=== PATIENT | male | born 1940 | race Caucasian/White ===

== ENCOUNTER 2016-05-11 05:34 | Inpatient (IN) | payer MEDICARE, OTHER ==
[~2016-05-11] VITALS: Ht 170.2 cm; Wt 113.1 kg
[~2016-05-11 05:34] MED LIST: /LINE60TA OR; /METO25TAB PO; /WARF25TA; /WARF3TA PO; /WARF5TA; /WARF5TA PO; ALLO15TA PO; ALLO300T; ALLO300T OR; AMBI5TAB PO; AMIO20TA PO; AMIT25TA10 PO; AMLO5TAB; AMLO5TAB OR; AMLO5TAB2 PO; ASPI81TA13 PO; ASPI81TA85 PO; ATOR1TAB18 PO; ATOR40TA PO; AUGM875T27 PO; BACL10TA2 PO; CAPT31TA PO; CARD240C5 PO; CARV12.5 PO; CHOLPOW39; CHOLPOW39 OR; CILO50TA PO; CORE25TA PO; COUM1TAB17 PO; COUM2.5T11 PO; COUM7.5T PO; CRES20TA; CYCL10TA PO; D 101TAB PO; DIGO0.126 PO; DIGO0.257; DIGO0.257 OR; DOXY150C PO; FISH100049 PO; FLEXERIL PO; FURO40TA2 PO; GABA300C3 PO; GABA600T3 OR; GLUC4CHW PO; GLUC4GMTAB PO; HYDR12.56 PO; INSUH10VL SC; INSULANT SC; INSULIN NPH; INSULIN REG SC; INSULIN REGULAR; INSUR SC; JANT7.5T; LASI40TA PO; LIDO1CRE2 EXT; LISI40TA; LISI40TAB PO; LISI5TAB PO; METO50TA2 PO; MULTLIQ7 PO; NICO21DI5 TD; NORC10TA2 PO; NORCOTAB PO; OMEP20CA3 PO; OXYC-517 PO; PANT40TA2 PO; POTA20TA PO; PRED10TA PO; PRED10TA2; PROV90AE INH; SENN8.6T7 PO; SOTA80TA2 PO; SPIR1CAP INH; SPIR25TA2 PO; TOPI25TA5 PO; TRAZ50TA OR; TRIC145T19; TRIC145T19 OR; VICO5TAB; VICO5TAB OR; VICODIN; VICODIN OR; VITATAB11 PO; WARF-23 PO; WARF2.5T38 PO; WARF5VL PO; ZITH500T PO; ZOLP-187 PO; ZOLP-189 PO; ZOLP5TAB PO; albuterol inhl INH
[2016-05-11 06:53] LABS: BASO % 0.3 % (0.0-1.0); EOS # 0.1 K/mm3 (0.0-0.50); EOS % 0.8 % (0.0-3.0); LARGE UNSTAINED CELL # 0.2 K/mm3 (0.0-0.4); LYMPH # 1.3 K/mm3 (1.5-4.5); LYMPH % 8.7 % (24.0-44.0); MEAN CORPUSCULAR HEMOGLOBIN 29.9 pg (27.0-33.0); MEAN CORPUSCULAR HGB CONC 32.7 g/dl (32.0-36.5); MEAN CORPUSCULAR VOLUME 91.6 fl (80.0-96.0); MONO # 0.6 K/mm3 (0.0-0.8); MONO % 3.9 % (0.0-5.0); NEUTROPHILS # 12.8 K/mm3 (1.8-7.7); NEUTROPHILS % 85.4 % (36.0-66.0); PLATELET COUNT, AUTOMATED 174 k/mm3 (150-450); RED CELL DISTRIBUTION WIDTH 13.1 % (11.5-14.5)
--- NOTE | 2016-05-11 07:00 | REPUSA ---
CLINICAL HISTORY: Unable to walk. TECHNIQUE: Multiple axial CT images were obtained through the brain without IV contrast material. COMMENTS: Left occipital chronic encephalomalacia. There is normal configuration of sella turcica. There are no intra or extra-axial collections. There is no mass effect or midline shift. There is no evidence of hematoma formation. No hydrocephalus is p resent. The ventricles are symmetrical. No abnormal calcifications are present. There is diffuse age-appropriate cerebellar and cerebral atrophy with proportionally dilated ventricl es and cortical sulci. There are bilateral periventricular and subcortical white matter hypolucencies compatible with mild c hronic microvascular disease. Otherwise, no significant focal abnormalities are seen either in the posterior fossa or supratentoria l compartment. IMPRESSION: 1. Age-appropriate cerebellar and cerebral atrophy. 2. Mild chronic microvascular disease. 3. No evidence of acute intracranial pathology. Thank you for your kind referral of this patient.
[2016-05-11 07:03] LABS: INR 1.55
[2016-05-11] MEDS ORDERED: NALOXONE INJ 0.4 MG/1 ML VIAL (J2310) IV STA ×2 (07:17→08:21)
[2016-05-11 07:18] LABS: ALBUMIN 3.6 GM/DL (3.2-5.2); ALBUMIN/GLOBULIN RATIO 1.03 (1.00-1.93); ALKALINE PHOSPHATASE 90 U/L (45-117); ALT/SGPT 32 U/L (12-78); ANION GAP 8 MEQ/L (8-16); AST/SGOT 47 U/L (15-37); BILIRUBIN,DIRECT < 0.1 MG/DL (0.0-0.2); BILIRUBIN,TOTAL 0.5 MG/DL (0.2-1.0); BLOOD UREA NITROGEN 43 MG/DL (7-18); CALCIUM LEVEL 8.6 MG/DL (8.8-10.2); CARBON DIOXIDE LEVEL 30 MEQ/L (21-32); CHLORIDE LEVEL 103 MEQ/L (98-107); CREATININE FOR GFR 1.56 MG/DL (0.70-1.30); GLOMERULAR FILTRATION RATE 46.4 (>42); GLUCOSE, FASTING 116 MG/DL (83-110); SODIUM LEVEL 141 MEQ/L (136-145); TOTAL PROTEIN 7.1 GM/DL (6.4-8.2)
[2016-05-11] MEDS ORDERED: NALOXONE INJ 2 MG/2 ML SYRINGE (J2310) As Ordered ONE ×2 (07:22→07:24)
[2016-05-11] MEDS ORDERED: NS 1,000 ML IV ONE (08:00)
--- NOTE | 2016-05-11 08:41 | REP ---
PORTABLE CHEST X-RAY: Single view. HISTORY: Altered mental status. Comparison study January 25, 2016. FINDINGS: EKG monitoring electrodes overlie the chest. A unipolar pacemaker is seen in the right heart via the left side. There is some motion artifact on the current exposure. No infiltrate is seen. Moderate to marked cardiomegaly is again noted. No evidence of pleural effusion or pulmonary edema is seen. IMPRESSION: CHF pattern with pacemaker. No pleural effusion or pulmonary edema is seen. No focal infiltrate. Signed by Olivier Franklin MD 05/11/2016 01:07 P
[2016-05-11 08:42] VITALS: BP 144/83
[2016-05-11] MEDS ORDERED: NORC10TA2 PO (08:44)
[2016-05-11] MEDS ORDERED: BACL10TA2 PO (08:44)
[2016-05-11] MEDS ORDERED: SANT250O8 TOP (08:44)
[2016-05-11] MEDS: METOPROLOL TART 50 MG TAB PO SCH ×2 (09:00→21:54)
[2016-05-11] MEDS: SOTALOL HCL 80 MG TAB PO SCH ×2 (09:00→21:55)
[2016-05-11] MEDS ORDERED: FUROSEMIDE 40 MG TAB PO SCH (09:00)
[2016-05-11 09:03] LABS: ABG HCO3 26.1 MEQ/L (22.0-26.0); ABG PARTIAL PRESSURE O2 69.5 mmHg (75.0-100.0); ABG STANDARD HCO3 25.3 MEQ/L (22.0-26.0); ABG TOTAL CO2 27.4 MEQ/L (23.0-31.0); ABG pH (ARTERIAL) 7.401 UNITS (7.350-7.450)
[2016-05-11] MEDS ORDERED: FUROSEMIDE 40 MG/4 ML VIAL (J1940) IV ONE (09:15)
[2016-05-11] MEDS ORDERED: ACETAMINOPHEN TAB 650MG DOSE (2X325MG) PO PRN (10:15)
[2016-05-11] MEDS ORDERED: ONDANSETRON 4MG/2ML VIAL (J2405) IV PRN (10:15)
[2016-05-11] MEDS ORDERED: DEXTROSE 50% 50 ML SYRINGE IV PRN (10:30)
[2016-05-11] MEDS ORDERED: GLUCOSE 4 GM CHEW TABLET PO PRN (10:30)
[2016-05-11] MEDS ORDERED: BACLOFEN 10 MG TAB PO PRN (10:30)
[2016-05-11] MEDS ORDERED: GLUCAGON FOR INJ 1 MG VIAL (J1610) SC PRN (10:30)
--- NOTE | 2016-05-11 10:53 | REP ---
Urinary tract sonogram: History: Acute kidney insufficiency. Comparison: July 04, 2015. Findings: Scanning at the level of the urinary bladder shows no abnormality. Renal cortical echogenicity pattern is normal bilaterally and contours are smooth. There is no evidence of hydronephrosis, cyst, mass, or calculus in either kidney. There is mild cortical thinning bilaterally. The right kidney measures 12.0 x 4.9 x 5.3 cm. Left renal dimensions are 11.8 x 5.7 x 5.0 cm. Impression: Mild cortical thinning bilaterally, otherwise normal urinary tract sonography. Signed by Olivier Franklin MD 05/11/2016 10:45 A
[2016-05-11 11:57] LABS: THYROXINE (T4) 4.3 UG/DL (4.5-12.0)
[2016-05-11] MEDS: HumaLOG INSULIN (NovoLOG) PER UNIT SC SCH ×3 (12:00→21:00)
[2016-05-11] MEDS: ASPIRIN 81 MG ENTERIC TAB PO SCH (13:25)
[2016-05-11] MEDS: AZITHROMYCIN INJ 500 MG, VIAL MATE ADAPTER 1 EACH in D5W 250 ML IV SCH (13:25)
[2016-05-11] MEDS: VITAMIN B COMPLEX/VIT C CAP PO SCH (13:27)
[2016-05-11] MEDS: PANTOPRAZOLE 40MG TAB (PROTONIX) PO SCH (13:27)
[2016-05-11] MEDS: VITAMIN D 1,000 INTERNATIONAL UNITS TABLET PO SCH (13:28)
[2016-05-11] MEDS: TIOTROPIUM INHALER/CAPSULE (SPIRIVA) INH SCH (13:29)
--- NOTE | 2016-05-11 13:47 | HPE ---
DATE OF ADMISSION: 05/11/2016 PRIMARY CARE PROVIDER: [facility]. CHIEF COMPLAINT: Generalized weakness, altered mental status and fall. HISTORY OF PRESENT ILLNESS: This is a 76-year-old male patient with underlying medical history of systolic congestive heart failure (CHF), ejection fraction 20-25% with automatic implantable cardioverter-defibrillator (AICD), atrial fibrillation on Coumadin for anticoagulation, insulin dependent diabetes, hypertension, chronic obstructive pulmonary disease (COPD), obstructive sleep apnea (BALJINDER), chronic lower back pain, bilateral lower extremity weakness, baseline ambulating sometimes with a walker, and obstructive sleep apnea (BALJINDER) on CPAP. The patient was brought to [facility] after found on the floor, patient pressing his Life Alert button. 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 Yesterday, the patient was on the porch and unable to get up, was on the floor. It took some time before he could get up and earlier last night the patient was found on the floor in the bedroom going towards the bathroom, when he pressed the Life Alert button, and subsequently EMS arrived. The patient was found to be lethargic in the emergency room. As per the patient he has been taking more and more pain medication recently due to lower back pain. In the emergency room, the patient was found to have acute worsening kidney function, to be lethargic with pinpoint pupils, given two doses of Narcan with improvement of mental status. ABG was done at the bedside. Further history not possible given the patient is a very poor historian and mildly lethargic. The patient denies any chest pain or shortness of breath. Denies any abdominal pain. Was found to be febrile in the ED with a T-max of 100.7. Healthcare proxy is the patient's daughter. ALLERGIES: No known drug allergies. PAST MEDICAL HISTORY: Atrial fibrillation. Insulin dependent type 2 diabetes. Hypertension. COPD. Obstructive sleep apnea (BALJINDER) on CPAP. Systolic congestive heart failure (CHF) with AICD, ejection fraction 20-25%. Skin cancer nasal labial fold. Diabetic foot. Gout. Diabetic neuropathy. PAST SURGICAL HISTORY: AICD placement September 2013. Appendectomy. Laminectomy and also other back surgery. Tonsillectomy. SOCIAL HISTORY: Lives at home with his ex- living next door. History of smoking three packs daily for 50 years. Denies any alcohol use. Denies any recreational drug use. He quit smoking a couple of years ago. REVIEW OF SYSTEMS: Was febrile in the ED. Reported generalized weakness, difficulty ambulating, frequent falls. Denies any vision change, hearing change. Denies any shortness of breath or coughing. Denies any chest pain, has atrial fibrillation. Denies any abdominal pain. Denies any diarrhea or constipation. Denies any urinary complaints. Reported poor oral intake. Has chronic back pain. Reported lower extremity weakness that his chronic. Diabetic neuropathy. Denies suicidality. Denies any abnormal bleeding or bruising, but is taking Coumadin. HOME MEDICATIONS: - [place] 10/325 by mouth as needed five times a day - allopurinol 150 mg by mouth daily - aspirin 81 mg by mouth daily - Lipitor 40 mg by mouth at bedtime - vitamin B complex one tablet by mouth daily - baclofen 10 mg by mouth three times a day as needed - vitamin D 4000 units by mouth daily - collagenase topical daily as needed - senna S two tablets by mouth twice a day - fish oil one capsule by mouth twice a day - Lasix 40 mg by mouth daily - gabapentin 300 mg by mouth three times a day and 600 mg by mouth at bedtime - insulin NovoLog AC - Lantus 87 units subcu at bedtime - lisinopril 40 mg by mouth daily - metoprolol 75 mg by mouth twice a day - sotalol 80 mg by mouth twice a day - Spiriva inhalation daily - topiramate 12.5 mg by mouth at bedtime - Coumadin 5 mg by mouth at bedtime PHYSICAL EXAMINATION: Patient mildly lethargic, arousable. Alert and oriented times three. VITAL SIGNS: Temperature 100.7, pulse 112, respirations 20, blood pressure 144/83, pulse oximetry 97% on 2 liters nasal cannula. GENERAL: Patient lethargic, alert and oriented times three. HEENT: Normocephalic. Pupils constricted bilaterally, but bilaterally reactive to light. Normocephalic, atraumatic. PULMONARY: Bilaterally clear to auscultation. CARDIAC: Irregular, tachycardia. ABDOMEN: Obese, soft, nontender. EXTREMITIES: No edema bilaterally lower extremities. NEUROLOGIC: Cranial nerves II through XII grossly intact. Able to move bilateral upper and lower extremities, with bilateral lower extremities only slightly weaker. Follows commands. EKG atrial fibrillation with ventricular rate of 116. Nonspecific ST segment changes. LABORATORIES: WBC 15, hemoglobin and hematocrit 15.4/47.5, platelets 174. Chemistries: Sodium 141, potassium 5, chloride 103, bicarb 30, BUN 43, creatinine 1.56. Cardiac enzymes Troponin negative times two. C-reactive protein 5.64. X-ray of the chest shows a CHF patter with AICD. No pleural effusions or pulmonary edema. No focal infiltrates. ASSESSMENT/PLAN: This is a 76-year-old male patient with a past medical history of systolic congestive heart failure, ejection fraction 20-25%, atrial fibrillation on anticoagulation, insulin dependent type 2 diabetes, hypertension, chronic obstructive pulmonary disease (COPD), obstructive sleep apnea (BALJINDER), on home CPAP, and gout, admitted for acute kidney injury, gout, sepsis and encephalopathy. PROBLEMS: 1. Metabolic encephalopathy, possibly secondary to opioid intoxication versus underlying infection. Patient given Narcan in the emergency room with improvement. ABG is appreciated. Avoid opiates for now. Medications have been adjusted. Gabapentin has been decreased. Monitor the patient's mental status. Treated underlying infection. CT scan of the head appreciated. 2. Sepsis. Patient with leukocytosis and fever. Possible etiology includes pneumonia versus UTI. Will followup urine studies. X-rays appreciated. C-reactive protein elevated. Will continue to follow. 3. Acute kidney injury. Baseline creatinine of 1.1, currently with elevated creatinine. Given fluids and Lasix in the emergency room, holding REGAN inhibitor. Lasix has been given in the ED. Will assess kidney function tomorrow and put the patient on baseline diuretics, Lasix, tomorrow based on the patient's kidney function. Ultra renal appreciated. Followup UA. Holding REGAN. Avoid nephrotoxic agents. Will consider nephrology consultation if the patient's condition does not improve. 4. Sepsis. Likely secondary to community acquired bacterial pneumonia. Rocephin and azithromycin. Followup blood cultures and sputum cultures, respiratory panel. UA and urine cultures. Will continue to follow. 5. Atrial fibrillation rapid ventricular response (RVR). EKG is appreciated. Telemetry monitoring. Followup cardiac enzymes. Continue Coumadin. Followup INR. Continue sotalol and metoprolol. Address as needed. Will not to tightly control the patient's heart rate, given the patient likely has an active infection. 6. History of ventricular tachycardic. Continue sotalol. The patient has seen Dr. Carrera before and will consider cardiology consultation if the patient's condition worsens. In the meantime, continue to follow. 7. Systolic congestive heart failure (CHF). Patient currently compensated. X-rays appreciated. Will continue to follow, oxygen saturation. Followup echo. Cardiac enzymes. Continue aspirin, statin and beta-ángel, sotalol, continue Lasix, holding REGAN inhibitor given worsening kidney function. 8. Hypertension. Monitor blood pressure holding REGAN inhibitor. Continue beta-blockers. Will continue to monitor and continue Lasix. 9. Gout. Holding allopurinol given worsening kidney function. Will restart as needed. 10. Dyslipidemia. Continue statin. 11. Insulin dependent diabetes. Basal bolus insulin. Followup fingerstick and adjust as needed. 12. Diabetic neuropathy. Continue gabapentin. Dosage has been adjusted given the patient is mildly lethargic. Holding opiates. 13. Obstructive sleep apnea (BALJINDER). Home CPAP. 14. Bilateral lower extremity weakness that is chronic. Physical therapy. I will continue to follow. Avoid pain medication for now. 15. Deep vein thrombosis (DVT) prophylaxis. Heparin subcu until INR is therapeutic. Continue Coumadin. DISPOSITION: Pending speech and swallowing, physical therapy, clinical improvement.
[2016-05-11 14:30] VITALS: BP 104/52; O2SAT 97
[2016-05-11] MEDS: HEPARIN SOD (PORCINE) 5000 UNITS/ML VIAL SC SCH ×2 (14:57→21:55)
[2016-05-11] MEDS: cefTRIAXone SOD 1 GM in D5W MINI-BAG PLUS 50 ML IV SCH (14:57)
[2016-05-11] MEDS: GABAPENTIN 300 MG CAP PO SCH ×2 (15:22→21:55)
[2016-05-11 17:13] VITALS: BP 107/60
[2016-05-11] MEDS: WARFARIN SOD 5 MG TAB PO SCH (17:43)
[2016-05-11] MEDS: SANTYL OINT 30GM TOP SCH (18:28)
[2016-05-11 20:00] VITALS: O2SAT 94
[2016-05-11 20:03] VITALS: BP 132/64
[2016-05-11] MEDS ORDERED: LEVEMIR (INSULIN DETEMIR) 1 UNITS/0.01ML SC SCH (21:00)
[2016-05-11] MEDS: TOPIRAMATE (TopAMAX) 25 MG TAB PO SCH (21:53)
[2016-05-11] MEDS: SENOKOT S TAB PO SCH (21:55)
[2016-05-11] MEDS: ATORVASTATIN 20 MG TAB PO SCH (21:55)
[2016-05-11] MEDS ORDERED: SLF 3 ML SYR IV PRN (23:15)
[2016-05-11 23:55] VITALS: BP 133/60
[2016-05-12] VITALS (8 sets, daily range): BP systolic 109–150; BP diastolic 54–78; O2SAT 96
[2016-05-12] MEDS: SLF 3 ML SYR IV SCH ×3 (05:03→22:03)
[2016-05-12] MEDS: HEPARIN SOD (PORCINE) 5000 UNITS/ML VIAL SC SCH ×3 (05:03→22:03)
[2016-05-12 07:06] LABS: ANION GAP 6 MEQ/L (8-16); BLOOD UREA NITROGEN 32 MG/DL (7-18); CALCIUM LEVEL 8.8 MG/DL (8.8-10.2); CARBON DIOXIDE LEVEL 32 MEQ/L (21-32); CHLORIDE LEVEL 106 MEQ/L (98-107); CREATININE FOR GFR 1.15 MG/DL (0.70-1.30); GLOMERULAR FILTRATION RATE > 60.0 (>42); GLUCOSE, FASTING 52 MG/DL (83-110); MAGNESIUM LEVEL 2.3 MG/DL (1.8-2.4); MEAN CORPUSCULAR HEMOGLOBIN 29.4 pg (27.0-33.0); MEAN CORPUSCULAR VOLUME 91.9 fl (80.0-96.0); POTASSIUM SERUM 4.4 MEQ/L (3.5-5.1); RED CELL DISTRIBUTION WIDTH 13.2 % (11.5-14.5); SODIUM LEVEL 144 MEQ/L (136-145); WHITE BLOOD COUNT 11.5 K/mm3 (4.0-10.0)
[2016-05-12 07:08] LABS: INR 1.42
[2016-05-12] MEDS: TIOTROPIUM INHALER/CAPSULE (SPIRIVA) INH SCH (07:28)
[2016-05-12] MEDS: HumaLOG INSULIN (NovoLOG) PER UNIT SC SCH ×4 (07:30→20:41)
--- NOTE | 2016-05-12 08:12 | ECGEPIP ---
Stationary ECG Study [facility] - ED Test Date: 2016-05-11 Pat Name: ZACH HARRISON Department: Room: - Gender: M Manager User Interface: [place]: [id number] Requested By: MAC Jean Order Number: [id number] Reading MD: Adama Johns Measurements Intervals [place] Rate: 116 P: VT: 0 QRS: 26 QRSD: 92 T: 6 QT: 334 QTc: 465 Interpretive Statements ATRIAL FIBRILLATION WITH RAPID VENTRICULAR RESPONSE LOW QRS VOLTAGE IN EXTREMITY LEADS POSSIBLE LATERAL MYOCARDIAL INFARCTION, PROBABLY OLD ABNORMAL RHYTHM ECG Electronically Signed On 05-12-2016 8:12:00 EDT by Adama Johns
[2016-05-12] MEDS: GABAPENTIN 300 MG CAP PO SCH ×3 (08:20→22:02)
[2016-05-12] MEDS: METOPROLOL TART 50 MG TAB PO SCH ×2 (08:20→22:02)
[2016-05-12] MEDS: PANTOPRAZOLE 40MG TAB (PROTONIX) PO SCH (08:20)
[2016-05-12] MEDS: VITAMIN B COMPLEX/VIT C CAP PO SCH (08:20)
[2016-05-12] MEDS: SENOKOT S TAB PO SCH ×2 (08:20→22:02)
[2016-05-12] MEDS: ASPIRIN 81 MG ENTERIC TAB PO SCH (08:20)
[2016-05-12] MEDS: VITAMIN D 1,000 INTERNATIONAL UNITS TABLET PO SCH (08:20)
[2016-05-12] MEDS: SOTALOL HCL 80 MG TAB PO SCH ×2 (08:21→22:01)
[2016-05-12] MEDS: SANTYL OINT 30GM TOP SCH (08:21)
[2016-05-12] MEDS: LISINOPRIL 10 MG TAB PO SCH (09:46)
[2016-05-12] MEDS: AZITHROMYCIN INJ 500 MG, VIAL MATE ADAPTER 1 EACH in D5W 250 ML IV SCH (11:13)
[2016-05-12] MEDS: cefTRIAXone SOD 1 GM in D5W MINI-BAG PLUS 50 ML IV SCH (12:59)
[2016-05-12] MEDS ORDERED: NORCO, ANEXSIA 5/325MG TABLET (HYDROcodone/ACETAMINOPHEN) PO PRN (13:30)
--- NOTE | 2016-05-12 14:55 | REP ---
CT CHEST WITHOUT CONTRAST: 05/12/2016 COMPARISON: 10/17/2013, portable chest 05/11/2016. CLINICAL HISTORY: Dyspnea, possible pneumonia. TECHNIQUE: Noncontrast chest CT with coronal and sagittal reformats reviewed. FINDINGS: There is some basilar fibrotic or atelectatic change right lower lobe with the right middle lobe reinflated compared to the previous study. A few scattered tiny nodular densities in the parenchyma and some curvilinear fibrotic changes. There are a few scattered bullae. Some mild cylindrical bronchiectatic changes are noted. No pleural effusion, pleural-based mass, or calcified pleural plaque. No nodules, parenchymal mass, or definite acute infiltrate. No pneumothorax. Heart size not grossly enlarged. There is no pericardial thickening or effusion, but the left atrium is mildly enlarged. The aorta has calcifications throughout, but without gross aneurysm. There is a single-lead pacemaker with lead tip into the right ventricle. The bone windows show visualized ribs intact. The spine shows degenerative disc changes throughout with marginal osteophytes, greatest in the mid thoracic region. There is minor wedging at the T11 and T12 vertebral bodies, stable. No paraspinal hematoma. In the upper abdomen, that visualized portion of the liver and spleen are grossly intact. The portion of gallbladder and pancreas included are unremarkable. There is aneurysmal dilatation of the abdominal aorta infrarenal up to 4.1 cm on the last image seen incompletely. No hiatal hernia. No adrenal lesion. Visualized portions of colon and small bowel are unremarkable. IMPRESSION: 1. Infrarenal abdominal aortic aneurysm beginning just above the lower most image on this study and up to 4.1 cm, seen incompletely. 2. Liver, spleen, and gallbladder without acute finding. 3. No hiatal hernia. The adrenal glands are intact. 4. Some cylindrical bronchiectatic changes and some patchy atelectatic changes deep sulcus and right lower lobe without effusion, infiltrate with air bronchograms, parenchymal mass, or other acute finding. Signed by Edgardo Gentile MD 05/12/2016 06:42 P
[2016-05-12] MEDS: WARFARIN SOD 5 MG TAB PO SCH (16:58)
--- NOTE | 2016-05-12 17:42 | ECHO ---
DATE OF PROCEDURE: 05/11/2016 AGE: 76 GENDER: Male HEIGHT: 67 inches WEIGHT: 200 pounds BODY SURFACE AREA: 2.03 m2 PATIENT LOCATION: Inpatient, PCU, room 2237 REFERRING PHYSICIAN: Tabby Marie MD INDICATION: Dyspnea. 2-D MEASUREMENTS: RV: 4.2 cm LV: 6.0 cm Septum: 1.4 cm Posterior wall: 1.2 cm Aortic root: 3.6 cm LA: 4.5 cm LVEF: 45% DOPPLER MEASUREMENTS: AV: 1.1 m/s LVOT: 0.9 m/s LVOT diameter: 2.4 cm MV-E: 81 Early mitral deceleration time: 197 ms E prime 6.8, E/E prime ratio: 11.9 PV: 0.7 m/s Pulmonary artery acceleration time: 106 ms RVSP: 45 mmHg. IVC: 2.6 cm COMMENTS: Underlying atrial fibrillation with controlled ventricular response. Narrow QRS complexes alternating with ventricular paced complexes having of left bundle branch block QRS configuration. Moderately dilated left atrium and at least mildly dilated left ventricle. Mildly dilated right ventricle and mild to moderately dilated right atrium. Moderate left ventricular hypertrophy with some thinning of the inferoseptal wall associated with a localized wall motion abnormality in keeping with prior injury/infarction. On real-time imaging from the parasternal and apical projections, other wall motion appeared to be fairly normal. Mild mitral annular thickening, but normal leaflet thickness and excursion with no posterior systolic buckling. Three equal size aortic cusps with mildly thickened cusp edges, but adequate cusp separation. Normal aortic root size. Pacing lead to be visualized traversing right heart structures. No pericardial effusion. Color flow Doppler study taken from the parasternal and apical projection showed trace aortic, moderate mitral and at least mild tricuspid insufficiency. Guided continuous wave Doppler of his aortic valve showed a normal peak systolic velocity against LV outflow tract obstruction. Pulsed and continuous wave Doppler of his LV inflow tract taken from the apical four-chamber projection showed normal diastolic filling velocities against mitral stenosis. There was only early diastolic / passive filling as we would expect with atrial fibrillation. There may have been a degree of impaired LV diastolic relaxation in light of a prolonged early early mitral deacceleration time. Using pulsed and tissue Doppler of his mitral annulus his current estimated mean left atrial pressure was upper limits of slightly elevated at approximately 12-14 mmHg. Pulsed and continuous wave Doppler of his pulmonary trunk showed a normal peak systolic velocity against RV outflow tract obstruction. His pulmonary artery acceleration time was abbreviated suggestive of at least a mildly elevated pulmonary vascular resistance. Guided continuous wave Doppler of his tricuspid valve allowed our estimation of his right ventricular systolic pressure (at least moderately increased). His inferior vena cava was mild to moderately dilated with markedly reduced respiratory collapse in keeping with an elevated central venous pressure. CONCLUSIONS: Mildly dilated and moderately hypertrophied left ventricle with inferoseptal/inferior hypo to akinesis in keeping with prior infarction. At least mild impairment of global resting systolic function. Mild - moderately dilated left atrium with Doppler sign to suggest an impairment of LV diastolic function and current estimated mean left atrial pressure only slightly increased. Mildly dilated right ventricle with Doppler evidence of at least moderate pulmonary hypertension. Mildly dilated right atrium and mild to moderately dilated inferior vena cava with reduced respiratory collapse suggestive of an elevated central venous pressure / right heart failure. Mild aortic valvular sclerosis without stenosis and only trace insufficiency. Mild mitral annular calcification with moderate mitral insufficiency. MTDD
--- NOTE | 2016-05-12 19:34 | IPN ---
DATE: 05/12/2016 SUBJECTIVE: Patient seen and examined. No acute events overnight. Patient was more awake this morning and subsequently a better history was able to be taken. Patient reported some wheeze and coughing over the past 2-3 days, otherwise no significant complaints. No fevers or chills. Denies any chest pain, pressure or discomfort. VITAL SIGNS: Temperature 98.2, pulse 76, respirations 18, blood pressure 110/68, pulse oximetry 97% on 2 liters. LABORATORY: WBC 11.5, hemoglobin and hematocrit 14.1/44, platelets 147. Chemistry: Sodium 144, potassium 4.4, chloride 106, bicarbonate 32, BUN 32, creatinine 1.15, C-reactive protein 13.1, lactic acid negative. PHYSICAL EXAMINATION: GENERAL: The patient alert and oriented times three in no acute distress, comfortable. HEENT: Normocephalic, atraumatic. Pupils are equal, round and reactive. PULMONARY: Diminished breath sound bilateral. CARDIAC: Irregular, non-tachycardia, S1, S2. ABDOMEN: Obese, soft, nontender. EXTREMITIES: No edema bilateral lower extremities. NEUROLOGICAL: Cranial nerves II-XII are grossly intact. No focal deficits. ASSESSMENT AND PLAN: This is a 76-year-old male patient with underlying medical history of systolic congestive heart failure, ejection fraction initially previously was 20-25, currently is 45, atrial fibrillation on anticoagulation, insulin dependent type 2 diabetes, hypertension, chronic obstructive pulmonary disease (COPD), obstructive sleep apnea on continuous positive airway pressure (C-PAP) at home, gout admitted for acute kidney injury (TRENT), sepsis of unknown etiology, encephalopathy. PROBLEMS: 1. Metabolic encephalopathy presently likely secondary to opioid intoxication in the setting of worsening kidney function versus underlying infection. Patient currently returned to baseline. Was given Narcan in the emergency room. ABGs appreciated. Gabapentin has been decreased. CT scan of the head appreciated. Can not perform MRI given patient has an AICD. 2. Sepsis of unknown etiology. Patient with leukocytosis and fevers. CT scan and chest x-ray shows no significant pulmonary disease even though the patient does report shortness of breath and cough. Urinalysis (UA) has been negative. Will followup C-reactive proteins. Patient currently on Rocephin and Zithromax for treatment of possible infection and patient's leukocytosis seems to be improving. Will continue to follow given patient's mental status improved. Will continue to follow and will consider Infectious Disease consultation if patient does not improve. 3. Acute kidney injury. Patient's baseline creatinine 1.1, currently elevated. Was given fluid and Lasix in the emergency room. Currently BUN and creatinine improved. REGAN inhibitor has been restarted. Initially lisinopril has been on hold. Monitor BUN and creatinine. Monitor urine output. 4. Atrial fibrillation with rapid ventricular response. Telemetry, cardiac enzyme appreciated. Continue Coumadin. Continue sotalol metoprolol. 5. History of ventricular tachycardia. Continue sotalol. Patient has an AICD. Telemetry monitoring. 6. Systolic and diastolic congestive heart failure. Echo is appreciated. Current ejection fraction of 45%. Continue aspirin and beta blockers, sotalol, REGAN inhibitors and Lasix. 7. Hypertension. Continue REGAN inhibitors, Lasix, and beta blockers. Continue to monitor blood pressure. 8. Gout. Was holding allopurinol in the setting of TRENT. Will consider restarting as needed. 9. Dyslipidemia. Continue statin. 10. Insulin dependent diabetes. Basal bolus insulin. Followup fingersticks. 11. Diabetic neuropathy. Continue gabapentin with restarting opioids at a reduced dose. Mental status at baseline. 12. Obstructive sleep apnea. Continue C-PAP. 13. Bilateral lower extremity weakness that is chronic and chronic back pain. Physical therapy and pain medication was ordered. 14. Deep venous thrombosis (DVT) prophylaxis. Heparin subcu. Continue Coumadin until INR is therapeutic. DISPOSITION: Pending physical therapy clinical improvement. Further workup of underlying infection.
[2016-05-12] MEDS ORDERED: LEVEMIR (INSULIN DETEMIR) 1 UNITS/0.01ML SC SCH (21:00)
[2016-05-12] MEDS: TOPIRAMATE (TopAMAX) 25 MG TAB PO SCH (22:01)
[2016-05-12] MEDS: ATORVASTATIN 20 MG TAB PO SCH (22:02)
[2016-05-13 04:00] VITALS: BP 138/67
[2016-05-13] MEDS: HEPARIN SOD (PORCINE) 5000 UNITS/ML VIAL SC SCH ×3 (05:22→20:38)
[2016-05-13] MEDS: SLF 3 ML SYR IV SCH ×3 (05:22→20:38)
[2016-05-13 06:16] LABS: MEAN CORPUSCULAR HGB CONC 32.3 g/dl (32.0-36.5); MEAN CORPUSCULAR VOLUME 89.8 fl (80.0-96.0); RED CELL DISTRIBUTION WIDTH 13.2 % (11.5-14.5); WHITE BLOOD COUNT 8.3 K/mm3 (4.0-10.0)
[2016-05-13 06:20] LABS: INR 1.32
[2016-05-13 06:28] LABS: ANION GAP 7 MEQ/L (8-16); BLOOD UREA NITROGEN 26 MG/DL (7-18); CALCIUM LEVEL 8.8 MG/DL (8.8-10.2); CARBON DIOXIDE LEVEL 28 MEQ/L (21-32); CHLORIDE LEVEL 107 MEQ/L (98-107); CREATININE FOR GFR 1.06 MG/DL (0.70-1.30); GLOMERULAR FILTRATION RATE > 60.0 (>42); GLUCOSE, FASTING 152 MG/DL (83-110); MAGNESIUM LEVEL 2.3 MG/DL (1.8-2.4); POTASSIUM SERUM 4.4 MEQ/L (3.5-5.1); SODIUM LEVEL 142 MEQ/L (136-145)
[2016-05-13] MEDS: TIOTROPIUM INHALER/CAPSULE (SPIRIVA) INH SCH (07:22)
[2016-05-13 08:00] VITALS: BP 157/90
[2016-05-13] MEDS: HumaLOG INSULIN (NovoLOG) PER UNIT SC SCH ×4 (08:08→20:26)
[2016-05-13] MEDS ORDERED: ALLOPURINOL 300 MG TAB PO SCH (09:00)
[2016-05-13] MEDS ORDERED: TEMAZEPAM 15 MG CAP PO PRN (09:00)
--- NOTE | 2016-05-13 11:09 | IPN ---
DATE: OF VISIT: 05/13/2016 The patient is seen and examined. Reported back to baseline and having poor night of sleep. Slept about four hours. Denies any fevers, chills, chest pain, pressure or discomfort. Reported coughing has improved. Has been working with physical therapy. VITAL SIGNS: Temperature 97.5, pulse 86, respirations 18, blood pressure 157/90, pulse oximetry 95% on room air. LABORATORY DATA: WBC 8.3, hemoglobin 14.2, hematocrit 45.1, platelets 157. Chemistries: Sodium 142, potassium 4.2, chloride 107, bicarbonate 28, BUN 26, creatinine 1.06. PHYSICAL EXAMINATION: GENERAL: Patient is awake, alert and oriented times three in no acute distress. Comfortable. HEENT: Normocephalic atraumatic. Pupils equal, round, reactive to light and accommodation. PULMONARY: Diminished breath sounds bilateral base. CARDIAC: Irregular, non-tachycardia, S1, S2. ABDOMEN: Obese, soft, nontender, positive bowel sounds. EXTREMITIES: No edema bilateral lower extremities. NEUROLOGICAL: No focal deficits. ASSESSMENT AND PLAN: 1. On repeat echocardiograms, atrial fibrillation on anticoagulation. 2. Insulin dependent type 2 diabetes. 3. Hypertension. 4. Chronic pulmonary obstructive disease (COPD). 5. Obstructive sleep apnea on CPAP at home. 6. Gout, admitted for acute kidney injury (TRENT). 7. Sepsis of unknown origin. 8. Encephalopathy. PROBLEMS: 1. Metabolic encephalopathy likely secondary to opioid intoxication in the setting of worsening kidney function versus underlying infection. Patient currently returned to baseline. Was given Narcan in the emergency department with good response. ABGs appreciated. Gabapentin has been decreased. CT scan of the head appreciated. Can not perform MRI due to automatic implantable cardio converter-defibrillator (AICD). 2. Sepsis of unknown etiology. Patient initially with leukocytosis and fevers. CT scan and chest x-ray shows no significant pulmonary disease. Urinalysis (UA) has been negative. The patient did report a cough and no shortness of breath which has resolved. Will followup C-reactive proteins. Patient empirically on Rocephin and Azithromycin with improvement of symptoms. Mental status returned to baseline. 3. Acute kidney injury. Patient's baseline creatinine 1.1 currently returned to baseline. REGAN inhibitor has been restarted. Follow BUN and creatinine. 4. Atrial fibrillation with rapid ventricular response. Subtherapeutic INR. Telemetry monitoring, cardiac enzyme appreciated. Continue Coumadin, sotalol metformin, Coumadin adjusted based on INR. 5. History of ventricular tachycardia. Continue sotalol. The patient has an AICD, telemetry monitoring. 6. Systolic and diastolic congestive heart failure, compensated. Echocardiogram appreciated. Currently ejection fraction 45%. Aspirin, beta ángel, REGAN inhibitors, sotalol and Lasix. 7. Hypertension. Continue with REGAN inhibitors, Lasix and beta blockers. Monitor blood pressure. 8. Gout. Allopurinol has been restarted. Will continue to monitor. 9. Dyslipidemia. Continue statin. 10. Insulin-dependent type 2 diabetes. Basal bolus insulin has been adjusted due to borderline blood glucose. Followup fingersticks. 11. Diabetic neuropathy. Gabapentin dose has been reduced. Mental status at baseline. 12. Chronic pain. The patient has been on [place], reduced dose. Will monitor closely. 13. Obstructive sleep apnea. Continue C-PAP. 14. Bilateral lower extremity weakness that is chronic and chronic back pain. Frequent falls. Physical therapy appreciated. The patient has physical therapy. Pain medication was ordered. 15. Deep venous thrombosis (DVT) prophylaxis. Heparin subcutaneous. Continue Coumadin until INR is therapeutic. DISPOSITION: The patient has physical therapy. Pending clinical improvement likely discharged in 24 hours.
[2016-05-13 12:00] VITALS: BP 161/94
[2016-05-13] MEDS: VITAMIN D 1,000 INTERNATIONAL UNITS TABLET PO SCH (12:14)
[2016-05-13] MEDS: METOPROLOL TART 50 MG TAB PO SCH ×2 (12:18→20:37)
[2016-05-13] MEDS: GABAPENTIN 300 MG CAP PO SCH ×3 (12:19→20:37)
[2016-05-13] MEDS: SENOKOT S TAB PO SCH ×2 (12:19→20:36)
[2016-05-13] MEDS: ASPIRIN 81 MG ENTERIC TAB PO SCH (12:19)
[2016-05-13] MEDS: LISINOPRIL 10 MG TAB PO SCH (12:19)
[2016-05-13] MEDS: SANTYL OINT 30GM TOP SCH (12:20)
[2016-05-13] MEDS: PANTOPRAZOLE 40MG TAB (PROTONIX) PO SCH (12:20)
[2016-05-13] MEDS: VITAMIN B COMPLEX/VIT C CAP PO SCH (12:28)
[2016-05-13] MEDS: SOTALOL HCL 80 MG TAB PO SCH ×2 (12:28→20:35)
[2016-05-13] MEDS: AZITHROMYCIN INJ 500 MG, VIAL MATE ADAPTER 1 EACH in D5W 250 ML IV SCH (12:29)
[2016-05-13] MEDS: cefTRIAXone SOD 1 GM in D5W MINI-BAG PLUS 50 ML IV SCH (15:10)
[2016-05-13] MEDS ORDERED: WARFARIN SOD 3 MG TAB PO SCH (17:00)
[2016-05-13 17:30] VITALS: BP 148/52
[2016-05-13 20:00] VITALS: BP 130/60
[2016-05-13] MEDS: ATORVASTATIN 20 MG TAB PO SCH (20:36)
[2016-05-13] MEDS: TOPIRAMATE (TopAMAX) 25 MG TAB PO SCH (20:36)
[2016-05-13] MEDS ORDERED: LEVEMIR (INSULIN DETEMIR) 1 UNITS/0.01ML SC SCH (21:00)
[2016-05-13 23:53] VITALS: BP 153/80
[2016-05-14 04:00] VITALS: BP 122/79
[2016-05-14] MEDS: SLF 3 ML SYR IV SCH (05:13)
[2016-05-14] MEDS: HEPARIN SOD (PORCINE) 5000 UNITS/ML VIAL SC SCH (05:13)
[2016-05-14 05:18] LABS: MEAN CORPUSCULAR HGB CONC 32.8 g/dl (32.0-36.5); MEAN CORPUSCULAR VOLUME 91.4 fl (80.0-96.0); RED CELL DISTRIBUTION WIDTH 13.2 % (11.5-14.5); WHITE BLOOD COUNT 7.4 K/mm3 (4.0-10.0)
[2016-05-14 05:26] LABS: INR 1.24
[2016-05-14 05:39] LABS: ANION GAP 8 MEQ/L (8-16); BLOOD UREA NITROGEN 23 MG/DL (7-18); CALCIUM LEVEL 9.2 MG/DL (8.8-10.2); CARBON DIOXIDE LEVEL 28 MEQ/L (21-32); CHLORIDE LEVEL 110 MEQ/L (98-107); CREATININE FOR GFR 1.13 MG/DL (0.70-1.30); GLOMERULAR FILTRATION RATE > 60.0 (>42); GLUCOSE, FASTING 156 MG/DL (83-110); MAGNESIUM LEVEL 2.2 MG/DL (1.8-2.4); SODIUM LEVEL 146 MEQ/L (136-145)
[2016-05-14 05:42] LABS: POTASSIUM SERUM 5.2 MEQ/L (3.5-5.1)
[2016-05-14 07:00] VITALS: O2SAT 96
[2016-05-14] MEDS: TIOTROPIUM INHALER/CAPSULE (SPIRIVA) INH SCH (07:23)
[2016-05-14 08:00] VITALS: BP 159/89
[2016-05-14] MEDS: HumaLOG INSULIN (NovoLOG) PER UNIT SC SCH (08:00)
[2016-05-14] MEDS: VITAMIN D 1,000 INTERNATIONAL UNITS TABLET PO SCH (08:00)
[2016-05-14] MEDS: GABAPENTIN 300 MG CAP PO SCH (08:01)
[2016-05-14] MEDS: SANTYL OINT 30GM TOP SCH (08:01)
[2016-05-14] MEDS: VITAMIN B COMPLEX/VIT C CAP PO SCH (08:01)
[2016-05-14] MEDS: SENOKOT S TAB PO SCH (08:01)
[2016-05-14] MEDS: ASPIRIN 81 MG ENTERIC TAB PO SCH (08:01)
[2016-05-14] MEDS: PANTOPRAZOLE 40MG TAB (PROTONIX) PO SCH (08:01)
[2016-05-14 08:03] VITALS: BP 159/59
[2016-05-14] MEDS: METOPROLOL TART 50 MG TAB PO SCH (08:03)
[2016-05-14] MEDS: SOTALOL HCL 80 MG TAB PO SCH (08:03)
[2016-05-14] MEDS ORDERED: AZITHROMYCIN 250 MG TAB PO SCH (09:00)
[2016-05-14] MEDS ORDERED: LISINOPRIL 5 MG TAB PO SCH (09:00)
[2016-05-14] MEDS ORDERED: WARF-23 PO (09:15)
[2016-05-14] MEDS ORDERED: NORCOTAB PO (09:15)
[2016-05-14] MEDS ORDERED: INSULANT SC (09:15)
[2016-05-14] MEDS ORDERED: LISI-542 PO (09:15)
[2016-05-14] MEDS ORDERED: CEFD1CAP8 PO (09:15)
[2016-05-14] MEDS ORDERED: LASI20TA PO (09:16)
[2016-05-14] MEDS ORDERED: WARFARIN SOD 5 MG TAB PO SCH (17:00)
[2016-05-14] MEDS ORDERED: WARFARIN SOD 3 MG TAB PO SCH (17:00)
[2016-05-14] MEDS ORDERED: WARFARIN SOD 2 MG TAB PO SCH (17:00)
--- NOTE | 2016-05-15 21:25 | DSES ---
DATE OF ADMISSION: 05/11/2016 DATE OF DISCHARGE: 05/14/2016 PRIMARY CARE PROVIDER: [facility] ([place]. FINAL DIAGNOSES: 1. Metabolic encephalopathy. 2. Sepsis of unknown etiology. 3. Acute kidney injury (TRENT). 4. Atrial fibrillation with rapid ventricular response. Subtherapeutic international normalized ratio (INR). 5. History of ventricular tachycardia. 6. Systolic and diastolic congestive heart failure history. 7. Hypertension. 8. Gout. 9. Dyslipidemia. 10. Insulin-dependent type 2 diabetes. 11. Diabetic neuropathy. 12. Chronic pain. 13. Obstructive sleep apnea. 14. Bilateral lower extremity weakness. HISTORY OF PRESENT ILLNESS: This is a 76-year-old male patient with underlying medical history of congestive heart failure with ejection fraction 20-25%, with automatic implantable cardioverter defibrillator (AICD), atrial fibrillation on Coumadin for anticoagulation, insulin dependent diabetes, hypertension, chronic obstructive pulmonary disease (COPD), obstructive sleep apnea on continuous positive airway pressure (CPAP) at home, chronic low back pain, bilateral lower extremity weakness, baseline ambulating sometime with walker, brought to [facility], found to be on the floor, pressed the Life Alert button. As per patient's ex and django developer, the patient was getting progressively weaker, was difficult to ambulate at home. Likely has been taking more pain medication. Yesterday patient was found unfortunately unable to get up, was on the floor and it took some time before the patient was able to get up. The night before admission, the patient was found on the floor between the bedroom and the bathroom and pressed the Life Alert button. Emergency medical services (EMS) arrived. The patient was found to be lethargic in the emergency room with pinpoint pupils. Given Narcan with improvement. The patient also was found to have acutely worsening kidney function, increased lethargy, pinpoint pupils. Arterial blood gas (ABG) was done at the bedside. Further history is limited given patient's lethargy. The patient was also found to be febrile. HOSPITAL COURSE: The patient was admitted to the hospitalist service. Narcan was given in the emergency department (ED). Monitored. Intravenous (IV) fluid initially had been given but later has been stopped. Started on antibiotics. Cultures were sent. CT scan of the chest, renal ultrasound were done. Kidney function was monitored. Head CT was done. Chest x-ray was done. No source of infection was found. Culture has been negative. C-reactive protein shows improvement. Physical therapy has been done. Patient's mental status progressively improved, returned to baseline. Pain medication has been cut, as well as gabapentin. The patient's diuretic was initially held, later started. Echocardiogram (echo) shows improvement of ejection fraction up to 45%. Insulin has been adjusted for hypoglycemia. The patient currently tolerating oral. Back to baseline. Able to ambulate with no acute distress. Ready for discharge for further care as outpatient. VITAL SIGNS: Temperature 98, pulse 79, respirations 18, blood pressure 159/89, pulse 96% on room air. LABORATORY DATA: WBC 7.4, hemoglobin and hematocrit 14 over 42.6, platelets 150. Chemistry: Sodium 146, potassium 5.2, chloride 110, bicarbonate 28, BUN 23, creatinine 1.13. C-reactive protein 1.58. DISCHARGE MEDICATIONS: - [place] dose has been reduced to 5/325 mg one tablet by mouth every six hours as needed - cefdinir 300 mg by mouth twice a day for five more days - Lasix reduced to 20 mg by mouth daily - lisinopril reduced to 5 mg by mouth daily; dosage has been held today for hyperkalemia and worsening kidney function - aspirin 81 mg by mouth daily - Lipitor 40 mg by mouth daily - vitamin B complex one tablet by mouth daily - Baclofen 10 mg by mouth three times a day as needed - vitamin D 4000 units by mouth daily - collagenase as needed daily topical - Senna-S two tablets by mouth twice a day - fish oil one capsule by mouth twice a day - gabapentin reduced to 300 mg by mouth three times a day - insulin pre-meal - metoprolol 75 mg by mouth twice a day - sotalol 80 mg by mouth twice a day - Spiriva one inhalation daily - topiramate 12.5 mg by mouth at bedtime - Coumadin dosage was instructed to the patient to take 7.5 mg by mouth daily for two days, then back to 5 mg by mouth daily - Lantus reduced to 60 units subcutaneous at bedtime DISCHARGE INSTRUCTIONS: The patient is instructed to followup with primary care provider to check basic metabolic panel for assessment of electrolytes and kidney function in 3-5 days. Followup with primary care provider in 3-5 days. Return to the hospital if symptoms worsen.
== END 2016-05-14 12:05 | disposition home or self-care (01) | DRG 871 ==
LOC: EDBD 05:34 → M ED 06:39 → M ED INP 10:10 → M PCU 14:32
PROVIDERS: ADMIT Hospitalist; ATTEND Hospitalist
DX: A41.9 Sepsis, unspecified organism (principal); G93.41 Metabolic encephalopathy; I50.42 Chronic combined systolic (congestive) and diastolic (congestive) heart failure; N17.9 Acute kidney failure, unspecified; I47.2 Ventricular tachycardia; I48.91 Unspecified atrial fibrillation; I11.0 Hypertensive heart disease with heart failure; M10.9 Gout, unspecified; E78.5 Hyperlipidemia, unspecified; E11.40 Type 2 diabetes mellitus with diabetic neuropathy, unspecified; M54.5 Low back pain; J44.9 Chronic obstructive pulmonary disease, unspecified; T40.2X5A Adverse effect of other opioids, initial encounter; R53.1 Weakness; G47.33 Obstructive sleep apnea (adult) (pediatric); Z99.89 Dependence on other enabling machines and devices; Z79.4 Long term (current) use of insulin; Z79.01 Long term (current) use of anticoagulants; Z79.899 Other long term (current) drug therapy; Z85.828 Personal history of other malignant neoplasm of skin; Z95.810 Presence of automatic (implantable) cardiac defibrillator; Z87.891 Personal history of nicotine dependence; Z79.891 Long term (current) use of opiate analgesic

== ENCOUNTER 2017-05-12 06:05 | Emergency (ER) | payer MEDICARE, OTHER ==
[2017-05-12 07:17] LABS: KETONE, URINE AUTO RFX NEGATIVE (NEGATIVE); NITRITE, URINE AUTO RFX NEGATIVE (NEGATIVE); RBC, URINE AUTO RFX 102 /HPF (0-3); SPECIFIC GRAVITY UR AUTO RFX 1.016 (1.002-1.035); SQUAM EPITHELIAL CELL UR AURFX 2 /HPF (0-6)
[2017-05-12 07:21] LABS: LEUKOCYTE ESTERASE UR AUTO RFX 3+ (NEGATIVE); WBC, URINE AUTO RFX TNTC /HPF (0-3)
[2017-05-12] MEDS: NS 1,000 ML IV (07:31)
[2017-05-12 07:39] LABS: BASO # 0.1 10^3/uL (0.0-0.2); BASO % 0.3 % (0.0-1.0); EOS # 0.3 10^3/uL (0.0-0.50); EOS % 2.3 % (0.0-3.0); HEMATOCRIT 44.3 % (42.0-52.0); HEMOGLOBIN 14.5 g/dl (14.0-18.0); IMMATURE GRANULOCYTE % 0.8 % (0-3.0); LYMPH # 1.5 10^3/uL (1.5-4.5); LYMPH % 10.4 % (24.0-44.0); MEAN CORPUSCULAR HEMOGLOBIN 29.5 pg (27.0-33.0); MEAN CORPUSCULAR HGB CONC 32.7 g/dl (32.0-36.5); MEAN CORPUSCULAR VOLUME 90.2 fl (80.0-96.0); MONO # 1.3 10^3/uL (0.0-0.8); MONO % 8.7 % (0.0-5.0); NEUTROPHILS # 11.3 10^3/uL (1.8-7.7); NEUTROPHILS % 77.5 % (36.0-66.0); PLATELET COUNT, AUTOMATED 167 10^3/uL (150-450); RED BLOOD COUNT 4.91 10^6/uL (4.30-6.10); RED CELL DISTRIBUTION WIDTH 12.9 % (11.5-14.5); WHITE BLOOD COUNT 14.6 10^3/uL (4.0-10.0)
[2017-05-12] MEDS: CEFTRIAXONE SOD 1 GM in APPROPRIATE DILUENT 1 EA IV (07:45)
[2017-05-12 07:50] LABS: INR 2.06
[2017-05-12 08:05] LABS: LACTIC ACID SEPSIS PROTOCOL 1.1 MMOL/L (0.4-2.0)
[2017-05-12 08:07] LABS: ALBUMIN 3.3 GM/DL (3.2-5.2); ALKALINE PHOSPHATASE 104 U/L (45-117); ALT/SGPT 32 U/L (12-78); ANION GAP 6 MEQ/L (8-16); AST/SGOT 25 U/L (7-37); BILIRUBIN,DIRECT 0.2 MG/DL (0.0-0.2); BILIRUBIN,TOTAL 0.6 MG/DL (0.2-1.0); BLOOD UREA NITROGEN 21 MG/DL (7-18); CARBON DIOXIDE LEVEL 29 MEQ/L (21-32); CHLORIDE LEVEL 106 MEQ/L (98-107); GLOMERULAR FILTRATION RATE 57.1 (>42); GLUCOSE, FASTING 105 MG/DL (70-100); POTASSIUM SERUM 3.5 MEQ/L (3.5-5.1); SODIUM LEVEL 141 MEQ/L (136-145); TOTAL PROTEIN 7.4 GM/DL (6.4-8.2)
== END 2017-05-12 10:00 | disposition home or self-care (01) ==
LOC: M ED 06:05
DX: N39.0 Urinary tract infection, site not specified (principal); I11.0 Hypertensive heart disease with heart failure; I50.9 Heart failure, unspecified; E11.9 Type 2 diabetes mellitus without complications; J44.9 Chronic obstructive pulmonary disease, unspecified; E78.00 Pure hypercholesterolemia, unspecified; G62.9 Polyneuropathy, unspecified; G47.30 Sleep apnea, unspecified; E55.9 Vitamin D deficiency, unspecified; F43.10 Post-traumatic stress disorder, unspecified
CPT/HCPCS: 76775

== ENCOUNTER → 2017-05-27 | Outpatient (REF) | payer MEDICARE, OTHER ==
[2017-05-27 13:43] LABS: APPEARANCE, URINE CLEAR (CLEAR); BACTERIA, URINE AUTO NEGATIVE (NEGATIVE); BILIRUBIN, URINE AUTO NEGATIVE (NEGATIVE); BLOOD, URINE BLOOD NEGATIVE (NEGATIVE); COLOR, URINE YELLOW (YELLOW); GLUCOSE, URINE (UA) AUTO NEGATIVE (NEGATIVE); KETONE, URINE AUTO NEGATIVE (NEGATIVE); LEUKOCYTE ESTERASE, URINE AUTO TRACE (NEGATIVE); NITRITE, URINE AUTO NEGATIVE (NEGATIVE); PROTEIN, URINE AUTO NEGATIVE (NEGATIVE); RBC, URINE AUTO 2 /HPF (0-3); SPECIFIC GRAVITY URINE AUTO 1.012 (1.002-1.035); SQUAMOUS EPITHELIAL CELL UR AU 0 /HPF (0-6); UROBILINOGEN, URINE AUTO 0.2 mg/dL (0.0-2.0); WBC, URINE AUTO 2 /HPF (0-3)
== END ==
LOC: M SMT 13:08
DX: N39.0 Urinary tract infection, site not specified (principal)
CPT/HCPCS: 81001

== ENCOUNTER → 2018-10-20 | Outpatient (CLI) | payer MEDICARE, OTHER ==
[~2018-10-20] MED LIST changes: -/LINE60TA OR; -/METO25TAB PO; -/WARF25TA; -/WARF3TA PO; -/WARF5TA; -/WARF5TA PO; -ALLO15TA PO; +ALLO300T2 PO; +AMIO200T10 PO; -AMIO20TA PO; -ASPI81TA13 PO; +ASPI81TA24 PO; -ATOR1TAB18 PO; +ATOR40TA75 PO; +ATOR80TA59 PO; +AUGM875T28 PO; +BACT800T5 PO; +CAPT1TAB19 PO; -CAPT31TA PO; +CEFD1CAP8 PO; +COUM1TAB17; +COUM1TAB18; +COUM1TAB19 PO; -COUM2.5T11 PO; +COUM2.5T17 PO; -D 101TAB PO; +DULO1CAP4 PO; +GABA-843 PO; -GABA300C3 PO; -GLUC4CHW PO; +GLUC4CHW19 PO; -GLUC4GMTAB PO; +HYDR-3715 PO; +HYDR-4517 PO; +LASI20TA3 PO; +LEAD1CHW PO; +LISI-542 PO; +LISI10TA4 PO; +LISI40TA PO; +LISI40TA52 PO; -LISI40TAB PO; +METO1TAB87 PO; -METO50TA2 PO; +METO50TA7 PO; -NICO21DI5 TD; +NICO21DI6 TD; -NORC10TA2 PO; +NORC1TAB5 PO; -NORCOTAB PO; -PANT40TA2 PO; +PANT40TA3 PO; +PRED-351 PO; -PRED10TA PO; +SANT250O8 TOP; +SENN1TAB41 PO; -SENN8.6T7 PO; +TOPI25TA10 PO; -TOPI25TA5 PO; +VITA-144 PO; +XALA0.007 OU; +ZYVO100T OR
--- NOTE | 2018-10-20 09:30 | REP ---
Abdominal aorta ultrasound for aortic aneurysm: Abdominal aorta ultrasound: Abdominal Aortic Measurements are as follows: Proximal 4.4 cm AP 3.5 cm TRV Renal Artery Level 3.9 cm AP 4.5 cm TRV Mid Aorta 4.8 cm AP 5.2 cm TRV Distal Aorta 2.8 cm AP 3.8 cm TRV R Iliac Artery 1.4 cm AP 1.1 cm TRV L Iliac Artery 1.5 cm AP 1.4 cm TRV Impression: There is aneurysmal dilatation of the the entire abdominal aorta from the diaphragm to the bifurcation, most significant at the mid aorta. Calcific atheromatous plaque is identified in the mid/distal aorta. There is no periaortic fluid collection. Electronically Signed by Edison Castillo MD 10/20/2018 09:23 A
== END ==
LOC: M RAD 07:57
PROVIDERS: ATTEND Family Medicine
DX: I71.4 Abdominal aortic aneurysm, without rupture (principal)

== ENCOUNTER 2019-03-23 12:25 | Observation (INO) | payer MEDICARE, OTHER ==
[~2019-03-23] VITALS: Ht 170.2 cm; Wt 113.6 kg
[2019-03-23] MEDS ORDERED: NS 1,000 ML IV SCH ×2 (12:43→17:15)
[2019-03-23] MEDS ORDERED: MORPHINE 2 MG/ML 1ML VIAL (J2270) IV PRN ×2 (12:45→17:15)
[2019-03-23] MEDS ORDERED: ONDANSETRON 4MG/2ML VIAL (J2405) IV ONE (13:00)
[2019-03-23 13:34] LABS: BASO # 0.1 10^3/uL (0.0-0.2); BASO % 0.3 % (0.0-1.0); EOS # 0.1 10^3/uL (0.0-0.5); EOS % 0.5 % (0.0-3.0); HEMATOCRIT 46.4 % (42.0-52.0); HEMOGLOBIN 15.3 g/dl (13.5-17.5); LYMPH # 2.1 10^3/uL (1.5-5.0); LYMPH % 11.5 % (24.0-44.0); MEAN CORPUSCULAR HEMOGLOBIN 30.4 pg (27.0-33.0); MEAN CORPUSCULAR VOLUME 92.1 fl (80.0-96.0); MONO # 1.4 10^3/uL (0.0-0.8); MONO % 7.5 % (0.0-5.0); NEUTROPHILS # 14.8 10^3/uL (1.5-8.5); NEUTROPHILS % 79.6 % (36.0-66.0); PLATELET COUNT, AUTOMATED 212 10^3/uL (150-450); RED BLOOD COUNT 5.04 10^6/uL (4.30-6.10); WHITE BLOOD COUNT 18.5 10^3/uL (4.0-10.0)
[2019-03-23 13:50] LABS: INR 1.19; PROTHROMBIN TIME 14.8 SECONDS (11.8-14.0)
[2019-03-23 14:07] LABS: ALBUMIN 3.8 GM/DL (3.2-5.2); ALT/SGPT 25 U/L (12-78); BILIRUBIN,DIRECT 0.2 MG/DL (0.0-0.2); BILIRUBIN,TOTAL 0.6 MG/DL (0.2-1.0); CK-MB VALUE MASS 1.5 NG/ML (<3.6); CPK CREATINE PHOSPHOKINASE 66 U/L (39-308); LIPASE 27 U/L (73-393); MB/CK RELATIVE INDEX 2.27 (< OR =4); TOTAL PROTEIN 7.2 GM/DL (6.4-8.2); TROPONIN I < 0.02 NG/ML (< 0.10)
--- NOTE | 2019-03-23 14:14 | REP ---
CT of the abdomen pelvis without IV and oral contrast for abdominal pain: Comparison is 11/26/2015. The visualized lung velazquez are unremarkable. The unenhanced hepatic parenchyma, gallbladder, pancreas and spleen are normal size and unremarkable. The adrenals are unremarkable. The right kidney is unremarkable. The left kidney is atrophic. This is an interval change. There is an abdominal aortic endovascular stent as an interval change. There is no periaortic hematoma or mass or adenopathy. There is no bowel distension or obstruction. The mesentery is unremarkable. Pelvis: The the patient has an appendectomy. There are surgical clips adjacent to the cecum. The bladder is unremarkable. There is no ascites or adenopathy. The pelvic bowel loops are unremarkable except for sigmoid diverticulosis without diverticulitis. Impression: Sigmoid diverticulosis without diverticulitis. Abdominal aortic endovascular stent. Appendectomy. Atrophic left kidney as an interval change. No bowel obstruction or distension. No ascites, adenopathy or mass. Electronically Signed by Edison Castillo MD 03/23/2019 02:06 P
[2019-03-23] MEDS ORDERED: PACE200T PO (16:15)
[2019-03-23] MEDS ORDERED: MELA3TAB24 PO (16:15)
--- NOTE | 2019-03-23 16:18 | REP ---
Abdominal right upper quadrant ultrasound for epigastric/right upper quadrant pain: There is no cholelithiasis, gallbladder wall thickening or pericholecystic fluid. The gallbladder is distended measuring up to four point 5 cm in diameter. This could represent gallbladder hydrops in the appropriate clinical setting. The There is no intrahepatic biliary duct dilatation. However, the common biliary duct is dilated measuring up to 10 mm in diameter. The hepatic parenchyma is homogeneous and otherwise unremarkable. The visualized portions of the pancreas are unremarkable. Portions of the pancreas are obscured by bowel gas. The right kidney is normal size measuring benign by 5.6 x 5.8 cm. There is questionably a 2.6 cm right renal cortical mass. Follow-up CT without with IV contrast is recommended for further evaluation. There is no right renal hydronephrosis or calculus. There is no right upper quadrant ascites. Impression: Distended gallbladder. This could represent hydrops in the appropriate clinical setting. The common biliary duct is dilated. There is no intrahepatic biliary duct dilatation. Suspect right renal mass. Follow-up CT without and with IV contrast is recommended. Electronically Signed by Edison Castillo MD 03/23/2019 04:09 P
[2019-03-23] MEDS ORDERED: EQL50TAB2 PO (17:07)
[2019-03-23] MEDS ORDERED: ATOR80TA59 PO (17:07)
[2019-03-23] MEDS ORDERED: LANTINJ4 SC (17:07)
[2019-03-23] MEDS ORDERED: FURO20TA2 PO (17:07)
[2019-03-23] MEDS ORDERED: VITA100054 PO (17:07)
[2019-03-23] MEDS ORDERED: WARF-23 PO ×2 (17:07)
[2019-03-23] MEDS ORDERED: MELA3TAB41 PO (17:07)
[2019-03-23] MEDS ORDERED: LISI-538 PO (17:07)
[2019-03-23] MEDS ORDERED: HYDR-4517 PO (17:07)
[2019-03-23] MEDS ORDERED: FISH1000 PO (17:07)
[2019-03-23] MEDS ORDERED: METO100T5 PO (17:07)
[2019-03-23] MEDS ORDERED: MOM 30ML SUSPENSION UDC PO PRN (17:15)
[2019-03-23] MEDS ORDERED: MAALOX 30 ML SUSP *UDC PO PRN (17:15)
[2019-03-23] MEDS ORDERED: GLUCOSE 4 GM CHEW TABLET PO PRN (17:15)
[2019-03-23] MEDS ORDERED: GLUCAGON FOR INJ 1 MG VIAL (J1610) SC PRN (17:15)
[2019-03-23] MEDS ORDERED: ACETAMINOPHEN TAB 650MG DOSE (2X325MG) PO PRN (17:15)
[2019-03-23] MEDS ORDERED: DEXTROSE 50% 50 ML SYRINGE IV PRN (17:15)
--- NOTE | 2019-03-23 17:28 | HPEPDOC ---
General Date of Admission 03/23/19 Date of Service: Mar 23, 2019 Chief Complaint The patient is a 78-year-old male admitted with a reason for visit of Abd Pain. Source: Patient Exam Limitations: No limitations Timing/Duration: Day(s) Severity: Moderate Associated Symptoms: Nausea, Vomiting, Other (abdominal pain) History of Present Illness This is a 78 years old white male with past medical history of atrial fibrillation, type 2 diabetes mellitus, hypertension, COPD, obstructive sleep apnea on CPAP, chronic congestive heart failure with AICD, ejection fraction only 20-25%. His skin cancer at nasolabial fold, diabetic foot, gout, diabetic neuropathy, was recently admitted to the [facility] for cardiac catheterization. He was kept many days there, but then the procedure was canceled for unknown reasons. Patient was discharged from the hospital recently. Now patient came in with chief complaints of nausea, vomiting, diarrhea and abdominal pain. Also complaining of low blood sugar abdominal pain is probably in the right upper quadrant, nonradiating, associated with nausea, vomiting, not relieved with any medication, not exacerbated by any food intake, not relieved with pain medication needs. Patient has been admitted for observation for possible acute cholecystitis Home Medications Scheduled Amiodarone Hcl (Pacerone) 200 Mg Tablet, 400 MG PO BID, (Reported) FOR 8 DAYS, THEN DECREASE TO 400MG DAILY THEREAFTER. STARTED 03/22/19 Aspirin (Aspirin EC) 81 Mg Tab, 81 MG PO QAM, (Reported) Atorvastatin Calcium (Atorvastatin Calcium) 80 Mg Tablet, 40 MG PO QHS, (Reported) Cholecalciferol (Vitamin D3) (Vitamin D3) 1,000 Unit Capsule, 1,000 UNIT PO QID, (Reported) Collagenase Clostridium Hist. (Santyl) 250 Unit/Gm Oin, 1 APLCT TOP DAILY, (Reported) APPLY TO WOUND ON RIGHT FOOT Duloxetine Hcl (Duloxetine HCl) 20 Mg Capsule.dr, 20 MG PO DAILY, (Reported) TAKES AT NOON Furosemide (Furosemide) 20 Mg Tablet, 20 MG PO DAILY, (Reported) Gabapentin (Gabapentin) 300 Mg Cap, 300 MG PO QID, (Reported) Insulin Glargine,Hum.rec.anlog (Lantus Solostar) 100 Unit/1 Ml Insuln.pen, 60 UNITS SC QHS, (Reported) Insulin Human Lispro (Novolog) 100 U/Ml Inj, 1 DOSE SC AC, (Reported) PER SLIDING SCALE Latanoprost (Xalatan) 0.005% 2.5ML Drops, 1 DROP OU QHS, (Reported) Lisinopril (Lisinopril) 20 Mg Tablet, 10 MG PO DAILY, (Reported) Metoprolol Tartrate (Metoprolol Tartrate) 100 Mg Tablet, 100 MG PO BID, (Reported) [place]-3 Fatty Acids/Fish Oil (Fish Oil 1,000 mg Capsule) 1 Each Capsule, 2,000 MG PO BID, (Reported) Sennosides/Docusate Sodium (Senna-S Tablet) 1 Tab Tab, 2 TABS PO BID, (Reported) Tiotropium [place] (Spiriva) 18 Mcg Cap, 18 MCG INH DAILY, (Reported) Topiramate (Topiramate) 25 Mg Tab, 12.5 MG PO QHS, (Reported) Vitamin B Complex (Vitamin B Complex) 1 Each Tablet, 1 TAB PO QHS, (Reported) Warfarin Sodium (Warfarin Sodium) 5 Mg Tablet, 5 MG PO 5XW, (Reported) SUN/TUES/TUE/URS/SAT AT BEDTIME Warfarin Sodium (Warfarin Sodium) 5 Mg Tablet, 7.5 MG PO 2XW, (Reported) MON/FRI AT BEDTIME Scheduled PRN Dextrose (Glucose) 4 Gm Chw, 16 GM PO for LOW BLOOD SUGAR, (Reported) Hydrocodone/Acetaminophen (Hydrocodone-Acetamin 10-325 mg) 1 Each Tablet, 1 TAB PO Q6H PRN for PAIN, (Reported) Melatonin (Melatonin) 3 Mg Tablet, 3 MG PO QHS PRN for SLEEP, (Reported) Allergies Coded Allergies: No Known Allergies (Verified , 10/16/02) Past Medical History Medical History Atrial fibrillation, type 2 diabetes mellitus, hypertension, COPD, obstructive sleep apnea, systolic congestive heart failure with AICD, EF of 20-25%. Skin cancer by history, diabetic foot, gout, diabetic neuropathy Surgical History AICD, appendectomy, laminectomy of the back surgery, tonsillectomy Family History Significant Family History: No pertinent family hx Social History * Smoker: former Smoker, quit greater than 1 year Alcohol: Denies Drugs: denies A-FIB/CHADSVASC A-FIB History Current/History of A-Fib/PAF?: Yes Current PO Anticoag Therapy: Yes Review of Systems Constitutional: Denies: Chills, Fever, Malaise, Night Sweats, Weakness, Fatigue, Weight Loss, Lethargy, Other Eyes: Denies: Pain, Vision change, Conjunctivae inflammation, Eyelid inflammation, Redness, Other ENT: Denies: Head Aches, Ear Pain, Dysphagia, Sinus Congestion, Post Nasal Drip, Sore Throat, Epistaxis, Other Symptoms Skin: Denies: Rash, Lesions, Jaundice, Bruising, Itching, Dry, Breakdown, Nail Changes, Other Pulmonary: Denies: Dyspnea, Cough, Pleuritic Chest Pain, Other Symptoms Cardiovascular: Denies: Chest Pain, Palpitations, Orthopnea, Paroxysmal Noc. Dyspnea, Edema, Lt Headedness, Other Symptoms Gastrointestinal: Reports: Nausea, Vomiting, Abdominal Pain Genitourinary: Denies: Dysuria, Frequency, Incontinence, Hematuria, Retention, Other Symptoms Hematologic: Denies: Bruising, Bleeding Excessively, Petecchia, Purpura, Enlarged Lymph Nodes, Other Hematologic Endocrine: Denies: Polydipsia, Polyphagia, Polyuria, Heat Intolerance, Cold Intolerance, Other Endocrine Sx Musculoskeletal: Denies: Neck Pain, Back Pain, Shoulder Pain, Arm Pain, Hand Pain, Leg Pain, Foot Pain, Joint Pain, Muscle Pain, Spasms, Other Symptoms Neurological: Denies: Weakness, Numbness, Incoordination, Change in speech, Confusion, Seizures, Other Symptoms Psych: Denies: Mood Normal, Anxiety, Depression, Memory Issues, Thoughts of Self Harm, Anger, Thoughts of Harming Other, Other Psych Physical Examination General Exam: Positive: Alert, Cooperative Eye Exam: Positive: PERRLA, Conjunctiva & lids normal ENT Exam: Positive: Atraumatic, Mucous membr. moist/pink Neck Exam: Positive: Supple Chest Exam: Positive: Clear to auscultation, Normal air movement Heart Exam: Positive: Rate Normal, Normal S1, Normal S2 Abdomen Exam: Positive: Soft, Other (. Mild tenderness in right upper quadrant and epigastric area on deep palpation) Extremity Exam: Positive: Normal pulses Skin Exam: Positive: Nl turgor and temperature Vital Signs Vital Signs Date Time Temp Pulse Resp B/P (MAP) Pulse Ox O2 Delivery O2 Flow Rate FiO2 03/23/19 17:01 69 18 97 Room Air 03/23/19 17:00 164/87 (112) 03/23/19 12:25 97.0 Laboratory Data Labs 24H Laboratory Tests 2 03/23/19 12:43: Immature Granulocyte % (Auto) 0.6, Neutrophils (%) (Auto) 79.6H, Lymphocytes (%) (Auto) 11.5L, Monocytes (%) (Auto) 7.5H, Eosinophils (%) (Auto) 0.5, Basophils (%) (Auto) 0.3, Neutrophils # (Auto) 14.8H, Lymphocytes # (Auto) 2.1, Monocytes # (Auto) 1.4H, Eosinophils # (Auto) 0.1, Basophils # (Auto) 0.1, Nucleated Red Blood Cells % (auto) 0.0, Prothrombin Time 14.8H, Prothromb Time International Ratio 1.19, Lactic Acid Level 1.7, Total Bilirubin 0.6, Direct Bilirubin 0.2, Aspartate Amino Transf (AST/SGOT) 14, Alanine Aminotransferase (ALT/SGPT) 25, Alkaline Phosphatase 96, Total Creatine Kinase 66, Creatine Kinase MB 1.5, Creatine Kinase MB Relative Index 2.27, Troponin I < 0.02, Total Protein 7.2, Albumin 3.8, Albumin/Globulin Ratio 1.12, Lipase 27L 03/23/19 12:56: Bedside Glucose (Misc Panel) 159H 03/23/19 13:26: POC Glucose (Misc Panel) 168H, POC Sodium (Misc Panel) 139, POC Potassium (Misc Panel) 4.1, POC Chloride (Misc Panel) 101, POC Total CO2 (Misc Panel) 27.0, POC Blood Urea Nitrogen (Misc Panel 29H, POC Ionized Calcium (Misc Panel) 4.8, POC Creatinine (Misc Panel) 1.9H, POC Hematocrit (Misc Panel) 47.0 CBC/BMP Laboratory Tests 03/23/19 12:43 Microbiology Microbiology 03/23/19 Blood Culture, Received Pending 03/23/19 Blood Culture, Received Pending Problems (1) Abdominal pain Status: Acute Problem Text: 78 years old white male recently admitted to [facility] in [place], presented with nausea, vomiting, abdominal pain and diarrhea. Pain, etiology is unknown as CT of the abdomen is essentially negative but gallbladder sonogram shows distended gallbladder, probably hydrops and possible dilated CBD and possible renal mass. Patient does have a high white count of 18.5, hemoglobin is within normal range and electro lites are within normal range. Patient INR 1.19. Lactic acid is 1.7 ED physician and spoke with Dr. Harrison. He does not think patient has acute cholecystitis but advised to admit patient for observation. Will admit patient to med service with telemetry Avoid IV fluids secondary to his very low EF and history of CHF Clear liquid diet PPIs Cipro and Flagyl IV HIDA scan Repeat CBC in a.m. Surgical consultation Continue all his home meds Activity as tolerated (2) Afib Status: Chronic Problem Text: Continue amiodarone and anticoagulation with Coumadin Telemetry monitoring (3) HTN (hypertension) Status: Chronic Problem Text: Continue home meds (4) CHF (congestive heart failure) Status: Chronic Problem Text: History of chronic systolic congestive heart failure with EF of 20%. Continue patient's Lasix Avoid IV fluids Continue all home meds (5) COPD (chronic obstructive pulmonary disease) Status: Acute Problem Text: Continue home meds (6) Dyslipidemia Status: Chronic Problem Text: Continue home meds (7) Diabetes mellitus Status: Chronic Problem Text: Fingerstick blood sugar before meals and at bedtime with f ingerstick coverage Hold routine basal insulin till patient is eating regular food (8) BALJINDER on CPAP Status: Chronic Problem Text: Patient is on CPAP at home and will order CPAP at bedside as well Plan / VTE VTE Prophylaxis Ordered?: Yes MARTELL MUNOZ MD Mar 23, 2019 17:28
[2019-03-23] MEDS: HumaLOG INSULIN (NovoLOG) PER UNIT SC SCH ×2 (17:30→21:00)
[2019-03-23] MEDS ORDERED: PILL CUTTER 1 EACH XX PRN (17:30)
[2019-03-23] MEDS: CIPROFLOXACIN 400 MG in IV 1 EA IV SCH (19:49)
--- NOTE | 2019-03-23 20:32 | ECGEPIP ---
[facility] - ED Test Date: 2019-03-23 Pat Name: ZACH HARRISON Department: Room: - Gender: Male Customer Experience Strategist: taylor : 1940 Requested By: Drea Ruiz Order Number: [id number] Reading MD: Drea Ruiz Measurements Intervals Ruby Rate: 69 P: [place]: 0 QRS: -69 QRSD: 189 T: 83 QT: 498 QTc: 536 Interpretive Statements ELECTRONIC VENTRICULAR PACEMAKER ABNORMAL RHYTHM ECG PRIOR 03/14/19 NOT PACED Electronically Signed on 03-23-2019 20:32:06 EST by Drea Ruiz
[2019-03-23 20:34] VITALS: BP 176/89
[2019-03-23] MEDS: GABAPENTIN 300 MG CAP PO SCH (20:46)
[2019-03-23] MEDS: ATORVASTATIN 20 MG TAB PO SCH (20:46)
[2019-03-23] MEDS: AMIODARONE 200 MG TAB (PACERONE) PO SCH (20:46)
[2019-03-23] MEDS: DOCUSATE SODIUM 100 MG CAP PO SCH (20:47)
[2019-03-23] MEDS: TOPIRAMATE (TopAMAX) 25 MG TAB PO SCH (20:47)
[2019-03-23] MEDS: METOPROLOL TARTRATE 100 MG TAB PO SCH (20:47)
[2019-03-23] MEDS: SENOKOT S TAB PO SCH (20:47)
[2019-03-23] MEDS ORDERED: WARFARIN SOD 7.5 MG TAB PO SCH (21:00)
[2019-03-23] MEDS ORDERED: LEVEMIR (INSULIN DETEMIR) 1 UNITS/0.01ML SC SCH (21:00)
[2019-03-23] MEDS: metroNIDAZOLE 500 MG in IV 1 EA IV SCH (21:34)
[2019-03-23] MEDS: LATANOPROST 0.005% OPHTH SOLN 2.5 ML OU SCH (23:15)
[2019-03-23] MEDS: ONDANSETRON 4MG/2ML VIAL (J2405) IV PRN (23:54)
[2019-03-24] MEDS: metroNIDAZOLE 500 MG in IV 1 EA IV SCH ×3 (03:43→20:07)
[2019-03-24] MEDS: CIPROFLOXACIN 400 MG in IV 1 EA IV SCH ×2 (05:10→17:27)
[2019-03-24 05:56] LABS: HEMATOCRIT 45.3 % (42.0-52.0); HEMOGLOBIN 14.3 g/dl (13.5-17.5); MEAN CORPUSCULAR HEMOGLOBIN 29.8 pg (27.0-33.0); MEAN CORPUSCULAR HGB CONC 31.6 g/dl (32.0-36.5); MEAN CORPUSCULAR VOLUME 94.4 fl (80.0-96.0); PLATELET COUNT, AUTOMATED 183 10^3/uL (150-450)
[2019-03-24 06:00] VITALS: BP 133/64
[2019-03-24 06:17] LABS: INR 1.37; PROTHROMBIN TIME 16.6 SECONDS (11.8-14.0)
[2019-03-24 06:22] LABS: ALBUMIN 3.3 GM/DL (3.2-5.2); CALCIUM LEVEL 8.5 MG/DL (8.8-10.2); CREATININE FOR GFR 1.54 MG/DL (0.70-1.30); GLOMERULAR FILTRATION RATE 46.9 (>42); MAGNESIUM LEVEL 1.8 MG/DL (1.8-2.4); POTASSIUM SERUM 4.2 MEQ/L (3.5-5.1); TOTAL PROTEIN 7.2 GM/DL (6.4-8.2)
[2019-03-24] MEDS: ONDANSETRON 4MG/2ML VIAL (J2405) IV PRN (07:06)
[2019-03-24] MEDS: TIOTROPIUM INHALER/CAPSULE (SPIRIVA) INH SCH (07:10)
[2019-03-24] MEDS: DOCUSATE SODIUM 100 MG CAP PO SCH ×2 (09:01→20:08)
[2019-03-24] MEDS: GABAPENTIN 300 MG CAP PO SCH ×4 (09:01→20:08)
[2019-03-24] MEDS: AMIODARONE 200 MG TAB (PACERONE) PO SCH ×2 (09:01→20:07)
[2019-03-24] MEDS: ASPIRIN 81 MG ENTERIC TAB PO SCH (09:01)
[2019-03-24] MEDS: SENOKOT S TAB PO SCH ×2 (09:01→20:08)
[2019-03-24] MEDS: FUROSEMIDE 20 MG TAB PO SCH (09:02)
[2019-03-24] MEDS: HumaLOG INSULIN (NovoLOG) PER UNIT SC SCH ×4 (09:02→21:00)
[2019-03-24] MEDS: METOPROLOL TARTRATE 100 MG TAB PO SCH ×2 (09:04→20:07)
[2019-03-24] MEDS: lisinopriL 10 MG TAB PO SCH (09:04)
--- NOTE | 2019-03-24 10:14 | CR ---
DATE OF CONSULTATION: 03/24/2019 REASON FOR CONSULTATION: Question cholecystitis. BRIEF HISTORY OF PRESENT ILLNESS: The patient is a 78-year-old male who had a recent heart attack, was seen and admitted to the [facility] and had been in the hospital for 8 days. He was discharged from the hospital. Still not back to his normal self. Only had minimal oral intake during that time, but developed some nausea and vomiting and diarrhea that has been ongoing for several days, almost a week now. He was complaining of pain all across his lower abdomen when I asked him, although it appears that he suggested right upper quadrant pain to the admitting physician. He states the pain is really crampy, associated with diarrhea. It seems to be worse when he lays down, better when he sits up. He does not specifically state that he has any specific food intolerances at this time, although over the last several months, he has noticed some problems with his gastrointestinal (GI) tract with occasional diarrhea with abdominal cramps, pains. He does not currently see a nail making machine tender, and was admitted with a white count of 18,000 and abdominal pain. His CAT scan on admission showed a distended gallbladder without any pericholecystic fluid. No edema in this area. No inflammation in this area. I do not see any inflammatory changes around the small bowel. Past medical history is significant for history of atrial fibrillation, history of diabetes mellitus, history of hypertension, history of chronic obstructive pulmonary disease (COPD), sleep apnea, systolic congestive heart failure, skin cancer, diabetic foot ulcers, history of gout, history of diabetic neuropathy, automatic implantable cardioverter defibrillator (AICD) placement, appendectomy, laminectomy, and tonsillectomy. Medications include: - amiodarone - aspirin - atorvastatin - vitamin D - Santyl ointment to a right foot ulcer - duloxetine - furosemide - gabapentin - insulin - Xalatan drops - lisinopril - metoprolol - fish oil - Senna - Spiriva - topiramate - vitamin D - Coumadin - Some as-needed medications hydrocodone, melatonin, and dextrose. Physical exam reveals a 78-year-old who looks older than stated age. HEENT is unremarkable. Neck supple without adenopathy. Lungs are diminished at the bases bilaterally with a few crackles at bases. Heart is regular with multiple irregular beats. Abdomen is mildly distended, mildly tympanitic, without guarding, without rebound, without peritoneal signs. Mostly complains of discomfort to deep palpation throughout his lower abdomen, some in the right upper quadrant, some in the epigastric area, and thus it seems much more of a diffuse abdominal discomfort/tenderness present. IMPRESSION/PLAN: The patient has issues of abdominal pain, diarrhea, nausea, vomiting. All sound as though this is most likely gastroenteritis. It could be bacterial or infectious. Currently is being been treated with antibiotics for a possible cholecystitis. Feel that, that is reasonable given that his white count did drop down overnight and overall he feels better this morning and is not having as much diarrhea. His second issue is the distended gallbladder. He was recently admitted to an outside hospital with poor oral intake and that would contribute to a distended gallbladder. Also, acalculous cholecystitis could be a possibility given his improvement and his other medical issues and GI complaints it seems this is more of a CT finding than a true etiology of his current problem. I do not feel that it is unreasonable to continue him on some antibiotics and treat him with clear liquids today. I would recommend that you can keep on a clear liquid diet today and possibly progress him to a low-fat diet/diabetic diet tomorrow if he is doing well and has continued improvement of his overall symptoms.
--- NOTE | 2019-03-24 11:04 | IPNPDOC ---
Subjective Date Seen The patient was seen on 03/24/19. Subjective Chief Complaint/HPI Patient feels better. Abdominal pain is slightly decreased started. He also has decreased General: Denies: ROS Unobtainable, Chills, Night Sweats, Fatigue, Malaise, Normal Appetite, Other Symptoms Constitutional: Denies: Chills, Fever, Malaise, Night Sweats, Weakness, Fatigue, Weight Loss, Lethargy, Other Pulmonary: Denies: Dyspnea, Cough, Pleuritic Chest Pain, Other Symptoms Cardiovascular: Denies: Chest Pain, Palpitations, Orthopnea, Paroxysmal Noc. D yspnea, Edema, Lt Headedness, Other Symptoms Gastrointestinal: Reports: Nausea, Abdominal Pain, Diarrhea Hematologic: Denies: Bruising, Bleeding Excessively, Petecchia, Purpura, Enlarged Lymph Nodes, Other Hematologic Endocrine: Denies: Polydipsia, Polyphagia, Polyuria, Heat Intolerance, Cold Intolerance, Other Endocrine Sx Musculoskeletal: Denies: Neck Pain, Back Pain, Shoulder Pain, Arm Pain, Hand Pain, Leg Pain, Foot Pain, Joint Pain, Muscle Pain, Spasms, Other Symptoms Neurological: Denies: Weakness, Numbness, Incoordination, Change in speech, Confusion, Seizures, Other Symptoms Objective Physical Examination Neck Exam: Positive: Supple Chest Exam: Positive: Clear to auscultation, Normal air movement Heart Exam: Positive: Rate Normal, Normal S1, Normal S2 Abdomen Exam: Positive: Soft, Tenderness (. No tenderness palpable at this present time) Extremity Exam: Positive: Normal pulses Skin Exam: Positive: Nl turgor and temperature Assessment /Plan Problems (1) Acute gastroenteritis Status: Acute Problem Text: Most likely acute gastroenteritis Patient seems to be responding to IV antibiotics. He was started on Flagyl and Cipro yesterday His WBC count has decreased to 15,000 today with normal electrolytes Surgical consult appreciated Will cancel HIDA scan as patient has no evidence of right upper quadrant tenderness on palpation today Continue clear liquid diet as per surgical recommendations If continues to improved possible discharge tomorrow Stool C. difficile pending (2) IDDM (insulin dependent diabetes mellitus) Status: Chronic Problem Text: Fingerstick blood sugar every before meals and at bedtime Continue all present meds (3) HTN (hypertension) Status: Chronic Problem Text: Continue all home meds (4) BALJINDER on CPAP Status: Chronic Problem Text: CPAP at night (5) Dyslipidemia Status: Chronic Problem Text: Continue home meds Plan/VTE VTE Prophylaxis Ordered?: Yes VS, I&O, 24H, Fishbone Vital Signs/I&O Vital Signs Date Time Temp Pulse Resp B/P (MAP) Pulse Ox O2 Delivery O2 Flow Rate FiO2 03/24/19 09:04 79 124/56 03/24/19 06:00 98.6 19 94 Room Air I&O- Last 24 Hours up to 6 AM 03/24/19 06:00 Intake Total 1100 ml Output Total 225 ml Balance 875 ml Laboratory Data 24H LABS Laboratory Tests 2 03/23/19 12:43: Immature Granulocyte % (Auto) 0.6, Neutrophils (%) (Auto) 79.6H, Lymphocytes (%) (Auto) 11.5L, Monocytes (%) (Auto) 7.5H, Eosinophils (%) (Auto) 0.5, Basophils (%) (Auto) 0.3, Neutrophils # (Auto) 14.8H, Lymphocytes # (Auto) 2.1, Monocytes # (Auto) 1.4H, Eosinophils # (Auto) 0.1, Basophils # (Auto) 0.1, Nucleated Red Blood Cells % (auto) 0.0, Prothrombin Time 14.8H, Prothromb Time International Ratio 1.19, Lactic Acid Level 1.7, Total Bilirubin 0.6, Direct Bilirubin 0.2, Aspartate Amino Transf (AST/SGOT) 14, Alanine Aminotransferase (ALT/SGPT) 25, Alkaline Phosphatase 96, Total Creatine Kinase 66, Creatine Kinase MB 1.5, Creatine Kinase MB Relative Index 2.27, Troponin I < 0.02, Total Protein 7.2, Albumin 3.8, Albumin/Globulin Ratio 1.12, Lipase 27L 03/23/19 12:56: Bedside Glucose (Misc Panel) 159H 03/23/19 13:26: POC Glucose (Misc Panel) 168H, POC Sodium (Misc Panel) 139, POC Potassium (Misc Panel) 4.1, POC Chloride (Misc Panel) 101, POC Total CO2 (Misc Panel) 27.0, POC Blood Urea Nitrogen (Misc Panel 29H, POC Ionized Calcium (Misc Panel) 4.8, POC Creatinine (Misc Panel) 1.9H, POC Hematocrit (Misc Panel) 47.0 03/23/19 20:23: Bedside Glucose (Misc Panel) 150H 03/23/19 21:23: Bedside Glucose (Misc Panel) 190H 03/24/19 05:15: Nucleated Red Blood Cells % (auto) 0.0, Prothrombin Time 16.6H, Prothromb Time International Ratio 1.37, Anion Gap 6L, Glomerular Filtration Rate 46.9, Calcium Level 8.5L, Magnesium Level 1.8, Total Bilirubin 1.0#, Aspartate Amino Transf (AST/SGOT) 13, Alanine Aminotransferase (ALT/SGPT) 18, Alkaline Phosphatase 85, Total Protein 7.2, Albumin 3.3, Albumin/Globulin Ratio 0.85L, Lipase 30L CBC/BMP Laboratory Tests 03/23/19 12:43 03/24/19 05:15 Microbiology Microbiology 03/23/19 Blood Culture, Received Pending 03/23/19 Blood Culture, Received Pending MARTELL MUNOZ MD Mar 24, 2019 11:04
[2019-03-24] MEDS ORDERED: DULoxetine 20 MG CAP (CYMBALTA) PO SCH (12:00)
[2019-03-24 14:00] VITALS: BP 121/56
[2019-03-24] MEDS: ATORVASTATIN 20 MG TAB PO SCH (20:07)
[2019-03-24] MEDS: TOPIRAMATE (TopAMAX) 25 MG TAB PO SCH (20:08)
[2019-03-24] MEDS: LATANOPROST 0.005% OPHTH SOLN 2.5 ML OU SCH (20:12)
[2019-03-24] MEDS ORDERED: WARFARIN SOD 5 MG TAB PO SCH (21:00)
[2019-03-24 22:00] VITALS: BP 134/64
[2019-03-25] MEDS: metroNIDAZOLE 500 MG in IV 1 EA IV SCH (03:13)
[2019-03-25] MEDS: CIPROFLOXACIN 400 MG in IV 1 EA IV SCH (05:06)
[2019-03-25 05:56] LABS: BASO # 0.1 10^3/uL (0.0-0.2); BASO % 0.6 % (0.0-1.0); EOS # 0.4 10^3/uL (0.0-0.5); HEMATOCRIT 42.2 % (42.0-52.0); HEMOGLOBIN 13.8 g/dl (13.5-17.5); LYMPH # 2.6 10^3/uL (1.5-5.0); LYMPH % 20.4 % (24.0-44.0); MEAN CORPUSCULAR HEMOGLOBIN 30.2 pg (27.0-33.0); MEAN CORPUSCULAR HGB CONC 32.7 g/dl (32.0-36.5); MEAN CORPUSCULAR VOLUME 92.3 fl (80.0-96.0); MONO # 1.1 10^3/uL (0.0-0.8); MONO % 8.8 % (0.0-5.0); NEUTROPHILS # 8.5 10^3/uL (1.5-8.5); NEUTROPHILS % 66.7 % (36.0-66.0); PLATELET COUNT, AUTOMATED 185 10^3/uL (150-450); RED BLOOD COUNT 4.57 10^6/uL (4.30-6.10); WHITE BLOOD COUNT 12.8 10^3/uL (4.0-10.0)
[2019-03-25 06:00] VITALS: BP 134/65
[2019-03-25 06:17] LABS: ALBUMIN 3.2 GM/DL (3.2-5.2); BILIRUBIN,TOTAL 0.5 MG/DL (0.2-1.0); CALCIUM LEVEL 8.8 MG/DL (8.8-10.2); CREATININE FOR GFR 1.4 MG/DL (0.70-1.30); GLOMERULAR FILTRATION RATE 52.3 (>42); MAGNESIUM LEVEL 1.8 MG/DL (1.8-2.4); POTASSIUM SERUM 3.6 MEQ/L (3.5-5.1); TOTAL PROTEIN 6.9 GM/DL (6.4-8.2)
[2019-03-25] MEDS: HumaLOG INSULIN (NovoLOG) PER UNIT SC SCH (07:31)
[2019-03-25] MEDS: TIOTROPIUM INHALER/CAPSULE (SPIRIVA) INH SCH (07:36)
[2019-03-25] MEDS ORDERED: FLAG500T PO (09:45)
[2019-03-25] MEDS ORDERED: CIPR-249 PO (09:45)
[2019-03-25] MEDS: SENOKOT S TAB PO SCH (09:48)
[2019-03-25] MEDS: GABAPENTIN 300 MG CAP PO SCH (09:48)
[2019-03-25] MEDS: DOCUSATE SODIUM 100 MG CAP PO SCH (09:48)
[2019-03-25] MEDS: AMIODARONE 200 MG TAB (PACERONE) PO SCH (09:48)
[2019-03-25 09:49] VITALS: BP 173/92
[2019-03-25] MEDS: lisinopriL 10 MG TAB PO SCH (09:49)
[2019-03-25] MEDS: ASPIRIN 81 MG ENTERIC TAB PO SCH (09:49)
[2019-03-25] MEDS: METOPROLOL TARTRATE 100 MG TAB PO SCH (09:49)
[2019-03-25] MEDS: FUROSEMIDE 20 MG TAB PO SCH (09:49)
--- NOTE | 2019-03-25 11:36 | DS.PDOC ---
Discharge Summary General Date of Admission Mar 23, 2019 at 12:26 Date of Discharge 03/25/19 Discharge Summary PROCEDURES PERFORMED DURING STAY: None. ADMITTING DIAGNOSES: 1. Abdominal pain. DISCHARGE DIAGNOSES: 1. Acute gastroenteritis, diabetes mellitus, atrial fibrillation, hypertension, COPD, obstructive sleep apnea, chronic congestive heart failure with AICD. COMPLICATIONS/CHIEF COMPLAINT: Abdominal Pain. HISTORY OF PRESENT ILLNESS: This is a 78 years old white male with past medical history of atrial fibrillation, type 2 diabetes mellitus, hypertension, COPD, obstructive sleep apnea on CPAP, chronic congestive heart failure with AICD, ejection fraction only 20-25%. His skin cancer at nasolabial fold, diabetic foot, gout, diabetic neuropathy, was recently admitted to the [facility] for cardiac catheterization. He was kept many days there, but then the procedure was canceled for unknown reasons. Patient was discharged from the hospital recently. Now patient came in with chief complaints of nausea, vomiting, diarrhea and abdominal pain. Also complaining of low blood sugar abdominal pain is probably in the right upper quadrant, nonradiating, associated with nausea, vomiting, not relieved with any medication, not exacerbated by any food intake, not relieved with pain medication needs. Patient has been admitted for observation for possible acute cholecystitis. HOSPITAL COURSE: Patient was admitted to medical floor with telemetry. He was started on IV Flagyl and Cipro. Patient responded very well to IV antibiotics. His WBC is significantly decreased to 12.8, and is afebrile, asymptomatic, was seen by surgery and no further surgical recommendations were provided. Patient is a kidney function is normal. Now 20. His BUN of 22, creatinine 1.4, normal range within normal range. We'll be discharged home by mouth antibiotics to finish up the course and he will follow with [facility] his PCP in one week. DISCHARGE MEDICATIONS: Please see below. ALLERGIES: Please see below. PHYSICAL EXAMINATION ON DISCHARGE: VITAL SIGNS: Please see below. GENERAL: Within normal limits HEENT: Sarai extraocular muscle intact NECK: Supple CARDIOVASCULAR EXAMINATION: S1, S2, regular RESPIRATORY EXAMINATION: Clear to A&P ABDOMINAL EXAMINATION: , Soft and the bowel sounds present EXTREMITIES: No clubbing, cyanosis, edema SKIN: Normal NEUROLOGICAL EXAMINATION: . No focal motor sensory deficits PSYCHIATRIC EXAMINATION: Normal LABORATORY DATA: Please see below. IMAGING: CT abdomen and pelvis: Sigmoid diverticulosis without diverticulitis. Abdominal aortic endovascular stent. Appendectomy. Atrophic left kidney as an interval change. No bowel obstruction or distension. No ascites, adenopathy or mass. PROGNOSIS: Good ACTIVITY: As tolerated. DIET: As tolerated DISCHARGE PLAN: Home DISPOSITION: 01 Home, Self-Care. DISCHARGE INSTRUCTIONS: 1. As per discharge instructions. ITEMS TO FOLLOWUP ON ON OUTPATIENT: 1. Follow-up with PCP in [facility] in one week. DISCHARGE CONDITION: Stable. TIME SPENT ON DISCHARGE: 35 minutes. Vital Signs/I&Os Vital Signs Date Time Temp Pulse Resp B/P (MAP) Pulse Ox O2 Delivery O2 Flow Rate FiO2 03/25/19 09:49 76 03/25/19 09:49 173/92 03/25/19 06:00 98.6 18 94 Room Air I&O- Last 24 Hours up to 6 AM 03/25/19 06:00 Intake Total 2160 ml Output Total 1650 ml Balance 510 ml Laboratory Data Labs 24H Laboratory Tests 2 03/24/19 16:28: Bedside Glucose (Misc Panel) 132H 03/24/19 21:23: Bedside Glucose (Misc Panel) 220H 03/25/19 05:14: Immature Granulocyte % (Auto) 0.5, Neutrophils (%) (Auto) 66.7H, Lymphocytes (%) (Auto) 20.4L, Monocytes (%) (Auto) 8.8H, Eosinophils (%) (Auto) 3.0, Basophils (%) (Auto) 0.6, Neutrophils # (Auto) 8.5, Lymphocytes # (Auto) 2.6, Monocytes # (Auto) 1.1H, Eosinophils # (Auto) 0.4, Basophils # (Auto) 0.1, Nucleated Red Blood Cells % (auto) 0.0, Anion Gap 5L, Glomerular Filtration Rate 52.3, Calcium Level 8.8, Magnesium Level 1.8, Total Bilirubin 0.5, Aspartate Amino Transf (AST/SGOT) 13, Alanine Aminotransferase (ALT/SGPT) 19, Alkaline Phosphatase 82, Total Protein 6.9, Albumin 3.2, Albumin/Globulin Ratio 0.86L CBC/BMP Laboratory Tests 03/25/19 05:14 FSBS Laboratory Tests Test 03/24/19 16:28 03/24/19 21:23 Range/Units Bedside Glucose (Misc Panel) 132 220 83-110 MG/DL Microbiology Microbiology 03/23/19 Blood Culture - Preliminary, Resulted No growth after 24 hours . All specim... 03/23/19 Blood Culture - Preliminary, Resulted No growth after 24 hours . All specim... Discharge Medications Scheduled Amiodarone Hcl (Pacerone) 200 Mg Tablet, 400 MG PO BID, (Reported) FOR 8 DAYS, THEN DECREASE TO 400MG DAILY THEREAFTER. STARTED 03/22/19 Aspirin (Aspirin EC) 81 Mg Tab, 81 MG PO QAM, (Reported) Atorvastatin Calcium (Atorvastatin Calcium) 80 Mg Tablet, 40 MG PO QHS, (Reported) Cholecalciferol (Vitamin D3) (Vitamin D3) 1,000 Unit Capsule, 1,000 UNIT PO QID, (Reported) Ciprofloxacin HCl (Cipro) 500 Mg Tablet, 1 TAB PO BID Collagenase Clostridium Hist. (Santyl) 250 Unit/Gm Oin, 1 APLCT TOP DAILY, (Reported) APPLY TO WOUND ON RIGHT FOOT Duloxetine Hcl (Duloxetine HCl) 20 Mg Capsule.dr, 20 MG PO DAILY, (Reported) TAKES AT NOON Furosemide (Furosemide) 20 Mg Tablet, 20 MG PO DAILY, (Reported) Gabapentin (Gabapentin) 300 Mg Cap, 300 MG PO QID, (Reported) Insulin Glargine,Hum.rec.anlog (Lantus Solostar) 100 Unit/1 Ml Insuln.pen, 60 UNITS SC QHS, (Reported) Insulin Human Lispro (Novolog) 100 U/Ml Inj, 1 DOSE SC AC, (Reported) PER SLIDING SCALE Latanoprost (Xalatan) 0.005% 2.5ML Drops, 1 DROP OU QHS, (Reported) Lisinopril (Lisinopril) 20 Mg Tablet, 10 MG PO DAILY, (Reported) Metoprolol Tartrate (Metoprolol Tartrate) 100 Mg Tablet, 100 MG PO BID, (Reported) Metronidazole (Flagyl) 500 Mg Tablet, 1 TAB PO BID [place]-3 Fatty Acids/Fish Oil (Fish Oil 1,000 mg Capsule) 1 Each Capsule, 2,000 MG PO BID, (Reported) Sennosides/Docusate Sodium (Senna-S Tablet) 1 Tab Tab, 2 TABS PO BID, (Reported) Tiotropium [place] (Spiriva) 18 Mcg Cap, 18 MCG INH DAILY, (Reported) Topiramate (Topiramate) 25 Mg Tab, 12.5 MG PO QHS, (Reported) Vitamin B Complex (Vitamin B Complex) 1 Each Tablet, 1 TAB PO QHS, (Reported) Warfarin Sodium (Warfarin Sodium) 5 Mg Tablet, 5 MG PO 5XW, (Reported) SUN/TUES/WED/THURS/SAT AT BEDTIME Warfarin Sodium (Warfarin Sodium) 5 Mg Tablet, 7.5 MG PO 2XW, (Reported) MON/FRI AT BEDTIME Scheduled PRN Dextrose (Glucose) 4 Gm Chw, 16 GM PO for LOW BLOOD SUGAR, (Reported) Hydrocodone/Acetaminophen (Hydrocodone-Acetamin 10-325 mg) 1 Each Tablet, 1 TAB PO Q6H PRN for PAIN, (Reported) Melatonin (Melatonin) 3 Mg Tablet, 3 MG PO QHS PRN for SLEEP, (Reported) Allergies Coded Allergies: No Known Allergies (Verified , 10/16/02) MARTELL MUNOZ MD Mar 25, 2019 11:36
[2019-03-31] MEDS ORDERED: AMIODARONE 200 MG TAB (PACERONE) PO SCH (09:00)
== END 2019-03-25 10:28 | disposition home or self-care (01) ==
LOC: M ED 12:25 → M ED INP 12:26 → UNDOADMOB 17:03 → ENRESERV 19:10 → M MSPAV 20:34
PROVIDERS: ADMIT Internal Medicine; ATTEND Internal Medicine
DX: K52.9 Noninfective gastroenteritis and colitis, unspecified (principal); E11.40 Type 2 diabetes mellitus with diabetic neuropathy, unspecified; I48.91 Unspecified atrial fibrillation; I11.0 Hypertensive heart disease with heart failure; J44.9 Chronic obstructive pulmonary disease, unspecified; G47.33 Obstructive sleep apnea (adult) (pediatric); I50.22 Chronic systolic (congestive) heart failure; Z95.810 Presence of automatic (implantable) cardiac defibrillator; E78.5 Hyperlipidemia, unspecified; D72.829 Elevated white blood cell count, unspecified; K82.8 Other specified diseases of gallbladder; M10.9 Gout, unspecified; E11.621 Type 2 diabetes mellitus with foot ulcer; I21.9 Acute myocardial infarction, unspecified; Z85.828 Personal history of other malignant neoplasm of skin; Z79.899 Other long term (current) drug therapy; Z79.82 Long term (current) use of aspirin; Z79.4 Long term (current) use of insulin; Z79.01 Long term (current) use of anticoagulants
CPT/HCPCS: 36415; 74176; 76705; 80047; 80053; 80076; 82550; 82553; 83605; 83690; 83735; 84484; 85025; 85027; 85610; 86850; 86900; 86901; 87040; 93005; 93041; 94640; 96365; 96366; 96368; 96375; 96376; 99285; G0378; J0744; J2270; J2405

== ENCOUNTER 2019-04-19 17:59 | Emergency (ER) | payer MEDICARE, OTHER ==
[~2019-04-19] VITALS: Ht 170.2 cm; Wt 106.8 kg
[~2019-04-19 17:59] MED LIST changes: +CIPR-249 PO; +EQL50TAB2 PO; +FISH1000 PO; +FLAG500T PO; +FURO20TA2 PO; +LANTINJ4 SC; +LISI-538 PO; +MELA3TAB24 PO; +MELA3TAB41 PO; +METO100T5 PO; +PACE200T PO; +VITA100054 PO
[2019-04-19 18:00] VITALS: BP 170/76
== END 2019-04-19 19:30 | disposition home or self-care (01) ==
LOC: M ED 17:59
DX: S01.512A Laceration without foreign body of oral cavity, initial encounter (principal); X58.XXXA Exposure to other specified factors, initial encounter; Y92.89 Other specified places as the place of occurrence of the external cause; E11.9 Type 2 diabetes mellitus without complications; J44.9 Chronic obstructive pulmonary disease, unspecified; I10 Essential (primary) hypertension; I50.9 Heart failure, unspecified; G62.9 Polyneuropathy, unspecified; Z79.899 Other long term (current) drug therapy; Z79.82 Long term (current) use of aspirin; Z79.01 Long term (current) use of anticoagulants; F17.210 Nicotine dependence, cigarettes, uncomplicated

== ENCOUNTER 2019-04-22 07:45 | Inpatient (IN) | payer MEDICARE, OTHER ==
[~2019-04-22] VITALS: Ht 170.2 cm; Wt 101.4 kg
[2019-04-22 08:29] LABS: BASO # 0.1 10^3/uL (0.0-0.2); BASO % 0.5 % (0.0-1.0); EOS # 0.3 10^3/uL (0.0-0.5); EOS % 1.9 % (0.0-3.0); HEMATOCRIT 39.5 % (42.0-52.0); HEMOGLOBIN 12.6 g/dl (13.5-17.5); LYMPH # 2.2 10^3/uL (1.5-5.0); LYMPH % 12.4 % (24.0-44.0); MEAN CORPUSCULAR HEMOGLOBIN 29.1 pg (27.0-33.0); MEAN CORPUSCULAR HGB CONC 31.9 g/dl (32.0-36.5); MEAN CORPUSCULAR VOLUME 91.2 fl (80.0-96.0); MONO # 1.5 10^3/uL (0.0-0.8); MONO % 8.8 % (0.0-5.0); NEUTROPHILS # 13.3 10^3/uL (1.5-8.5); NEUTROPHILS % 75.8 % (36.0-66.0); PLATELET COUNT, AUTOMATED 223 10^3/uL (150-450); RED BLOOD COUNT 4.33 10^6/uL (4.30-6.10); WHITE BLOOD COUNT 17.5 10^3/uL (4.0-10.0)
[2019-04-22 08:56] LABS: BILIRUBIN,DIRECT 0.2 MG/DL (0.0-0.2); BILIRUBIN,TOTAL 0.7 MG/DL (0.2-1.0)
[2019-04-22] MEDS ORDERED: NS 500 ML IV ONE ×2 (09:15→14:00)
[2019-04-22] MEDS ORDERED: VITAD1000T PO (09:51)
[2019-04-22 10:16] LABS: PROTHROMBIN TIME 110.4 SECONDS (11.8-14.0)
--- NOTE | 2019-04-22 10:16 | REP ---
CT of the abdomen pelvis without IV or bowel contrast for right flank pain: Comparison is 03/23/2019. The visualized lung velazquez are unremarkable. The unenhanced hepatic parenchyma, gallbladder, pancreas and spleen are normal size and unremarkable. The adrenals are unremarkable. The right kidney is abnormal. There is significant perinephric stranding resulting in the Gerota's fascia thickening into the pelvis as a distinct interval change. There is mild right hydronephrosis and proximal hydroureter. There is no ureteral calculus. There is a nonobstructive renal calculus at the mid pole, unchanged, likely vascular calcified atheroma. The findings may indicate diffuse acute pyelonephritis. Obstructive uropathy is considered less likely although not entirely discounted. Left kidney is atrophic as previously and otherwise unremarkable. There is an abdominal aortic aneurysm with an endovascular stent as previously. There is no periaortic hematoma or mass. There is no bowel distension or obstruction. The mesentery is unremarkable. There is no mesenteric inflammation or abscess. No adenopathy. Pelvis: The the patient has an appendectomy. There are surgical clips adjacent to the cecal tip. This is unchanged. The terminal ileum is unremarkable. The pelvic bowel loops are unremarkable. There is no diverticulosis or diverticulitis. There is no pelvic adenopathy or ascites. The bladder is unremarkable. Impression: There is interval significant perinephric stranding, possibly an inflammatory extending to Gerota's fascia resulting in joules fashion thickening into the pelvis. There are no focal fluid collections to suggest abscess. There is mild right hydronephrosis as an interval change but no hydroureter. No ureteral calculus is identified. There is a nonobstructive renal calculus, unchanged from prior study, likely vascular atheroma. These findings are nonspecific but may represent diffuse acute right renal pyelonephritis or obstructive uropathy is a considered less likely. There is no ascites. There is no mesenteric or retroperitoneal adenopathy. No diverticulosis or diverticulitis. No bowel distension or obstruction. Abdominal aortic aneurysm with an endovascular stent. There is no periaortic hematoma or mass. There is left renal atrophy, unchanged. Electronically Signed by Edison Castillo MD 04/22/2019 10:09 A
--- NOTE | 2019-04-22 10:22 | REPVR ---
PROCEDURE INFORMATION: Exam: CT Thoracic Spine Without Contrast Exam date and time: 04/22/2019 9:58 AM Age: 79 years old Clinical indication: Weakness; Additional info: Bilat leg weakness TECHNIQUE: Imaging protocol: Computed tomography images of the thoracic spine without contrast. Radiation optimization: All CT scans at this facility use at least one of these dose optimization techniques: automated exposure control; mA and/or kV adjustment per patient size (includes targeted exams where dose is matched to clinical indication); or iterative reconstruction. COMPARISON: No relevant prior studies available. FINDINGS: Vertebrae: No acute thoracic spine fracture or traumatic malalignment. Discs/Spinal canal/Neural foramina: No severe osseous spinal canal stenosis. Multilevel overall mild degenerative findings. Soft tissues: Unremarkable. Vasculature: Moderate aortic and branch vessel atherosclerosis. Partially imaged infrarenal aortic aneurysm with endograft material in place. Lungs: Bilateral apical pulmonary scarring. Mild centrilobular emphysema. Heart: Aortic annular and coronary artery calcifications are present. Multi chamber cardiac enlargement, partially imaged. Kidneys and ureters: Non-specific bilateral perinephric edema. IMPRESSION: No acute thoracic spine fracture or traumatic malalignment. Electronically signed by: Matthew Maddox On 04/22/2019 10:22:15 AM
--- NOTE | 2019-04-22 10:25 | REPVR ---
PROCEDURE INFORMATION: Exam: CT Lumbar Spine Without Contrast Exam date and time: 04/22/2019 9:58 AM Age: 79 years old Clinical indication: Weakness; Additional info: Bilat leg weakness TECHNIQUE: Imaging protocol: Computed tomography images of the lumbar spine without contrast. Radiation optimization: All CT scans at this facility use at least one of these dose optimization techniques: automated exposure control; mA and/or kV adjustment per patient size (includes targeted exams where dose is matched to clinical indication); or iterative reconstruction. COMPARISON: CT Spine, lumbar w/o contrast 10/30/2013 11:[address] abdomen 03/23/2019 FINDINGS: Vertebrae: Old right L4 and L5 janell laminectomy surgical changes. No acute lumbar spine fracture or traumatic malalignment. Discs/Spinal canal/Neural foramina: No severe osseous spinal canal stenosis. Multilevel overall moderate degenerative findings. Kidneys and ureters: Extensive right perinephric and periureteral inflammation. No radiopaque calculi. Mild right hydronephrosis. Vasculature: Since the recent comparison abdomen CT, there has been placement of an aortic endo graft traversing the infrarenal aortic aneurysm. Severe aortic and branch vessel atherosclerosis. Soft tissues: Unremarkable. IMPRESSION: 1. Severe inflammation surrounding the right kidney and ureter, suspicious for ascending urinary tract infection and/or obstructive inflammation, with no calculi in the partially imaged urinary tract. 2. No acute lumbar spine fracture or traumatic malalignment. 3. Infrarenal aortic aneurysm with endograft material in place, partially imaged. Attention on upcoming CT abdomen. Electronically signed by: Matthew Maddox On 04/22/2019 10:25:21 AM
[2019-04-22 10:28] LABS: INR 14.63; PARTIAL THROMBOPLASTIN TIME 135.5 SECONDS (25.0-38.4)
[2019-04-22 10:53] LABS: PROTHROMBIN TIME 112.2 SECONDS (11.8-14.0)
[2019-04-22 10:54] LABS: INR 14.94; PARTIAL THROMBOPLASTIN TIME 123.7 SECONDS (25.0-38.4)
[2019-04-22] MEDS ORDERED: cefTRIAXone SOD 1 GM in D5W MINI-BAG PLUS 50 ML IV ONE (11:00)
[2019-04-22] MEDS ORDERED: PHYTONADIONE 5 MG TAB PO ONE ×2 (12:00→21:45)
[2019-04-22] MEDS ORDERED: ACETAMINOPHEN TAB 650MG DOSE (2X325MG) PO PRN (12:15)
[2019-04-22] MEDS ORDERED: HYDROcodone/APAP LIQUID 7.5-325MG 15ML UDC (LORTAB ELIXIR) PO PRN (12:15)
--- NOTE | 2019-04-22 12:20 | HPEPDOC ---
General Date of Admission 04/22/19 Date of Service: Apr 22, 2019 Chief Complaint The patient is a 79-year-old male admitted with a reason for visit of Urinary Problem. Source: Patient, Family Exam Limitations: No limitations Timing/Duration: 4-6 hours Severity: Moderate Associated Symptoms: Nausea History of Present Illness Patient is 79 years old male with past history of type 2 diabetes, PR in the past, hyperlipidemia, ischemic stroke, atrial fibrillation on Coumadin presented to the hospital with hematuria. Patient stated that today in the morning he developed hematuria, he had never had his symptoms before. In emergency room patient was found to have elevated INR 14.9. Also patient was found to have elevated white blood count was 17. Also patient complains of low back pain with radiation to the right distal leg. Patient is afebrile, does not have tachycardia, hemoglobin 12.6. Of note patient has been recently treated with antibiotics for acalculous cholecystitis. CT abdomen and pelvis showed there is interval significant perinephric stranding, there are no focal fluid collections to suggest abscess. There is mild right hydronephrosis as an interval change but no hydroureter. No acute lumbar spine fracture or traumatic malalignment. Home Medications Scheduled Amiodarone Hcl (Pacerone) 200 Mg Tablet, 400 MG PO DAILY, (Reported) Aspirin (Aspirin EC) 81 Mg Tab, 81 MG PO QAM, (Reported) Atorvastatin Calcium (Atorvastatin Calcium) 80 Mg Tablet, 40 MG PO QHS, (Reported) Cholecalciferol (Vitamin D3) (Vitamin D3) 1,000 Unit Tablet, 1,000 UNITS PO QID, (Reported) Collagenase Clostridium Hist. (Santyl) 250 Unit/Gm Oin, 1 APLCT TOP DAILY, (Reported) APPLY TO WOUND ON RIGHT FOOT Duloxetine Hcl (Duloxetine HCl) 20 Mg Capsule.dr, 20 MG PO DAILY, (Reported) TAKES AT NOON Furosemide (Furosemide) 20 Mg Tablet, 20 MG PO DAILY, (Reported) Gabapentin (Gabapentin) 300 Mg Cap, 300 MG PO QID, (Reported) Insulin Glargine,Hum.rec.anlog (Lantus Solostar) 100 Unit/1 Ml Insuln.pen, 60 UNITS SC QHS, (Reported) Insulin Human Lispro (Novolog) 100 U/Ml Inj, 1 DOSE SC AC, (Reported) PER SLIDING SCALE Latanoprost (Xalatan) 0.005% 2.5ML Drops, 1 DROP OU QHS, (Reported) Lisinopril (Lisinopril) 20 Mg Tablet, 10 MG PO DAILY, (Reported) Metoprolol Tartrate (Metoprolol Tartrate) 100 Mg Tablet, 100 MG PO BID, (Reported) [place]-3 Fatty Acids/Fish Oil (Fish Oil 1,000 mg Capsule) 1 Each Capsule, 2,000 MG PO BID, (Reported) Sennosides/Docusate Sodium (Senna-S Tablet) 1 Tab Tab, 2 TABS PO BID, (Reported) Tiotropium [place] (Spiriva) 18 Mcg Cap, 1 PUFF INH DAILY, (Reported) Vitamin B Complex (Vitamin B Complex) 1 Each Tablet, 1 TAB PO QHS, (Reported) Warfarin Sodium (Warfarin Sodium) 5 Mg Tablet, 5 MG PO 5XW, (Reported) SUN//TUE//SAT AT BEDTIME Warfarin Sodium (Warfarin Sodium) 5 Mg Tablet, 7.5 MG PO 2XW, (Reported) MON/FRI AT BEDTIME Scheduled PRN Dextrose (Glucose) 4 Gm Chw, 16 GM PO for LOW BLOOD SUGAR, (Reported) Hydrocodone/Acetaminophen (Hydrocodone-Acetamin 10-325 mg) 1 Each Tablet, 1 TAB PO Q6H PRN for PAIN, (Reported) Melatonin (Melatonin) 3 Mg Tablet, 3 MG PO QHS PRN for SLEEP, (Reported) Allergies Coded Allergies: No Known Allergies (Verified , 10/16/02) Past Medical History Medical History Atrial fibrillation. Insulin dependent type 2 diabetes. Hypertension. COPD. Obstructive sleep apnea (BALJINDER) on CPAP. Systolic congestive heart failure (CHF) with AICD, ejection fraction 20-25%. Skin cancer nasal labial fold. Diabetic foot. Gout. Diabetic neuropathy PR Aortic aneurysm repair Ischemic stroke Surgical History Aortic aneurysm repair, AICD, appendectomy, laminectomy of the back surgery, tonsillectomy Family History I personally reviewed family history and found not pertinent Social History * Smoker: current smoker Alcohol: Denies Drugs: denies A-FIB/CHADSVASC A-FIB History Current/History of A-Fib/PAF?: Yes Current PO Anticoag Therapy: Yes Treatment Treatment ordered: NONE, Holding Other (due to high INR) Reason Anticoagulant not given: Current bleeding Review of Systems Constitutional: Denies: Chills, Fever Eyes: Denies: Pain, Vision change ENT: Reports: Other Symptoms (purple tongue from previous hematoma); Denies: Head Aches Skin: Denies: Rash Pulmonary: Denies: Dyspnea, Cough Cardiovascular: Denies: Chest Pain, Palpitations Gastrointestinal: Denies: Nausea, Vomiting Genitourinary: Reports: Hematuria Hematologic: Reports: Bruising Endocrine: Denies: Polydipsia, Polyphagia Musculoskeletal: Reports: Back Pain, Leg Pain; Denies: Neck Pain Neurological: Denies: Weakness Psych: Reports: Mood Normal Physical Examination General Exam: Positive: Alert, Cooperative Eye Exam: Positive: PERRLA ENT Exam: Positive: Atraumatic, Tongue Midline (purple tongue due to previous h ematoma) Neck Exam: Positive: Supple; Negative: JVD Chest Exam: Positive: Clear to auscultation Heart Exam: Positive: Irregular Rhythm; Negative: Rate Normal Telemetry: Positive: Atrial fibrillation Abdomen Exam: Positive: Normal bowel sounds, Other (right CVA tenderness) Extremity Exam: Positive: Clubbing; Negative: Cyanosis Skin Exam: Positive: Nl turgor and temperature Neuro Exam: Positive: Strength at 5/5 X4 ext, Cranial Nerves 3-12 NL Psych Exam: Positive: Mental status NL Vital Signs Vital Signs Date Time Temp Pulse Resp B/P (MAP) Pulse Ox O2 Delivery O2 Flow Rate FiO2 04/22/19 08:26 04/22/19 07:46 97.5 98 20 94 Room Air Laboratory Data Labs 24H Laboratory Tests 2 04/22/19 08:01: Immature Granulocyte % (Auto) 0.6, Neutrophils (%) (Auto) 75.8H, Lymphocytes (%) (Auto) 12.4L, Monocytes (%) (Auto) 8.8H, Eosinophils (%) (Auto) 1.9, Basophils (%) (Auto) 0.5, Neutrophils # (Auto) 13.3H, Lymphocytes # (Auto) 2.2, Monocytes # (Auto) 1.5H, Eosinophils # (Auto) 0.3, Basophils # (Auto) 0.1, Nucleated Red Blood Cells % (auto) 0.0, Total Bilirubin 0.7, Direct Bilirubin 0.2, Aspartate Amino Transf (AST/SGOT) 12, Alanine Aminotransferase (ALT/SGPT) 17, Alkaline Phosphatase 81, PO-Aac-U-Type Natriuretic Peptide 965H, Total Protein 7.0, Albumin 3.0L, Albumin/Globulin Ratio 0.75L, Lipase 28L 04/22/19 08:18: Prothrombin Time 110.4H, Prothromb Time International Ratio 14.63*H, Activated Partial Thromboplast Time 135.5*H 04/22/19 08:19: POC Glucose (Misc Panel) 112H, POC Sodium (Misc Panel) 136, POC Potassium (Misc Panel) 4.2, POC Chloride (Misc Panel) 99, POC Total CO2 (Misc Panel) 28.0H, POC Blood Urea Nitrogen (Misc Panel 22, POC Ionized Calcium (Misc Panel) 4.7, POC Creatinine (Misc Panel) 1.5H, POC Hematocrit (Misc Panel) 38.0 04/22/19 10:24: Prothrombin Time 112.2H, Prothromb Time International Ratio 14.94*H, Activated Partial Thromboplast Time 123.7*H 04/22/19 11:48: POC Lactate (Misc Panel) 0.86 CBC/BMP Laboratory Tests 04/22/19 08:01 Assessment/Plan Patient is 79 years old male with past history of type 2 diabetes, PR in the past, hyperlipidemia, ischemic stroke, atrial fibrillation on Coumadin presented to the hospital with hematuria. Patient stated that today in the morning he developed hematuria, he had never had his symptoms before. In emergency room patient was found to have elevated INR 14.9. Also patient was found to have elevated white blood count was 17. Also patient complains of low back pain with radiation to the right distal leg. Patient is afebrile, does not have tachycardia, hemoglobin 12.6. Of note patient has been recently treated with antibiotics for acalculous cholecystitis. CT abdomen and pelvis showed there is interval significant perinephric stranding, there are no focal fluid collections to suggest abscess. Treatment with vitamin K and ceftriaxone started Problems (1) Sepsis Status: Acute Problem Text: Most likely secondary to acute pyelonephritis Patient has leukocytosis and hypotension Blood culture Ceftriaxone IV Gentle IV fluid given history of systolic CHF (2) Hematuria Status: Acute Problem Text: Most likely secondary to elevated INR and acute pyelonephritis Patient received 5 mg of vitamin K in ER Will monitor INR every 6 hours (3) Elevated INR Status: Acute Problem Text: We'll continue to monitor INR, vitamin K given (4) Acute pyelonephritis Status: Acute Problem Text: CT abdomen and pelvis did not show any retroperitoneal bleed, it showed some inflammatory changes around the right kidney with perinephric strain. Patient have some right flank tenderness and leukocytosis We will continue ceftriaxone IV Await urine analysis (5) Diabetes mellitus Status: Chronic Problem Text: Diabetes diet, insulin sliding scale, Detemir twice a day (6) Afib Status: Chronic Problem Text: Heart rate is under control Coumadin on hold due to supratherapeutic INR (7) CHF (congestive heart failure) Status: Chronic Problem Text: History of systolic CHF with ejection fraction 25% Not in acute exacerbation Continue home cardioprotective medications (8) BALJINDER on CPAP Status: Chronic Problem Text: CPAP daily at bedtime Plan / VTE VTE Prophylaxis Ordered?: No VTE Exclusion Pharmacological: Hemorrhage YESSENIA TILLEY DO Apr 22, 2019 12:20
[2019-04-22] MEDS ORDERED: GLUCOSE 4 GM CHEW TABLET PO PRN (13:00)
[2019-04-22] MEDS ORDERED: GLUCAGON FOR INJ 1 MG VIAL (J1610) SC PRN (13:00)
[2019-04-22] MEDS ORDERED: DEXTROSE 50% 50 ML SYRINGE IV PRN (13:00)
[2019-04-22 13:19] LABS: GLUCOSE, URINE (UA) MANUAL NEGATIVE (NEGATIVE)
[2019-04-22 13:24] LABS: BILIRUBIN, URINE MANUAL OBSCURED (NEGATIVE); KETONE, URINE MANUAL OBSCURED mg/dL (NEGATIVE); UROBILINOGEN, URINE MANUAL OBSCURED mg/dl (NORMAL)
[2019-04-22] MEDS: GABAPENTIN 300 MG CAP PO SCH ×3 (13:26→20:36)
[2019-04-22] MEDS: DULoxetine 20 MG CAP (CYMBALTA) PO SCH (13:26)
[2019-04-22] MEDS: VITAMIN D 1,000 INTERNATIONAL UNITS TABLET PO SCH ×3 (13:26→20:33)
[2019-04-22 13:28] LABS: RBC, URINE TNTC /hpf (0-3)
[2019-04-22 13:29] LABS: BACTERIA, URINE MOD AMOUNT; HYALINE CAST, URINE NONE SEEN /lpf (0-1); SQUAMOUS EPITHELIAL CELL URINE SMALL AMOUNT /hpf (SMALL AMT)
[2019-04-22 16:00] VITALS: BP 150/89
[2019-04-22] MEDS: ANEXSIA, NORCO 7.5MG/325MG TABLET(HYDROCODONE/APAP) PO PRN ×2 (16:39→23:11)
[2019-04-22] MEDS: HumaLOG INSULIN (NovoLOG) PER UNIT SC SCH ×2 (16:43→20:36)
[2019-04-22] MEDS: ONDANSETRON 4MG/2ML VIAL (J2405) IV PRN ×2 (17:42→23:06)
[2019-04-22 18:48] LABS: PROTHROMBIN TIME 117.2 SECONDS (11.8-14.0)
[2019-04-22 19:51] LABS: INR 15.78
[2019-04-22 20:00] VITALS: BP 142/68
[2019-04-22] MEDS: ATORVASTATIN 20 MG TAB PO SCH (20:33)
[2019-04-22] MEDS: SENOKOT S TAB PO SCH (20:33)
[2019-04-22] MEDS: cefTRIAXone SOD 1 GM in D5W MINI-BAG PLUS 50 ML IV SCH (20:33)
[2019-04-22] MEDS: LEVEMIR (INSULIN DETEMIR) 1 UNITS/0.01ML SC SCH (20:33)
[2019-04-22] MEDS: METOPROLOL TARTRATE 100 MG TAB PO SCH (20:34)
[2019-04-23] VITALS (28 sets, daily range): BP systolic 127–170; BP diastolic 56–93
[2019-04-23 00:20] LABS: INR 16.42
--- NOTE | 2019-04-23 02:51 | IPNPDOC ---
Date Seen The patient was seen on 04/23/19. Progress Note 4 BEATS NSVT AT 0250AM -Asymptomatic with stable vitals. plan: check k, mg, card key keep k>4, mg>2 supplement k and mg as needed. VS, I&O, 24H, Fishbone Vital Signs/I&O Vital Signs Date Time Temp Pulse Resp B/P (MAP) Pulse Ox O2 Delivery O2 Flow Rate FiO2 04/23/19 00:15 96.2 82 16 160/74 (102) 93 Room Air I&O- Last 24 Hours up to 6 AM 04/23/19 06:00 Intake Total 720 ml Output Total 800 ml Balance -80 ml Laboratory Data 24H LABS Laboratory Tests 2 04/22/19 08:01: Immature Granulocyte % (Auto) 0.6, Neutrophils (%) (Auto) 75.8H, Lymphocytes (%) (Auto) 12.4L, Monocytes (%) (Auto) 8.8H, Eosinophils (%) (Auto) 1.9, Basophils (%) (Auto) 0.5, Neutrophils # (Auto) 13.3H, Lymphocytes # (Auto) 2.2, Monocytes # (Auto) 1.5H, Eosinophils # (Auto) 0.3, Basophils # (Auto) 0.1, Nucleated Red Blood Cells % (auto) 0.0, Total Bilirubin 0.7, Direct Bilirubin 0.2, Aspartate Amino Transf (AST/SGOT) 12, Alanine Aminotransferase (ALT/SGPT) 17, Alkaline Phosphatase 81, KP-Svc-Y-Type Natriuretic Peptide 965H, Total Protein 7.0, Albumin 3.0L, Albumin/Globulin Ratio 0.75L, Lipase 28L 04/22/19 08:18: Prothrombin Time 110.4H, Prothromb Time International Ratio 14.63*H, Activated Partial Thromboplast Time 135.5*H 04/22/19 08:19: POC Glucose (Misc Panel) 112H, POC Sodium (Misc Panel) 136, POC Potassium (Misc Panel) 4.2, POC Chloride (Misc Panel) 99, POC Total CO2 (Misc Panel) 28.0H, POC Blood Urea Nitrogen (Misc Panel 22, POC Ionized Calcium (Misc Panel) 4.7, POC Creatinine (Misc Panel) 1.5H, POC Hematocrit (Misc Panel) 38.0 04/22/19 10:24: Prothrombin Time 112.2H, Prothromb Time International Ratio 14.94*H, Activated Partial Thromboplast Time 123.7*H 04/22/19 11:48: POC Lactate (Misc Panel) 0.86 04/22/19 13:02: Bedside Glucose (Misc Panel) 53L 04/22/19 13:06: Urine Color (SANDRA) REDH, Urine Appearance (SANDRA) CLOUDYH, Urine pH (SANDRA) 5.0, Urine Specific [place] (SANDRA) 1.015, Urine Protein 3+H, Bedside Urine Glucose (UA) NEGATIVE, Bedside Urine Ketones (LAB) OBSCUREDH, Bedside Urine Blood POSITIVEH, Bedside Urine Nitrite (LAB) OBSCUREDH, Bedside Urine Bilirubin (LAB) OBSCUREDH, Bedside Urine Urobilinogen (LAB) OBSCUREDH, Bedside Urine Leukocyte Esterase (L POSITIVEH, Urine Sediment Examination PERFORMED, Urine RBC TNTCH, Urine WBC 10-15H, Urine Squamous Epithelial Cells SMALL AMOUNT, Urine Bacteria MOD AMOUNTH, Urine Hyaline Casts NONE SEEN 04/22/19 13:51: Bedside Glucose (Misc Panel) 79L 04/22/19 14:52: Bedside Glucose (Misc Panel) 102 04/22/19 16:32: Bedside Glucose (Misc Panel) 139H 04/22/19 18:11: Prothrombin Time 117.2H, Prothromb Time International Ratio 15.78*H 04/22/19 20:30: Bedside Glucose (Misc Panel) 112H 04/22/19 23:48: Prothrombin Time 121.0H, Prothromb Time International Ratio 16.42*H CBC/BMP Laboratory Tests 04/22/19 08:01 Microbiology Microbiology 04/22/19 Blood Culture, Received Pending 04/22/19 Urine Culture, Received Pending DANIEL SAVAGE MD Apr 23, 2019 02:51
[2019-04-23] MEDS ORDERED: POTASSIUM CHLORIDE 10 MEQ SR TABLET PO ONE (03:00)
[2019-04-23] MEDS ORDERED: MAG SULF 1GM/100ML (MAG RUN) 1 GM in IV 1 EA IV ONE (03:00)
[2019-04-23 03:12] LABS: HEMATOCRIT 36.6 % (42.0-52.0); HEMOGLOBIN 11.6 g/dl (13.5-17.5); MEAN CORPUSCULAR HEMOGLOBIN 29.6 pg (27.0-33.0); MEAN CORPUSCULAR HGB CONC 31.7 g/dl (32.0-36.5); MEAN CORPUSCULAR VOLUME 93.4 fl (80.0-96.0); PLATELET COUNT, AUTOMATED 199 10^3/uL (150-450); RED BLOOD COUNT 3.92 10^6/uL (4.30-6.10); WHITE BLOOD COUNT 22.8 10^3/uL (4.0-10.0)
[2019-04-23 03:35] LABS: BLOOD UREA NITROGEN 32 MG/DL (7-18); CALCIUM LEVEL 8.6 MG/DL (8.8-10.2); CARBON DIOXIDE LEVEL 24 MEQ/L (21-32); CHLORIDE LEVEL 104 MEQ/L (98-107); CK-MB VALUE MASS < 1.0 NG/ML (<3.6); CPK CREATINE PHOSPHOKINASE 93 U/L (39-308); CREATININE FOR GFR 2.69 MG/DL (0.70-1.30); GLOMERULAR FILTRATION RATE 24.6 (>42); GLUCOSE, FASTING 148 MG/DL (70-100); MAGNESIUM LEVEL 1.8 MG/DL (1.8-2.4); MB/CK RELATIVE INDEX 1.08 (< OR =4); POTASSIUM SERUM 4.6 MEQ/L (3.5-5.1); SODIUM LEVEL 136 MEQ/L (136-145); TROPONIN I 0.02 NG/ML (< 0.10)
[2019-04-23] MEDS: ONDANSETRON 4MG/2ML VIAL (J2405) IV PRN ×2 (04:03→12:29)
[2019-04-23] MEDS ORDERED: METOPROLOL TARTRATE 100 MG TAB PO ONE (04:30)
[2019-04-23] MEDS ORDERED: PHYTONADIONE 5 MG TAB PO ONE (04:30)
[2019-04-23 06:00] LABS: PROTHROMBIN TIME 130.4 SECONDS (11.8-14.0)
[2019-04-23 06:02] LABS: INR 18.03
--- NOTE | 2019-04-23 06:52 | REPVR ---
PROCEDURE INFORMATION: Exam: CT Head Without Contrast Exam date and time: 04/23/2019 6:29 AM Age: 79 years old Clinical indication: Pain; Headache; Additional info: Inr 18 headache R/O ich TECHNIQUE: Imaging protocol: Computed tomography of the head without contrast. Radiation optimization: All CT scans at this facility use at least one of these dose optimization techniques: automated exposure control; mA and/or kV adjustment per patient size (includes targeted exams where dose is matched to clinical indication); or iterative reconstruction. COMPARISON: CT Head without contrast 04/22/2019 9:39 AM FINDINGS: Brain: There is an old left occipital lobe infarct. Ventricles: Normal. No ventriculomegaly. Bones/joints: Unremarkable. No acute fracture. Sinuses: Visualized sinuses are unremarkable. No fluid levels. Mastoid air cells: Visualized mastoid air cells are well aerated. Soft tissues: Unremarkable. Vasculature: There is moderate intracranial vascular calcification. IMPRESSION: 1. No acute intracranial findings identified. Please refer to incidental findings in body of report. 2. There is an old left occipital lobe infarct. Electronically signed by: Jose Ya On 04/23/2019 06:52:06 AM
[2019-04-23] MEDS: HumaLOG INSULIN (NovoLOG) PER UNIT SC SCH ×4 (07:30→21:00)
[2019-04-23] MEDS: ANEXSIA, NORCO 7.5MG/325MG TABLET(HYDROCODONE/APAP) PO PRN ×2 (07:53→13:53)
[2019-04-23] MEDS: TIOTROPIUM INHALER/CAPSULE (SPIRIVA) INH SCH (08:31)
[2019-04-23] MEDS ORDERED: lisinopriL 10 MG TAB PO SCH (09:00)
[2019-04-23] MEDS ORDERED: FUROSEMIDE 20 MG TAB PO SCH (09:00)
[2019-04-23] MEDS: cefTRIAXone SOD 1 GM in D5W MINI-BAG PLUS 50 ML IV SCH (09:00)
[2019-04-23] MEDS: VITAMIN D 1,000 INTERNATIONAL UNITS TABLET PO SCH ×4 (09:28→21:12)
[2019-04-23] MEDS: SENOKOT S TAB PO SCH ×2 (09:28→21:13)
[2019-04-23] MEDS: GABAPENTIN 300 MG CAP PO SCH ×4 (09:28→21:13)
[2019-04-23] MEDS: METOPROLOL TARTRATE 100 MG TAB PO SCH ×2 (09:29→21:15)
[2019-04-23] MEDS: AMIODARONE 200 MG TAB (PACERONE) PO SCH (09:29)
[2019-04-23] MEDS: LEVEMIR (INSULIN DETEMIR) 1 UNITS/0.01ML SC SCH ×2 (09:30→21:17)
[2019-04-23] MEDS ORDERED: LEVALBUTEROL 1.25 MG/0.5 ML CONCENTRATE NEB INH PRN (11:45)
--- NOTE | 2019-04-23 11:47 | IPNPDOC ---
Text Note Date of Service The patient was seen on 04/23/19. NOTE Subjective: Patient complains of increased swelling of the tongue difficulty in speaking and difficulty in swallowing. He continues to have hematuria and oozing from IV sites. Denies any SOb at this point. Physical Exam: Vitals As below General Exam: Positive: Alert, Cooperative Eye Exam: Positive: PERRLA ENT Exam: Positive: Atraumatic, Tongue Midline (purple tongue due to previous hematoma)Swollen and large. Neck Exam: Positive: Supple; bruising just below the chin. Negative: JVD Chest Exam: Positive: Clear to auscultation Heart Exam: Positive: Irregular Rhythm; No rub, murmur or gallop Negative: Rate Normal Telemetry: Positive: Atrial fibrillation Abdomen Exam: Positive: Normal bowel sounds, soft, nontender. Bruises in different parts. Extremity Exam: Positive: Clubbing; Negative: Cyanosis, No edema Skin Exam: Positive: Nl turgor and temperature Neuro Exam: Positive: Strength at 5/5 X4 ext, Cranial Nerves 3-12 NL Psych Exam: Positive: Mental status NL Labs and Radiology : reviewed Assessment and plan: Patient is 79 years old male with past history of type 2 diabetes, [place] in the past, hyperlipidemia, ischemic stroke, atrial fibrillation on Coumadin presented to the hospital with hematuria. Patient stated that today in the morning he developed hematuria, he had never had his symptoms before. In emergency room patient was found to have elevated INR 14.9. Also patient was found to have elevated white blood count was 17. Also patient complains of low back pain with radiation to the right distal leg. Patient is afebrile, does not have tachycardia, hemoglobin 12.6. Of note patient has been recently treated with antibiotics for acalculous cholecystitis. CT abdomen and pelvis showed there is interval significant perinephric stranding, there are no focal fluid collections to suggest abscess. Admitted for coumadin toxicity, pyelonephritis. Treatment with vitamin K and ceftriaxone started Coumadin toxicity INR at 18 with bleeding. possibly due to recent antibiotic use will give FFP 4 units, received 2 doses of vit K Hematuria secondary to elevated INR with acute pyelonephritis will reverse INR. Tongue bite several days ago during sleep with bruised and swollen tongue will try with cold compresses to bring it down. discussed with ENT Dr Lacy. will get CT neck to look into the airway, start on decadron. Sepsis Most likely secondary to acute pyelonephritis Patient has leukocytosis and hypotension Blood culture Ceftriaxone IV Acute pyelonephritis CT abdomen and pelvis did not show any retroperitoneal bleed, it showed some inflammatory changes around the right kidney with perinephric strain. Patient have some right flank tenderness and leukocytosis We will continue ceftriaxone IV Urine culture negative but was sent after he got a dose of antibiotics so may not be accurate. TRENT Has left renal atrophic kidney with right mild hydro stop lisinopril and lasix. monitor I/Os Diabetes mellitus with diabetic neuropathy and diabetic foot. Diabetes diet, insulin sliding scale, Detemir twice a day Afib Heart rate is under control Continue amiodarone and metoprolol Coumadin on hold due to supratherapeutic INR Systolic CHF (congestive heart failure) with ejection fraction 20- 25%, Has AICD in place Not in acute exacerbation Hypertension continue metroprolol will hold lisinopril and lasix, will give amlodipine if needed. BALJINDER on CPAP Has per daughter does not use it. has not used it this week. BALJINDER protocol. COPD. Continue spiriva, nebs Gout. no issues Aortic aneurysm repair with endovascular stent. no bleeding H/o Ischemic stroke Chronic Back Pain h/o laminectomy continue gabapentin and cymbalta. VS,Fishbone, I+O VS, Fishbone, I+O Laboratory Tests 04/23/19 03:01 Vital Signs Date Time Temp Pulse Resp B/P (MAP) Pulse Ox O2 Delivery O2 Flow Rate FiO2 04/23/19 10:51 96.7 72 20 147/68 92 Room Air 04/23/19 10:04 92.0 I&O- Last 24 Hours up to 6 AM 04/23/19 06:00 Intake Total 720 ml Output Total 800 ml Balance -80 ml JOSE RAUL CUBA MD Apr 23, 2019 11:47
[2019-04-23] MEDS: DULoxetine 20 MG CAP (CYMBALTA) PO SCH (13:54)
[2019-04-23] MEDS: dexameTHASONE 4 MG/ML 1ML VIAL (J1100) IV SCH ×2 (13:55→21:16)
--- NOTE | 2019-04-23 18:34 | REPVR ---
PROCEDURE INFORMATION: Exam: CT Neck Without Contrast Exam date and time: 04/23/2019 11:32 AM Age: 79 years old Clinical indication: Dysphagia / difficulty swallowing; Additional info: Tongue swelling difficulty in swallowing, difficulty in patrick TECHNIQUE: Imaging protocol: Computed tomography images of the neck without contrast. Radiation optimization: All CT scans at this facility use at least one of these dose optimization techniques: automated exposure control; mA and/or kV adjustment per patient size (includes targeted exams where dose is matched to clinical indication); or iterative reconstruction. COMPARISON: No relevant prior studies. FINDINGS: Brain: There is an old left occipital infarct. Nasopharynx: Unremarkable. Oropharynx: Unremarkable. No significant tonsillar enlargement. Hypopharynx: Unremarkable. Larynx: The epiglottis appears thickened, presumably reflecting submucosal edema in keeping with epiglottitis. Retropharyngeal space: There may be a component of mild retropharyngeal edema. No evidence of a large discrete effusion or abscess. Submandibular/Parotid glands: See Soft Tissues Finding. Thyroid: Normal. No enlarged or calcified nodules. Lymph nodes: No pathologically enlarged lymph nodes identified. Trachea: Visualized trachea is unremarkable. Lungs: The lung apices appear mildly emphysematous. There is a left chest cardiac pacer. Vasculature: Calcified atherosclerotic plaque at the carotid bifurcations. There is a medialized course of the ICAs. Bones/joints: The cervical spine demonstrates moderate disc height loss and spondylosis at C5-C6 and C6-C7. Prominent cervical facet arthropathy with grade 1 degenerative anterolisthesis of C4 on C5. Moderate degenerative changes at C1-C2. There is an old T1 spinous process fracture. Soft tissues: There is submental and anterior neck subcutaneous edema. Edema in the bilateral submandibular spaces. IMPRESSION: 1. Thickened epiglottis consistent with epiglottitis. 2. The airway remains patent. Electronically signed by: Nicole Harrell On 04/23/2019 18:33:53 PM
[2019-04-23 18:56] LABS: INR 2.68; PROTHROMBIN TIME 28.4 SECONDS (11.8-14.0)
[2019-04-23] MEDS: cefTRIAXone SOD 2 GM in D5W MINI-BAG PLUS 50 ML IV SCH (21:11)
[2019-04-23] MEDS: ATORVASTATIN 20 MG TAB PO SCH (21:13)
[2019-04-23] MEDS: LATANOPROST 0.005% OPHTH SOLN 2.5 ML OU SCH (21:15)
[2019-04-24] VITALS: BP 132/73
[2019-04-24 00:58] LABS: INR 3.1; PROTHROMBIN TIME 31.9 SECONDS (11.8-14.0)
[2019-04-24 04:00] VITALS: BP 135/67
[2019-04-24] MEDS: dexameTHASONE 4 MG/ML 1ML VIAL (J1100) IV SCH ×2 (04:01→14:32)
[2019-04-24 04:08] LABS: BASO % 0.1 % (0.0-1.0); HEMATOCRIT 24.7 % (42.0-52.0); LYMPH # 1.2 10^3/uL (1.5-5.0); MEAN CORPUSCULAR HEMOGLOBIN 29.7 pg (27.0-33.0); MEAN CORPUSCULAR HGB CONC 32.8 g/dl (32.0-36.5); MEAN CORPUSCULAR VOLUME 90.5 fl (80.0-96.0); MONO # 0.3 10^3/uL (0.0-0.8); MONO % 1.5 % (0.0-5.0); NEUTROPHILS # 18.1 10^3/uL (1.5-8.5); NEUTROPHILS % 91.6 % (36.0-66.0); PLATELET COUNT, AUTOMATED 212 10^3/uL (150-450); RED BLOOD COUNT 2.73 10^6/uL (4.30-6.10); WHITE BLOOD COUNT 19.8 10^3/uL (4.0-10.0)
[2019-04-24 04:20] LABS: HEMOGLOBIN 8.1 g/dl (13.5-17.5)
[2019-04-24 04:24] LABS: INR 3.04; PROTHROMBIN TIME 31.4 SECONDS (11.8-14.0)
[2019-04-24 04:32] LABS: CALCIUM LEVEL 8.9 MG/DL (8.8-10.2); CREATININE FOR GFR 4.07 MG/DL (0.70-1.30); GLOMERULAR FILTRATION RATE 15.2 (>42); POTASSIUM SERUM 4.4 MEQ/L (3.5-5.1)
--- NOTE | 2019-04-24 06:52 | REPVR ---
PROCEDURE INFORMATION: Exam: US Retroperitoneal Limited, Kidneys Exam date and time: 04/24/19 (6:03am) Age: 79 years old Clinical indication: TRENT TECHNIQUE: Imaging protocol: Real-time ultrasound of the retroperitoneum with image documentation. Examination was focused on the kidneys. COMPARISON: US RENAL of 05/12/17 FINDINGS: RIGHT KIDNEY --- The right kidney measures 13.0 cm in length. No hydronephrosis nor mass is noted. No upper tract stones are identified. LEFT KIDNEY --- The left kidney measures 8.7 cm in length (moderate atrophy). No hydronephrosis nor mass is noted. No upper tract stones are identified. IMPRESSION: No acute pathology. No hydronephrosis. Moderate atrophy of the left kidney. The kidneys were each normal in size on sonogram of 05/12/17. Electronically signed by: Rhonda Montague On 04/24/2019 06:52:38 AM
[2019-04-24] MEDS: TIOTROPIUM INHALER/CAPSULE (SPIRIVA) INH SCH (07:23)
[2019-04-24 08:00] VITALS: BP 147/68
[2019-04-24] MEDS: AMIODARONE 200 MG TAB (PACERONE) PO SCH (08:28)
[2019-04-24] MEDS: GABAPENTIN 300 MG CAP PO SCH ×2 (08:28→14:33)
[2019-04-24] MEDS: SENOKOT S TAB PO SCH ×2 (08:28→20:23)
[2019-04-24] MEDS: VITAMIN D 1,000 INTERNATIONAL UNITS TABLET PO SCH ×4 (08:28→20:20)
[2019-04-24] MEDS: METOPROLOL TARTRATE 100 MG TAB PO SCH ×2 (08:28→20:25)
[2019-04-24] MEDS: HumaLOG INSULIN (NovoLOG) PER UNIT SC SCH ×4 (08:29→20:24)
[2019-04-24] MEDS: LEVEMIR (INSULIN DETEMIR) 1 UNITS/0.01ML SC SCH ×2 (08:29→20:24)
--- NOTE | 2019-04-24 10:34 | IPNPDOC ---
Text Note Date of Service The patient was seen on 04/24/19. NOTE Subjective: Swelling of tongue has improved and denies any difficulty in swal lowing or breathing or talking. His INR has been corrected and hematuria stopped and no oozing from the sites. Poor urine output in the past 24 hours. Worked with PT. Feeling well. Physical Exam: Vitals As below General Exam: Positive: Alert, Cooperative Eye Exam: Positive: PERRLA ENT Exam: Positive: Atraumatic, Tongue Midline (purple tongue due to previous hematoma)Swollen and large. Neck Exam: Positive: Supple; bruising just below the chin. Negative: JVD Chest Exam: Positive: Clear to auscultation Heart Exam: Positive: Irregular Rhythm; No rub, murmur or gallop Negative: Rate Normal Telemetry: Positive: Atrial fibrillation Abdomen Exam: Positive: Normal bowel sounds, soft, nontender. Bruises in different parts. Extremity Exam: Positive: Clubbing; Negative: Cyanosis, No edema Skin Exam: Positive: Nl turgor and temperature Neuro Exam: Positive: Strength at 5/5 X4 ext, Cranial Nerves 3-12 NL Psych Exam: Positive: Mental status NL Labs and Radiology : reviewed Assessment and plan: Patient is 79 years old male with past history of type 2 diabetes, [place] in the past, hyperlipidemia, ischemic stroke, atrial fibrillation on Coumadin presented to the hospital with hematuria. Patient stated that today in the morning he developed hematuria, he had never had his symptoms before. In emergency room patient was found to have elevated INR 14.9. Also patient was found to have elevated white blood count was 17. Also patient complains of low back pain with radiation to the right distal leg. Patient is afebrile, does not have tachycardia, hemoglobin 12.6. Of note patient has been recently treated with antibiotics for acalculous cholecystitis. CT abdomen and pelvis showed there is interval significant perinephric stranding, there are no focal fluid collections to suggest abscess. Admitted for coumadin toxicity, pyelonephritis. Treatment with vitamin K and ceftriaxone started TRENT worsening Has left renal atrophic kidney with right mild hydro stop lisinopril and lasix. monitor I/Os. In large amount of positive balance. May need diuretics today. nephrology consult Coumadin toxicity INR at 18 with bleeding. possibly due to recent antibiotic use INR corrected after FFP and Vit K. Hematuria resolved. secondary to elevated INR with acute pyelonephritis Tongue bite several days ago during sleep with bruised and swollen tongue improving cold compresses to bring it down. discussed with ENT Dr Lacy. CT neck shows epiglottis edema, submandibular edema bilaterally suggested epiglottits, patent airways. started on decadron. Sepsis Most likely secondary to acute pyelonephritis Patient has leukocytosis and hypotension Blood culture and urine culture negative till date Ceftriaxone IV Acute pyelonephritis CT abdomen and pelvis did not show any retroperitoneal bleed, it showed some inflammatory changes around the right kidney with perinephric strain. Patient have some right flank tenderness and leukocytosis We will continue ceftriaxone IV Urine culture negative but was sent after he got a dose of antibiotics so may not be accurate. Diabetes mellitus with diabetic neuropathy and diabetic foot. Diabetes diet, insulin sliding scale, Detemir twice a day Afib Heart rate is under control Continue amiodarone and metoprolol Coumadin on hold due to supratherapeutic INR Systolic CHF (congestive heart failure) with ejection fraction 20- 25%, Has AICD in place Not in acute exacerbation Hypertension continue metoprolol will hold lisinopril and lasix, will give amlodipine if needed. BALJINDER on CPAP As per daughter does not use it. has not used it this week. However pateint said he did use it. Says uses it about 3 to 4 times a week. BALJINDER protocol. COPD. Continue spiriva, nebs Gout. no issues Aortic aneurysm repair with endovascular stent. no bleeding H/o Ischemic stroke in the occipital area. Chronic Back Pain h/o laminectomy continue gabapentin and cymbalta. VS,Fishbone, I+O VS, Fishbone, I+O Laboratory Tests 04/24/19 03:58 Vital Signs Date Time Temp Pulse Resp B/P (MAP) Pulse Ox O2 Delivery O2 Flow Rate FiO2 04/24/19 04:00 97.4 79 18 135/67 (89) 92 Room Air 04/23/19 11:11 95.0 I&O- Last 24 Hours up to 6 AM 04/24/19 06:00 Intake Total 3036 ml Output Total 450 ml Balance 2586 ml JOSE RAUL CUBA MD Apr 24, 2019 05:21
[2019-04-24 12:00] VITALS: BP 161/70
[2019-04-24] MEDS: DULoxetine 20 MG CAP (CYMBALTA) PO SCH (12:00)
[2019-04-24] MEDS: ONDANSETRON 4MG/2ML VIAL (J2405) IV PRN (14:32)
[2019-04-24 14:45] LABS: HEMATOCRIT 26.4 % (42.0-52.0); HEMOGLOBIN 8.6 g/dl (13.5-17.5); MEAN CORPUSCULAR HEMOGLOBIN 29.8 pg (27.0-33.0); MEAN CORPUSCULAR HGB CONC 32.6 g/dl (32.0-36.5); MEAN CORPUSCULAR VOLUME 91.3 fl (80.0-96.0); PLATELET COUNT, AUTOMATED 229 10^3/uL (150-450); RED BLOOD COUNT 2.89 10^6/uL (4.30-6.10); WHITE BLOOD COUNT 21.1 10^3/uL (4.0-10.0)
[2019-04-24 14:57] LABS: INR 3.67; PROTHROMBIN TIME 36.5 SECONDS (11.8-14.0)
[2019-04-24 14:59] LABS: PARTIAL THROMBOPLASTIN TIME 60.7 SECONDS (25.0-38.4)
[2019-04-24 15:07] LABS: CALCIUM LEVEL 9.3 MG/DL (8.8-10.2); CREATININE FOR GFR 3.9 MG/DL (0.70-1.30); POTASSIUM SERUM 4.8 MEQ/L (3.5-5.1)
[2019-04-24 16:00] VITALS: BP 170/72
[2019-04-24] MEDS ORDERED: amLODIPine 10 MG TAB PO ONE (16:30)
[2019-04-24] MEDS ORDERED: METOCLOPRAMIDE INJ 10MG/2ML VIAL (J2765) IV SCH (18:00)
[2019-04-24] MEDS ORDERED: PANTOPRAZOLE 40MG INJ (PROTONIX) (C9113) IV ONE (19:30)
--- NOTE | 2019-04-24 19:40 | CR ---
DATE OF CONSULTATION: 04/24/2019 REASON FOR CONSULTATION: Acute renal failure. HISTORY OF PRESENT ILLNESS: Mr. Valiente is a 79-year-old gentleman who was admitted to [facility] last evening. He is regularly followed by [facility] ([place]) [facility] and reports that he was recently discharged from [facility] in [place] after he had [id number] myocardial infarction (NSTEMI) and underwent cardiac catheterization. Prior to this, he had abdominal aortic aneurysm repaired with an endovascular stent a few weeks ago. In any way, he was admitted [facility] and then discharged, but got admitted due to hematuria. He was found to have coagulopathy with INR significantly elevated. The patient is also noticed to have acute renal failure with creatinine up to 4.0, due to which a nephrology consultation is requested and the patient is seen this morning. His other chronic medical problems include type 2 diabetes, coronary artery disease with prior myocardial infarction ([place]), hyperlipidemia, ischemic stroke, atrial fibrillation requiring chronic anticoagulation and abdominal aortic aneurysm repair. MEDICATIONS: His home medications include: - amiodarone 400 mg daily - aspirin 81 mg daily - atorvastatin 80 mg daily - vitamin D 1000 units daily - Duloxetine 20 mg daily - furosemide 20 mg daily - gabapentin 300 mg four times a day - Lantus insulin 60 units daily - Humalog insulin per sliding scale - lisinopril 20 mg daily - metoprolol 100 mg twice a day - Senna 1 tablet twice a day - omega 3 1000 mg 2 capsules twice a day - multivitamin 1 tablet - warfarin 5 mg daily for 5 days a week and 7.5 mg daily twice a week. ALLERGIES: The patient has no known drug allergies. PAST MEDICAL HISTORY: Significant for: 1. Atrial fibrillation. 2. Coronary artery disease with prior myocardial infarction ([place]). 3. Type 2 diabetes. 4. Hypertension. 5. Chronic obstructive pulmonary disease (COPD). 6. Systolic congestive heart failure. 7. Gout. 8. Diabetic neuropathy. 9. Aortic aneurysm repair. 10. Ischemic stroke. PAST SURGICAL HISTORY: Significant for: 1. Endovascular aortic aneurysm repair. 2. Automatic implantable cardioverter defibrillator (AICD) placement. 3. Appendectomy. 4. Laminectomy. 5. Tonsillectomy. FAMILY HISTORY: The patient denies any family history for end-stage renal disease or significant chronic kidney disease. PERSONAL AND SOCIAL HISTORY: The patient is a current smoker. Denies any alcohol or drug use. REVIEW OF SYSTEMS: The patient reports gross hematuria for last few days and also has significant ecchymosis of his tongue and chin area. He was found to have coagulopathy. No fever or chills reported. EYES, EARS, NOSE AND THROAT: Unremarkable. CARDIOVASCULAR SYSTEM: Significant for history of coronary artery disease with [place] and atrial fibrillation with chronic anticoagulation. Denies any chest pain or dyspnea at present. RESPIRATORY SYSTEM: Negative for cough or hemoptysis. GASTROINTESTINAL (GI) SYSTEM: Negative for black colored stools or rectal bleeding. GENITOURINARY () SYSTEM: Significant for gross hematuria. Denies any passed kidney stones. ENDOCRINE SYSTEM: Significant for type 2 diabetes and no history of thyroid problems. HEMATOLOGICAL SYSTEM: Significant for chronic anticoagulation and acute blood loss anemia. PSYCHOSOCIAL SYSTEM: Significant for depression. NEUROLOGICAL SYSTEM: Significant for peripheral neuropathy and prior stroke. PHYSICAL EXAMINATION: The patient is awake and alert sitting in the chair at the time of my visit. Temperature 96.9 degrees Fahrenheit, heart rate 72 per minute and respiratory rate 18 per minute. Blood pressure 160/70 mmHg and oxygen saturation 91% on room air. Head is atraumatic. He has obvious ecchymosis on his chin area and his tongue is also ecchymotic. Pupils are equal and reactive to light and sclera is anicteric. Nose and throat are unremarkable. Neck is supple and jugular venous distention (JVD) not abnormally elevated. Heart sounds are regular and lungs sound clear to auscultation. Abdomen is soft and tender in the right flank area but no palpable organomegaly. Bowel sounds are normal. Extremities: Without any cyanosis or clubbing. Neurologically, he is awake, alert and oriented times three. LABORATORY DATA: On admission, his BUN was 32 and creatinine 2.69. Today, BUN 58 and creatinine 4.07, glucose 217, calcium 8.9, sodium 135 and potassium 4.4. His admission hemoglobin was 12.6 and hematocrit 39.5. This morning, hemoglobin is down to 8.1 and hematocrit 24.7. INR on admission was 18.0, which has now come down to 3.0. The patient had a CAT scan of abdomen and pelvis done which showed atrophic left kidney and significant perinephric stranding of the right kidney. A renal ultrasound has also been done which showed right kidney 13 cm, while left kidney is only 8.7 cm. PROBLEMS: 1. Acute renal failure superimposed on chronic kidney disease. The patient has significantly atrophic left kidney. Acute renal failure is most likely related to right kidney problem. He either has acute pyelonephritis or coagulopathy associated hemorrhagic issue with his kidneys.. He did have gross hematuria and may have developed pericapsular hematoma. He also has perinephric stranding suggestive of inflammation or hemorrhage. At present, his electrolytes are stable and he does not have any significant metabolic acidosis or hypervolemia. We will need to monitor his kidney function closely and continue with gentle hydration unless he has adequate oral intake. I would recommend close monitoring of kidney function. He should also be treated empirically for possible pyelonephritis. 2. Hypertension. Blood pressure is likely to be worse due to acute kidney injury and decline in kidney function. His blood pressure will need to be monitored closely and medications we will need to be adjusted if needed. I would suggest to avoid high dose of diuretic due to risk for worsening renal failure. 3. Gross hematuria. Most likely related to coagulopathy and I do not feel that he has any kidney stone or glomerulonephritis. His gross hematuria has already resolved and we will continue to monitor closely. There is no emergent indication for a transfusion and close monitoring of his hematocrit is recommended. Thank you for involving me in the care of Mr. Valiente. I will follow him along with you.
[2019-04-24 20:00] VITALS: BP 162/80
[2019-04-24] MEDS: LATANOPROST 0.005% OPHTH SOLN 2.5 ML OU SCH (20:20)
[2019-04-24] MEDS: cefTRIAXone SOD 2 GM in D5W MINI-BAG PLUS 50 ML IV SCH (20:20)
[2019-04-24] MEDS: GABAPENTIN 100 MG CAP PO SCH (20:22)
[2019-04-24] MEDS: ATORVASTATIN 20 MG TAB PO SCH (20:23)
[2019-04-24] MEDS: PROCHLORPERAZINE 10 MG/2 ML VIAL (J0780) IV PRN (20:25)
[2019-04-24] MEDS ORDERED: LEVEMIR (INSULIN DETEMIR) 1 UNITS/0.01ML SC SCH (21:00)
[2019-04-25] VITALS (19 sets, daily range): BP systolic 139–164; BP diastolic 62–88; O2SAT 97–100
[2019-04-25 05:11] LABS: BASO % 0.1 % (0.0-1.0); HEMATOCRIT 23.6 % (42.0-52.0); HEMOGLOBIN 7.8 g/dl (13.5-17.5); LYMPH # 1.2 10^3/uL (1.5-5.0); LYMPH % 5.5 % (24.0-44.0); MEAN CORPUSCULAR HEMOGLOBIN 30.1 pg (27.0-33.0); MEAN CORPUSCULAR HGB CONC 33.1 g/dl (32.0-36.5); MEAN CORPUSCULAR VOLUME 91.1 fl (80.0-96.0); MONO # 0.9 10^3/uL (0.0-0.8); MONO % 4.3 % (0.0-5.0); NEUTROPHILS # 18.6 10^3/uL (1.5-8.5); NEUTROPHILS % 88.8 % (36.0-66.0); PLATELET COUNT, AUTOMATED 233 10^3/uL (150-450); RED BLOOD COUNT 2.59 10^6/uL (4.30-6.10)
[2019-04-25 05:29] LABS: INR 4.06; PROTHROMBIN TIME 39.6 SECONDS (11.8-14.0)
[2019-04-25 05:31] LABS: CREATININE FOR GFR 3.17 MG/DL (0.70-1.30); GLOMERULAR FILTRATION RATE 20.3 (>42); POTASSIUM SERUM 4.6 MEQ/L (3.5-5.1)
[2019-04-25] MEDS: TIOTROPIUM INHALER/CAPSULE (SPIRIVA) INH SCH (07:18)
[2019-04-25] MEDS: PANTOPRAZOLE 40MG INJ (PROTONIX) (C9113) IV SCH (08:07)
[2019-04-25] MEDS: GABAPENTIN 100 MG CAP PO SCH ×3 (08:08→21:26)
[2019-04-25] MEDS: AMIODARONE 200 MG TAB (PACERONE) PO SCH (08:08)
[2019-04-25] MEDS: SENOKOT S TAB PO SCH ×2 (08:08→21:26)
[2019-04-25] MEDS: amLODIPine 10 MG TAB PO SCH (08:09)
[2019-04-25] MEDS: METOPROLOL TARTRATE 100 MG TAB PO SCH ×2 (08:10→21:26)
[2019-04-25] MEDS: HumaLOG INSULIN (NovoLOG) PER UNIT SC SCH ×4 (08:14→21:25)
[2019-04-25] MEDS: VITAMIN D 1,000 INTERNATIONAL UNITS TABLET PO SCH ×4 (08:15→21:26)
[2019-04-25] MEDS: LEVEMIR (INSULIN DETEMIR) 1 UNITS/0.01ML SC SCH ×2 (08:15→21:25)
[2019-04-25] MEDS: ASPIRIN 81 MG ENTERIC TAB PO SCH (09:00)
--- NOTE | 2019-04-25 10:33 | IPNPDOC ---
Text Note Date of Service The patient was seen on 04/25/19. NOTE Subjective: Swelling of tongue has improved and denies any difficulty in swal lowing or breathing or talking. His INR has been corrected and hematuria stopped and no oozing from the sites. Poor urine output in the past 24 hours. Worked with PT. Feeling well. Physical Exam: Vitals As below General Exam: Positive: Alert, Cooperative Eye Exam: Positive: PERRLA ENT Exam: Positive: Atraumatic, Tongue Midline (purple tongue due to previous hematoma)Swollen and large. Neck Exam: Positive: Supple; bruising just below the chin. Negative: JVD Chest Exam: Positive: Clear to auscultation Heart Exam: Positive: Irregular Rhythm; No rub, murmur or gallop Negative: Rate Normal Telemetry: Positive: Atrial fibrillation Abdomen Exam: Positive: Normal bowel sounds, soft, nontender. Bruises in different parts. Extremity Exam: Positive: Clubbing; Negative: Cyanosis, No edema Skin Exam: Positive: Nl turgor and temperature Neuro Exam: Positive: Strength at 5/5 X4 ext, Cranial Nerves 3-12 NL Psych Exam: Positive: Mental status NL Labs and Radiology : reviewed Assessment and plan: Patient is 79 years old male with past history of type 2 diabetes, [place] in the past, hyperlipidemia, ischemic stroke, atrial fibrillation on Coumadin presented to the hospital with hematuria. Patient stated that today in the morning he developed hematuria, he had never had his symptoms before. In emergency room patient was found to have elevated INR 14.9. Also patient was found to have elevated white blood count was 17. Also patient complains of low back pain with radiation to the right distal leg. Patient is afebrile, does not have tachycardia, hemoglobin 12.6. Of note patient has been recently treated with antibiotics for acalculous cholecystitis. CT abdomen and pelvis showed there is interval significant perinephric stranding, there are no focal fluid collections to suggest abscess. Admitted for coumadin toxicity, pyelonephritis. Treatment with vitamin K and ceftriaxone started TRENT Acute pyelonephritis or coagulopathy associated hemorrhagic issue with his kidneys.. Now improving. Has left renal atrophic kidney with right mild hydro monitor I/Os. Acute blood loss anemia on chronic anemia will give 2 units of blood transfusion. Leucocytosis due to decadron use now stopped Coumadin toxicity INR at 18 with bleeding. possibly due to recent antibiotic use INR corrected after FFP and Vit K. Hematuria resolved. secondary to elevated INR with acute pyelonephritis Tongue bite several days ago during sleep with bruised and swollen tongue improved cold compresses and decadron used to bring it down. discussed with ENT Dr Lacy. CT neck shows epiglottis edema, submandibular edema bilaterally suggested epiglottits, patent airways. Sepsis Most likely secondary to acute pyelonephritis Patient has leukocytosis and hypotension Blood culture and urine culture negative till date Ceftriaxone IV Acute pyelonephritis CT abdomen and pelvis did not show any retroperitoneal bleed, it showed some inflammatory changes around the right kidney with perinephric strain. Patient have some right flank tenderness and leukocytosis We will continue ceftriaxone IV Urine culture negative but was sent after he got a dose of antibiotics so may not be accurate. Diabetes mellitus with diabetic neuropathy and diabetic foot. Diabetes diet, insulin sliding scale, Detemir twice a day CAD with recent NSTEMI and stenting at [facility] Heart rate is under control Continue amiodarone and metoprolol Coumadin on hold due to supratherapeutic INR Systolic CHF (congestive heart failure) with ejection fraction 20- 25%, Has AICD in place Not in acute exacerbation Hypertension continue metoprolol will hold lisinopril and lasix, will give amlodipine if needed. BALJINDER on CPAP oxygen stats drop to 80% during sleep in hospital As per daughter does not use it. has not used it this week. However pateint said he did use it. Says uses it about 3 to 4 times a week. BALJINDER protocol. Discussed with pateint the importance of using it . COPD. Continue spiriva, nebs Gout. no issues Aortic aneurysm repair with endovascular stent. no bleeding H/o Ischemic stroke in the occipital area. Chronic Back Pain h/o laminectomy continue gabapentin and cymbalta. VS,Fishbone, I+O VS, Fishbone, I+O Laboratory Tests 04/24/19 14:35 04/25/19 04:52 Vital Signs Date Time Temp Pulse Resp B/P (MAP) Pulse Ox O2 Delivery O2 Flow Rate FiO2 04/25/19 08:10 79 140/62 04/25/19 08:00 97.1 16 97 Room Air 04/25/19 06:00 2.0 50 I&O- Last 24 Hours up to 6 AM 2/26/20 06:00 Intake Total 770 ml Output Total 1225 ml Balance -455 ml JOSE RAUL CUBA MD Apr 25, 2019 10:33
[2019-04-25] MEDS ORDERED: SLF 3 ML SYR IV PRN (12:15)
[2019-04-25] MEDS: DULoxetine 20 MG CAP (CYMBALTA) PO SCH (12:43)
[2019-04-25] MEDS: PROCHLORPERAZINE 10 MG/2 ML VIAL (J0780) IV PRN (12:55)
[2019-04-25] MEDS: SLF 3 ML SYR IV SCH ×2 (14:33→21:25)
--- NOTE | 2019-04-25 15:04 | IPN ---
DATE: 04/25/2019 Mr. Valiente is seen this morning on his bedside. He is sitting in the chair at the time of my visit and is in good spirits. He reports some improvement in the swelling of his tongue and denies any further hematuria. He has no nausea, vomiting, fever or chills. Right flank pain is improved. PHYSICAL EXAMINATION: Temperature 97 degrees Fahrenheit, heart rate 78 per minute and respiratory rate 16 per minute. Blood pressure 140/62 mmHg and oxygen saturation 97% on room air. Head is atraumatic. Ecchymosis on his neck is essentially unchanged. Tongue ecchymosis is also essentially unchanged. His neck veins are not abnormally distended. Heart sounds are regular and lungs clear to auscultation. Abdomen is soft and nontender and bowel sounds are normal. Extremities are without any cyanosis or clubbing. Neurologically, he is awake, alert and at his baseline mentation. Today's labs show WBC count 21.0, hemoglobin 7.8 and hematocrit 23.6. Sodium 136, potassium 4.6, CO2 25, BUN 68 and creatinine 3.17. Glucose 243 and calcium 9.0. PROBLEMS: 1. Acute renal failure superimposed on chronic kidney disease. Slight improvement in kidney function is noted since yesterday. He has decent urine output, and we will continue to monitor. Most likely he had hemorrhage into his mainly functioning right kidney and also has atrophic left kidney. I do not feel that he has pyelonephritis. However, I would recommend to continue with antibiotic treatment at this point. 2. Acute blood loss anemia due to coagulopathy. The patient is going to be transfused 2 units of packed RBCs and some fresh frozen plasma due to an INR of 4.0 today. He does not have any active bleeding at present. 3. Hypertension. Blood pressure is reasonably well-controlled and he remains off his inhibitor at this point due to acute renal failure.
[2019-04-25] MEDS: cefTRIAXone SOD 2 GM in D5W MINI-BAG PLUS 50 ML IV SCH (21:25)
[2019-04-25] MEDS: LATANOPROST 0.005% OPHTH SOLN 2.5 ML OU SCH (21:26)
[2019-04-25] MEDS: ATORVASTATIN 20 MG TAB PO SCH (21:26)
[2019-04-26 04:00] VITALS: BP 162/84
[2019-04-26] MEDS: SLF 3 ML SYR IV SCH ×3 (04:57→20:33)
[2019-04-26 06:18] LABS: BASO % 0.2 % (0.0-1.0); HEMATOCRIT 30.8 % (42.0-52.0); LYMPH # 1.1 10^3/uL (1.5-5.0); LYMPH % 5.9 % (24.0-44.0); MEAN CORPUSCULAR HGB CONC 32.8 g/dl (32.0-36.5); MEAN CORPUSCULAR VOLUME 91.4 fl (80.0-96.0); MONO # 1.2 10^3/uL (0.0-0.8); MONO % 6.6 % (0.0-5.0); NEUTROPHILS # 16.1 10^3/uL (1.5-8.5); NEUTROPHILS % 85.4 % (36.0-66.0); PLATELET COUNT, AUTOMATED 244 10^3/uL (150-450); RED BLOOD COUNT 3.37 10^6/uL (4.30-6.10); WHITE BLOOD COUNT 18.9 10^3/uL (4.0-10.0)
[2019-04-26 06:23] LABS: HEMOGLOBIN 10.1 g/dl (13.5-17.5)
[2019-04-26 06:28] LABS: PROTHROMBIN TIME 51.4 SECONDS (11.8-14.0)
[2019-04-26 06:38] LABS: INR 5.63
[2019-04-26 06:41] LABS: CALCIUM LEVEL 9.3 MG/DL (8.8-10.2); CREATININE FOR GFR 2.04 MG/DL (0.70-1.30); GLOMERULAR FILTRATION RATE 33.8 (>42); POTASSIUM SERUM 4.3 MEQ/L (3.5-5.1)
[2019-04-26] MEDS: HumaLOG INSULIN (NovoLOG) PER UNIT SC SCH ×4 (07:30→20:34)
[2019-04-26 08:00] VITALS: BP 139/87
[2019-04-26] MEDS ORDERED: PHYTONADIONE 5 MG TAB PO ONE (08:00)
[2019-04-26] MEDS: TIOTROPIUM INHALER/CAPSULE (SPIRIVA) INH SCH (08:23)
[2019-04-26] MEDS: AMIODARONE 200 MG TAB (PACERONE) PO SCH (08:42)
[2019-04-26] MEDS: VITAMIN D 1,000 INTERNATIONAL UNITS TABLET PO SCH ×4 (08:42→20:34)
[2019-04-26] MEDS: amLODIPine 10 MG TAB PO SCH (08:43)
[2019-04-26] MEDS: GABAPENTIN 100 MG CAP PO SCH ×3 (08:43→20:34)
[2019-04-26] MEDS: LEVEMIR (INSULIN DETEMIR) 1 UNITS/0.01ML SC SCH ×2 (08:44→20:34)
[2019-04-26] MEDS: METOPROLOL TARTRATE 100 MG TAB PO SCH ×2 (08:47→20:35)
[2019-04-26] MEDS: PANTOPRAZOLE 40MG INJ (PROTONIX) (C9113) IV SCH (08:48)
[2019-04-26] MEDS: SENOKOT S TAB PO SCH (08:48)
[2019-04-26] MEDS: ASPIRIN 81 MG ENTERIC TAB PO SCH (08:48)
[2019-04-26] MEDS ORDERED: FUROSEMIDE 40 MG/4 ML VIAL (J1940) IV ONE (11:00)
--- NOTE | 2019-04-26 11:19 | IPNPDOC ---
Text Note Date of Service The patient was seen on 04/26/19. NOTE Subjective: Swelling of tongue has improved and denies any difficulty in swal lowing or breathing or talking. Worked with PT. Feeling well. His appetite has been improving. Physical Exam: Vitals: As below General Exam: Positive: Alert, Cooperative Eye Exam: Positive: PERRLA ENT Exam: Positive: Atraumatic, Tongue Midline (purple tongue due to previous hematoma)now normal size. Neck Exam: Positive: Supple; bruising just below the chin and both sides of the cheek Negative: JVD Chest Exam: Positive: Clear to auscultation Heart Exam: Positive: Irregular Rhythm; No rub, murmur or gallop Negative: Rate Normal Telemetry: Positive: Atrial fibrillation Abdomen Exam: Positive: Normal bowel sounds, soft, nontender. Bruises in different parts. Extremity Exam: Positive: Clubbing; bilateral trace edema. Skin Exam: Positive: Nl turgor and temperature Neuro Exam: Positive: Strength at 5/5 X4 ext, Cranial Nerves 3-12 NL Psych Exam: Positive: Mental status NL Labs and Radiology : reviewed Assessment and plan: Patient is 79 years old male with past history of type 2 diabetes, CT in the past, hyperlipidemia, ischemic stroke, atrial fibrillation on Coumadin presented to the hospital with hematuria. Patient stated that today in the morning he developed hematuria, he had never had his symptoms before. In emergency room patient was found to have elevated INR 14.9. Also patient was found to have elevated white blood count was 17. Also patient complains of low back pain with radiation to the right distal leg. Patient is afebrile, does not have tachycardia, hemoglobin 12.6. Of note patient has been recently treated with antibiotics for acalculous cholecystitis. CT abdomen and pelvis showed there is interval significant perinephric stranding, there are no focal fluid collections to suggest abscess. Admitted for coumadin toxicity, pyelonephritis. Treatment with vitamin K and ceftriaxone started TRENT improving. Due to coagulopathy associated hemorrhagic issue with his kidneys.. Has left renal atrophic kidney with right mild hydro monitor I/Os. will give 1 dose of lasix as in cumulative positive balance. Acute blood loss anemia on chronic anemia received 2 units of blood transfusion. Unlikely Sepsis probably SIRS No pyelonephritis Blood culture and urine culture negative till date Acute pyelonephritis unlikely CT abdomen and pelvis did not show any retroperitoneal bleed, it showed some inflammatory changes around the right kidney with perinephric strand. Patient have some right flank tenderness and leukocytosis. Urine culture negative but was sent after he got a dose of antibiotics so may not be accurate. In view of the CT findings will complete the 5 day antibiotic course Leucocytosis due to decadron use rather than infection. Initially it was probably reactive demargination. now stopped Coumadin toxicity INR at 18 with bleeding. possibly due to recent antibiotic use INR again on the rise will give Vit K, recheck in the PM. May need more FFP Tongue bite several days ago during sleep with bruised and swollen tongue improved cold compresses and decadron used to bring it down. discussed with ENT Dr Lacy. CT neck shows epiglottis edema, submandibular edema bilaterally suggested epiglottis, patent airways. Diabetes mellitus with diabetic neuropathy and diabetic foot. Diabetes diet, insulin sliding scale, Detemir twice a day CAD with recent NSTEMI and stenting at [facility] Heart rate is under control Continue amiodarone and metoprolol Coumadin on hold due to supratherapeutic INR Systolic CHF (congestive heart failure) with ejection fraction 20- 25%, Has AICD in place Not in acute exacerbation Hypertension continue metoprolol will hold lisinopril continue amlodipine. BALJINDER on CPAP oxygen stats drop to 80% during sleep in hospital As per daughter does not use it. has not used it this week. However pateint said he did use it. Says uses it about 3 to 4 times a week. BALJINDER protocol. Discussed with patient the importance of using it . COPD. Continue spiriva, nebs Gout. no issues Aortic aneurysm repair with endovascular stent. no bleeding H/o Ischemic stroke in the occipital area. Chronic Back Pain h/o laminectomy continue gabapentin and cymbalta. VS,Fishbone, I+O VS, Fishbone, I+O Laboratory Tests 04/26/19 05:18 Vital Signs Date Time Temp Pulse Resp B/P (MAP) Pulse Ox O2 Delivery O2 Flow Rate FiO2 04/26/19 08:47 74 139/87 04/26/19 08:00 96.6 16 94 Room Air 04/26/19 04:00 2.0 04/25/19 06:00 50 I&O- Last 24 Hours up to 6 AM 04/26/19 06:00 Intake Total 2290 ml Output Total 1350 ml Balance 940 ml JOSE RAUL CUBA MD Apr 26, 2019 11:19
[2019-04-26] MEDS: DULoxetine 20 MG CAP (CYMBALTA) PO SCH (11:51)
[2019-04-26 12:00] VITALS: BP_SYST 150; BP_SYST 187; BP_DIAS 62; BP_DIAS 85
--- NOTE | 2019-04-26 12:56 | IPN ---
DATE: 04/26/2019 Mr. Valiente is seen this morning on his bedside. He is feeling well and sitting in the chair. He denies any nausea or vomiting. He has no more hematuria and denies any flank pain at present. He did receive multiple blood products and INR still remains elevated. On physical examination, temperature is 96.6 degrees Fahrenheit, heart rate 74 per minute and respiratory rate 16 per minute. Blood pressure 137/89 mmHg and oxygen saturation 94% on room air. His head is atraumatic. Ecchymosis on his tongue is improving and there is no oral thrush or ulcers. Neck: Supple and without jugular venous distention (JVD) or thyroid enlargement. Heart sounds are irregular in rhythm and lungs sound clear to auscultation. Abdomen: Soft and nontender. Bowel sounds are normal. Extremities: Without any cyanosis or clubbing. Neurologically, he is awake, alert and oriented x3. Today's labs show WBC count 18.9, hemoglobin 10.1 and hematocrit 30.8. Sodium 139, potassium 4.3, CO2 28, BUN 58 and creatinine 2.0. Glucose 229 and calcium 9.3. PROBLEMS: 1. Acute renal failure superimposed on chronic kidney disease most likely related to hemorrhage into his right kidney caused by a very high INR of 18. I do not feel that he had pyelonephritis even though he had 10-15 WBCs in the urine, but his clinical picture is more consistent with hemorrhage into the kidney. Kidney function is improving nicely and antibiotics can now be stopped. Urine culture has remained negative. 2. Anemia due to acute blood loss. The patient had transfusion of packed RBCs and FFP. His anemia has improved, but INR is still elevated at 5.6 today. He is going to have further FFP. 3. Hypertension. Blood pressure is reasonably well-controlled on current medications and no changes are being made today. All in all, from a renal standpoint, Mr. Valiente is doing well and kidney function is improving.
[2019-04-26] MEDS: PROCHLORPERAZINE 10 MG/2 ML VIAL (J0780) IV PRN ×2 (14:03→14:44)
[2019-04-26 16:03] LABS: INR 3.8; PROTHROMBIN TIME 37.6 SECONDS (11.8-14.0)
[2019-04-26 16:04] LABS: PARTIAL THROMBOPLASTIN TIME 42.5 SECONDS (25.0-38.4)
[2019-04-26 20:00] VITALS: BP 146/80
[2019-04-26] MEDS: LATANOPROST 0.005% OPHTH SOLN 2.5 ML OU SCH (20:33)
[2019-04-26] MEDS: cefTRIAXone SOD 2 GM in D5W MINI-BAG PLUS 50 ML IV SCH (20:33)
[2019-04-26] MEDS: ATORVASTATIN 20 MG TAB PO SCH (20:35)
[2019-04-27] VITALS: BP 156/74
[2019-04-27 04:00] VITALS: BP 142/84
[2019-04-27] MEDS: SLF 3 ML SYR IV SCH (05:13)
[2019-04-27 05:59] LABS: BASO # 0.1 10^3/uL (0.0-0.2); BASO % 0.3 % (0.0-1.0); EOS % 0.1 % (0.0-3.0); HEMATOCRIT 33.7 % (42.0-52.0); LYMPH # 1.8 10^3/uL (1.5-5.0); LYMPH % 10.7 % (24.0-44.0); MEAN CORPUSCULAR HEMOGLOBIN 29.7 pg (27.0-33.0); MEAN CORPUSCULAR HGB CONC 32.6 g/dl (32.0-36.5); MEAN CORPUSCULAR VOLUME 91.1 fl (80.0-96.0); MONO # 1.4 10^3/uL (0.0-0.8); MONO % 8.3 % (0.0-5.0); NEUTROPHILS # 13.5 10^3/uL (1.5-8.5); NEUTROPHILS % 78.3 % (36.0-66.0); PLATELET COUNT, AUTOMATED 260 10^3/uL (150-450); WHITE BLOOD COUNT 17.2 10^3/uL (4.0-10.0)
[2019-04-27 06:09] LABS: INR 1.7; PROTHROMBIN TIME 19.7 SECONDS (11.8-14.0)
[2019-04-27 06:22] LABS: CALCIUM LEVEL 9.3 MG/DL (8.8-10.2); CREATININE FOR GFR 1.75 MG/DL (0.70-1.30); GLOMERULAR FILTRATION RATE 40.3 (>42); POTASSIUM SERUM 3.4 MEQ/L (3.5-5.1)
[2019-04-27 08:00] VITALS: BP 174/88
[2019-04-27] MEDS: TIOTROPIUM INHALER/CAPSULE (SPIRIVA) INH SCH (08:00)
[2019-04-27] MEDS ORDERED: POTASSIUM CHLORIDE 10 MEQ SR TABLET PO ONE (08:00)
[2019-04-27] MEDS: HumaLOG INSULIN (NovoLOG) PER UNIT SC SCH (09:41)
[2019-04-27 09:42] VITALS: BP 174/88
[2019-04-27] MEDS: VITAMIN D 1,000 INTERNATIONAL UNITS TABLET PO SCH (09:42)
[2019-04-27] MEDS: METOPROLOL TARTRATE 100 MG TAB PO SCH (09:42)
[2019-04-27] MEDS: AMIODARONE 200 MG TAB (PACERONE) PO SCH (09:42)
[2019-04-27] MEDS: amLODIPine 10 MG TAB PO SCH (09:42)
[2019-04-27] MEDS: ASPIRIN 81 MG ENTERIC TAB PO SCH (09:42)
[2019-04-27] MEDS: PANTOPRAZOLE 40MG INJ (PROTONIX) (C9113) IV SCH (09:43)
[2019-04-27] MEDS: LEVEMIR (INSULIN DETEMIR) 1 UNITS/0.01ML SC SCH (09:43)
[2019-04-27] MEDS: GABAPENTIN 100 MG CAP PO SCH (09:43)
[2019-04-27] MEDS ORDERED: ELIQ5TAB PO (09:54)
[2019-04-27] MEDS ORDERED: AMLO10TA5 PO (09:54)
[2019-04-27] MEDS ORDERED: PANT40TA3 PO (09:54)
[2019-04-27] MEDS: DULoxetine 20 MG CAP (CYMBALTA) PO SCH (11:07)
--- NOTE | 2019-04-27 12:26 | IPN ---
DATE OF SERVICE: 04/27/2019 Mr. Valienet is seen this morning on his bedside. He is feeling well and currently sitting in the chair. He denies any dyspnea, chest pain, nausea or vomiting. On physical examination, temperature 97 degrees Fahrenheit, heart rate 80 per minute and respiratory rate 16 per minute. Blood pressure 174/88 mmHg and oxygen saturation 92%. Head is atraumatic. Neck supple and without jugular venous distention (JVD or thyroid enlargement. Heart sounds are regular and lungs clear to auscultation. Abdomen: Soft and nontender. Bowel sounds are normal. Extremities: Without any cyanosis or clubbing. Neurologically, he is awake, alert and oriented x3. Today's labs show WBC count 17.2, hemoglobin 11.0 and hematocrit 33.7. Sodium 138, potassium 3.4, BUN 48 and creatinine 1.75. PROBLEMS: 1. Acute renal failure superimposed on chronic kidney disease. Further improvement in kidney function is noticed. He is likely to return back to almost his baseline. 2. Hypokalemia. I would recommend to replace his potassium prior to discharge. 3. Acute blood loss anemia. His anemia is improved following transfusion of multiple blood products. His anticoagulation has been reversed and today's INR is 1.7. He has been now switched to Eliquis from Coumadin. 4. Disposition. The patient is going to be discharged to home today and he wishes to follow up with his primary physician. I offered him follow up if needed for his acute and chronic kidney disease.
--- NOTE | 2019-04-28 10:08 | DS.PDOC ---
Discharge Summary General Date of Admission Apr 22, 2019 at 12:05 Date of Discharge 04/27/19 Discharge Summary PROCEDURES PERFORMED DURING STAY: [None]. DISCHARGE DIAGNOSES: Coumadin toxicity with bleeding. Acute Blood loss anemia SIRS but no sepsis. TRENT due to coumadin toxicity Tongue bite with large bruising SECONDARY DIAGNOSIS: Diabetes with neuropathy and diabetic foot BALJINDER non complaint with CPAP Atrial fibrillation. Hypertension. COPD. Obstructive sleep apnea (BALJINDER) non compliant with CPAP Systolic congestive heart failure (CHF) with AICD, ejection fraction 20-25%. Skin cancer nasal labial fold. Gout. CAD s/p NSTEMI S/P stents Aortic aneurysm repair Ischemic stroke Chronic back pain COMPLICATIONS/CHIEF COMPLAINT: Elevated Inr Hematuria. HISTORY OF PRESENT ILLNESS: please see history and physical HOSPITAL COURSE: Patient is 79 years old male with past history of type 2 diabetes, [place] in the past, hyperlipidemia, ischemic stroke, atrial fibrillation on Coumadin presented to the hospital with hematuria. Patient stated that today in the morning he developed hematuria, he had never had his symptoms before. In emergency room patient was found to have elevated INR 14.9. Also patient was found to have elevated white blood count was 17. Also patient complains of low back pain with radiation to the right distal leg. Patient is afebrile, does not have tachycardia, hemoglobin 12.6. Of note patient has been recently treated with antibiotics for acalculous cholecystitis. CT abdomen and pelvis showed there is interval significant perinephric stranding, there are no focal fluid collections to suggest abscess. Admitted for coumadin toxicity, pyelonephritis. Treatment with vitamin K and ceftriaxone started TRENT improving. Due to coagulopathy associated hemorrhagic issue with his kidneys.. Has left renal atrophic kidney with right mild hydro monitor I/Os. Acute blood loss anemia on chronic anemia received 2 units of blood transfusion. SIRS due to Blood loss, coumadin toxicity No pyelonephritis Blood culture and urine culture negative till date Acute pyelonephritis unlikely ruled out Leucocytosis due to decadron use rather than infection. Initially it was probably reactive demargination. now stopped Coumadin toxicity INR at 18 with bleeding. possibly due to recent antibiotic use INR again on the rise will give Vit K, recheck in the PM. May need more FFP Tongue bite several days ago during sleep with bruised and swollen tongue improved cold compresses and decadron used to bring it down. discussed with ENT Dr Lacy. CT neck shows epiglottis edema, submandibular edema bilaterally suggested epiglottis, patent airways. Diabetes mellitus with diabetic neuropathy and diabetic foot. Diabetes diet, insulin sliding scale, Detemir twice a day CAD with recent NSTEMI and stenting at [facility] Heart rate is under control Continue amiodarone and metoprolol Coumadin on hold due to supratherapeutic INR Systolic CHF (congestive heart failure) with ejection fraction 20- 25%, Has AICD in place Not in acute exacerbation Hypertension continue metoprolol will hold lisinopril continue amlodipine. BALJINDER on CPAP oxygen stats drop to 80% during sleep in hospital As per daughter does not use it. has not used it this week. However pateint said he did use it. Says uses it about 3 to 4 times a week. BALJINDER protocol. Discussed with patient the importance of using it . COPD. Continue spiriva, nebs Gout. no issues Aortic aneurysm repair with endovascular stent. no bleeding H/o Ischemic stroke in the occipital area. Chronic Back Pain h/o laminectomy continue gabapentin and cymbalta. DISCHARGE MEDICATIONS: Please see below. ALLERGIES: Please see below. PHYSICAL EXAMINATION ON DISCHARGE: VITAL SIGNS: Please see below. General Exam: Positive: Alert, Cooperative Eye Exam: Positive: PERRLA ENT Exam: Positive: Atraumatic, Tongue Midline (purple tongue due to previous hematoma)now normal size. Neck Exam: Positive: Supple; bruising just below the chin and both sides of the cheek Negative: JVD Chest Exam: Positive: Clear to auscultation Heart Exam: Positive: Irregular Rhythm; No rub, murmur or gallop Negative: Rate Normal Telemetry: Positive: Atrial fibrillation Abdomen Exam: Positive: Normal bowel sounds, soft, nontender. Bruises in different parts. Extremity Exam: Positive: Clubbing; bilateral trace edema. Skin Exam: Positive: Nl turgor and temperature Neuro Exam: Positive: Strength at 5/5 X4 ext, Cranial Nerves 3-12 NL Psych Exam: Positive: Mental status NL LABORATORY DATA: Please see below. ACTIVITY: [As tolerated]. DIET: Carb consistent diet DISPOSITION: 01 Home, Self-Care. DISCHARGE INSTRUCTIONS: Follow up PMD in 1 weeK DISCHARGE CONDITION: [Stable]. TIME SPENT ON DISCHARGE: 35 minutes. Vital Signs/I&Os Vital Signs Date Time Temp Pulse Resp B/P (MAP) Pulse Ox O2 Delivery O2 Flow Rate FiO2 2/28/20 09:42 81 174/88 04/27/19 08:00 97.0 16 92 Nasal Cannula 2.0 04/25/19 06:00 50 I&O- Last 24 Hours up to 6 AM 04/28/19 06:00 Intake Total 0 ml Output Total 0 ml Balance 0 ml Laboratory Data Labs 24H Laboratory Tests 2 04/27/19 11:07: Bedside Glucose (Misc Panel) 191H FSBS Laboratory Tests Test 04/27/19 11:07 Range/Units Bedside Glucose (Misc Panel) 191 83-110 MG/DL Microbiology Microbiology 04/22/19 Blood Culture - Final, Complete NO GROWTH AFTER 5 DAYS 04/22/19 Urine Culture - Final, Complete Discharge Medications Scheduled Amiodarone Hcl (Pacerone) 200 Mg Tablet, 400 MG PO DAILY, (Reported) Amlodipine Besylate (Amlodipine Besylate) 10 Mg Tablet, 10 MG PO DAILY Apixaban (Eliquis) 5 Mg Tablet, 1 TAB PO BID Aspirin (Aspirin EC) 81 Mg Tab, 81 MG PO QAM, (Reported) Atorvastatin Calcium (Atorvastatin Calcium) 80 Mg Tablet, 40 MG PO QHS, (Reported) Cholecalciferol (Vitamin D3) (Vitamin D3) 1,000 Unit Tablet, 1,000 UNITS PO QID, (Reported) Collagenase Clostridium Hist. (Santyl) 250 Unit/Gm Oin, 1 APLCT TOP DAILY, (Reported) APPLY TO WOUND ON RIGHT FOOT Duloxetine Hcl (Duloxetine HCl) 20 Mg Capsule.dr, 20 MG PO DAILY, (Reported) TAKES AT NOON Furosemide (Furosemide) 20 Mg Tablet, 20 MG PO DAILY, (Reported) Gabapentin (Gabapentin) 300 Mg Cap, 300 MG PO QID, (Reported) Insulin Glargine,Hum.rec.anlog (Lantus Solostar) 100 Unit/1 Ml Insuln.pen, 60 UNITS SC QHS, (Reported) Insulin Human Lispro (Novolog) 100 U/Ml Inj, 1 DOSE SC AC, (Reported) PER SLIDING SCALE Latanoprost (Xalatan) 0.005% 2.5ML Drops, 1 DROP OU QHS, (Reported) Metoprolol Tartrate (Metoprolol Tartrate) 100 Mg Tablet, 100 MG PO BID, (Reported) [place]-3 Fatty Acids/Fish Oil (Fish Oil 1,000 mg Capsule) 1 Each Capsule, 2,000 MG PO BID, (Reported) Pantoprazole Sodium (Pantoprazole Sodium) 40 Mg Tablet.dr, 40 MG PO DAILY Sennosides/Docusate Sodium (Senna-S Tablet) 1 Tab Tab, 2 TABS PO BID, (Reported) Tiotropium [place] (Spiriva) 18 Mcg Cap, 1 PUFF INH DAILY, (Reported) Vitamin B Complex (Vitamin B Complex) 1 Each Tablet, 1 TAB PO QHS, (Reported) Scheduled PRN Dextrose (Glucose) 4 Gm Chw, 16 GM PO for LOW BLOOD SUGAR, (Reported) Hydrocodone/Acetaminophen (Hydrocodone-Acetamin 10-325 mg) 1 Each Tablet, 1 TAB PO Q6H PRN for PAIN, (Reported) Melatonin (Melatonin) 3 Mg Tablet, 3 MG PO QHS PRN for SLEEP, (Reported) Allergies Coded Allergies: No Known Allergies (Verified , 10/16/02) JOSE RAUL CUBA MD Apr 28, 2019 10:08
== END 2019-04-27 12:50 | disposition home or self-care (01) | DRG 813 ==
LOC: M ED 07:45 → M ED INP 12:05 → ENRESERVDT 14:58 → ENRESERVTM 14:58 → M ICU 16:00 → M PCU 04-23 00:13
PROVIDERS: ADMIT Internal Medicine; ATTEND Internal Medicine Nephrology
PROC: 30233K1 Transfusion of Nonautologous Frozen Plasma into Peripheral Vein, Percutaneous Approach (ICD-10-PCS; 2019-04-25)
PROC: 30233N1 Transfusion of Nonautologous Red Blood Cells into Peripheral Vein, Percutaneous Approach (ICD-10-PCS; principal; 2019-04-26)
DX: D68.4 Acquired coagulation factor deficiency (principal); I50.22 Chronic systolic (congestive) heart failure; N13.30 Unspecified hydronephrosis; I47.2 Ventricular tachycardia; N17.9 Acute kidney failure, unspecified; I13.0 Hypertensive heart and chronic kidney disease with heart failure and stage 1 through stage 4 chronic kidney disease, or unspecified chronic kidney disease; D62 Acute posthemorrhagic anemia; R65.10 Systemic inflammatory response syndrome (SIRS) of non-infectious origin without acute organ dysfunction; R31.9 Hematuria, unspecified; Z86.73 Personal history of transient ischemic attack (TIA), and cerebral infarction without residual deficits; E11.65 Type 2 diabetes mellitus with hyperglycemia; I25.2 Old myocardial infarction; E78.5 Hyperlipidemia, unspecified; I48.91 Unspecified atrial fibrillation; G47.33 Obstructive sleep apnea (adult) (pediatric); E11.621 Type 2 diabetes mellitus with foot ulcer; L97.509 Non-pressure chronic ulcer of other part of unspecified foot with unspecified severity; Z85.828 Personal history of other malignant neoplasm of skin; M10.9 Gout, unspecified; J44.9 Chronic obstructive pulmonary disease, unspecified; E11.42 Type 2 diabetes mellitus with diabetic polyneuropathy; Z87.891 Personal history of nicotine dependence; Z95.810 Presence of automatic (implantable) cardiac defibrillator; Z79.01 Long term (current) use of anticoagulants; Z79.82 Long term (current) use of aspirin; D72.829 Elevated white blood cell count, unspecified; T45.515A Adverse effect of anticoagulants, initial encounter; S01.552 Open bite of oral cavity; Y93.84 Activity, sleeping; Z95.828 Presence of other vascular implants and grafts; G89.29 Other chronic pain; M54.9 Dorsalgia, unspecified; N18.9 Chronic kidney disease, unspecified; Z91.14 Patient's other noncompliance with medication regimen; E87.6 Hypokalemia

== ENCOUNTER 2019-05-27 17:00 | Emergency (ER) | payer MEDICARE, OTHER ==
[~2019-05-27] VITALS: Ht 170.2 cm; Wt 109.1 kg
[~2019-05-27 17:00] MED LIST changes: +AMLO10TA5 PO; +ELIQ5TAB PO; -MELA3TAB41 PO; +MELA3TAB62 PO; +VITAD1000T PO
[2019-05-27] MEDS ORDERED: DEXTROSE 50% 50 ML SYRINGE As Ordered ONE (17:20)
[2019-05-27] MEDS ORDERED: DEXTROSE 50% 50 ML SYRINGE IV STA (17:22)
[2019-05-27] MEDS ORDERED: NS 1,000 ML IV SCH (17:30)
[2019-05-27 17:35] LABS: HEMATOCRIT 42.1 % (42.0-52.0); MEAN CORPUSCULAR HEMOGLOBIN 29.7 pg (27.0-33.0); MEAN CORPUSCULAR HGB CONC 30.9 g/dl (32.0-36.5); MEAN CORPUSCULAR VOLUME 96.1 fl (80.0-96.0); PLATELET COUNT, AUTOMATED 228 10^3/uL (150-450); RED BLOOD COUNT 4.38 10^6/uL (4.30-6.10)
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
--- NOTE | 2019-05-27 17:47 | REPVR ---
PROCEDURE INFORMATION: Exam: CT Cervical Spine Without Contrast Exam date and time: 05/27/2019 5:09 PM Age: 79 years old Clinical indication: Injury or trauma; Fall; Initial encounter; Blunt trauma TECHNIQUE: Imaging protocol: Computed tomography images of the cervical spine without contrast. Radiation optimization: All CT scans at this facility use at least one of these dose optimization techniques: automated exposure control; mA and/or kV adjustment per patient size (includes targeted exams where dose is matched to clinical indication); or iterative reconstruction. COMPARISON: CR SPINE CERVICAL COMPL 07/14/2015 12:12 PM FINDINGS: Vertebrae: No acute cervical spine fracture. The facet alignment is preserved bilaterally. The occipital condyles and C1-C2 articulations appear intact. Slight anterolisthesis of C4 on C5. There is an old fracture unfused apophysis of the T1 spinous process. The cervical lordosis is mildly reversed. Hypertrophic degenerative changes are identified at the junction of the anterior C1 arch and dens process. Discs/Spinal canal/Neural foramina: Facet arthropathy is identified at multiple cervical levels. Spondylosis is visualized at multiple cervical levels. Mild narrowing of the thecal sac is identified from C2-C3 through C4-C5, with moderate narrowing of the thecal sac at C5-C6 and C6-C7. Varying degrees of neural foraminal narrowing are identified at multiple cervical levels. Soft tissues: No significant prevertebral soft tissue swelling. Lungs: No pneumothorax, as visualized. Vasculature: Atherosclerotic changes visualized. IMPRESSION: 1. No acute cervical spine fracture. 2. Slight anterolisthesis of C4 on C5. 3. The cervical lordosis is mildly reversed. 4. Spondylosis is visualized at multiple cervical levels. 5. Mild narrowing of the thecal sac is identified from C2-C3 through C4-C5, with moderate narrowing of the thecal sac at C5-C6 and C6-C7. Electronically signed by: Noe Guardado On 05/27/2019 17:47:06 PM
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
[2019-05-27 18:06] LABS: BLOOD UREA NITROGEN 18 MG/DL (7-18); CARBON DIOXIDE LEVEL 33 MEQ/L (21-32); CHLORIDE LEVEL 105 MEQ/L (98-107); CREATININE FOR GFR 1.15 MG/DL (0.70-1.30); GLOMERULAR FILTRATION RATE > 60.0 (>42); GLUCOSE, FASTING 33 MG/DL (70-100); POTASSIUM SERUM 4.5 MEQ/L (3.5-5.1); SODIUM LEVEL 143 MEQ/L (136-145)
[2019-05-27 18:45] VITALS: BP 162/76
[2019-05-27] MEDS ORDERED: DEXTROSE 50% 50 ML VIAL IV ONE (18:45)
== END 2019-05-27 21:02 | disposition home or self-care (01) ==
LOC: M ED 17:00 → EDBD 17:00 → M ED 21:02
DX: S00.211A Abrasion of right eyelid and periocular area, initial encounter (principal); S00.83XA Contusion of other part of head, initial encounter; W19.XXXA Unspecified fall, initial encounter; Y92.018 Other place in single-family (private) house as the place of occurrence of the external cause; E11.9 Type 2 diabetes mellitus without complications; I10 Essential (primary) hypertension; J44.9 Chronic obstructive pulmonary disease, unspecified; Z79.899 Other long term (current) drug therapy; Z79.82 Long term (current) use of aspirin; Z79.4 Long term (current) use of insulin; Z79.01 Long term (current) use of anticoagulants

== ENCOUNTER 2019-06-20 17:30 | Inpatient (IN) | payer MEDICARE, OTHER ==
[~2019-06-20] VITALS: Ht 170.2 cm; Wt 101.2 kg
[~2019-06-20 17:30] MED LIST changes: +CYCL-707 PO; -CYCL10TA PO
[2019-06-20] MEDS ORDERED: FUROSEMIDE 40MG/4ML VIAL (J1940) IV ONE ×2 (18:00→21:00)
--- NOTE | 2019-06-20 18:20 | REP ---
Clinical: Cough and dyspnea. Comparison: 03/14/2019. Findings: Cardiomegaly is suggested along with diffuse chronic interstitial changes. Bilateral lower lobe infiltrates (right greater than left) noted. Mild interstitial edema cannot be excluded. No definite effusion. No pneumothorax. Skeletal structures stable. Impression: Cardiomegaly. Cannot exclude mild interstitial edema. Bilateral lower lobe infiltrates (right greater than left). Electronically Signed by Rob Haney MD 06/20/2019 06:12 P
[2019-06-20] MEDS ORDERED: AZITHROMYCIN INJ 500 MG, VIAL MATE ADAPTER 1 EACH in D5W 250 ML IV ONE (18:30)
[2019-06-20] MEDS ORDERED: cefTRIAXone SOD 2 GM in D5W MINI-BAG PLUS 50 ML IV ONE (18:30)
--- NOTE | 2019-06-20 18:58 | REPVR ---
PROCEDURE INFORMATION: Exam: US Duplex Lower Extremity Veins Exam date and time: 06/20/2019 6:47 PM Age: 79 years old Clinical indication: Other: Diff breathing; Additional info: R/O dvt TECHNIQUE: Imaging protocol: Real-time duplex ultrasound of the Lower Extremities with 2-D elias scale, color Doppler flow and spectral waveform analysis with image documentation. Complete exam focused on the bilateral lower extremity veins. COMPARISON: No relevant prior studies available. FINDINGS: Right deep veins: Unremarkable. The common femoral, femoral, popliteal and posterior tibial veins are patent without thrombus. Normal Doppler waveforms. Normal compressibility and/or augmentation response. Right superficial veins: Saphenofemoral junction is patent without thrombus. Left deep veins: Unremarkable. The common femoral, femoral, popliteal and posterior tibial veins are patent without thrombus. Normal Doppler waveforms. Normal compressibility and/or augmentation response. Left superficial veins: Saphenofemoral junction is patent without thrombus. Soft tissues: Unremarkable. IMPRESSION: No sonographic evidence of deep vein thrombosis. Electronically signed by: Dov Eldridge On 06/20/2019 18:58:07 PM
[2019-06-20 19:08] LABS: BASO # 0.1 10^3/uL (0.0-0.2); BASO % 0.5 % (0.0-1.0); EOS # 0.4 10^3/uL (0.0-0.5); EOS % 2.5 % (0.0-3.0); HEMATOCRIT 42.3 % (42.0-52.0); HEMOGLOBIN 13.2 g/dl (13.5-17.5); LYMPH # 1.8 10^3/uL (1.5-5.0); LYMPH % 10.7 % (24.0-44.0); MEAN CORPUSCULAR HEMOGLOBIN 29.2 pg (27.0-33.0); MEAN CORPUSCULAR HGB CONC 31.2 g/dl (32.0-36.5); MEAN CORPUSCULAR VOLUME 93.6 fl (80.0-96.0); MONO # 1.1 10^3/uL (0.0-0.8); MONO % 6.8 % (0.0-5.0); NEUTROPHILS # 13.2 10^3/uL (1.5-8.5); PLATELET COUNT, AUTOMATED 217 10^3/uL (150-450); RED BLOOD COUNT 4.52 10^6/uL (4.30-6.10); WHITE BLOOD COUNT 16.7 10^3/uL (4.0-10.0)
[2019-06-20 19:45] LABS: ALBUMIN 3.3 GM/DL (3.2-5.2); ALT/SGPT 13 U/L (12-78); BILIRUBIN,DIRECT 0.2 MG/DL (0.0-0.2); BILIRUBIN,TOTAL 0.7 MG/DL (0.2-1.0); BLOOD UREA NITROGEN 18 MG/DL (7-18); CALCIUM LEVEL 8.9 MG/DL (8.8-10.2); CARBON DIOXIDE LEVEL 32 MEQ/L (21-32); CHLORIDE LEVEL 102 MEQ/L (98-107); CK-MB VALUE MASS 1.8 NG/ML (<3.6); CPK CREATINE PHOSPHOKINASE 59 U/L (39-308); CREATININE FOR GFR 1.06 MG/DL (0.70-1.30); GLOMERULAR FILTRATION RATE > 60.0 (>42); GLUCOSE, FASTING 71 MG/DL (70-100); MB/CK RELATIVE INDEX 3.05 (< OR =4); NT-PRO BNP 1643 PG/ML (<450); POTASSIUM SERUM 3.8 MEQ/L (3.5-5.1); SODIUM LEVEL 140 MEQ/L (136-145); TOTAL PROTEIN 6.7 GM/DL (6.4-8.2); TROPONIN I 0.04 NG/ML (< 0.10)
[2019-06-20] MEDS ORDERED: ASPI-161 PO (20:32)
[2019-06-20] MEDS ORDERED: CARB25TA9 PO (20:32)
[2019-06-20] MEDS ORDERED: ELIQ5TAB PO (20:32)
[2019-06-20] MEDS ORDERED: LISI-538 PO (20:32)
[2019-06-20] MEDS ORDERED: DILT120C89 PO (20:32)
[2019-06-20] MEDS: SENOKOT S TAB PO SCH (21:00)
[2019-06-20] MEDS ORDERED: ACETAMINOPHEN TAB 650MG DOSE (2X325MG) PO PRN (21:00)
[2019-06-20] MEDS: HumaLOG INSULIN (NovoLOG) PER UNIT SC SCH (21:00)
[2019-06-20] MEDS ORDERED: MOM 30ML SUSPENSION UDC PO PRN (21:00)
[2019-06-20] MEDS: ATORVASTATIN 20 MG TAB PO SCH (21:33)
[2019-06-20] MEDS: METOPROLOL TARTRATE 100 MG TAB PO SCH (21:33)
[2019-06-20] MEDS: APIXABAN 5 MG TAB (ELIQUIS) PO SCH (21:33)
[2019-06-20] MEDS: AMIODARONE 200 MG TAB (PACERONE) PO SCH (21:33)
[2019-06-20] MEDS: RAMELTEON 8 MG TAB (ROZEREM) PO SCH (21:33)
[2019-06-20] MEDS: GABAPENTIN 300 MG CAP PO SCH (21:33)
[2019-06-20 22:25] VITALS: BP 168/88
[2019-06-20] MEDS: LATANOPROST 0.005% OPHTH SOLN 2.5 ML OU SCH (22:46)
[2019-06-20] MEDS: SINEMET 25-100 MG TAB PO SCH (22:46)
[2019-06-20 23:00] VITALS: O2SAT 95
--- NOTE | 2019-06-20 23:57 | HPEPDOC ---
General Date of Admission Jun 20, 2019 at 21:04 Date of Service: Jun 20, 2019 Primary Care Physician: VANGIE CHO MD [facility] Other Providers Muffler Mechanic: Ez in [facility] Hand Wrapper Operator: In [facility] Neurologist: Dr. Nickerson Wall Scraper: Dr. Brown Chief Complaint The patient is a 79-year-old male admitted with a reason for visit of Chf Exacerbation, Hypoxemia. History of Present Illness HPI: This is a this is a 71-year-old male with extensive past medical history noted below, including COPD on room air, A. 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 He denies any fever or chills or any sick contacts or travel. Denies any rhinorrhea or sore throat or watery itchy eyes. Endorses orthopnea and increasing lower extremity edema despite taking his regular meds including his diuretics. Denies any recent changes in his medication regimen. He reports exertional dyspnea as well as dyspnea at rest. He was found reportedly to be satting at 85% on room air by EMS and requiring 3 L nasal cannula when examined at bedside in the [facility] admission, BNP is elevated 2000+, blood pressure elevated systolic 200s, chest x-ray revealing bilateral lower lobe infiltrates with cardiomegaly. . He reports he feels slightly better after receiving 1 dose of ceftriaxone Azithromycin in the ER as well as 1 dose Lasix IV 40 mg with significant diuresis of over 1.5 L. He will be admitted for further workup. PMH: COPD on room air A. fib chronically on Eliquis Systolic and diastolic heart failure with AICD CAD with a prior [place] Dyslipidemia Hypertension Depression/insomnia BALJINDER on CPAP IDDM 2 with neuropathy GERD Ischemic stroke Past Surgical Hx: Spinal laminectomy X4 Appendectomy Abdominal aortic aneurysm repair with stent December 2018 Tonsillectomy AICD 2013 Family Hx: Patient is unsure since he left home at age 18 Social Hx: Long-term smoker up to 1 pack per day for 25 years Denies any alcohol or illicit substances Lives at home alone with his ex- living next door and daughter frequently checking an Retired, used to work in infantry and driving tractor-trailer ROS: Constitutional: Denies fever, chills, night sweats, weight loss HEENT: Denies headache, dysphagia Skin: Denies any rashes or lesions. Admits easy bruising on blood thinner. Ad mits right foot lesion following with podiatry Pulmonary: Admits chest pressure & discomfort with dry cough & shortness of breath at rest & with exertion. Denies hemoptysis & wheezing Cardiac: Denies chest pain, palpitations, PND, lightheadedness. Admits orthopnea & b/l LE edema GI: Denies nausea, vomiting, abdominal pain, diarrhea, constipation, melena, hematochezia MSK: Denies new pains or weakness Neurologic: Denies new numbness/tingling PHYSICAL: General exam: A&Ox3, NAD, resting comfortably HEENT: NCAT, EOMI, neck supple with mild JVD Cardiac: irregular rhythm, rate controlled, normal S1 & S2, no murmurs. AICD present left upper chest wall; 1+ b/l LE edema Respiratory: distant lung sounds, mild bibasilar crackles, remaining velazquez clear, good chest excursion. On 3L NC with accessory muscle use, speaking full sentences Abdomen: soft, NT, ND, normoactive bowel sounds Extremity: 2+ radial and dorsalis pedis pulses, no calf tenderness Skin: [place], warm, dry, no visible rash. Ecchymosis right side of face- per pt, from mechanical fall 2 weeks ago. Black dry wound on right foot lateral plantar surface Msk: strength 5/5 x4, normal tone Neuro: normal speech, no focal deficits Psych: Normal mood and affect LABORATORY DATA, MICROBIOLOGY: Please see below. ASSESSMENT AND PLAN: 71-year-old male brought in via EMS for gradually worsening shortness of breath over the past 1 week without any no exposures or sick contacts. Patient endorses increasing lower extremity edema and orthopnea and chest congestion. Dyspnea - Gradually worsening past 1 week, associated edema, orthopnea, dry cough, chest congestion - Afebrile, wbc 16. Fluid overloaded on exam. CXR with b/l LL infiltrate & cardiomeg, BNP 1600+. Cardiac markers & EKG on admission unremarkable - s/p 1 dose each of 40mg IV Lasix, Ceftriaxone, Azithro in ER with improvement - decompensated sys/diastolic CHF vs PNA - Pending resp panel, COVID testing, repeat cardiac markers, echo, atypical PNA testing - Will not put on standing doses of diuresis yet as he responded with 1.5+ L out after just 40mg given in ER, and not significantly overloaded on exam - Monitor strict I/o, daily wt, tele - Consider resuming home po vs IV Lasix pending remaining w/u - Continue on Ceft & Azithro till blood cx & procal result - Titrate off O2 88-92% Hypoglycemia in setting of baseline IDDM2 - Found to be in 70s at home, up to 80s s/p 2 glucose tabs - Pt denies any changes in meds or diet, but admits to frequent episodes of hypoglycemia - ISS w/ hypoglycemic protocol. Add on Levemir when stable sugars; takes 60U qhs at home - Will need readjustment of insulin on d/c HTN Urgency - pt aasymptomatic, admission sbp 220s - pt reports not yet taking his evening meds - resume home meds and monitor Frequent falls - Most recently 2 weeks ago after legs gave out - Fall precautions - PT/OT For the remainder of his chronic medical conditions, home meds are resumed. DVT prophylaxis: chronically on Eliquis CODE STATUS: discussed with pt in depth; requesting DNR/DNI. DISPOSITION: admit to hospital, monitor tele. Pending further workup. Home Medications Scheduled Amiodarone Hcl (Pacerone) 200 Mg Tablet, 400 MG PO BID, (Reported) Apixaban (Eliquis) 5 Mg Tablet, 5 MG PO BID, (Reported) Aspirin (Aspirin EC) 81 Mg Tablet.dr, 81 MG PO DAILY, (Reported) Atorvastatin Calcium (Atorvastatin Calcium) 80 Mg Tablet, 40 MG PO QHS, (Reported) Carbidopa/Levodopa (Carbidopa-Levodopa 25-100 Tab) 1 Each Tablet, 1 TAB PO QID, (Reported) Cholecalciferol (Vitamin D3) (Vitamin D3) 1,000 Unit Tablet, 4,000 UNITS PO DAILY, (Reported) Collagenase Clostridium Hist. (Santyl) 250 Unit/Gm Oin, 1 APLCT TOP DAILY, (Reported) APPLY TO WOUND ON RIGHT FOOT Duloxetine Hcl (Duloxetine HCl) 20 Mg Capsule.dr, 20 MG PO DAILY, (Reported) TAKES AT NOON Furosemide (Furosemide) 20 Mg Tablet, 20 MG PO DAILY, (Reported) Gabapentin (Gabapentin) 300 Mg Cap, 300 MG PO BID, (Reported) Insulin Glargine,Hum.rec.anlog (Lantus Solostar) 100 Unit/1 Ml Insuln.pen, 60 UNITS SC QHS, (Reported) Insulin Human Lispro (Novolog) 100 U/Ml Inj, 1 DOSE SC AC, (Reported) PER SLIDING SCALE Latanoprost (Xalatan) 0.005% 2.5ML Drops, 1 DROP OU QHS, (Reported) Lisinopril (Lisinopril) 20 Mg Tablet, 10 MG PO DAILY, (Reported) Metoprolol Tartrate (Metoprolol Tartrate) 100 Mg Tablet, 100 MG PO BID, (Reported) [place]-3 Fatty Acids/Fish Oil (Fish Oil 1,000 mg Capsule) 1 Each Capsule, 2,000 MG PO BID, (Reported) Sennosides/Docusate Sodium (Senna-S Tablet) 1 Tab Tab, 2 TABS PO BID, (Reported) Tiotropium [place] (Spiriva) 18 Mcg Cap, 1 PUFF INH DAILY, (Reported) TAKES AT NOON Vitamin B Complex (Vitamin B Complex) 1 Each Tablet, 1 TAB PO QHS, (Reported) dilTIAZem HCl (Diltiazem 24Hr Cd) 120 Mg Cap.er.24h, 120 MG PO DAILY, (Reported) Scheduled PRN Dextrose (Glucose) 4 Gm Chw, 16 GM PO for LOW BLOOD SUGAR, (Reported) Hydrocodone/Acetaminophen (Hydrocodone-Acetamin 10-325 mg) 1 Each Tablet, 1 TAB PO Q6H PRN for PAIN, (Reported) Melatonin (Melatonin) 3 Mg Tablet, 3 MG PO QHS PRN for SLEEP, (Reported) Allergies Coded Allergies: No Known Allergies (Verified , 10/16/02) A-FIB/CHADSVASC A-FIB History Current/History of A-Fib/PAF?: Yes Current PO Anticoag Therapy: Yes Vital Signs Vital Signs Date Time Temp Pulse Resp B/P (MAP) Pulse Ox O2 Delivery O2 Flow Rate FiO2 06/20/19 21:45 97.9 94 22 203/92 (129) 94 Nasal Cannula 3.0 06/20/19 17:59 89 Laboratory Data Labs 24H Laboratory Tests 2 06/20/19 18:01: POC pH (Misc Panel) 7.441, POC Base Excess (Misc Panel) 5.0H, POC Saturated Percent O2 (Misc) 88L, POC pO2 (Misc Panel) 53.0L, POC pCO2 (Misc Panel) 42.9, POC HCO3 (Misc Panel) 29.2H, POC Total CO2 (Misc Panel) 30.0H 06/20/19 18:08: Bedside Glucose (Misc Panel) 64L 06/20/19 18:50: 06/20/19 18:57: Immature Granulocyte % (Auto) 0.5, Neutrophils (%) (Auto) 79.0H, Lymphocytes (%) (Auto) 10.7L, Monocytes (%) (Auto) 6.8H, Eosinophils (%) (Auto) 2.5, Basophils (%) (Auto) 0.5, Neutrophils # (Auto) 13.2H, Lymphocytes # (Auto) 1.8, Monocytes # (Auto) 1.1H, Eosinophils # (Auto) 0.4, Basophils # (Auto) 0.1, Nucleated Red Blood Cells % (auto) 0.0, Anion Gap 6L, Glomerular Filtration Rate > 60.0, Calcium Level 8.9, Total Bilirubin 0.7, Direct Bilirubin 0.2, Aspartate Amino Transf (AST/SGOT) 18, Alanine Aminotransferase (ALT/SGPT) 13, Alkaline Phosphatase 100, Total Creatine Kinase 59, Creatine Kinase MB 1.8, Creatine Kinase MB Relative Index 3.05, Troponin I 0.04, XT-Swr-M-Type Natriuretic Peptide 1643H, Total Protein 6.7, Albumin 3.3, Albumin/Globulin Ratio 0.97L, Thyroid Stimulating Hormone (TSH) 1.080 06/20/19 19:03: Coronavirus (COVID-19)(PCR) NEGATIVE CBC/BMP Laboratory Tests 06/20/19 18:57 Microbiology Microbiology 06/20/19 Blood Culture, Received Pending 06/20/19 Respiratory Virus Panel (PCR) (ALEXA) - Final, Complete 06/20/19 Blood Culture, Received Pending Plan / VTE VTE Prophylaxis Ordered?: Yes GME ATTESTATION GME ATTESTATION My faculty preceptor for this patient encounter was physically present during the encounter and was fully available. All aspects of the patient interview, examination, medical decision making process, and medical care plan development were reviewed and approved by the faculty preceptor. The faculty preceptor is aware and concurs with the plan as stated in the body of this note and will attest to such by his/her cosignature. ATTENDING NOTE I, Christian Millan, have independently examined this patient and performed my own physical exam, as well as reviewed the documentation and edited where necessary. I have discussed in detail with the resident / student the findings and plan of treatment as documented by the resident / student and edited their note. I agree with their findings and treatment plan and have edited their documentation. I will continue to follow the patient during this hospital stay. LETICIA LOAIZA DO Jun 20, 2019 23:57 CHRISTIAN MILLAN MD Jun 21, 2019 02:33
[2019-06-21] VITALS (24 sets, daily range): BP systolic 142–156; BP diastolic 70–96; O2SAT 88–96
[2019-06-21] MEDS ORDERED: GLUCOSE 4GM CHEW TABLET PO PRN
[2019-06-21] MEDS ORDERED: DEXTROSE 50% 50 ML SYRINGE IV PRN
[2019-06-21] MEDS ORDERED: GLUCAGON INJ 1MG VIAL SC PRN
[2019-06-21 00:53] LABS: CK-MB VALUE MASS 1.6 NG/ML (<3.6); MB/CK RELATIVE INDEX 3.33 (< OR =4); TROPONIN I 0.05 NG/ML (< 0.10)
[2019-06-21 05:57] LABS: HEMATOCRIT 38.9 % (42.0-52.0); HEMOGLOBIN 12.6 g/dl (13.5-17.5); MEAN CORPUSCULAR HEMOGLOBIN 29.9 pg (27.0-33.0); MEAN CORPUSCULAR HGB CONC 32.4 g/dl (32.0-36.5); MEAN CORPUSCULAR VOLUME 92.2 fl (80.0-96.0); PLATELET COUNT, AUTOMATED 211 10^3/uL (150-450); RED BLOOD COUNT 4.22 10^6/uL (4.30-6.10); WHITE BLOOD COUNT 13.2 10^3/uL (4.0-10.0)
[2019-06-21 06:23] LABS: BLOOD UREA NITROGEN 17 MG/DL (7-18); CARBON DIOXIDE LEVEL 31 MEQ/L (21-32); CHLORIDE LEVEL 102 MEQ/L (98-107); CREATININE FOR GFR 1.07 MG/DL (0.70-1.30); GLOMERULAR FILTRATION RATE > 60.0 (>42); GLUCOSE, FASTING 117 MG/DL (70-100); MAGNESIUM LEVEL 1.6 MG/DL (1.8-2.4); POTASSIUM SERUM 3.5 MEQ/L (3.5-5.1); SODIUM LEVEL 140 MEQ/L (136-145)
[2019-06-21] MEDS ORDERED: MAG SULF 1GM/100ML (MAG RUN) 1 GM in IV 1 EA IV ONE (06:30)
[2019-06-21 06:48] LABS: CK-MB VALUE MASS 1.4 NG/ML (<3.6); MB/CK RELATIVE INDEX 2.75 (< OR =4); TROPONIN I 0.03 NG/ML (< 0.10)
[2019-06-21] MEDS: TIOTROPIUM INHALER/CAPSULE (SPIRIVA) INH SCH (07:18)
[2019-06-21] MEDS: HumaLOG INSULIN (NovoLOG) PER UNIT SC SCH ×4 (08:27→20:43)
[2019-06-21] MEDS: cefTRIAXone SOD 1 GM in D5W MINI-BAG PLUS 50 ML IV SCH ×2 (08:28→19:39)
[2019-06-21] MEDS: GABAPENTIN 300 MG CAP PO SCH ×2 (08:28→20:41)
[2019-06-21] MEDS: VITAMIN D 1,000 INTERNATIONAL UNITS TABLET PO SCH (08:28)
[2019-06-21] MEDS: SANTYL OINT 30GM TOP SCH (08:28)
[2019-06-21] MEDS: METOPROLOL TARTRATE 100 MG TAB PO SCH ×2 (08:29→20:43)
[2019-06-21] MEDS: AMIODARONE 200 MG TAB (PACERONE) PO SCH ×2 (08:29→20:42)
[2019-06-21] MEDS: SENOKOT S TAB PO SCH ×2 (08:29→20:42)
[2019-06-21] MEDS: SINEMET 25-100 MG TAB PO SCH ×4 (08:30→20:42)
[2019-06-21] MEDS: lisinopriL 10 MG TAB PO SCH (08:30)
[2019-06-21] MEDS: APIXABAN 5 MG TAB (ELIQUIS) PO SCH ×2 (08:30→20:42)
[2019-06-21] MEDS: ASPIRIN 81 MG ENTERIC TAB PO SCH (08:30)
[2019-06-21] MEDS: ANEXSIA, NORCO 7.5MG/325MG TABLET(HYDROCODONE/APAP) PO PRN (08:31)
[2019-06-21] MEDS: DULoxetine 20 MG CAP (CYMBALTA) PO SCH (12:14)
--- NOTE | 2019-06-21 14:09 | IPNPDOC ---
Text Note Date of Service The patient was seen on 06/21/19. NOTE Subjective: Sitting up in chair, breathing comfortably on room air, conversant, reporting that he feels better than when he first cam in Objective: General exam: A&Ox3, NAD HEENT: NCAT, EOMI, neck supple with mild JVD Cardiac: irregularly irregular rhythm, rate wnl, normal S1 & S2, no murmurs. AICD present at left upper chest wall Respiratory: Trace bibasilar crackles, otherwise clear and moving air well. On room without accessory muscle use, speaking in full sentences Abdomen: Normoactive sounds, soft, NT, ND, obese Extremity: 2+ radial and dorsalis pedis pulses, no calf tenderness Skin: [place], warm, dry, no visible rash. Resolving ecchymosis on R face. Neuro: normal speech, no focal deficits, 5/5 strength and tone in all 4 extremities Psych: Normal mood and affect LABORATORY DATA WBC 13.2 Hgb 12.6 platelets 211 na 140 K 3.5 Cr 1.07 mag 1.6 (repleted) procal pending resp panel negative MICROBIOLOGY: Please see below. ASSESSMENT AND PLAN: 71-year-old M brought in via EMS for gradually worsening shortness of breath over the past 1 week with increasing lower extremity edema and orthopnea and chest congestion and admitted for systolic and diastolic CHF exacerbation and placed on empiric antibiotics for CAP coverage in the setting of leukocytosis with a pending procalcitonin. Dyspnea: Most likely 2/2 acute on chronic systolic and diastolic CHF with dorita volume overload on exam and elevated proBNP vs. low suspicion for bacterial PNA on empiric abx - Dorita volume overload on examination, CXR with bibasilar infiltrative process, proBNP elevated, EKG non ischemic, trops negative --> s/p lasix 40 IV --> restart PO lasix at 40 PO daily - Afebrile, wbc 16. CXR with b/l LL infiltrate, resp PCR negative --> placed empiric CFX/azithro for potential bacterial CAP with pending procalcitonin. Covid negative - Monitor strict I/o, daily wt, tele - For now, will continue on Ceft & Azithro till blood cx & procal result - Titrate off O2 88-92% Hypoglycemia in setting of baseline IDDM2 - Found to be in 70s at home, up to 80s s/p 2 glucose tabs - Pt denies any changes in meds or diet, but admits to frequent episodes of hypoglycemia - ISS w/ hypoglycemic protocol. Will hold off the 60U qhs long acting insulin in the setting of recent hypoglycemia HTN Urgency - resume home meds and monitor Frequent falls - Most recently 2 weeks ago after legs gave out - Fall precautions - PT/OT evaluation For the remainder of his chronic medical conditions, home meds are resumed. DVT prophylaxis: chronically on Eliquis CODE STATUS: discussed with pt in depth; requesting DNR/DNI. DISPOSITION: For today, will switch to PO diuretics. Has pending procal for decision on antibiotics. Pending PT/OT recs for dispo planning VS,Gabby, I+O VSGabby, I+O Laboratory Tests 06/20/19 18:57 06/21/19 05:37 Vital Signs Date Time Temp Pulse Resp B/P (MAP) Pulse Ox O2 Delivery O2 Flow Rate FiO2 06/21/19 08:31 18 Room Air 06/21/19 08:29 76 148/96 06/21/19 08:00 97.8 93 06/21/19 06:00 0.5 06/20/19 17:59 89 I&O- Last 24 Hours up to 6 AM 06/21/19 06:00 Intake Total 305 ml Output Total 2525 ml Balance -2220 ml REYNALDO MCBRIDE MD Jun 21, 2019 09:38
[2019-06-21] MEDS ORDERED: FUROSEMIDE 20 MG TAB PO SCH (14:15)
[2019-06-21] MEDS: FUROSEMIDE 40 MG TAB PO SCH (14:30)
[2019-06-21] MEDS: ATORVASTATIN 20 MG TAB PO SCH (17:36)
--- NOTE | 2019-06-21 19:28 | ECHO ---
DATE OF PROCEDURE: 06/21/2019 DATE OF : 1940 AGE: 79 PATIENT LOCATION: Room 3216 REFERRING PROVIDER: Dr. Glen Ashby REASON FOR THE STUDY; Shortness of breath. 2D MEASUREMENTS: IVS: 1.4 cm LV: 5.5 cm LVPW: 1.4 cm LA: 4.6 cm Aorta: 3.8 cm IVC: 2.3 cm DOPPLER MEASUREMENTS: Peak velocity across the aortic valve: 1.1 meters per second Peak velocity across the LVOT: 0.7 meters per second Mitral E: 1.0 Maximum tricuspid valve velocity: 2.5 meters per second 2D COMMENTS: 1. Mildly increased left ventricular wall thickness with borderline enlarged left ventricle but with a mildly depressed global left ventricular systolic function. The estimated left ventricular systolic ejection fraction is 40-45%. There seems to be diffuse hypokinesis, mild. 2. Mildly dilated left atrium. Subjectively, the right atrium appeared to be enlarged. The right ventricle was not well visualized. 3. The atrial septum appeared to be normal without evidence of defect or shunt. 4. Mildly dilated aortic root at 3.8 cm. 5. Trace pericardial effusion noted, no evidence of cardiac tamponade. Right pleural effusion also noted. 6. Mildly calcified aortic valve with normal leaflet excursion. Mildly calcified mitral annulus with normal anterior mitral valve leaflet motion. Normal tricuspid valve and pulmonic valve. The proximal pulmonary artery branches were not well visualized. 7. The inferior vena cava was dilated, central venous pressure might be elevated. IMPRESSION: 1. Mild global left ventricular systolic dysfunction with a dilated left ventricle and diffuse hypokinesis. Assessment of the left ventricular diastolic function was limited, the patient seems to have underlying atrial fibrillation. 2. Aortic valve sclerosis with trace aortic regurgitation, but no aortic stenosis. 3. Mitral annulus calcification with mildly enlarged left atrium and moderately severe mitral regurgitation. 4. Trace to mild tricuspid regurgitation with probably mild pulmonary hypertension and a dilated right atrium. 5. Trace pericardial effusion noted. A right pleural effusion also was seen. 6. Pacemaker/automatic implantable cardioverter defibrillator (AICD) wire artifacts noted in the right heart chambers. 7. Most recent echocardiogram in the system was on 05/11/2016, no remarkable changes.
[2019-06-21] MEDS: LATANOPROST 0.005% OPHTH SOLN 2.5 ML OU SCH (20:41)
[2019-06-21] MEDS: RAMELTEON 8 MG TAB (ROZEREM) PO SCH (20:42)
[2019-06-21] MEDS ORDERED: AZITHROMYCIN INJ 500 MG, VIAL MATE ADAPTER 1 EACH in D5W 250 ML IV SCH (21:00)
[2019-06-22] VITALS (13 sets, daily range): BP systolic 128–180; BP diastolic 68–100; O2SAT 86–95
[2019-06-22 05:20] LABS: HEMATOCRIT 38.2 % (42.0-52.0); HEMOGLOBIN 12.3 g/dl (13.5-17.5); MEAN CORPUSCULAR HEMOGLOBIN 29.9 pg (27.0-33.0); MEAN CORPUSCULAR HGB CONC 32.2 g/dl (32.0-36.5); MEAN CORPUSCULAR VOLUME 92.9 fl (80.0-96.0); PLATELET COUNT, AUTOMATED 215 10^3/uL (150-450); RED BLOOD COUNT 4.11 10^6/uL (4.30-6.10); WHITE BLOOD COUNT 11.9 10^3/uL (4.0-10.0)
[2019-06-22 05:41] LABS: BLOOD UREA NITROGEN 18 MG/DL (7-18); CALCIUM LEVEL 8.9 MG/DL (8.8-10.2); CARBON DIOXIDE LEVEL 31 MEQ/L (21-32); CHLORIDE LEVEL 102 MEQ/L (98-107); CREATININE FOR GFR 1.16 MG/DL (0.70-1.30); GLOMERULAR FILTRATION RATE > 60.0 (>42); GLUCOSE, FASTING 203 MG/DL (70-100); MAGNESIUM LEVEL 1.6 MG/DL (1.8-2.4); POTASSIUM SERUM 3.5 MEQ/L (3.5-5.1); SODIUM LEVEL 139 MEQ/L (136-145)
[2019-06-22] MEDS: TIOTROPIUM INHALER/CAPSULE (SPIRIVA) INH SCH (07:22)
[2019-06-22] MEDS ORDERED: MAG SULF 1GM/100ML (MAG RUN) 1 GM in IV 1 EA IV ONE (08:00)
[2019-06-22] MEDS ORDERED: POTASSIUM CHLORIDE 10 MEQ SR TABLET PO ONE (08:00)
[2019-06-22] MEDS: HumaLOG INSULIN (NovoLOG) PER UNIT SC SCH ×2 (08:20→12:08)
[2019-06-22] MEDS: ASPIRIN 81 MG ENTERIC TAB PO SCH (08:21)
[2019-06-22] MEDS: GABAPENTIN 300 MG CAP PO SCH (08:21)
[2019-06-22] MEDS: VITAMIN D 1,000 INTERNATIONAL UNITS TABLET PO SCH (08:21)
[2019-06-22] MEDS: SANTYL OINT 30GM TOP SCH (08:21)
[2019-06-22] MEDS: SINEMET 25-100 MG TAB PO SCH ×2 (08:21→12:07)
[2019-06-22] MEDS: AMIODARONE 200 MG TAB (PACERONE) PO SCH (08:21)
[2019-06-22] MEDS: SENOKOT S TAB PO SCH (08:21)
[2019-06-22] MEDS: APIXABAN 5 MG TAB (ELIQUIS) PO SCH (08:22)
[2019-06-22] MEDS: lisinopriL 10 MG TAB PO SCH (08:22)
[2019-06-22] MEDS: FUROSEMIDE 40 MG TAB PO SCH (08:22)
[2019-06-22] MEDS: METOPROLOL TARTRATE 100 MG TAB PO SCH (08:22)
[2019-06-22] MEDS: ANEXSIA, NORCO 7.5MG/325MG TABLET(HYDROCODONE/APAP) PO PRN (08:26)
[2019-06-22] MEDS ORDERED: SLF 3 ML SYR IV PRN (11:45)
[2019-06-22] MEDS ORDERED: FURO20TA2 PO (11:49)
--- NOTE | 2019-06-22 11:50 | DS.PDOC ---
Discharge Summary General Date of Admission Jun 20, 2019 at 21:04 Date of Discharge 06/22/2019 Attending Physician: REYNALDO MCBRIDE MD Discharge Summary PROCEDURES PERFORMED DURING STAY: none ADMITTING DIAGNOSES: 1. CHF exacerbation DISCHARGE DIAGNOSES: PMH: 1. 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 A. fib chronically on Eliquis 3. CAD 4. COPD 5. Dyslipidemia 6. Hypertension 6. Depression/insomnia 7. BALJINDER on CPAP 8. IDDM 2 with neuropathy 9. GERD COMPLICATIONS/CHIEF COMPLAINT: Chf Exacerbation, Hypoxemia. HISTORY OF PRESENT ILLNESS: 71-year-old M with a history of systolic and diastolic heart failure, chronic Afib on eliquis, CAD, COPD who presented for gradually worsening shortness of breath over the past 1 week with associated chest congestion and discomfort without a history of any fever or chills or any sick contacts or travel, while endorsing orthopnea and increasing lower extremity edema despite taking his regular medications including his lasix 20mg daily. HOSPITAL COURSE: He was found to be hypoxemia to 85% on room air by EMS and required 3 L nasal cannula and on evaluation had an elevated BNP to 2000+,hypertensive to systolic 200s, chest x-ray revealing bilateral lower lobe infiltrates with cardiomegaly and had a negative covid-19 PCR as well as respiratory viral panel PCR. He was given lasix 40mg IV once in the ED with a robust output and by day AM he was back on room air. On presentation he had been placed on empiric CAP coverage given the hypoxemia and bibasilar infiltrates but after a negative procalcitonin and normal WBC antibiotics were discontinued. He was placed on lasix 40 PO and worked with PT/OT that recommended . He is now being discharged to on lasix 40 PO daily with close PCP follow up for diuretic, electrolyte and volume status review. DISCHARGE MEDICATIONS: Please see below. ALLERGIES: Please see below. PHYSICAL EXAMINATION ON DISCHARGE: VITAL SIGNS: Please see below. General exam: A&Ox3, NAD HEENT: NCAT, EOMI, neck supple with mild JVD Cardiac: irregularly irregular rhythm, rate wnl, normal S1 & S2, no murmurs. AICD present at left upper chest wall Respiratory: diminished bases otherwise clear and moving air well. On room without accessory muscle use, speaking in full sentences Abdomen: Normoactive sounds, soft, NT, ND, obese Extremity: 2+ radial and dorsalis pedis pulses, no calf tenderness Skin: [place], warm, dry, no visible rash. Resolving ecchymosis on R face. Neuro: normal speech, no focal deficits, 5/5 strength and tone in all 4 extremities Psych: Normal mood and affect LABORATORY DATA: Please see below. IMAGING: Admission CXR: Cardiomegaly. Cannot exclude mild interstitial edema. Bilateral lower lobe infiltrates (right greater than left). LE doppler venous US: Right deep veins: Unremarkable. The common femoral, femoral, popliteal and posterior tibial veins are patent without thrombus. Normal Doppler waveforms. Normal compressibility and/or augmentation response. Right superficial veins: Saphenofemoral junction is patent without thrombus. Left deep veins: Unremarkable. The common femoral, femoral, popliteal and posterior tibial veins are patent without thrombus. Normal Doppler waveforms. Normal compressibility and/or augmentation response. Left superficial veins: Saphenofemoral junction is patent without thrombus. Soft tissues: Unremarkable. IMPRESSION: No sonographic evidence of deep vein thrombosis. TTE: 1. Mildly increased left ventricular wall thickness with borderline enlargedleft ventricle but with a mildly depressed global left ventricular systolic function. The estimated left ventricular systolic ejection fraction is 40-45%. There seems to be diffuse hypokinesis, mild. 2. Mildly dilated left atrium. Subjectively, the right atrium appeared to be enlarged. The right ventricle was not well visualized. 3. The atrial septum appeared to be normal without evidence of defect or shunt. 4. Mildly dilated aortic root at 3.8 cm. 5. Trace pericardial effusion noted, no evidence of cardiac tamponade. Right pleural effusion also noted. 6. Mildly calcified aortic valve with normal leaflet excursion. Mildly calcified mitral annulus with normal anterior mitral valve leaflet motion. Normal tricuspid valve and pulmonic valve. The proximal pulmonary artery branches were not well visualized. 7. The inferior vena cava was dilated, central venous pressure might be elevated. IMPRESSION: 1. Mild global left ventricular systolic dysfunction with a dilated left ventricle and diffuse hypokinesis. Assessment of the left ventricular diastolic function was limited, the patient seems to have underlying atrial fibrillation. 2. Aortic valve sclerosis with trace aortic regurgitation, but no aortic stenosis. 3. Mitral annulus calcification with mildly enlarged left atrium and moderately severe mitral regurgitation. 4. Trace to mild tricuspid regurgitation with probably mild pulmonary hypertens ion and a dilated right atrium. 5. Trace pericardial effusion noted. A right pleural effusion also was seen. 6. Pacemaker/automatic implantable cardioverter defibrillator (AICD) wire artifacts noted in the right heart chambers. 7. Most recent echocardiogram in the system was on 05/11/2016, no remarkable changes. PROGNOSIS: Good ACTIVITY: As tolerated. DIET: 2g sodium and 1.5L/24h fluid restriction DISCHARGE PLAN: increased lasix from 20 to 40mg daily. To follow up with machining technician within 1-2 weeks and PCP shortly within 1 week for electrolytes and Cr check DISPOSITION: Home DISCHARGE INSTRUCTIONS: 1. Increased lasix from 20 to 40mg daily. To follow up with machining technician and PCP within 1-2 weeks ITEMS TO FOLLOWUP ON ON OUTPATIENT: 1. HFrEF DISCHARGE CONDITION: Stable. TIME SPENT ON DISCHARGE: 41 minutes. Vital Signs/I&Os Vital Signs Date Time Temp Pulse Resp B/P (MAP) Pulse Ox O2 Delivery O2 Flow Rate FiO2 06/22/19 06:00 94 Room Air 06/22/19 04:00 98.8 78 18 162/80 (107) 06/21/19 09:00 0.5 06/20/19 17:59 89 I&O- Last 24 Hours up to 6 AM 06/22/19 06:00 Intake Total 1975 ml Output Total 150 ml Balance 1825 ml Laboratory Data Labs 24H Laboratory Tests 2 06/21/19 11:27: Bedside Glucose (Misc Panel) 198H 06/21/19 16:41: Bedside Glucose (Misc Panel) 209H 06/21/19 20:00: Bedside Glucose (Misc Panel) 253H 06/22/19 04:52: Nucleated Red Blood Cells % (auto) 0.0, Anion Gap 6L, Glomerular Filtration Rate > 60.0, Calcium Level 8.9, Magnesium Level 1.6L CBC/BMP Laboratory Tests 06/22/19 04:52 FSBS Laboratory Tests Test 06/21/19 11:27 06/21/19 16:41 06/21/19 20:00 Range/Units Bedside Glucose (Misc Panel) 198 209 253 83-110 MG/DL Microbiology Microbiology 06/20/19 Blood Culture - Preliminary, Resulted No growth after 24 hours . All specim... 06/20/19 Respiratory Virus Panel (PCR) ([facility]) - Final, Complete 06/20/19 Blood Culture - Preliminary, Resulted No growth after 24 hours . All specim... Discharge Medications Scheduled Amiodarone Hcl (Pacerone) 200 Mg Tablet, 400 MG PO BID, (Reported) Apixaban (Eliquis) 5 Mg Tablet, 5 MG PO BID, (Reported) Aspirin (Aspirin EC) 81 Mg Tablet.dr, 81 MG PO DAILY, (Reported) Atorvastatin Calcium (Atorvastatin Calcium) 80 Mg Tablet, 40 MG PO QHS, (Re ported) Carbidopa/Levodopa (Carbidopa-Levodopa 25-100 Tab) 1 Each Tablet, 1 TAB PO QID, (Reported) Cholecalciferol (Vitamin D3) (Vitamin D3) 1,000 Unit Tablet, 4,000 UNITS PO DAILY, (Reported) Collagenase Clostridium Hist. (Santyl) 250 Unit/Gm Oin, 1 APLCT TOP DAILY, (Reported) APPLY TO WOUND ON RIGHT FOOT Duloxetine Hcl (Duloxetine HCl) 20 Mg Capsule.dr, 20 MG PO DAILY, (Reported) TAKES AT NOON Furosemide (Furosemide) 20 Mg Tablet, 40 MG PO DAILY Gabapentin (Gabapentin) 300 Mg Cap, 300 MG PO BID, (Reported) Insulin Glargine,Hum.rec.anlog (Lantus Solostar) 100 Unit/1 Ml Insuln.pen, 60 UNITS SC QHS, (Reported) Insulin Human Lispro (Novolog) 100 U/Ml Inj, 1 DOSE SC AC, (Reported) PER SLIDING SCALE Latanoprost (Xalatan) 0.005% 2.5ML Drops, 1 DROP OU QHS, (Reported) Lisinopril (Lisinopril) 20 Mg Tablet, 10 MG PO DAILY, (Reported) Metoprolol Tartrate (Metoprolol Tartrate) 100 Mg Tablet, 100 MG PO BID, (Reported) [place]-3 Fatty Acids/Fish Oil (Fish Oil 1,000 mg Capsule) 1 Each Capsule, 2,000 MG PO BID, (Reported) Sennosides/Docusate Sodium (Senna-S Tablet) 1 Tab Tab, 2 TABS PO BID, (Reported) Tiotropium [place] (Spiriva) 18 Mcg Cap, 1 PUFF INH DAILY, (Reported) TAKES AT NOON Vitamin B Complex (Vitamin B Complex) 1 Each Tablet, 1 TAB PO QHS, (Reported) dilTIAZem HCl (Diltiazem 24Hr Cd) 120 Mg Cap.er.24h, 120 MG PO DAILY, (Reported) Scheduled PRN Dextrose (Glucose) 4 Gm Chw, 16 GM PO for LOW BLOOD SUGAR, (Reported) Hydrocodone/Acetaminophen (Hydrocodone-Acetamin 10-325 mg) 1 Each Tablet, 1 TAB PO Q6H PRN for PAIN, (Reported) Melatonin (Melatonin) 3 Mg Tablet, 3 MG PO QHS PRN for SLEEP, (Reported) Allergies Coded Allergies: No Known Allergies (Verified , 10/16/02) REYNALDO MCBRIDE MD Jun 22, 2019 08:14
[2019-06-22] MEDS: DULoxetine 20 MG CAP (CYMBALTA) PO SCH (12:07)
--- NOTE | 2019-06-22 13:57 | ECGEPIP ---
[facility] - ED Test Date: 2019-06-20 Pat Name: ZACH HARRISON Department: Room: [place] [address] Gender: Male [employer] Professional: hilda : 1940 Requested By: LOUIS GALLAGHER Order Number: [id number] Reading MD: Drea Ruiz Measurements Intervals [place] Rate: 89 P: NV: 0 QRS: 38 QRSD: 99 T: -37 QT: 378 QTc: 462 Interpretive Statements ATRIAL FIBRILLATION WITH ABERRANT CONDUCTION OR VENTRICULAR PREMATURE COMPLEXES INFERIOR MYOCARDIAL INFARCTION, OF INDETERMINATE AGE WITH POSTERIOR EXTENSION PRIOR PACED 03/23/19 Electronically Signed on 06-22-2019 13:56:30 EDT by Drea Ruiz
[2019-06-22] MEDS ORDERED: SLF 3 ML SYR IV SCH (14:00)
[2019-06-23 00:07] LABS: MYCOPLASMA PNEUMONIAE IgG 2834 U/mL (0-99); MYCOPLASMA PNEUMONIAE IgM <770 U/mL (0-769)
[2019-06-23 14:12] LABS: BODY FLUID CULTURE Not indicated. (.); LEGIONELLA ANTIGEN URINE Negative (Negative); ORGANISM ID Not indicated. (.); SPECIMEN SOURCE Urine (.); URINE STREP PNEUMONIAE ANTIGEN Negative (Negative)
== END 2019-06-22 14:57 | disposition home or self-care (01) | DRG 292 ==
LOC: M ED 17:30 → EDBD 17:30 → M ED INP 21:04 → ENRESERV 21:36 → M PCU 22:25
PROVIDERS: ADMIT Internal Medicine; ATTEND Internal Medicine
DX: I11.0 Hypertensive heart disease with heart failure (principal); I48.20 Chronic atrial fibrillation, unspecified; J44.1 Chronic obstructive pulmonary disease with (acute) exacerbation; I50.43 Acute on chronic combined systolic (congestive) and diastolic (congestive) heart failure; I25.10 Atherosclerotic heart disease of native coronary artery without angina pectoris; I25.2 Old myocardial infarction; E78.5 Hyperlipidemia, unspecified; F32.9 Major depressive disorder, single episode, unspecified; G47.00 Insomnia, unspecified; Z66 Do not resuscitate; G47.33 Obstructive sleep apnea (adult) (pediatric); E11.40 Type 2 diabetes mellitus with diabetic neuropathy, unspecified; K21.9 Gastro-esophageal reflux disease without esophagitis; Z86.73 Personal history of transient ischemic attack (TIA), and cerebral infarction without residual deficits; F17.200 Nicotine dependence, unspecified, uncomplicated; E11.649 Type 2 diabetes mellitus with hypoglycemia without coma; I16.0 Hypertensive urgency; R29.6 Repeated falls; Z79.01 Long term (current) use of anticoagulants; Z79.82 Long term (current) use of aspirin; Z79.4 Long term (current) use of insulin; Z79.899 Other long term (current) drug therapy

== ENCOUNTER 2019-07-04 18:39 | Inpatient (IN) | payer MEDICARE, OTHER ==
[~2019-07-04] VITALS: Ht 170.2 cm; Wt 99.5 kg
[~2019-07-04 18:39] MED LIST changes: +ASPI-161 PO; +CARB25TA9 PO; +DILT120C89 PO
[2019-07-04 19:50] LABS: BASO # 0.1 10^3/uL (0.0-0.2); BASO % 0.3 % (0.0-1.0); EOS # 0.2 10^3/uL (0.0-0.5); EOS % 0.9 % (0.0-3.0); HEMATOCRIT 35.5 % (42.0-52.0); HEMOGLOBIN 11.4 g/dl (13.5-17.5); LYMPH # 2.8 10^3/uL (1.5-5.0); LYMPH % 14.1 % (24.0-44.0); MEAN CORPUSCULAR HEMOGLOBIN 29.5 pg (27.0-33.0); MEAN CORPUSCULAR HGB CONC 32.1 g/dl (32.0-36.5); MEAN CORPUSCULAR VOLUME 91.7 fl (80.0-96.0); MONO # 2.4 10^3/uL (0.0-0.8); MONO % 11.6 % (0.0-5.0); NEUTROPHILS # 14.6 10^3/uL (1.5-8.5); NEUTROPHILS % 72.3 % (36.0-66.0); PLATELET COUNT, AUTOMATED 217 10^3/uL (150-450); RED BLOOD COUNT 3.87 10^6/uL (4.30-6.10); WHITE BLOOD COUNT 20.2 10^3/uL (4.0-10.0)
[2019-07-04 20:01] LABS: INR 1.76; PROTHROMBIN TIME 20.3 SECONDS (11.8-14.0)
[2019-07-04 20:02] LABS: PARTIAL THROMBOPLASTIN TIME 38.3 SECONDS (25.0-38.4)
--- NOTE | 2019-07-04 20:08 | REPVR ---
PROCEDURE INFORMATION: Exam: CT Cervical Spine Without Contrast Exam date and time: 07/04/2019 7:42 PM Age: 79 years old Clinical indication: Injury or trauma; Fall; Initial encounter; Blunt trauma; Additional info: Fall/traum TECHNIQUE: Imaging protocol: Computed tomography images of the cervical spine without contrast. Radiation optimization: All CT scans at this facility use at least one of these dose optimization techniques: automated exposure control; mA and/or kV adjustment per patient size (includes targeted exams where dose is matched to clinical indication); or iterative reconstruction. COMPARISON: CT Spine,cervical w/o contrast 05/27/2019 5:05 PM FINDINGS: Vertebrae: Mild lower cervical levoconvex scoliosis. Trace grade 1 degenerative anterolisthesis of C4 on C5, as before. No acute fracture seen. There is an old T1 spinous process fracture. Discs/Spinal canal/Neural foramina: Moderate degenerative changes at C1-C2. Moderate to severe multilevel cervical facet arthropathy. Disc height loss and spondylosis with uncovertebral arthropathy is moderate at C5-C6 and C6-C7, mild to moderate elsewhere. Central spinal canal stenosis is moderate at C5-C6, likely mild elsewhere. There are multilevel foraminal stenoses due to uncovertebral and facet arthropathy. Soft tissues: Unremarkable. Lungs: Lung apices are normal. Vasculature: Atherosclerotic plaque at the carotid bifurcations. There is a medialized course of the ICAs in the neck. IMPRESSION: No cervical spine fracture seen. Electronically signed by: Nicole Harrell On 07/04/2019 20:08:04 PM
--- NOTE | 2019-07-04 20:12 | REPVR ---
PROCEDURE INFORMATION: Exam: CT Head Without Contrast Exam date and time: 07/04/2019 7:42 PM Age: 79 years old Clinical indication: Injury or trauma; Fall; Initial encounter; Blunt trauma (contusions or hematomas); Additional info: Fall/traum TECHNIQUE: Imaging protocol: Computed tomography of the head without contrast. Radiation optimization: All CT scans at this facility use at least one of these dose optimization techniques: automated exposure control; mA and/or kV adjustment per patient size (includes targeted exams where dose is matched to clinical indication); or iterative reconstruction. COMPARISON: CT Head without contrast 05/27/2019 5:05 PM FINDINGS: Brain: The brain demonstrates diffuse volume loss. There is white matter hypodensity most consistent with chronic small vessel ischemic change. No visible evolving territorial infarct. No hemorrhage. An old left occipital infarct, as before. Ventricles: The ventricles appear enlarged, as before, likely reflecting volume loss. Bones/joints: Unremarkable. No acute fracture. Sinuses: Visualized sinuses are unremarkable. No fluid levels. Mastoid air cells: Visualized mastoid air cells are well aerated. Soft tissues: Unremarkable. IMPRESSION: No acute intracranial abnormality seen. Electronically signed by: Nicole Harrell On 07/04/2019 20:12:19 PM
[2019-07-04 20:27] LABS: ALBUMIN 2.7 GM/DL (3.2-5.2); BILIRUBIN,DIRECT 0.3 MG/DL (0.0-0.2); BILIRUBIN,TOTAL 0.8 MG/DL (0.2-1.0); CALCIUM LEVEL 8.7 MG/DL (8.8-10.2); CREATININE FOR GFR 1.25 MG/DL (0.70-1.30); GLOMERULAR FILTRATION RATE 59.5 (>42); MB/CK RELATIVE INDEX 1.67 (< OR =4); POTASSIUM SERUM 4.1 MEQ/L (3.5-5.1); THYROID STIMULATING HORMONE 1.54 uIU/ML (0.358-3.740); TOTAL PROTEIN 6.1 GM/DL (6.4-8.2); TROPONIN I 0.02 NG/ML (< 0.10)
--- NOTE | 2019-07-04 20:33 | ECGEPIP ---
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
[2019-07-04] MEDS ORDERED: FURO20TA2 PO (21:10)
--- NOTE | 2019-07-04 21:13 | REPVR ---
PROCEDURE INFORMATION: Exam: CT Pelvis Without Contrast; Skeletal Exam date and time: 07/04/2019 8:17 PM Age: 79 years old Clinical indication: Hip pain; Right hip; Additional info: Eval for pubic ramus FX on R TECHNIQUE: Imaging protocol: Computed tomography images of the pelvis without contrast. Exam focused on the skeletal structures. Radiation optimization: All CT scans at this facility use at least one of these dose optimization techniques: automated exposure control; mA and/or kV adjustment per patient size (includes targeted exams where dose is matched to clinical indication); or iterative reconstruction. COMPARISON: CT ABD PELVIS W/O CONTRAST 04/22/2019 9:41 AM FINDINGS: Vasculature: Aortic endograft. Atherosclerotic calcification of the abdominal aorta and bilateral iliac vessels. Bones/joints: Diffuse demineralization of the bones. No acute fracture. Soft tissues: Unremarkable. IMPRESSION: No acute abnormality. Electronically signed by: Juvenal Arthur On 07/04/2019 21:13:04 PM
[2019-07-04] MEDS ORDERED: MAALOX 30 ML SUSP *UDC PO PRN (21:15)
[2019-07-04] MEDS ORDERED: GLUCOSE 4GM CHEW TABLET PO PRN (21:15)
[2019-07-04] MEDS ORDERED: GLUCAGON INJ 1MG VIAL SC PRN (21:15)
[2019-07-04] MEDS ORDERED: ACETAMINOPHEN TAB 650MG DOSE (2X325MG) PO PRN (21:15)
[2019-07-04] MEDS ORDERED: DEXTROSE 50% 50 ML SYRINGE IV PRN (21:15)
[2019-07-04] MEDS ORDERED: MOM 30ML SUSPENSION UDC PO PRN (21:15)
[2019-07-04 22:05] LABS: PERCENT SATURATION 8.6 % (19.7-50.0)
[2019-07-04 22:26] LABS: HEMOGLOBIN A1c 5.1 %
--- NOTE | 2019-07-04 22:26 | REPVR ---
PROCEDURE INFORMATION: Exam: US Duplex Bilateral Extracranial Arteries Exam date and time: 07/04/2019 9:59 PM Age: 79 years old Clinical indication: Abnormal findings; Abnormal radiologic findings of head/skull; Not specified; Additional info: Syncope carotid plaques on CT head TECHNIQUE: Imaging protocol: Real-time Duplex ultrasound scan of the bilateral carotid and vertebral arteries combining elias scale, color Doppler and spectral waveform analysis. Bilateral exam. COMPARISON: CT Head without contrast 07/04/2019 7:39 PM FINDINGS: Right common carotid artery: Mild calcified and noncalcified plaque. No occlusion or stenosis. Waveforms are normal. Right internal carotid artery: Mild calcified and noncalcified plaque. No occlusion or stenosis. Waveforms are normal. Right ICA/CCA ratio: Within normal limits. Right external carotid artery: No stenosis in the origin. Right vertebral artery: Unremarkable. Antegrade flow. Left common carotid artery: Mild calcified/noncalcified plaque. No occlusion or stenosis. Waveforms are normal. Left internal carotid artery: Mild calcified/noncalcified plaque. No occlusion or stenosis. Waveforms are normal. Left ICA/CCA ratio: Within normal limits. Left external carotid artery: No stenosis in the origin. Left vertebral artery: Unremarkable. Antegrade flow. IMPRESSION: Mild stenosis of bilateral internal carotid arteries(less than 50%) by NASCET criteria. REFERENCES: SRU CRITERIA. The degree of internal carotid artery stenosis is based on criteria defined by the Society of Radiologists in Ultrasound (SRU). Normal is no stenosis. Mild is less than 50% stenosis. Moderate is 50-69% stenosis. Severe is greater than 69% stenosis to near occlusion. Near occlusion is a markedly narrowed lumen. Total occlusion is no detectable patent lumen. Electronically signed by: Juvenal Arthur On 07/04/2019 22:25:30 PM
[2019-07-04 23:00] VITALS: BP 186/88
--- NOTE | 2019-07-04 23:02 | HPEPDOC ---
[facility] Medical History & Physical Date of Admission July 04, 2019 Date of Service: July 04, 2019 Primary Care Physician: VANGIE CHO MD [facility] Attending Physician: SUSI GUIDRY MD History and Physical TIME OF SERVICE: 10:45 PM CHIEF COMPLAINT: Loss of consciousness HISTORY OF PRESENT ILLNESS: This is a 79 old gentleman who reports falling at home on Tuesday and passing out. He remembers hitting the back and side of his head and "seeing people that were not there." His family members found him at home and brought him to the hospital. He denies having fevers, chills, cough or dizziness. He has chronic right lower extremity edema and recently had left-sided 5 out of 10 chest pain that is no longer present. REVIEW OF SYSTEMS: 12 point review of systems negative except as listed in HPI PAST MEDICAL/ SURGICAL HISTORY: Left occipital CVA COPD Chronic Systolic/diastolic CHF with an AICD (EF 40-45% 2019) Aortic sclerosis Chronic A. fib (Elquis) Chronic CAD / hx of NSTEMI & PCI Dyslipidemia Chronic HTN IDDM with neuropathy and foot ulcers History of frequent falls 2/2 Parkinson's ??? Obesity BALJINDER on CPAP Depression/insomnia / PTSD Skin cancer Old T1 Fx Endovascular AAA repair with stent placement Spinal laminectomy Appendectomy Tonsillectomy SOCIAL HISTORY: He smokes He doesn't drink alcohol. History of alcoholism (per Psych consult notes) [place] FAMILY HISTORY: No known because the patient left home at 18 years of age ALLERGIES: Please see below. HOME MEDICATIONS: Please see below. PHYSICAL EXAMINATION: Vital Signs Date Time Temp Pulse Resp B/P (MAP) Pulse Ox O2 Delivery O2 Flow Rate FiO2 07/04/19 18:58 98.6 74 22 138/85 (102) 96 Room Air 07/04/19 20:33 2.0 GEN: Obese/ well developed/ NAD INTEGUMENT: not flushed/ not jaundice / ulcer on plantar surface of right foot HEENT: NCAT / lips acyanotic /mucus membranes dry CVS: RRR/NMRG/ radial pulses intact LUNGS: able to speak full sentences without stopping to take a breath / lungs are clear to auscultation bilaterally on room air ABDOMEN: Contour ( obese) / soft & he doesn't grimace with palpation NEURO: speech is not dysarthric /intermittent resting tremor affecting the hands PSYCH: alert and oriented / able to understand and follow all commands LABORATORY DATA: Prothrombin Time 20.3H, Prothromb Time International Ratio 1.76, Activated Partial Thromboplast Time 38.3 Immature Granulocyte % (Auto) 0.8, Neutrophils (%) (Auto) 72.3H, Lymphocytes (%) (Auto) 14.1L, Monocytes (%) (Auto) 11.6H, Eosinophils (%) (Auto) 0.9, Basophils (%) (Auto) 0.3, Neutrophils # (Auto) 14.6H, Lymphocytes # (Auto) 2.8, Monocytes # (Auto) 2.4H, Eosinophils # (Auto) 0.2, Basophils # (Auto) 0.1, Reticulocyte # (auto) 103.1H, Nucleated Red Blood Cells % (auto) 0.0, Percent Reticulocyte Count 2.6H, Reticulocyte Hemoglobin Equivalent 29.0, Anion Gap 6L, Glomerular Filtration Rate 59.5, Calcium Level 8.7L, Iron Level 27L, Total Iron Binding Capacity 313, Transferrin % Saturation 8.6L, Ferritin 116, Total Bilirubin 0.8, Direct Bilirubin 0.3H, Aspartate Amino Transf (AST/SGOT) 31, Alanine Aminotransferase (ALT/SGPT) 7L, Alkaline Phosphatase 85, Total Creatine Kinase 60, Creatine Kinase MB 1.0, Creatine Kinase MB Relative Index 1.67, Troponin I 0.02, Total Protein 6.1L, Albumin 2.7L, Albumin/Globulin Ratio 0.79L, Thyroid Stimulating Hormone (TSH) 1.540 Bedside Glucose (Misc Panel) 71L Estimated Mean Plasma Glucose 100, Hemoglobin A1c 5.1, Lactic Acid Level 1.8 IMAGING: CT of the head "IMPRESSION: No acute intracranial abnormality seen." CT cervical spine "IMPRESSION: No cervical spine fracture seen. " CT Pelvis w/o contrast "IMPRESSION: No acute abnormality." MICROBIOLOGY: 07/04/19 Blood Culture, Received Pending 07/04/19 Blood Culture, Received Pending ASSESSMENT: Mr. Valiente is a 71 yr old with history of CVA, COPD, systolic, diastolic CHF, atrial fibrillation, CAD, dyslipidemia and accommodation, gout, IDDM, BALJINDER, depression, GERD, and multiple surgeries, who is admitted for evaluation of syncope and leukocytosis of unclear cause. PLAN: 1.Syncope Cause TBD [facility] Syncope Rule = not low risk CT of the head was negative for any acute process but there was mention of carotid plaques His EKG showed heart rate is 77 and frequent PVCs Unable to get MRI bc of ICD Plan: admit to PCU / telemetry / fall precautions/ f/u orthostats, carotid US 2. Encephalopathy ? Possibly due to delirium related to infection vs hypoglycemia or hallucinations due to Lewy Body Dementia. Unlikely Beltran Bonett syndrome because he denied having cataracts Based on EMS records, he was hallucinating, the patient reported seeing people that were not there when he was at home and during my exam he referred to people and objects that were not present in the room Plan: neurochecks / bc he has leukocytosis will order UA, blood cx and lactic acid to r/o infection / f/u w PCP and or family about hx of hallucinations 3. Leukocytosis Cause TBD Plan: monitor vitals / f/u work-up to r/o infection 4.Acute Anemia His hemoglobin has dropped from 12.3-11.4. Plan: Follow-up CBC, reticulocyte count, stool occutl and iron panel 5. Chronic CAD / Dyslipidemia - ASA, atorvastatin 6. Hx of Left occipital CVA - ASA, atorvastatin 7. Chronic systolic/diastolic CHF - f/u Is and Os, daily weights / restrict salt to 2G and fluids to 2L / c/w lasix, metoprolol, lisinopril, can f/u his PCP or Field Marketing Team Leader to start potassium sparing diuretic 8. Chronic A. fib - Elquis, amoidarone, diltiazem 9. Chronic HTN - lisinopril, metoprolol 10. IDDM with neuropathy - diabetic diet / f/u accuchecks & A1C / hypoglycemia protocol / sliding scale insulin / home dose is glargine 60 units QHS but he has been hypoglycemic therefore we will decrease his dose to 45 units and titrate as needed / f/u with PCP to determine if he is a candidate for empagliflozin to reduce the risk of CVD 11. COPD - Spiriva 12. Possible Parkinson's vs Lewy Body Dementia (bc of hallucinations) - levodopa/carbidopa / the day time team may consider reaching out to his family and PCP to confirm the diagnosis / PT for early mobilization 12. BALJINDER - own CPAP 13. Depression/insomnia / PTSD - duloxetine 14. Lower extremity pain - c/w Anza 15. Obesity with co-existing DM and BALJINDER complicates care DVT PROPHYLAXIS: n/a on eliquis DISPOSITION: home after more than 2 midnight's stay Home Medications Scheduled Amiodarone Hcl (Pacerone) 200 Mg Tablet, 400 MG PO BID Apixaban (Eliquis) 5 Mg Tablet, 5 MG PO BID Aspirin (Aspirin EC) 81 Mg Tablet.dr, 81 MG PO DAILY Atorvastatin Calcium (Atorvastatin Calcium) 80 Mg Tablet, 40 MG PO QHS Carbidopa/Levodopa (Carbidopa-Levodopa 25-100 Tab) 1 Each Tablet, 1 TAB PO QID Cholecalciferol (Vitamin D3) (Vitamin D3) 1,000 Unit Tablet, 4,000 UNITS PO DAILY Collagenase Clostridium Hist. (Santyl) 250 Unit/Gm Oin, 1 APLCT TOP DAILY APPLY TO WOUND ON RIGHT FOOT Duloxetine Hcl (Duloxetine HCl) 20 Mg Capsule.dr, 20 MG PO DAILY TAKES AT NOON Furosemide (Furosemide) 20 Mg Tablet, 40 MG PO DAILY Gabapentin (Gabapentin) 300 Mg Cap, 300 MG PO BID Insulin Glargine,Hum.rec.anlog (Lantus Solostar) 100 Unit/1 Ml Insuln.pen, 60 UNITS SC QHS Insulin Human Lispro (Novolog) 100 U/Ml Inj, 1 DOSE SC AC PER SLIDING SCALE Latanoprost (Xalatan) 0.005% 2.5ML Drops, 1 DROP OU QHS Lisinopril (Lisinopril) 20 Mg Tablet, 10 MG PO DAILY Metoprolol Tartrate (Metoprolol Tartrate) 100 Mg Tablet, 100 MG PO BID [place]-3 Fatty Acids/Fish Oil (Fish Oil 1,000 mg Capsule) 1 Each Capsule, 2,000 MG PO BID Sennosides/Docusate Sodium (Senna-S Tablet) 1 Tab Tab, 2 TABS PO BID Tiotropium [place] (Spiriva) 18 Mcg Cap, 1 PUFF INH DAILY TAKES AT NOON Vitamin B Complex (Vitamin B Complex) 1 Each Tablet, 1 TAB PO QHS dilTIAZem HCl (Diltiazem 24Hr Cd) 120 Mg Cap.er.24h, 120 MG PO DAILY Scheduled PRN Dextrose (Glucose) 4 Gm Chw, 16 GM PO for LOW BLOOD SUGAR Hydrocodone/Acetaminophen (Hydrocodone-Acetamin 10-325 mg) 1 Each Tablet, 1 TAB PO Q6H PRN for PAIN Melatonin (Melatonin) 3 Mg Tablet, 3 MG PO QHS PRN for SLEEP Allergies Coded Allergies: No Known Allergies (Verified , 10/16/02) A-FIB/CHADSVASC A-FIB History Current/History of A-Fib/PAF?: Yes Current PO Anticoag Therapy: Yes SUSI GUIDRY MD July 04, 2019 23:02
[2019-07-04] MEDS: HumaLOG INSULIN (NovoLOG) PER UNIT SC SCH (23:28)
[2019-07-05] VITALS: BP 162/60
[2019-07-05] MEDS: APIXABAN 5 MG TAB (ELIQUIS) PO SCH ×4 (01:15→21:20)
[2019-07-05] MEDS: LEVEMIR (INSULIN DETEMIR) 1 UNITS/0.01ML SC SCH ×2 (02:12→21:13)
[2019-07-05] MEDS: ATORVASTATIN 20 MG TAB PO SCH ×3 (02:20→21:26)
[2019-07-05] MEDS: SENOKOT S TAB PO SCH ×3 (02:21→21:14)
[2019-07-05] MEDS: RAMELTEON 8 MG TAB (ROZEREM) PO SCH ×3 (02:21→21:26)
[2019-07-05] MEDS: GABAPENTIN 300 MG CAP PO SCH ×3 (02:21→21:20)
[2019-07-05] MEDS: SINEMET 25-100 MG TAB PO SCH ×5 (02:22→21:21)
[2019-07-05] MEDS: AMIODARONE 200 MG TAB (PACERONE) PO SCH ×3 (02:22→21:18)
[2019-07-05] MEDS: METOPROLOL TARTRATE 100 MG TAB PO SCH ×3 (02:23→21:21)
[2019-07-05] MEDS: LATANOPROST 0.005% OPHTH SOLN 2.5 ML OU SCH ×2 (02:23→21:14)
[2019-07-05] MEDS: ANEXSIA, NORCO 7.5MG/325MG TABLET(HYDROCODONE/APAP) PO PRN ×3 (02:39→10:14)
[2019-07-05 04:00] VITALS: BP 141/96
--- NOTE | 2019-07-05 05:40 | REP ---
PELVIS, RIGHT HIP, THREE VIEWS: HISTORY: Trauma. FINDINGS: AP view of the pelvis and AP and frog-leg views of the right hip are obtained. The bony pelvic ring is intact. No pelvic or sacral fracture is seen. Femoral heads are smooth and rounded, and hip joint spaces are preserved. No hip fracture is seen. There are surgical clips in the right inguinal soft tissues. Visualized bowel gas pattern is normal. There is vascular calcification. IMPRESSION: No fracture seen. Electronically Signed by Olivier Franklin MD 07/05/2019 08:04 A
[2019-07-05 05:56] LABS: HEMATOCRIT 35.2 % (42.0-52.0); HEMOGLOBIN 11.5 g/dl (13.5-17.5); MEAN CORPUSCULAR HEMOGLOBIN 29.6 pg (27.0-33.0); MEAN CORPUSCULAR HGB CONC 32.7 g/dl (32.0-36.5); MEAN CORPUSCULAR VOLUME 90.5 fl (80.0-96.0); PLATELET COUNT, AUTOMATED 216 10^3/uL (150-450); RED BLOOD COUNT 3.89 10^6/uL (4.30-6.10); WHITE BLOOD COUNT 17.2 10^3/uL (4.0-10.0)
[2019-07-05 06:28] LABS: BLOOD UREA NITROGEN 32 MG/DL (7-18); CALCIUM LEVEL 8.8 MG/DL (8.8-10.2); CARBON DIOXIDE LEVEL 32 MEQ/L (21-32); CHLORIDE LEVEL 95 MEQ/L (98-107); CREATININE FOR GFR 1.25 MG/DL (0.70-1.30); GLOMERULAR FILTRATION RATE 59.5 (>42); GLUCOSE, FASTING 135 MG/DL (70-100); POTASSIUM SERUM 3.8 MEQ/L (3.5-5.1); SODIUM LEVEL 136 MEQ/L (136-145); TROPONIN I < 0.02 NG/ML (< 0.10)
[2019-07-05] MEDS: HumaLOG INSULIN (NovoLOG) PER UNIT SC SCH ×4 (07:30→20:16)
[2019-07-05 08:00] VITALS: BP 152/92
[2019-07-05] MEDS: VITAMIN D 1,000 INTERNATIONAL UNITS TABLET PO SCH (08:20)
[2019-07-05] MEDS: ASPIRIN 81 MG ENTERIC TAB PO SCH (08:21)
[2019-07-05] MEDS: lisinopriL 20 MG TAB PO SCH (08:22)
[2019-07-05] MEDS: FUROSEMIDE 20 MG TAB PO SCH (08:23)
[2019-07-05] MEDS ORDERED: BACTRIM 160MG/800MG DS TAB PO SCH (09:00)
[2019-07-05 09:20] LABS: APPEARANCE, URINE CLEAR (CLEAR); BACTERIA, URINE AUTO NEGATIVE (NEGATIVE); BILIRUBIN, URINE AUTO NEGATIVE (NEGATIVE); BLOOD, URINE BLOOD NEGATIVE (NEGATIVE); COLOR, URINE YELLOW (YELLOW); GLUCOSE, URINE (UA) AUTO NEGATIVE (NEGATIVE); KETONE, URINE AUTO TRACE mg/dL (NEGATIVE); LEUKOCYTE ESTERASE, URINE AUTO NEGATIVE (NEGATIVE); NITRITE, URINE AUTO NEGATIVE (NEGATIVE); PROTEIN, URINE AUTO 2+ mg/dL (NEGATIVE); RBC, URINE AUTO 7 /HPF (0-3); SPECIFIC GRAVITY URINE AUTO 1.019 (1.002-1.035); SQUAMOUS EPITHELIAL CELL UR AU 0 /HPF (0-6); UROBILINOGEN, URINE AUTO 0.2 mg/dL (0.0-2.0); WBC, URINE AUTO 1 /HPF (0-3)
[2019-07-05] MEDS: TIOTROPIUM INHALER/CAPSULE (SPIRIVA) INH SCH (09:28)
[2019-07-05 12:00] VITALS: BP 148/88
[2019-07-05] MEDS: DULoxetine 20 MG CAP (CYMBALTA) PO SCH (12:05)
--- NOTE | 2019-07-05 13:34 | IPNPDOC ---
Date Seen The patient was seen on 07/05/19. Progress Note SUBJECTIVE: Patient reports right lower extremity pain. Ultrasound carotids are negative for stenosis, greater than 50%. OBJECTIVE PHYSICAL EXAMINATION: VITAL SIGNS: Please see below. GENERAL: No distress HEENT: Normocephalic, atraumatic, moist mucous membranes NECK: Supple CARDIOVASCULAR EXAMINATION: S1, S2 RESPIRATORY EXAMINATION: CTAB ABDOMINAL EXAMINATION: Soft, nontender, nondistended, positive bowel sounds EXTREMITIES: +edema, RLE rash and foot bruising, tenderness to palpation SKIN: No rash NEUROLOGICAL EXAMINATION: Awake PSYCHIATRIC EXAMINATION: appropriate affect LABORATORY DATA, IMAGING STUDIES, MICROBIOLOGY: Please see below. ASSESSMENT AND PLAN: Pt is a 71 yoM with PMH of of CVA, COPD, systolic and diastolic CHF, atrial fibrillation, CAD, dyslipidemia and accommodation, gout, IDDM, BALJINDER, depression, GERD, and multiple surgeries, who is admitted for evaluation of syncope and leukocytosis of unclear cause. -admit to PCU / telemetry / fall precautions/ PLAN: #Syncope: Unclear etiology, [place] Syncope Rule = not low risk -CT of the head was negative for any acute process, CT neck was negative for fractures, ultrasound carotid Dopplers were not suggestive of stenosis greater than 50%, EKG reveals frequent PVCs -f/u orthostats, unable to be obtained due to right lower extremity pain #RLE pain: Fracture versus infection, he does appear to have a cellulitis, will treat with Bactrim for 5 days, and obtain imaging of the right lower extremity -pain control #?Encephalopathy: consider delirium related to infection vs hypoglycemia or hallucinations due to Lewy Body Dementia, with underlying Depression/insomnia / PTSDunlikely Beltran Bonett syndrome because he denied having cataracts (but pt is DM) -per Dr. Anderson's review on EMS records, pt had visual hallucinations -neurochecks,UA is not suggestive of UTI, f/u blood cx and lactic acid to r/o infection -outpt f/u w PCP vs geripsych vs neuro regarding hallucinations -cont home levodopa/carbidopa and duloxetine #Leukocytosis, likely secondary to pain, also consider cellulitic infection, see above -LA: 1.8 #Acute Anemia, unclear etiology with uremia/elevated BUN, Follow-up CBC, reticulocyte count, stool occult. Iron panel reveals iron deficiency, however, iron supplements contraindicated with levodopa, encourage iron rich foods #Chronic CAD / Dyslipidemia/Hx of Left occipital CVA - ASA, atorvastatin #HTN/Chronic systolic/diastolic CHF - f/u Is and Os, daily weights / restrict salt to 2G and fluids to 2L / c/w lasix, metoprolol, lisinopril -out f/u with PCP or Marketing Communications Leader, consider starting potassium sparing diuretic #Chronic A. fib - cont home Elquis, amoidarone, diltiazem #IDDM with neuropathy - diabetic diet / f/u accuchecks / hypoglycemia protocol / sliding scale insulin / home dose is glargine 60 units QHS but he has been hypoglycemic therefore we will decrease his dose to 45 units and titrate as needed -A1c: 5.1 -consider empagliflozin to reduce the risk of CVD as outpt #COPD: cont home Spiriva #BALJINDER - own CPAP #Obesity with co-existing DM and BALJINDER complicates care, weight loss encouraged, f/u outpt DVT ppx: eliquis DISPOSITION: home after more than 2 midnight's stay 35 minutes were spent on care coordination VS, I&O, 24H, Fishbone Vital Signs/I&O Vital Signs Date Time Temp Pulse Resp B/P (MAP) Pulse Ox O2 Delivery O2 Flow Rate FiO2 07/05/19 10:14 20 Nasal Cannula 07/05/19 08:21 84 152/94 07/05/19 08:00 98.3 93 2.0 I&O- Last 24 Hours up to 6 AM 07/05/19 06:00 Intake Total 0 ml Output Total 150 ml Balance -150 ml Laboratory Data 24H LABS Laboratory Tests 2 07/04/19 19:29: Prothrombin Time 20.3H, Prothromb Time International Ratio 1.76, Activated Partial Thromboplast Time 38.3 07/04/19 19:30: Immature Granulocyte % (Auto) 0.8, Neutrophils (%) (Auto) 72.3H, Lymphocytes (%) (Auto) 14.1L, Monocytes (%) (Auto) 11.6H, Eosinophils (%) (Auto) 0.9, Basophils (%) (Auto) 0.3, Neutrophils # (Auto) 14.6H, Lymphocytes # (Auto) 2.8, Monocytes # (Auto) 2.4H, Eosinophils # (Auto) 0.2, Basophils # (Auto) 0.1, Reticulocyte # (auto) 103.1H, Nucleated Red Blood Cells % (auto) 0.0, Percent Reticulocyte Count 2.6H, Reticulocyte Hemoglobin Equivalent 29.0, Anion Gap 6L, Glomerular Filtration Rate 59.5, Calcium Level 8.7L, Iron Level 27L, Total Iron Binding Capacity 313, Transferrin % Saturation 8.6L, Ferritin 116, Total Bilirubin 0.8, Direct Bilirubin 0.3H, Aspartate Amino Transf (AST/SGOT) 31, Alanine Aminotransferase (ALT/SGPT) 7L, Alkaline Phosphatase 85, Total Creatine Kinase 60, Creatine Kinase MB 1.0, Creatine Kinase MB Relative Index 1.67, Troponin I 0.02, Total Protein 6.1L, Albumin 2.7L, Albumin/Globulin Ratio 0.79L, Thyroid Stimulating Hormone (TSH) 1.540 07/04/19 20:23: Bedside Glucose (Misc Panel) 71L 07/04/19 21:57: Estimated Mean Plasma Glucose 100, Hemoglobin A1c 5.1, Lactic Acid Level 1.8 07/05/19 00:04: Bedside Glucose (Misc Panel) 86 07/05/19 00:22: Troponin I 0.02 07/05/19 05:11: Troponin I < 0.02, Nucleated Red Blood Cells % (auto) 0.0, Anion Gap 9, Glomerular Filtration Rate 59.5, Calcium Level 8.8 07/05/19 08:45: Urine Color YELLOW, Urine Appearance CLEAR, Urine pH 5.0, Urine Specific [place] 1.019, Urine Protein 2+H, Urine Glucose (Auto)(UA) NEGATIVE, Urine Ketones (Auto) TRACEH, Urine Blood NEGATIVE, Urine Nitrite NEGATIVE, Urine Bilirubin NEGATIVE, Urine Urobilinogen 0.2, Urine Leukocyte Esterase (Auto) NEGATIVE, Urine WBC (Auto) 1, Urine RBC (Auto) 7H, Urine Hyaline Casts (Auto) 0, Urine Bacteria (Auto) NEGATIVE, Urine Squamous Epithelial Cells 0, Urine Sperm (Auto) 07/05/19 11:37: Bedside Glucose (Misc Panel) 295H CBC/BMP Laboratory Tests 07/04/19 19:30 07/05/19 05:11 Microbiology Microbiology 07/04/19 Blood Culture, Received Pending 07/04/19 Blood Culture, Received Pending COLTEN YEUNG MD July 05, 2019 13:34
[2019-07-05] MEDS: DOXYCYCLINE HYCLATE 100MG TABLET PO SCH ×2 (14:57→21:21)
--- NOTE | 2019-07-05 15:48 | REP ---
REASON: Leg pain. FINDINGS: No acute fracture or destructive osseous lesion. There are vascular calcifications noted. Electronically Signed by Paresh Palacios DO 07/05/2019 04:30 P
--- NOTE | 2019-07-05 15:51 | REP ---
REASON: Pain. Four views of the right foot show marked deformity of the digits with a marked hallux valgus deformity and asymmetric joint space narrowing throughout the joints of the forefoot. There is no evidence of a fracture. The exam is somewhat limited by superimposition of the osseous structures on all views due to the suspected hammertoe deformity and hallux valgus deformity. IMPRESSION: Advanced chronic changes. Electronically Signed by Paresh Palacios DO 07/05/2019 04:31 P
--- NOTE | 2019-07-05 15:52 | REP ---
RIGHT ANKLE, FOUR VIEWS: Four views of the right ankle performed. No acute fracture or dislocation is seen. Small round calcific density at the tip of the medial malleolus may represent an old avulsion fracture or ligamentous calcification. Mild vascular calcifications are seen. There is mild posterior calcaneal spurring. IMPRESSION: Mild degenerative changes. No acute findings. Electronically Signed by Edison Osborne MD 07/05/2019 04:20 P
[2019-07-05 16:00] VITALS: BP 152/78
[2019-07-05] MEDS: NORCO, ANEXSIA 5/325MG TABLET (HYDROcodone/ACETAMINOPHEN) PO PRN (17:19)
[2019-07-05] MEDS ORDERED: ONDANSETRON 4MG/2ML VIAL As Ordered ONE (17:39)
[2019-07-05] MEDS: ONDANSETRON 4MG/2ML VIAL IV PRN ×2 (17:43→21:14)
[2019-07-05 20:00] VITALS: BP 156/64
[2019-07-06] VITALS (7 sets, daily range): BP systolic 142–174; BP diastolic 62–96
[2019-07-06] MEDS: ONDANSETRON 4MG/2ML VIAL IV PRN (03:18)
[2019-07-06] MEDS: TIOTROPIUM INHALER/CAPSULE (SPIRIVA) INH SCH (07:36)
[2019-07-06] MEDS: DOXYCYCLINE HYCLATE 100MG TABLET PO SCH ×2 (08:21→21:39)
[2019-07-06] MEDS: SINEMET 25-100 MG TAB PO SCH ×4 (08:21→21:40)
[2019-07-06] MEDS: AMIODARONE 200 MG TAB (PACERONE) PO SCH ×2 (08:21→21:39)
[2019-07-06] MEDS: VITAMIN D 1,000 INTERNATIONAL UNITS TABLET PO SCH (08:22)
[2019-07-06] MEDS: lisinopriL 20 MG TAB PO SCH (08:22)
[2019-07-06] MEDS: FUROSEMIDE 20 MG TAB PO SCH (08:22)
[2019-07-06] MEDS: APIXABAN 5 MG TAB (ELIQUIS) PO SCH ×2 (08:23→21:40)
[2019-07-06] MEDS: GABAPENTIN 300 MG CAP PO SCH ×2 (08:23→21:40)
[2019-07-06] MEDS: METOPROLOL TARTRATE 100 MG TAB PO SCH ×2 (08:23→21:40)
[2019-07-06] MEDS: ASPIRIN 81 MG ENTERIC TAB PO SCH (08:23)
[2019-07-06] MEDS: SENOKOT S TAB PO SCH ×2 (08:24→21:39)
[2019-07-06] MEDS: HumaLOG INSULIN (NovoLOG) PER UNIT SC SCH ×4 (08:24→21:00)
--- NOTE | 2019-07-06 11:00 | DS.PDOC ---
Discharge Summary General Date of Admission July 04, 2019 at 21:04 Date of Discharge 07/06/19 Discharge Summary PROCEDURES PERFORMED DURING STAY: None. ADMITTING DIAGNOSES: 1. Syncope and collapse. DISCHARGE DIAGNOSES: 1. Syncope, resolved, fall, residual pain COMPLICATIONS/CHIEF COMPLAINT: Syncope And Collapse. HISTORY OF PRESENT ILLNESS/ HOSPITAL COURSE: ASSESSMENT AND PLAN: Pt is a 71 yoM with PMH of of CVA, COPD, systolic and diastolic CHF, atrial fibrillation, CAD, dyslipidemia and accommodation, gout, IDDM, BALJINDER, depression, GERD, and multiple surgeries, who is admitted for evaluation of syncope and leukocytosis of unclear cause. He was admitted to PCU, with telemetry and fall precautions. His syncopal episode was of unclear etiology, could be secondary to vasovagal, orthostatics was unable to be performed due to increased pain and right lower extremity, which was controlled with home [place] with increased frequency to daily 4 hours when necessary. His [place] Syncope Rule = not low risk. Imaging including CT of the head was negative for any acute process, CT neck was negative for fractures, ultrasound carotid Dopplers were not suggestive of stenosis greater than 50%, EKG reveals frequent PVCs. Due to RLE pain, imaging was performed and not suggestive of fracture, which could be suggestive of cellulitis, despite no changes in marking of the right lower extremity, he will be empirically treated with 5 days of doxycycline. Questionable encephalopathy was secondary to possible delirium related to infection vs hypoglycemia or hallucinations due to Lewy Body Dementia, with underlying Depression/insomnia / PTSD, unlikely Beltran Bonett syndrome because he denied having cataracts (but pt is DM). During hospitalization, patient had neurochecks, other labs including UA is not suggestive of UTI, cultures are negative for any growth. He was also found to be anemic, iron deficient, started on ferrous sulfate, will need outpatient follow- up. She reports no difficulty with bowel movements. Upon chart review, it was noted that patient might have hallucinations. He would require Jami psych versus neuro follow-up as an outpatient, he will also follow-up with PCP in 1 week. No other medication changes, all questions were answered. PHYSICAL EXAMINATION ON DISCHARGE: VITAL SIGNS: Please see below. GENERAL: No distress, overall improved from yesterday's exam HEENT: Normocephalic, atraumatic, moist mucous membranes, not pallor NECK: Supple CARDIOVASCULAR EXAMINATION: S1, S2 RESPIRATORY EXAMINATION: CTAB ABDOMINAL EXAMINATION: Soft, nontender, nondistended, positive bowel sounds EXTREMITIES: +edema, RLE rash and foot bruising, tenderness to palpation SKIN: No rash NEUROLOGICAL EXAMINATION: Awake PSYCHIATRIC EXAMINATION: appropriate affect LABORATORY DATA, IMAGING STUDIES, MICROBIOLOGY: Please see below. DISPOSITION: Subacute rehabilitation per PT recommendations, DC today 07/06/2019, increased frequency of home pain medication [place] 10 every 4 hours when necessary from every 6 hours when necessary, 5 day total course of doxycycline for right lower extremity cellulitis, addition of iron, no other changes in medications. 35 minutes were spent on discharge planning. Vital Signs/I&Os Vital Signs Date Time Temp Pulse Resp B/P (MAP) Pulse Ox O2 Delivery O2 Flow Rate FiO2 07/06/19 08:00 97.2 79 20 174/78 (110) 96 Nasal Cannula 2.0 I&O- Last 24 Hours up to 6 AM 07/06/19 06:00 Intake Total 360 ml Output Total 600 ml Balance -240 ml Laboratory Data Labs 24H Laboratory Tests 2 07/05/19 11:37: Bedside Glucose (Misc Panel) 295H 07/05/19 16:49: Bedside Glucose (Misc Panel) 207H 07/05/19 19:58: Bedside Glucose (Misc Panel) 228H 07/06/19 07:48: Bedside Glucose (Misc Panel) 219H FSBS Laboratory Tests Test 07/05/19 11:37 07/05/19 16:49 07/05/19 19:58 07/06/19 07:48 Range/Units Bedside Glucose (Misc Panel) 295 207 228 219 83-110 MG/DL Microbiology Microbiology 07/04/19 Blood Culture - Preliminary, Resulted No growth after 24 hours . All specim... 07/04/19 Blood Culture - Preliminary, Resulted No growth after 24 hours . All specim... Discharge Medications Scheduled Amiodarone Hcl (Pacerone) 200 Mg Tablet, 400 MG PO BID, (Reported) Apixaban (Eliquis) 5 Mg Tablet, 5 MG PO BID, (Reported) Aspirin (Aspirin EC) 81 Mg Tablet.dr, 81 MG PO DAILY, (Reported) Atorvastatin Calcium (Atorvastatin Calcium) 80 Mg Tablet, 40 MG PO QHS, (Reported) Carbidopa/Levodopa (Carbidopa-Levodopa 25-100 Tab) 1 Each Tablet, 1 TAB PO QID, (Reported) Cholecalciferol (Vitamin D3) (Vitamin D3) 1,000 Unit Tablet, 4,000 UNITS PO DAILY, (Reported) Collagenase Clostridium Hist. (Santyl) 250 Unit/Gm Oin, 1 APLCT TOP DAILY, (Reported) APPLY TO WOUND ON RIGHT FOOT Duloxetine Hcl (Duloxetine HCl) 20 Mg Capsule.dr, 20 MG PO DAILY, (Reported) TAKES AT NOON Furosemide (Furosemide) 20 Mg Tablet, 40 MG PO DAILY, (Reported) Gabapentin (Gabapentin) 300 Mg Cap, 300 MG PO BID, (Reported) Insulin Glargine,Hum.rec.anlog (Lantus Solostar) 100 Unit/1 Ml Insuln.pen, 60 U NITS SC QHS, (Reported) Insulin Human Lispro (Novolog) 100 U/Ml Inj, 1 DOSE SC AC, (Reported) PER SLIDING SCALE Latanoprost (Xalatan) 0.005% 2.5ML Drops, 1 DROP OU QHS, (Reported) Lisinopril (Lisinopril) 20 Mg Tablet, 10 MG PO DAILY, (Reported) Metoprolol Tartrate (Metoprolol Tartrate) 100 Mg Tablet, 100 MG PO BID, (Reported) [place]-3 Fatty Acids/Fish Oil (Fish Oil 1,000 mg Capsule) 1 Each Capsule, 2,000 MG PO BID, (Reported) Sennosides/Docusate Sodium (Senna-S Tablet) 1 Tab Tab, 2 TABS PO BID, (Reported) Tiotropium [place] (Spiriva) 18 Mcg Cap, 1 PUFF INH DAILY, (Reported) TAKES AT NOON Vitamin B Complex (Vitamin B Complex) 1 Each Tablet, 1 TAB PO QHS, (Reported) dilTIAZem HCl (Diltiazem 24Hr Cd) 120 Mg Cap.er.24h, 120 MG PO DAILY, (Reported) Scheduled PRN Dextrose (Glucose) 4 Gm Chw, 16 GM PO for LOW BLOOD SUGAR, (Reported) Hydrocodone/Acetaminophen (Hydrocodone-Acetamin 10-325 mg) 1 Each Tablet, 1 TAB PO Q6H PRN for PAIN, (Reported) Melatonin (Melatonin) 3 Mg Tablet, 3 MG PO QHS PRN for SLEEP, (Reported) Allergies Coded Allergies: No Known Allergies (Verified , 10/16/02) COLTEN YEUNG MD July 06, 2019 11:00
[2019-07-06] MEDS ORDERED: DOXY100T PO (11:04)
[2019-07-06] MEDS: DULoxetine 20 MG CAP (CYMBALTA) PO SCH (11:36)
[2019-07-06] MEDS: NORCO, ANEXSIA 5/325MG TABLET (HYDROcodone/ACETAMINOPHEN) PO PRN ×2 (11:36→18:06)
[2019-07-06] MEDS: ATORVASTATIN 20 MG TAB PO SCH (21:39)
[2019-07-06] MEDS: RAMELTEON 8 MG TAB (ROZEREM) PO SCH (21:40)
[2019-07-06] MEDS: LATANOPROST 0.005% OPHTH SOLN 2.5 ML OU SCH (21:41)
[2019-07-06] MEDS: LEVEMIR (INSULIN DETEMIR) 1 UNITS/0.01ML SC SCH (21:41)
[2019-07-07] MEDS: NORCO, ANEXSIA 5/325MG TABLET (HYDROcodone/ACETAMINOPHEN) PO PRN ×2 (01:57→07:59)
[2019-07-07 02:00] VITALS: BP 144/92
[2019-07-07 06:00] VITALS: BP 144/65
[2019-07-07] MEDS: HumaLOG INSULIN (NovoLOG) PER UNIT SC SCH ×5 (08:00→20:35)
[2019-07-07] MEDS: SENOKOT S TAB PO SCH ×2 (08:00→20:44)
[2019-07-07] MEDS: VITAMIN D 1,000 INTERNATIONAL UNITS TABLET PO SCH (08:00)
[2019-07-07] MEDS: ASPIRIN 81 MG ENTERIC TAB PO SCH (08:04)
[2019-07-07] MEDS: SINEMET 25-100 MG TAB PO SCH ×4 (08:04→20:44)
[2019-07-07] MEDS: AMIODARONE 200 MG TAB (PACERONE) PO SCH ×2 (08:04→20:43)
[2019-07-07] MEDS: DOXYCYCLINE HYCLATE 100MG TABLET PO SCH ×2 (08:04→20:44)
[2019-07-07] MEDS: METOPROLOL TARTRATE 100 MG TAB PO SCH ×2 (08:04→20:44)
[2019-07-07] MEDS: lisinopriL 20 MG TAB PO SCH (08:05)
[2019-07-07] MEDS: GABAPENTIN 300 MG CAP PO SCH ×2 (08:05→20:43)
[2019-07-07] MEDS: APIXABAN 5 MG TAB (ELIQUIS) PO SCH ×2 (08:06→20:44)
[2019-07-07] MEDS: FUROSEMIDE 20 MG TAB PO SCH (08:06)
[2019-07-07] MEDS: TIOTROPIUM INHALER/CAPSULE (SPIRIVA) INH SCH (08:17)
[2019-07-07] MEDS ORDERED: PILL CUTTER 1 EACH XX PRN (08:45)
[2019-07-07] MEDS ORDERED: MORPHINE 4 MG/ML 1ML VIAL/SYRINGE (J2270) IV PRN (09:45)
[2019-07-07] MEDS ORDERED: KETOROLAC 30 MG/ML 1ML VIAL IV PRN (09:45)
--- NOTE | 2019-07-07 09:48 | IPNPDOC ---
Date Seen The patient was seen on 07/07/19. Progress Note SUBJECTIVE: pain improved, but reports still not controlled. OBJECTIVE PHYSICAL EXAMINATION: VITAL SIGNS: Please see below. GENERAL: No distress HEENT: Normocephalic, atraumatic, moist mucous membranes NECK: Supple CARDIOVASCULAR EXAMINATION: S1, S2 RESPIRATORY EXAMINATION: CTAB ABDOMINAL EXAMINATION: Soft, nontender, nondistended, positive bowel sounds EXTREMITIES: +edema, RLE rash and foot bruising, tenderness to palpation SKIN: No rash NEUROLOGICAL EXAMINATION: Awake PSYCHIATRIC EXAMINATION: appropriate affect LABORATORY DATA, IMAGING STUDIES, MICROBIOLOGY: Please see below. ASSESSMENT AND PLAN: Pt is a 71 yoM with PMH of of CVA, COPD, systolic and diastolic CHF, atrial fibrillation, CAD, dyslipidemia and accommodation, gout, IDDM, BALJINDER, depression, GERD, and multiple surgeries, who is admitted for evaluation of syncope and leukocytosis of unclear cause. -admit to PCU / telemetry / fall precautions/ PLAN: #RLE pain: not Fracture, consider contusion versus cellulitis, will treat with doxy for a total of days -pain control, patient takes [place] 10 every 4-6 hours at home, appears to be scheduled, will schedule medication, CK D stage III, but will add trial of ketorolac for moderate pain and morphine IV for severe pain, continue to monitor #Syncope: Unclear etiology, [place] Syncope Rule = not low risk -CT of the head was negative for any acute process, CT neck was negative for fractures, ultrasound carotid Dopplers were not suggestive of stenosis greater than 50%, EKG reveals frequent PVCs -f/u orthostats, unable to be obtained due to right lower extremity pain #?Encephalopathy , likely secondary to underlying Parkinson's: resolved -stop neurochecks, UA is not suggestive of UTI, blood cx neg -outpt f/u w PCP vs geripsych vs neuro regarding hallucinations -cont home levodopa/carbidopa and duloxetine #Leukocytosis, likely secondary to pain, also consider cellulitic infection, see above -LA: 1.8 #Acute Anemia, unclear etiology with uremia/elevated BUN -Iron panel reveals iron deficiency, however, iron supplements contraindicated with levodopa, encourage iron rich foods #Chronic CAD / Dyslipidemia/Hx of Left occipital CVA - ASA, atorvastatin #HTN/Chronic systolic/diastolic CHF - f/u Is and Os, daily weights / restrict salt to 2G and fluids to 2L / c/w lasix, metoprolol, lisinopril -out f/u with PCP or Cold [employer], consider starting potassium sparing diuretic #Chronic A. fib - cont home Elquis, amoidarone, diltiazem #IDDM with neuropathy - diabetic diet / f/u accuchecks / hypoglycemia protocol / sliding scale insulin / home dose is glargine 60 units QHS but he has been hypoglycemic therefore we will decrease his dose to 45 units and titrate as needed -A1c: 5.1 -consider empagliflozin to reduce the risk of CVD as outpt #COPD: cont home Spiriva #BALJINDER - own CPAP #Obesity with co-existing DM and BALJINDER complicates care, weight loss encouraged, f/u outpt DVT ppx: eliquis DISPOSITION: home after more than 2 midnight's stay, subacute rehabilitation on 07/09/2019 VS, I&O, 24H, Fishbone Vital Signs/I&O Vital Signs Date Time Temp Pulse Resp B/P (MAP) Pulse Ox O2 Delivery O2 Flow Rate FiO2 07/07/19 08:29 97.8 84 19 152/88 91 Room Air 07/06/19 18:00 2.0 I&O- Last 24 Hours up to 6 AM 07/07/19 05:59 Intake Total 1175 ml Output Total 300 ml Balance 875 ml Laboratory Data 24H LABS Laboratory Tests 2 07/06/19 11:28: Bedside Glucose (Misc Panel) 197H 07/06/19 16:40: Bedside Glucose (Misc Panel) 200H 07/06/19 21:22: Bedside Glucose (Misc Panel) 176H 07/07/19 05:23: Bedside Glucose (Misc Panel) 133H Microbiology Microbiology 07/04/19 Blood Culture - Preliminary, Resulted No Growth after 48 hours. All Specime... 07/04/19 Blood Culture - Preliminary, Resulted No Growth after 48 hours. All Specime... COLTEN YEUNG MD July 07, 2019 09:48
[2019-07-07 10:00] VITALS: BP 137/66
[2019-07-07] MEDS: DULoxetine 20 MG CAP (CYMBALTA) PO SCH (13:13)
[2019-07-07] MEDS: NORCO, ANEXSIA 5/325MG TABLET (HYDROcodone/ACETAMINOPHEN) PO SCH ×2 (13:14→20:43)
[2019-07-07 14:00] VITALS: BP 139/66
[2019-07-07 18:00] VITALS: BP 136/65
[2019-07-07] MEDS: LEVEMIR (INSULIN DETEMIR) 1 UNITS/0.01ML SC SCH (20:42)
[2019-07-07] MEDS: RAMELTEON 8 MG TAB (ROZEREM) PO SCH (20:43)
[2019-07-07] MEDS: ATORVASTATIN 20 MG TAB PO SCH (20:43)
[2019-07-07] MEDS: LATANOPROST 0.005% OPHTH SOLN 2.5 ML OU SCH (20:44)
[2019-07-07 22:00] VITALS: BP 158/70
[2019-07-08 02:00] VITALS: BP 120/59
[2019-07-08] MEDS: NORCO, ANEXSIA 5/325MG TABLET (HYDROcodone/ACETAMINOPHEN) PO SCH ×4 (02:47→20:48)
[2019-07-08 06:00] VITALS: BP 142/65
[2019-07-08 06:17] LABS: HEMATOCRIT 34.4 % (42.0-52.0); HEMOGLOBIN 10.7 g/dl (13.5-17.5); MEAN CORPUSCULAR HEMOGLOBIN 28.5 pg (27.0-33.0); MEAN CORPUSCULAR HGB CONC 31.1 g/dl (32.0-36.5); MEAN CORPUSCULAR VOLUME 91.7 fl (80.0-96.0); PLATELET COUNT, AUTOMATED 269 10^3/uL (150-450); RED BLOOD COUNT 3.75 10^6/uL (4.30-6.10); WHITE BLOOD COUNT 15.8 10^3/uL (4.0-10.0)
[2019-07-08 06:47] LABS: CREATININE FOR GFR 1.31 MG/DL (0.70-1.30); GLOMERULAR FILTRATION RATE 56.3 (>42); POTASSIUM SERUM 3.2 MEQ/L (3.5-5.1)
[2019-07-08] MEDS: HumaLOG INSULIN (NovoLOG) PER UNIT SC SCH ×4 (07:30→21:00)
[2019-07-08 07:49] LABS: MAGNESIUM LEVEL 1.9 MG/DL (1.8-2.4)
[2019-07-08] MEDS: ASPIRIN 81 MG ENTERIC TAB PO SCH (07:59)
[2019-07-08] MEDS: DOXYCYCLINE HYCLATE 100MG TABLET PO SCH ×2 (07:59→20:47)
[2019-07-08] MEDS: APIXABAN 5 MG TAB (ELIQUIS) PO SCH ×2 (07:59→20:47)
[2019-07-08] MEDS: lisinopriL 10 MG TAB PO SCH (07:59)
[2019-07-08] MEDS: SINEMET 25-100 MG TAB PO SCH ×4 (08:00→20:47)
[2019-07-08] MEDS: SENOKOT S TAB PO SCH ×2 (08:00→20:47)
[2019-07-08] MEDS: GABAPENTIN 300 MG CAP PO SCH ×2 (08:00→20:47)
[2019-07-08] MEDS: VITAMIN D 1,000 INTERNATIONAL UNITS TABLET PO SCH (08:00)
[2019-07-08] MEDS: FUROSEMIDE 40 MG TAB PO SCH (08:00)
[2019-07-08] MEDS: AMIODARONE 200 MG TAB (PACERONE) PO SCH ×2 (08:01→20:47)
[2019-07-08] MEDS: METOPROLOL TARTRATE 100 MG TAB PO SCH ×2 (08:01→20:49)
--- NOTE | 2019-07-08 08:49 | IPNPDOC ---
Date Seen The patient was seen on 07/08/19. Progress Note SUBJECTIVE: pain controlled, now reports 4 out of 10 pain, which is baseline at home. Continued scheduled oxycodone 10 mg every 6 hours. He has not required ketorolac or morphine since yesterday morning, we'll keep for now, but not plan on dc patient on ketorolac or morphine. Plan for subacute rehabilitation on 07/09/2019. OBJECTIVE PHYSICAL EXAMINATION: VITAL SIGNS: Please see below. GENERAL: No distress HEENT: Normocephalic, atraumatic, moist mucous membranes NECK: Supple CARDIOVASCULAR EXAMINATION: S1, S2 RESPIRATORY EXAMINATION: CTAB ABDOMINAL EXAMINATION: Soft, nontender, nondistended, positive bowel sounds EXTREMITIES: +edema, RLE rash and foot bruising, nontenderness to palpation SKIN: No rash NEUROLOGICAL EXAMINATION: Awake PSYCHIATRIC EXAMINATION: appropriate affect LABORATORY DATA, IMAGING STUDIES, MICROBIOLOGY: Please see below. ASSESSMENT AND PLAN: Pt is a 71 yoM with PMH of of CVA, COPD, systolic and diastolic CHF, atrial fibrillation, CAD, dyslipidemia and accommodation, gout, IDDM, BALJINDER, depression, GERD, and multiple surgeries, who is admitted for evaluation of syncope and leukocytosis of unclear cause. -admit to PCU / telemetry / fall precautions/ PLAN: #RLE pain: not Fracture, consider contusion versus cellulitis, will treat with doxy for a total of 5 days, (Rx 2 tabs after a.m. dose). -pain control, patient takes [place] 10 every 6 hours scheduled, CK D stage III #Syncope: Unclear etiology, [place] Syncope Rule = not low risk -CT of the head was negative for any acute process, CT neck was negative for fractures, ultrasound carotid Dopplers were not suggestive of stenosis greater than 50%, EKG reveals frequent PVCs -f/u orthostats, unable to be obtained due to right lower extremity pain #?Encephalopathy , likely secondary to underlying Parkinson's: resolved -stop neurochecks, UA is not suggestive of UTI, blood cx neg -outpt f/u w PCP vs geripsych vs neuro regarding hallucinations -cont home levodopa/carbidopa and duloxetine #Leukocytosis, likely secondary to pain, also consider cellulitic infection, see above -LA: 1.8 #Acute Anemia, unclear etiology with uremia/elevated BUN -Iron panel reveals iron deficiency, however, iron supplements contraindicated with levodopa, encourage iron rich foods #Chronic CAD / Dyslipidemia/Hx of Left occipital CVA - ASA, atorvastatin #HTN/Chronic systolic/diastolic CHF - f/u Is and Os, daily weights / restrict salt to 2G and fluids to 2L / c/w lasix, metoprolol, lisinopril -out f/u with PCP or Engineer [employer], consider starting potassium sparing diuretic #Chronic A. fib - cont home Elquis, amoidarone, diltiazem #IDDM with neuropathy - diabetic diet / f/u accuchecks / hypoglycemia protocol / sliding scale insulin / home dose is glargine 60 units QHS but he has been hypoglycemic therefore we will decrease his dose to 45 units and titrate as needed -A1c: 5.1 -consider empagliflozin to reduce the risk of CVD as outpt #COPD: cont home Spiriva #BALJINDER - own CPAP #Obesity with co-existing DM and BALJINDER complicates care, weight loss encouraged, f/u outpt DVT ppx: eliquis DISPOSITION: home after more than 2 midnight's stay, subacute rehabilitation on 07/09/2019 VS, I&O, 24H, Fishbone Vital Signs/I&O Vital Signs Date Time Temp Pulse Resp B/P (MAP) Pulse Ox O2 Delivery O2 Flow Rate FiO2 07/08/19 08:02 17 07/08/19 08:01 94 128/90 07/08/19 06:00 97.0 94 Room Air 07/06/19 18:00 2.0 I&O- Last 24 Hours up to 6 AM 07/08/19 05:59 Intake Total 390 ml Output Total 350 ml Balance 40 ml Laboratory Data 24H LABS Laboratory Tests 2 07/07/19 11:38: Bedside Glucose (Misc Panel) 146H 07/07/19 16:28: Bedside Glucose (Misc Panel) 186H 07/07/19 20:21: Bedside Glucose (Misc Panel) 170H 07/08/19 05:58: Nucleated Red Blood Cells % (auto) 0.1H, Anion Gap 4L, Glomerular Filtration Rate 56.3, Calcium Level 9.0, Magnesium Level 1.9 CBC/BMP Laboratory Tests 07/08/19 05:58 Microbiology Microbiology 07/04/19 Blood Culture - Preliminary, Resulted No Growth after 72 hours. All specime... 07/04/19 Blood Culture - Preliminary, Resulted No Growth after 72 hours. All specime... COLTEN YEUNG MD July 08, 2019 08:49
[2019-07-08] MEDS ORDERED: POTASSIUM CHLORIDE 10 MEQ SR TABLET PO ONE (09:00)
[2019-07-08] MEDS: TIOTROPIUM INHALER/CAPSULE (SPIRIVA) INH SCH (11:10)
[2019-07-08] MEDS: DULoxetine 20 MG CAP (CYMBALTA) PO SCH (12:54)
[2019-07-08 14:00] VITALS: BP 145/63
[2019-07-08 18:00] VITALS: BP 138/67
[2019-07-08] MEDS: ATORVASTATIN 20 MG TAB PO SCH (20:47)
[2019-07-08] MEDS: RAMELTEON 8 MG TAB (ROZEREM) PO SCH (20:47)
[2019-07-08] MEDS: LEVEMIR (INSULIN DETEMIR) 1 UNITS/0.01ML SC SCH (20:48)
[2019-07-08] MEDS: LATANOPROST 0.005% OPHTH SOLN 2.5 ML OU SCH (20:48)
[2019-07-08 22:00] VITALS: BP 146/76
[2019-07-09 02:00] VITALS: BP 139/70
[2019-07-09] MEDS: NORCO, ANEXSIA 5/325MG TABLET (HYDROcodone/ACETAMINOPHEN) PO SCH ×2 (02:00→08:55)
[2019-07-09] MEDS: ONDANSETRON 4MG/2ML VIAL IV PRN (02:01)
[2019-07-09 06:00] VITALS: BP 115/70
[2019-07-09 06:46] LABS: HEMATOCRIT 36.4 % (42.0-52.0); HEMOGLOBIN 11.3 g/dl (13.5-17.5); MEAN CORPUSCULAR HEMOGLOBIN 28.3 pg (27.0-33.0); MEAN CORPUSCULAR VOLUME 91.2 fl (80.0-96.0); PLATELET COUNT, AUTOMATED 300 10^3/uL (150-450); RED BLOOD COUNT 3.99 10^6/uL (4.30-6.10)
[2019-07-09 07:17] LABS: CALCIUM LEVEL 8.8 MG/DL (8.8-10.2); CREATININE FOR GFR 1.32 MG/DL (0.70-1.30); GLOMERULAR FILTRATION RATE 55.8 (>42); POTASSIUM SERUM 3.8 MEQ/L (3.5-5.1)
[2019-07-09] MEDS: HumaLOG INSULIN (NovoLOG) PER UNIT SC SCH ×2 (08:54→11:55)
[2019-07-09] MEDS: ASPIRIN 81 MG ENTERIC TAB PO SCH (08:55)
[2019-07-09] MEDS: FUROSEMIDE 40 MG TAB PO SCH (08:55)
[2019-07-09] MEDS: GABAPENTIN 300 MG CAP PO SCH (08:55)
[2019-07-09 08:58] VITALS: BP 124/71
[2019-07-09] MEDS: SENOKOT S TAB PO SCH (08:58)
[2019-07-09] MEDS: METOPROLOL TARTRATE 100 MG TAB PO SCH (08:59)
[2019-07-09] MEDS: SINEMET 25-100 MG TAB PO SCH (08:59)
[2019-07-09] MEDS: AMIODARONE 200 MG TAB (PACERONE) PO SCH (08:59)
[2019-07-09] MEDS: lisinopriL 10 MG TAB PO SCH (08:59)
[2019-07-09] MEDS: APIXABAN 5 MG TAB (ELIQUIS) PO SCH (08:59)
[2019-07-09] MEDS: DOXYCYCLINE HYCLATE 100MG TABLET PO SCH (09:00)
[2019-07-09] MEDS: VITAMIN D 1,000 INTERNATIONAL UNITS TABLET PO SCH (09:00)
[2019-07-09 09:24] LABS: BASO # 0.1 10^3/uL (0.0-0.2); BASO % 0.5 % (0.0-1.0); EOS # 0.4 10^3/uL (0.0-0.5); EOS % 2.5 % (0.0-3.0); LYMPH # 3.3 10^3/uL (1.5-5.0); LYMPH % 18.7 % (24.0-44.0); MONO # 1.5 10^3/uL (0.0-0.8); MONO % 8.3 % (0.0-5.0); NEUTROPHILS # 12.3 10^3/uL (1.5-8.5); NEUTROPHILS % 68.9 % (36.0-66.0)
--- NOTE | 2019-07-09 09:51 | DS.PDOC ---
Discharge Summary General Date of Admission July 04, 2019 at 21:04 Date of Discharge 07/09/19 Discharge Summary PROCEDURES PERFORMED DURING STAY: None. ADMITTING DIAGNOSES: 1. Syncope and collapse. DISCHARGE DIAGNOSES: 1. Syncope, resolved, fall, ambulatory dysfunction COMPLICATIONS/CHIEF COMPLAINT: Syncope And Collapse. HISTORY OF PRESENT ILLNESS/ HOSPITAL COURSE: ASSESSMENT AND PLAN: Pt is a 71 yoM with PMH of of CVA, COPD, systolic and diastolic CHF, atrial fibrillation, CAD, dyslipidemia and accommodation, gout, IDDM, BALJINDER, depression, GERD, and multiple surgeries, who is admitted for evaluation of syncope and leukocytosis of unclear cause. He was admitted to PCU, with telemetry and fall precautions. His syncopal episode was of unclear etiology, could be secondary to vasovagal, orthostatics was unable to be performed due to increased pain and right lower extremity, which was controlled with home Export with increased frequency to daily 4 hours when necessary. His [place] Syncope Rule = not low risk. Imaging including CT of the head was negative for any acute process, CT neck was negative for fractures, ultrasound carotid Dopplers were not suggestive of stenosis greater than 50%, EKG reveals frequent PVCs. Due to RLE pain, imaging was performed and not suggestive of fracture, which could be suggestive of cellulitis, despite no changes in marking of the right lower extremity, he will be empirically treated with 5 days of doxycycline. Questionable encephalopathy was secondary to possible delirium related to infection vs hypoglycemia or hallucinations due to Lewy Body Dementia, with underlying Depression/insomnia / PTSD, unlikely Bel[place]an Bonett syndrome because he denied having cataracts (but pt is DM). During hospitalization, patient had neurochecks, other labs including UA is not suggestive of UTI, cultures are negative for any growth. He was also found to be anemic, iron deficient, started on ferrous sulfate, will need outpatient follow- up. She reports no difficulty with bowel movements. Upon chart review, it was noted that patient might have hallucinations. He would require Jami psych versus neuro follow-up as an outpatient, he will also follow-up with PCP in 1 week. Pain controlled on scheduled norco. Upon reassessment. PT evaluation, home care was recommended. No other medication changes, all questions were answered. PHYSICAL EXAMINATION ON DISCHARGE: VITAL SIGNS: Please see below. GENERAL: No distress, overall improved from yesterday's exam HEENT: Normocephalic, atraumatic, moist mucous membranes, not pallor NECK: Supple CARDIOVASCULAR EXAMINATION: S1, S2 RESPIRATORY EXAMINATION: CTAB ABDOMINAL EXAMINATION: Soft, nontender, nondistended, positive bowel sounds EXTREMITIES: no edema, RLE rash and foot bruising, non-tenderness to palpation SKIN: No rash NEUROLOGICAL EXAMINATION: Awake PSYCHIATRIC EXAMINATION: appropriate affect LABORATORY DATA, IMAGING STUDIES, MICROBIOLOGY: Please see below. DISPOSITION: Subacute rehabilitation per PT recommendations vs home PT, norco q4-6h prn for pain, completed Abx course 32 minutes spent on dc planning Vital Signs/I&Os Vital Signs Date Time Temp Pulse Resp B/P (MAP) Pulse Ox O2 Delivery O2 Flow Rate FiO2 07/09/19 08:58 72 124/71 07/09/19 08:55 18 07/09/19 06:00 98.6 92 Room Air 07/06/19 18:00 2.0 I&O- Last 24 Hours up to 6 AM 07/09/19 06:00 Intake Total 1610 ml Output Total 825 ml Balance 785 ml Laboratory Data Labs 24H Laboratory Tests 2 07/08/19 11:34: Bedside Glucose (Misc Panel) 130H 07/08/19 16:35: Bedside Glucose (Misc Panel) 141H 07/09/19 06:33: Immature Granulocyte % (Auto) 1.1, Neutrophils (%) (Auto) 68.9H, Lymphocytes (%) (Auto) 18.7L, Monocytes (%) (Auto) 8.3H, Eosinophils (%) (Auto) 2.5, Basophils (%) (Auto) 0.5, Neutrophils # (Auto) 12.3H, Lymphocytes # (Auto) 3.3, Monocytes # (Auto) 1.5H, Eosinophils # (Auto) 0.4, Basophils # (Auto) 0.1, Immature Granulocyte # (Auto) 0.2H, Nucleated Red Blood Cells % (auto) 0.2H, Platelet E stimate , Anion Gap 6L, Glomerular Filtration Rate 55.8, Calcium Level 8.8 CBC/BMP Laboratory Tests 07/09/19 06:33 FSBS Laboratory Tests Test 07/08/19 11:34 07/08/19 16:35 Range/Units Bedside Glucose (Misc Panel) 130 141 83-110 MG/DL Microbiology Microbiology 07/04/19 Blood Culture - Preliminary, Resulted No Growth after 72 hours. All specime... 07/04/19 Blood Culture - Preliminary, Resulted No Growth after 72 hours. All specime... Discharge Medications Scheduled Amiodarone Hcl (Pacerone) 200 Mg Tablet, 400 MG PO BID, (Reported) Apixaban (Eliquis) 5 Mg Tablet, 5 MG PO BID, (Reported) Aspirin (Aspirin EC) 81 Mg Tablet.dr, 81 MG PO DAILY, (Reported) Atorvastatin Calcium (Atorvastatin Calcium) 80 Mg Tablet, 40 MG PO QHS, (Reported) Carbidopa/Levodopa (Carbidopa-Levodopa 25-100 Tab) 1 Each Tablet, 1 TAB PO QID, (Reported) Cholecalciferol (Vitamin D3) (Vitamin D3) 1,000 Unit Tablet, 4,000 UNITS PO D AILY, (Reported) Collagenase Clostridium Hist. (Santyl) 250 Unit/Gm Oin, 1 APLCT TOP DAILY, (Reported) APPLY TO WOUND ON RIGHT FOOT Duloxetine Hcl (Duloxetine HCl) 20 Mg Capsule.dr, 20 MG PO DAILY, (Reported) TAKES AT NOON Furosemide (Furosemide) 20 Mg Tablet, 40 MG PO DAILY, (Reported) Gabapentin (Gabapentin) 300 Mg Cap, 300 MG PO BID, (Reported) Insulin Glargine,Hum.rec.anlog (Lantus Solostar) 100 Unit/1 Ml Insuln.pen, 60 UNITS SC QHS, (Reported) Insulin Human Lispro (Novolog) 100 U/Ml Inj, 1 DOSE SC AC, (Reported) PER SLIDING SCALE Latanoprost (Xalatan) 0.005% 2.5ML Drops, 1 DROP OU QHS, (Reported) Lisinopril (Lisinopril) 20 Mg Tablet, 10 MG PO DAILY, (Reported) Metoprolol Tartrate (Metoprolol Tartrate) 100 Mg Tablet, 100 MG PO BID, (Reported) [place]-3 Fatty Acids/Fish Oil (Fish Oil 1,000 mg Capsule) 1 Each Capsule, 2,000 MG PO BID, (Reported) Sennosides/Docusate Sodium (Senna-S Tablet) 1 Tab Tab, 2 TABS PO BID, (Reported) Tiotropium [place] (Spiriva) 18 Mcg Cap, 1 PUFF INH DAILY, (Reported) TAKES AT NOON Vitamin B Complex (Vitamin B Complex) 1 Each Tablet, 1 TAB PO QHS, (Reported) dilTIAZem HCl (Diltiazem 24Hr Cd) 120 Mg Cap.er.24h, 120 MG PO DAILY, (Reported) Scheduled PRN Dextrose (Glucose) 4 Gm Chw, 16 GM PO for LOW BLOOD SUGAR, (Reported) Hydrocodone/Acetaminophen (Hydrocodone-Acetamin 10-325 mg) 1 Each Tablet, 1 TAB PO Q6H PRN for PAIN, (Reported) Melatonin (Melatonin) 3 Mg Tablet, 3 MG PO QHS PRN for SLEEP, (Reported) Allergies Coded Allergies: No Known Allergies (Verified , 10/16/02) COLTEN YEUNG MD July 09, 2019 09:49
[2019-07-09 10:00] VITALS: BP 135/70
[2019-07-09] MEDS: TIOTROPIUM INHALER/CAPSULE (SPIRIVA) INH SCH (11:18)
[2019-07-09] MEDS: DULoxetine 20 MG CAP (CYMBALTA) PO SCH (11:57)
== END 2019-07-09 12:31 | disposition home health service (06) | DRG 312 ==
LOC: EDBD 18:39 → M ED 18:39 → M ED INP 21:04 → ENRESERV 21:35 → M PCU 23:00 → ENRESERV 07-06 15:15 → M MSPAV 07-06 15:58
PROVIDERS: ADMIT Internal Medicine; ATTEND Family Medicine
DX: R55 Syncope and collapse (principal); I50.42 Chronic combined systolic (congestive) and diastolic (congestive) heart failure; I48.20 Chronic atrial fibrillation, unspecified; I13.0 Hypertensive heart and chronic kidney disease with heart failure and stage 1 through stage 4 chronic kidney disease, or unspecified chronic kidney disease; G93.40 Encephalopathy, unspecified; J44.9 Chronic obstructive pulmonary disease, unspecified; I35.8 Other nonrheumatic aortic valve disorders; I25.10 Atherosclerotic heart disease of native coronary artery without angina pectoris; I25.2 Old myocardial infarction; Z66 Do not resuscitate; E78.5 Hyperlipidemia, unspecified; D50.9 Iron deficiency anemia, unspecified; E11.40 Type 2 diabetes mellitus with diabetic neuropathy, unspecified; R29.6 Repeated falls; M10.9 Gout, unspecified; G47.33 Obstructive sleep apnea (adult) (pediatric); K21.9 Gastro-esophageal reflux disease without esophagitis; E66.9 Obesity, unspecified; E11.22 Type 2 diabetes mellitus with diabetic chronic kidney disease; F32.9 Major depressive disorder, single episode, unspecified; G47.00 Insomnia, unspecified; F02.80 Dementia in other diseases classified elsewhere, unspecified severity, without behavioral disturbance, psychotic disturbance, mood disturbance, and anxiety; G31.83 Neurocognitive disorder with Lewy bodies; N18.3 Chronic kidney disease, stage 3 (moderate); F43.10 Post-traumatic stress disorder, unspecified; Z90.49 Acquired absence of other specified parts of digestive tract; F17.200 Nicotine dependence, unspecified, uncomplicated; Z95.5 Presence of coronary angioplasty implant and graft; Z85.828 Personal history of other malignant neoplasm of skin; Z86.73 Personal history of transient ischemic attack (TIA), and cerebral infarction without residual deficits; Z79.01 Long term (current) use of anticoagulants; Z79.82 Long term (current) use of aspirin; Z79.4 Long term (current) use of insulin; Z79.899 Other long term (current) drug therapy; Z68.34 Body mass index [BMI] 34.0-34.9, adult

== ENCOUNTER 2019-09-22 00:27 | Inpatient (IN) | payer MEDICARE, OTHER ==
[~2019-09-22 00:27] MED LIST changes: -AMLO10TA5 PO; +AMLO1TAB25 PO; +COUM7.5T6 PO; +D31000TA2 PO; +DOXY100T PO; +MELA3TAB30 PO; -MELA3TAB62 PO; +PANT40TA29 PO; -PANT40TA3 PO; -VITAD1000T PO
[2019-09-22] MEDS ORDERED: ENALAPRILAT INJ 2.5MG/2ML VIAL ONE ×2 (02:39→06:16)
[2019-09-22] MEDS ORDERED: metroNIDAZOLE/NACL 500MG(5MG/ML) 100ML BAG (S0030) ONE (04:23)
[2019-09-22] MEDS ORDERED: ZOSYN 3.375GM VIAL (J2543) ONE ×4 (04:23→23:57)
[2019-09-22] MEDS ORDERED: MORPHINE 4 MG/ML 1ML VIAL/SYRINGE (J2270) ONE (04:23)
[2019-09-22] MEDS ORDERED: AMIODARONE HCL 150 MG/100 ML PREMIXED BAG (NEXTERONE) (J0282 PER 30MG) ONE (09:45)
[2019-09-22] MEDS ORDERED: VASOPRESSIN INJ 20 UNITS/ML VIAL ONE (10:37)
[2019-09-22] MEDS ORDERED: ePHEDrine SULFATE 25 MG/5 ML(5MG/ML) SYRINGE ONE (10:37)
[2019-09-22] MEDS ORDERED: ROCURONIUM BROMIDE 50 MG/5 ML VIAL ONE (10:37)
[2019-09-22] MEDS ORDERED: PHENYLephrine HCL 500 MCG/5 ML (100MCG/ML) SYRINGE (J2370) ONE (10:37)
[2019-09-22] MEDS ORDERED: LIDOCAINE 2% 100MG/5ML SDV (FOR ANES.) ONE (10:37)
[2019-09-22] MEDS ORDERED: MIDAZOLAM INJ 2MG/2ML VIAL (J2250 PER 1MG) ONE (10:37)
[2019-09-22] MEDS ORDERED: propofoL 200 MG/20 ML VIAL ONE (10:37)
[2019-09-22] MEDS ORDERED: fentaNYL 100 MCG/2 ML INJECTION (J3010) ONE (10:37)
[2019-09-22] MEDS ORDERED: ETOMIDATE INJ 20MG/10ML VIAL ONE (10:37)
[2019-09-22] MEDS ORDERED: AMIODARONE HCL 360 MG/200 ML PREMIXED BAG (NEXTERONE) (J0282 PER 30MG) ONE ×2 (10:51→16:45)
[2019-09-22] MEDS ORDERED: METOCLOPRAMIDE INJ 10MG/2ML VIAL (J2765 PER 1) ONE (12:13)
[2019-09-22] MEDS ORDERED: ACETAMINOPHEN 1000MG 100ML IV BTL (OFIRMEV) (J0131 PER 10MG) ONE (12:13)
[2019-09-22] MEDS ORDERED: HYDROmorphone HCL 2 MG/ML 1ML VIAL (J1170) ONE (12:13)
[2019-09-22] MEDS ORDERED: SUGAMMADEX SODIUM 500 MG/5 ML VIAL (BRIDION) ONE (12:13)
[2019-09-22] MEDS ORDERED: ONDANSETRON 4MG/2ML VIAL ONE (12:13)
[2019-09-22] MEDS ORDERED: BUPIVACAINE HCL 0.25% 10ML VIAL ONE (12:16)
[2019-09-22] MEDS ORDERED: BUPIVACAINE LIPOSOME/PF 1.3% 20ML VIAL (13.3MG/ML)(EXPAREL)(C9290 PER1MG) ONE (12:16)
[2019-09-22] MEDS ORDERED: ISOVUE-370 76% 100ML VIAL ONE (12:18)
[2019-09-22] MEDS ORDERED: MORPHINE 2 MG/ML 1ML VIAL (J2270) ONE ×3 (12:18→20:38)
[2019-09-22] MEDS ORDERED: GASTROGRAFIN SOLUTION 30ML (Q9963) ONE (12:18)
[2019-09-22] MEDS ORDERED: KCL 10MEQ IN STERILE WATER 100ML ONE ×2 (16:45→17:59)
[2019-09-22] MEDS ORDERED: KCL 40MEQ IN 0.9%NACL 1000ML ONE (16:45)
[2019-09-22] MEDS ORDERED: METOPROLOL TART 50 MG TAB ONE (20:38)
[2019-09-22] MEDS ORDERED: MAGNESIUM SULFATE 1GM/100ML D5W BAG (10MG/ML) ONE (20:38)
[2019-09-23] MEDS ORDERED: METOPROLOL TART 50 MG TAB ONE ×3 (02:34→18:21)
[2019-09-23] MEDS ORDERED: MORPHINE 2 MG/ML 1ML VIAL (J2270) ONE ×5 (02:34→12:07)
[2019-09-23] MEDS ORDERED: AMIODARONE HCL 360 MG/200 ML PREMIXED BAG (NEXTERONE) (J0282 PER 30MG) ONE (04:06)
[2019-09-23] MEDS ORDERED: KCL 20MEQ IN D5/0.9%NACL 1000 ML ONE (04:06)
[2019-09-23] MEDS ORDERED: KCL 40MEQ IN 0.9%NACL 1000ML ONE (04:06)
[2019-09-23] MEDS ORDERED: ONDANSETRON 4MG/2ML VIAL ONE (04:20)
[2019-09-23] MEDS ORDERED: MAGNESIUM SULFATE 1GM/100ML D5W BAG (10MG/ML) ONE (05:36)
[2019-09-23] MEDS ORDERED: ZOSYN 3.375GM VIAL (J2543) ONE ×3 (05:36→18:21)
[2019-09-23] MEDS ORDERED: PANTOPRAZOLE 40MG VIAL (C9113 PER 1) ONE ×2 (07:56→10:48)
[2019-09-23] MEDS ORDERED: DIGOXIN INJ 0.5 MG/2 ML AMP (J1160) ONE (07:56)
[2019-09-23] MEDS ORDERED: SANTYL OINT 30GM ONE (09:00)
[2019-09-23] MEDS ORDERED: HumaLOG INSULIN (NovoLOG) PER UNIT ONE (18:21)
[2019-09-24] MEDS ORDERED: SANTYL OINT 30GM ONE
[2019-09-24] MEDS ORDERED: LATANOPROST 0.005% OPHTH SOLN 2.5 ML ONE
[2019-09-24] MEDS ORDERED: METOPROLOL TART 50 MG TAB ONE ×2 (05:40→13:33)
[2019-09-24] MEDS ORDERED: ZOSYN 3.375GM VIAL (J2543) ONE ×4 (05:40→18:38)
[2019-09-24] MEDS ORDERED: DIGOXIN INJ 0.5 MG/2 ML AMP (J1160) ONE (10:26)
[2019-09-24] MEDS ORDERED: APIXABAN 5 MG TAB (ELIQUIS) ONE ×2 (10:26→20:50)
[2019-09-24] MEDS ORDERED: PANTOPRAZOLE 40MG VIAL (C9113 PER 1) ONE (10:26)
[2019-09-24] MEDS ORDERED: MORPHINE 2 MG/ML 1ML VIAL (J2270) ONE (11:01)
[2019-09-24] MEDS ORDERED: HumaLOG INSULIN (NovoLOG) PER UNIT ONE ×3 (12:11→18:38)
[2019-09-24] MEDS ORDERED: METOPROLOL SUCC (TopROL XL) 50MG **XL** TAB ONE (12:11)
[2019-09-24] MEDS ORDERED: METOPROLOL TARTRATE 100 MG TAB ONE (18:38)
[2019-09-25] MEDS ORDERED: METOPROLOL TART 50 MG TAB ONE ×5 (00:16→23:46)
[2019-09-25] MEDS ORDERED: ZOSYN 3.375GM VIAL (J2543) ONE ×5 (00:16→23:46)
[2019-09-25] MEDS ORDERED: HumaLOG INSULIN (NovoLOG) PER UNIT ONE ×4 (00:16→17:40)
[2019-09-25] MEDS ORDERED: DIGOXIN INJ 0.5 MG/2 ML AMP (J1160) ONE (10:32)
[2019-09-25] MEDS ORDERED: PANTOPRAZOLE 40MG VIAL (C9113 PER 1) ONE (10:32)
[2019-09-25] MEDS ORDERED: APIXABAN 5 MG TAB (ELIQUIS) ONE ×2 (10:32→20:37)
[2019-09-25] MEDS ORDERED: METOPROLOL TARTRATE 100 MG TAB ONE (17:40)
[2019-09-26] MEDS ORDERED: ZOSYN 3.375GM VIAL (J2543) ONE ×4 (03:50→12:32)
[2019-09-26] MEDS ORDERED: MORPHINE 2 MG/ML 1ML VIAL (J2270) ONE ×3 (03:50→12:23)
[2019-09-26] MEDS ORDERED: METOPROLOL TART 50 MG TAB ONE (03:50)
[2019-09-26] MEDS ORDERED: HumaLOG INSULIN (NovoLOG) PER UNIT ONE ×3 (06:30→12:32)
[2019-09-26] MEDS ORDERED: APIXABAN 5 MG TAB (ELIQUIS) ONE ×2 (10:26→12:32)
[2019-09-26] MEDS ORDERED: METOPROLOL SUCC (TopROL XL) 100MG *XL* TAB ONE (10:26)
[2019-09-26] MEDS ORDERED: PERCOCET 5MG/325MG TAB ONE ×2 (10:26→12:32)
[2019-09-26] MEDS ORDERED: DIGOXIN 0.125 MG TAB ONE (12:32)
[2019-09-26] MEDS ORDERED: METOPROLOL TARTRATE 100 MG TAB ONE (12:32)
[2019-09-26] MEDS ORDERED: PANTOPRAZOLE 40MG TAB (PROTONIX) ONE (12:32)
[2019-09-26] MEDS ORDERED: diltiaZEM **CD** 180 MG CAP ONE (12:32)
[2019-09-27] MEDS ORDERED: ZOSYN 3.375GM VIAL (J2543) ONE ×4 (05:52→23:09)
[2019-09-27] MEDS ORDERED: DIGOXIN 0.125 MG TAB ONE (08:50)
[2019-09-27] MEDS ORDERED: METOPROLOL TARTRATE 100 MG TAB ONE (08:50)
[2019-09-27] MEDS ORDERED: POTASSIUM CHLORIDE 10 MEQ SR TABLET ONE (08:50)
[2019-09-27] MEDS ORDERED: FUROSEMIDE 40MG/4ML VIAL (J1940) ONE (08:50)
[2019-09-27] MEDS ORDERED: diltiaZEM **CD** 180 MG CAP ONE (08:50)
[2019-09-27] MEDS ORDERED: HumaLOG INSULIN (NovoLOG) PER UNIT ONE ×3 (08:50→17:27)
[2019-09-27] MEDS ORDERED: PANTOPRAZOLE 40MG TAB (PROTONIX) ONE (08:50)
[2019-09-27] MEDS ORDERED: APIXABAN 5 MG TAB (ELIQUIS) ONE ×2 (13:18→21:06)
[2019-09-27] MEDS ORDERED: METOPROLOL SUCC (TopROL XL) 100MG *XL* TAB ONE (21:06)
[2019-09-27] MEDS ORDERED: lisinopriL 10 MG TAB ONE (21:06)
[2019-09-28] MEDS ORDERED: ZOSYN 3.375GM VIAL (J2543) ONE ×2 (04:56→11:59)
[2019-09-28] MEDS ORDERED: diltiaZEM **CD** 180 MG CAP ONE (08:09)
[2019-09-28] MEDS ORDERED: PANTOPRAZOLE 40MG TAB (PROTONIX) ONE (08:09)
[2019-09-28] MEDS ORDERED: METOPROLOL TART 50 MG TAB ONE (08:09)
[2019-09-28] MEDS ORDERED: DIGOXIN 0.125 MG TAB ONE (08:09)
[2019-09-28] MEDS ORDERED: APIXABAN 5 MG TAB (ELIQUIS) ONE (08:09)
[2019-09-28] MEDS ORDERED: HumaLOG INSULIN (NovoLOG) PER UNIT ONE ×2 (08:09→11:59)
[2019-09-28] MEDS ORDERED: FUROSEMIDE 40 MG TAB ONE (08:09)
[2019-09-28] MEDS ORDERED: POTASSIUM CHLORIDE 10 MEQ SR TABLET ONE ×2 (10:11→11:59)
[2019-10-31 10:51] LABS: HEMATOCRIT 43.4 % (42.0-52.0); HEMOGLOBIN 13.7 g/dl (13.5-17.5); MEAN CORPUSCULAR HEMOGLOBIN 27.2 pg (27.0-33.0); MEAN CORPUSCULAR HGB CONC 31.6 g/dl (32.0-36.5); MEAN CORPUSCULAR VOLUME 86.3 fl (80.0-96.0); PLATELET COUNT, AUTOMATED 292 10^3/uL (150-450); RED BLOOD COUNT 5.03 10^6/uL (4.30-6.10); WHITE BLOOD COUNT 25.5 10^3/uL (4.0-10.0)
[2019-10-31 14:08] LABS: HEMATOCRIT 39.8 % (42.0-52.0); HEMOGLOBIN 12.5 g/dl (13.5-17.5); MEAN CORPUSCULAR HEMOGLOBIN 27.1 pg (27.0-33.0); MEAN CORPUSCULAR HGB CONC 31.4 g/dl (32.0-36.5); MEAN CORPUSCULAR VOLUME 86.3 fl (80.0-96.0); PLATELET COUNT, AUTOMATED 255 10^3/uL (150-450); RED BLOOD COUNT 4.61 10^6/uL (4.30-6.10); WHITE BLOOD COUNT 23.7 10^3/uL (4.0-10.0)
[2019-11-03 22:42] LABS: BLOOD UREA NITROGEN 20 MG/DL (7-18); CALCIUM LEVEL 8.7 MG/DL (8.8-10.2); CARBON DIOXIDE LEVEL 30 MEQ/L (21-32); CHLORIDE LEVEL 106 MEQ/L (98-107); CREATININE FOR GFR 0.96 MG/DL (0.70-1.30); GLOMERULAR FILTRATION RATE > 60.0 (>42); GLUCOSE, FASTING 114 MG/DL (70-100); POTASSIUM SERUM 3.4 MEQ/L (3.5-5.1); SODIUM LEVEL 144 MEQ/L (136-145)
[2019-11-05 23:08] LABS: BASO % 0.2 % (0.0-1.0); EOS # 0.1 10^3/uL (0.0-0.5); EOS % 0.6 % (0.0-3.0); HEMATOCRIT 36.7 % (42.0-52.0); HEMOGLOBIN 11.5 g/dl (13.5-17.5); LYMPH # 1.7 10^3/uL (1.5-5.0); LYMPH % 8.7 % (24.0-44.0); MEAN CORPUSCULAR HEMOGLOBIN 27.4 pg (27.0-33.0); MEAN CORPUSCULAR HGB CONC 31.3 g/dl (32.0-36.5); MEAN CORPUSCULAR VOLUME 87.4 fl (80.0-96.0); MONO # 0.9 10^3/uL (0.0-0.8); MONO % 4.7 % (0.0-5.0); NEUTROPHILS # 17.1 10^3/uL (1.5-8.5); PLATELET COUNT, AUTOMATED 211 10^3/uL (150-450); WHITE BLOOD COUNT 20.1 10^3/uL (4.0-10.0)
[2019-11-06 08:50] LABS: BLOOD UREA NITROGEN 12 MG/DL (7-18); CREATININE FOR GFR 1.02 MG/DL (0.70-1.30); GLOMERULAR FILTRATION RATE > 60.0 (>42); GLUCOSE, FASTING 84 MG/DL (70-100)
[2019-11-06 08:51] LABS: ALBUMIN 2.2 GM/DL (3.2-5.2); ALT/SGPT 8 IU/L (0-32); BILIRUBIN,TOTAL 0.7 MG/DL (0.2-1.0); CALCIUM LEVEL 8.2 MG/DL (8.8-10.2); CARBON DIOXIDE LEVEL 27 mmol/L (20-29); CHLORIDE LEVEL 103 MEQ/L (98-107); POTASSIUM SERUM 2.6 MEQ/L (3.5-5.1); SODIUM LEVEL 138 MEQ/L (136-145); TOTAL PROTEIN 5.7 GM/DL (6.4-8.2)
[2019-11-06 08:53] LABS: BLOOD UREA NITROGEN 12 MG/DL (7-18); CALCIUM LEVEL 8.8 MG/DL (8.8-10.2); CARBON DIOXIDE LEVEL 31 mmol/L (20-29); CHLORIDE LEVEL 102 MEQ/L (98-107); CREATININE FOR GFR 1.03 MG/DL (0.70-1.30); GLOMERULAR FILTRATION RATE > 60.0 (>42); GLUCOSE, FASTING 60 MG/DL (70-100); POTASSIUM SERUM 3.2 MEQ/L (3.5-5.1); SODIUM LEVEL 141 MEQ/L (136-145)
[2019-11-06 08:54] LABS: MAGNESIUM LEVEL 1.4 MG/DL (1.8-2.4); TROPONIN I 0.02 NG/ML (< 0.10)
[2019-11-06 08:57] LABS: ABG PARTIAL PRESSURE CO2 38.5 mmHg (35.0-45.0)
[2019-11-06 08:58] LABS: ABG HCO3 21.9 MEQ/L (22.0-26.0); ABG O2 SATURATION 97.3 % (95.0-99.0); ABG PARTIAL PRESSURE O2 99.4 mmHg (75.0-100.0); ABG pH (ARTERIAL) 7.372 UNITS (7.350-7.450)
[2019-11-06 09:00] LABS: BLOOD UREA NITROGEN 13 MG/DL (7-18); CARBON DIOXIDE LEVEL 25 mmol/L (20-29); CHLORIDE LEVEL 106 MEQ/L (98-107); CREATININE FOR GFR 1.07 MG/DL (0.70-1.30); GLOMERULAR FILTRATION RATE > 60.0 (>42); GLUCOSE, FASTING 83 MG/DL (70-100); MAGNESIUM LEVEL 1.1 MG/DL (1.8-2.4); POTASSIUM SERUM 3.7 MEQ/L (3.5-5.1); SODIUM LEVEL 140 MEQ/L (136-145)
[2019-11-06 09:44] LABS: BLOOD UREA NITROGEN 21 MG/DL (7-18); CALCIUM LEVEL 8.9 MG/DL (8.8-10.2); CARBON DIOXIDE LEVEL 28 MEQ/L (21-32); CHLORIDE LEVEL 108 MEQ/L (98-107); CREATININE FOR GFR 1.08 MG/DL (0.70-1.30); GLOMERULAR FILTRATION RATE > 60.0 (>42); GLUCOSE, FASTING 178 MG/DL (70-100); MAGNESIUM LEVEL 1.8 MG/DL (1.8-2.4); POTASSIUM SERUM 3.5 MEQ/L (3.5-5.1); SODIUM LEVEL 142 MEQ/L (136-145)
[2019-11-06 11:32] LABS: ALBUMIN 2.1 GM/DL (3.2-5.2); ALT/SGPT 12 IU/L (0-32); BILIRUBIN,TOTAL 0.5 MG/DL (0.2-1.0); BLOOD UREA NITROGEN 16 MG/DL (7-18); CALCIUM LEVEL 8.1 MG/DL (8.8-10.2); CARBON DIOXIDE LEVEL 23 mmol/L (20-29); CHLORIDE LEVEL 108 MEQ/L (98-107); CREATININE FOR GFR 1.18 MG/DL (0.70-1.30); GLOMERULAR FILTRATION RATE > 60.0 (>42); GLUCOSE, FASTING 118 MG/DL (70-100); MAGNESIUM LEVEL 1.5 MG/DL (1.8-2.4); POTASSIUM SERUM 4.1 MEQ/L (3.5-5.1); SODIUM LEVEL 142 MEQ/L (136-145); TOTAL PROTEIN 4.9 GM/DL (6.4-8.2)
[2019-11-06 11:33] LABS: TROPONIN I 0.04 NG/ML (< 0.10)
[2019-11-07 10:25] LABS: BASO # 0.1 10^3/uL (0.0-0.2); BASO % 0.3 % (0.0-1.0); EOS % 0.1 % (0.0-3.0); HEMATOCRIT 46.2 % (42.0-52.0); HEMOGLOBIN 14.3 g/dl (13.5-17.5); LYMPH # 0.9 10^3/uL (1.5-5.0); LYMPH % 3.6 % (24.0-44.0); MEAN CORPUSCULAR HEMOGLOBIN 27.1 pg (27.0-33.0); MEAN CORPUSCULAR VOLUME 87.7 fl (80.0-96.0); MONO # 1.1 10^3/uL (0.0-0.8); MONO % 4.1 % (0.0-5.0); NEUTROPHILS # 23.4 10^3/uL (1.5-8.5); NEUTROPHILS % 91.5 % (36.0-66.0); PLATELET COUNT, AUTOMATED 341 10^3/uL (150-450); RED BLOOD COUNT 5.27 10^6/uL (4.30-6.10); WHITE BLOOD COUNT 25.6 10^3/uL (4.0-10.0)
[2019-11-07 13:52] LABS: HEMATOCRIT 41.4 % (42.0-52.0); HEMOGLOBIN 12.9 g/dl (13.5-17.5); MEAN CORPUSCULAR HGB CONC 31.2 g/dl (32.0-36.5); MEAN CORPUSCULAR VOLUME 86.8 fl (80.0-96.0); PLATELET COUNT, AUTOMATED 284 10^3/uL (150-450); RED BLOOD COUNT 4.77 10^6/uL (4.30-6.10); WHITE BLOOD COUNT 28.5 10^3/uL (4.0-10.0)
--- NOTE | 2019-11-15 15:22 | ECGEPIP ---
[facility] Test Date: 2019-09-23 Pat Name: ZACH HARRISON Department: Room: [place] [address] Gender: Male Telephone Switchboard Operator: RIMMA : 1940 Requested By: JOSE RAUL CUBA Order Number: [id number] Reading MD: Eliezer Sebastian Measurements Intervals [place] Rate: 112 P: PA: 0 QRS: -19 QRSD: 109 T: -42 QT: 279 QTc: 381 Interpretive Statements ATRIAL FIBRILLATION WITH RAPID VENTRICULAR RESPONSE WITH ABERRANT CONDUCTION OR VENTRICULAR PREMATURE COMPLEXES PROBABLE LATERAL MYOCARDIAL INFARCTION, OF INDETERMINATE AGE INFERIOR MYOCARDIAL INFARCTION, OF INDETERMINATE AGE WITH POSTERIOR EXTENSION ABNORMAL ECG PRIOR ON 09/22/19 @ 09:42:32 HEART RATE IS NOW SLOWER SEE SCANNED DOWNTIME REPORT
[2019-11-15 23:01] LABS: HEMATOCRIT 37.8 % (42.0-52.0); HEMOGLOBIN 11.8 g/dl (13.5-17.5); MEAN CORPUSCULAR HEMOGLOBIN 27.3 pg (27.0-33.0); MEAN CORPUSCULAR HGB CONC 31.2 g/dl (32.0-36.5); MEAN CORPUSCULAR VOLUME 87.3 fl (80.0-96.0); PLATELET COUNT, AUTOMATED 232 10^3/uL (150-450); RED BLOOD COUNT 4.33 10^6/uL (4.30-6.10); WHITE BLOOD COUNT 13.9 10^3/uL (4.0-10.0)
[2019-11-17 14:40] LABS: HEMATOCRIT 38.2 % (42.0-52.0); HEMOGLOBIN 11.8 g/dl (13.5-17.5); MEAN CORPUSCULAR HEMOGLOBIN 26.8 pg (27.0-33.0); MEAN CORPUSCULAR HGB CONC 30.9 g/dl (32.0-36.5); MEAN CORPUSCULAR VOLUME 86.6 fl (80.0-96.0); PLATELET COUNT, AUTOMATED 223 10^3/uL (150-450); RED BLOOD COUNT 4.41 10^6/uL (4.30-6.10); WHITE BLOOD COUNT 12.9 10^3/uL (4.0-10.0)
--- NOTE | 2019-11-22 12:11 | ECGEPIP ---
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
[2019-12-02 21:16] LABS: BLOOD UREA NITROGEN 13 MG/DL (7-18); CALCIUM LEVEL 8.3 MG/DL (8.8-10.2); CARBON DIOXIDE LEVEL 28 MEQ/L (21-32); CHLORIDE LEVEL 106 MEQ/L (98-107); CREATININE FOR GFR 0.99 MG/DL (0.70-1.30); GLOMERULAR FILTRATION RATE > 60.0 (>42); GLUCOSE, FASTING 160 MG/DL (70-100); POTASSIUM SERUM 3.3 MEQ/L (3.5-5.1); SODIUM LEVEL 142 MEQ/L (136-145)
[2019-12-18 14:16] LABS: BLOOD UREA NITROGEN 9 MG/DL (7-18); CALCIUM LEVEL 8.3 MG/DL (8.8-10.2); CARBON DIOXIDE LEVEL 28 MEQ/L (21-32); CHLORIDE LEVEL 106 MEQ/L (98-107); CREATININE FOR GFR 0.91 MG/DL (0.70-1.30); DIGOXIN LEVEL 0.5 NG/ML (0.5-2.0); GLOMERULAR FILTRATION RATE > 60.0 (>42); GLUCOSE, FASTING 198 MG/DL (70-100); SODIUM LEVEL 141 MEQ/L (136-145)
[2019-12-22 08:18] LABS: BLOOD UREA NITROGEN 9 MG/DL (7-18); CALCIUM LEVEL 8.4 MG/DL (8.8-10.2); CARBON DIOXIDE LEVEL 29 MEQ/L (21-32); CHLORIDE LEVEL 100 MEQ/L (98-107); CREATININE FOR GFR 0.86 MG/DL (0.70-1.30); GLOMERULAR FILTRATION RATE > 60.0 (>42); GLUCOSE, FASTING 144 MG/DL (70-100); POTASSIUM SERUM 2.9 MEQ/L (3.5-5.1); SODIUM LEVEL 137 MEQ/L (136-145)
[2019-12-22 08:43] LABS: BLOOD UREA NITROGEN 9 MG/DL (7-18); CALCIUM LEVEL 8.8 MG/DL (8.8-10.2); CARBON DIOXIDE LEVEL 31 MEQ/L (21-32); CHLORIDE LEVEL 103 MEQ/L (98-107); CREATININE FOR GFR 1.01 MG/DL (0.70-1.30); GLOMERULAR FILTRATION RATE > 60.0 (>42); GLUCOSE, FASTING 92 MG/DL (70-100); POTASSIUM SERUM 3.5 MEQ/L (3.5-5.1); SODIUM LEVEL 140 MEQ/L (136-145)
[2019-12-26 12:22] LABS: HEMATOCRIT 40.9 % (42.0-52.0); HEMOGLOBIN 12.9 g/dl (13.5-17.5); MEAN CORPUSCULAR HEMOGLOBIN 27.2 pg (27.0-33.0); MEAN CORPUSCULAR HGB CONC 31.5 g/dl (32.0-36.5); MEAN CORPUSCULAR VOLUME 86.3 fl (80.0-96.0); PLATELET COUNT, AUTOMATED 245 10^3/uL (150-450); RED BLOOD COUNT 4.74 10^6/uL (4.30-6.10); WHITE BLOOD COUNT 13.6 10^3/uL (4.0-10.0)
== END 2019-09-28 20:20 | disposition home or self-care (01) | DRG 330 ==
LOC: M ED 00:27 → M ICU 04:30 → M MS5PR 09-24 01:02
PROVIDERS: ADMIT Internal Medicine Nephrology; ATTEND Internal Medicine Nephrology
PROC: 0DB80ZZ Excision of Small Intestine, Open Approach (ICD-10-PCS; principal; 2019-09-22)
DX: K55.019 Acute (reversible) ischemia of small intestine, extent unspecified (principal); I48.20 Chronic atrial fibrillation, unspecified; I50.32 Chronic diastolic (congestive) heart failure; Z79.899 Other long term (current) drug therapy; Z79.82 Long term (current) use of aspirin; I11.0 Hypertensive heart disease with heart failure; E78.5 Hyperlipidemia, unspecified; I25.10 Atherosclerotic heart disease of native coronary artery without angina pectoris; E11.9 Type 2 diabetes mellitus without complications; J44.9 Chronic obstructive pulmonary disease, unspecified; G47.33 Obstructive sleep apnea (adult) (pediatric); E87.6 Hypokalemia; Z79.01 Long term (current) use of anticoagulants; Z79.4 Long term (current) use of insulin; G20 Parkinson's disease; H40.9 Unspecified glaucoma

== ENCOUNTER 2019-10-04 20:45 | Inpatient (IN) | payer MEDICARE, OTHER ==
[~2019-10-04 20:45] MED LIST changes: +ISOVUE-370 76% 100ML VIAL As Ordered ONE; +MORPHINE 2 MG/ML 1ML VIAL (J2270) As Ordered ONE; +MORPHINE 2 MG/ML 1ML VIAL (J2270) ONE; +ONDANSETRON 4MG/2ML VIAL As Ordered ONE; +ONDANSETRON 4MG/2ML VIAL ONE
[2019-10-05] MEDS ORDERED: MORPHINE 2 MG/ML 1ML VIAL (J2270) ONE ×5 (00:20→13:53)
[2019-10-05] MEDS ORDERED: HumaLOG INSULIN (NovoLOG) PER UNIT As Ordered ONE ×3 (06:18→17:46)
[2019-10-05] MEDS ORDERED: HumaLOG INSULIN (NovoLOG) PER UNIT ONE ×3 (06:18→17:35)
[2019-10-05] MEDS ORDERED: MORPHINE 2 MG/ML 1ML VIAL (J2270) As Ordered ONE ×4 (06:18→13:53)
[2019-10-05] MEDS ORDERED: DULoxetine 20 MG CAP (CYMBALTA) ONE (10:18)
[2019-10-05] MEDS ORDERED: PANTOPRAZOLE 40MG TAB (PROTONIX) As Ordered ONE (10:18)
[2019-10-05] MEDS ORDERED: DIGOXIN 0.125 MG TAB ONE (10:18)
[2019-10-05] MEDS ORDERED: AMIODARONE 200 MG TAB (PACERONE) As Ordered ONE ×2 (10:18→20:05)
[2019-10-05] MEDS ORDERED: PANTOPRAZOLE 40MG TAB (PROTONIX) ONE (10:18)
[2019-10-05] MEDS ORDERED: AMIODARONE 200 MG TAB (PACERONE) ONE (10:18)
[2019-10-05] MEDS ORDERED: lisinopriL 10 MG TAB ONE (10:18)
[2019-10-05] MEDS ORDERED: DIGOXIN 0.125 MG TAB As Ordered ONE (10:19)
[2019-10-05] MEDS ORDERED: lisinopriL 10 MG TAB As Ordered ONE (10:19)
[2019-10-05] MEDS ORDERED: DULoxetine 20 MG CAP (CYMBALTA) As Ordered ONE (10:19)
[2019-10-05] MEDS ORDERED: ZOSYN 3.375GM VIAL (J2543) ONE ×2 (12:06→17:35)
[2019-10-05] MEDS ORDERED: ZOSYN 3.375GM VIAL (J2543) As Ordered ONE ×2 (12:06→17:35)
[2019-10-05] MEDS ORDERED: CANDESARTAN 4MG TABLET ONE (13:00)
[2019-10-05] MEDS ORDERED: SINEMET**CR** 25/100 TABCR ONE (13:00)
[2019-10-05] MEDS ORDERED: LABETALOL 100MG/20ML VIAL As Ordered ONE (13:41)
[2019-10-05] MEDS ORDERED: MAGNESIUM SULFATE 1GM/100ML D5W BAG (10MG/ML) As Ordered ONE ×2 (15:23→16:28)
[2019-10-05] MEDS ORDERED: MORPHINE 4 MG/ML 1ML VIAL/SYRINGE (J2270) ONE (15:23)
[2019-10-05] MEDS ORDERED: MAGNESIUM SULFATE 1GM/100ML D5W BAG (10MG/ML) ONE ×2 (15:23→16:28)
[2019-10-05] MEDS ORDERED: MORPHINE 4 MG/ML 1ML VIAL/SYRINGE (J2270) As Ordered ONE ×2 (15:24→19:42)
[2019-11-01 12:46] LABS: HEMATOCRIT 45.1 % (42.0-52.0); HEMOGLOBIN 14.2 g/dl (13.5-17.5); MEAN CORPUSCULAR HEMOGLOBIN 27.3 pg (27.0-33.0); MEAN CORPUSCULAR HGB CONC 31.5 g/dl (32.0-36.5); MEAN CORPUSCULAR VOLUME 86.7 fl (80.0-96.0); PLATELET COUNT, AUTOMATED 434 10^3/uL (150-450); WHITE BLOOD COUNT 24.3 10^3/uL (4.0-10.0)
[2019-11-01 13:11] LABS: APPEARANCE, URINE CLEAR (CLEAR); BACTERIA, URINE AUTO NEGATIVE (NEGATIVE); BILIRUBIN, URINE AUTO NEGATIVE (NEGATIVE); BLOOD, URINE BLOOD NEGATIVE (NEGATIVE); CALCIUM OXALATE CRYSTALS SMALL; COLOR, URINE YELLOW (YELLOW); GLUCOSE, URINE (UA) AUTO NEGATIVE (NEGATIVE); KETONE, URINE AUTO NEGATIVE (NEGATIVE); LEUKOCYTE ESTERASE, URINE AUTO TRACE (NEGATIVE); NITRITE, URINE AUTO NEGATIVE (NEGATIVE); PROTEIN, URINE AUTO 1+ mg/dL (NEGATIVE); RBC, URINE AUTO 2 /HPF (0-3); SPECIFIC GRAVITY URINE AUTO 1.024 (1.002-1.035); SQUAMOUS EPITHELIAL CELL UR AU 0 /HPF (0-6); UROBILINOGEN, URINE AUTO 0.2 mg/dL (0.0-2.0); WBC, URINE AUTO 2 /HPF (0-3)
[2019-11-18 17:40] LABS: ALBUMIN 2.9 GM/DL (3.2-5.2); ALT/SGPT 7 U/L (12-78); BILIRUBIN,DIRECT 0.2 MG/DL (0.0-0.2); BILIRUBIN,TOTAL 0.7 MG/DL (0.2-1.0); BLOOD UREA NITROGEN 9 MG/DL (7-18); CALCIUM LEVEL 8.7 MG/DL (8.8-10.2); CARBON DIOXIDE LEVEL 31 MEQ/L (21-32); CHLORIDE LEVEL 104 MEQ/L (98-107); GLOMERULAR FILTRATION RATE > 60.0 (>42); GLUCOSE, FASTING 98 MG/DL (70-100); LIPASE 21 U/L (73-393); POTASSIUM SERUM 4.1 MEQ/L (3.5-5.1); SODIUM LEVEL 140 MEQ/L (136-145); TOTAL PROTEIN 6.5 GM/DL (6.4-8.2)
[2019-11-21 13:19] LABS: INR 1.38; PARTIAL THROMBOPLASTIN TIME 25.9 SECONDS (24.2-38.5); PROTHROMBIN TIME 17.3 SECONDS (12.5-14.3)
[2019-11-21 13:22] LABS: APPEARANCE, URINE CLEAR (CLEAR); BACTERIA, URINE AUTO NEGATIVE (NEGATIVE); BILIRUBIN, URINE AUTO NEGATIVE (NEGATIVE); BLOOD, URINE BLOOD 1+ (NEGATIVE); COLOR, URINE YELLOW (YELLOW); GLUCOSE, URINE (UA) AUTO 1+ mg/dL (NEGATIVE); KETONE, URINE AUTO TRACE mg/dL (NEGATIVE); LEUKOCYTE ESTERASE, URINE AUTO NEGATIVE (NEGATIVE); NITRITE, URINE AUTO NEGATIVE (NEGATIVE); PROTEIN, URINE AUTO 2+ mg/dL (NEGATIVE); RBC, URINE AUTO 3 /HPF (0-3); SPECIFIC GRAVITY URINE AUTO 1.028 (1.002-1.035); SQUAMOUS EPITHELIAL CELL UR AU 1 /HPF (0-6); UROBILINOGEN, URINE AUTO 0.2 mg/dL (0.0-2.0); WBC, URINE AUTO 2 /HPF (0-3)
--- NOTE | 2019-11-21 15:28 | HPE ---
DATE OF ADMISSION: 10/04/2019 ADMITTING DIAGNOSIS: Abdominal pain. HISTORY OF PRESENT ILLNESS: The patient is a pleasant 79-year-old man who presented to the emergency department on the October 03 complaining of severe abdominal pain in the lower abdomen with associated loose stools. The patient reported that the symptoms began fairly mild in intensity at about 2 o'clock in the morning on the and increased during the course of the day. He reports that he has had about 8 bowel movements that he describes as loose or mushy without any real solid formation to them. He has not noticed any gross blood. The patients history is most significant in that he had presented to [facility] on the September 20 with abdominal pain. Unfortunately, as the [facility] record system is down, I am unable to access any of the records from this very recent hospitalization. He was apparently admitted on or about the day the system crashed. On the September 21, he was taken to the operating room. He reports that he had a small portion of his intestine removed. He was discharged then on or about the September 27. He reports that he was taking a regular diet at the time of discharge. He is placed back on all of his usual medications. He reports that his bowel movement became somewhat mushy and less formed. He has been voiding without difficulty. Denies any nausea or vomiting. He had actually seen his surgeon, Dr. Harrison in the office on the October 02 and his surgical nikita were removed at that time. He apparently had not complained of any serious problems at the time of his return visit. As noted previously, he developed pain starting at about 2 o'clock in the morning and presented later in the day for evaluation. In the emergency department, he was found to have some tenderness on physical examination. His white blood cell count was elevated to approximately 24,[address] scan of the abdomen and pelvis was done, which was unrevealing as to potential cause for his pain. There were no obvious acute abnormalities seen. I was consulted and the patient is now admitted onto observation status to continue to monitor his abdominal pain and bowel function. ALLERGIES: The patient denies any known drug allergies MEDICATIONS: Multiple and listed as follows: - amiodarone 400 mg p.o. twice daily - diltiazem CD 120 mg p.o. daily - lisinopril 10 mg p.o. daily - digoxin 0.125 mg p.o. daily - candesartan 4 mg p.o. daily - Eliquis 5 mg p.o. twice daily - Oxycodone 5/325 mg tablets as needed for pain - Protonix 40 mg p.o. daily - Carbidopa-levodopa 25/100 mg p.o. daily every morning - carbidopa-levodopa 50/200 mg p.o. daily at bedtime - Lasix 40 mg p.o. daily - insulin Lantus 60 units subcutaneous tissues daily, although the dose is somewhat uncertain to the patient and NovoLog sliding scale as needed - vitamin D3 4000 units p.o. daily - duloxetine 20 mg p.o. daily - Xalatan one drop in each eye every evening - melatonin 3 mg p.o. every day at bedtime - senna S 2 tablets p.o. daily - Spiriva one puff daily at noon - vitamin B complex one tablet in the evening - atorvastatin 40 mg p.o. in the evening MEDICAL HISTORY: Significant for atrial fibrillation and congestive heart failure. He is anticoagulated with the Eliquis; and to his knowledge, he has not had any embolic issues. He has had an abdominal aortic aneurysm, which was treated with an endovascular stent. He has a history of diabetes and is on insulin daily. He has Parkinsons disease for which he receives the carbidopa- levodopa. He was discharged from the hospital on Augment 875 mg p.o. twice daily and this finished apparently early this morning. SURGICAL HISTORY: The patient has undergone an endovascular aortoiliac graft placement. He recently underwent a laparotomy with resection of a portion of what appears to be the small bowel. REVIEW OF SYSTEMS: The patient denies any chest pain or palpitations. He has had no cough or wheezing or shortness of breath. He denies any hematuria or dysuria. He has voided since being in he emergency department. He has had mushy stools since his surgery. They have been somewhat dark, but he has not noticed any gross blood. He denies any new orthopedic issues. He has had no history of deep venous thrombosis (DVT) or pulmonary embolus. He has had no history of seizure or stroke. PHYSICAL EXAMINATION: Shows an elderly man lying quietly on his side on the emergency room stretcher. He is alert and oriented. He responds to questions appropriately. Skin is warm and dry. Sclerae are anicteric. His neck is supple without mass or bruit. Heart examination shows a regular rhythm in the 60s to low 70s. Lungs show clear breath sounds bilaterally. The abdomen is somewhat flaccid consistent with what he describes as a 50 or so pound weight loss since earlier in the year. He does have a recent midline incision about the umbilicus which is perhaps 12 to 15 cm in length. This appears clean. He has infrequent bowel sounds on auscultation of the abdomen. The abdomen is certainly not distended. He has some tenderness on palpation to the right and left sides of the abdominal wound. There is no induration of the skin and no suggestion of any underlying hematoma or infection. Extremities show palpable radial and pedal pulses. LABORATORY STUDIES: Include a lactic acid of 1.2, which is well within the normal range. He had a complete blood count (CBC) showing white count of 24, hemoglobin 14, hematocrit 45 and platelet count of 434,000. A chemistry profile showed a sodium of 140, potassium 4.1, chloride 104, CO2 of 31, BUN of 9, creatinine 1.1 and a glucose of 98. There is a lipase of 21 with a calcium of 8.7. Total protein was 6.5 with an albumin of 2.9. Alkaline phosphatase 111, ALT 7, AST 11 and a total bilirubin of 0.7 with a direct of 0.2. A urinalysis showed a specific gravity of 1.024. Glucose and bilirubin are negative with 1+ protein. pH was 7.0 Nitrite was negative and the microscopic shows 2 red cells and 2 white cells per high power field with no bacteria seen. A CT scan of the abdomen and pelvis was obtained. The images I reviewed personally on the CT scanner in the emergency department. There is no free air or free fluid. There is no sign of abscess or inflammation along his midline incision or in the abdominal wall. There does appear to be a staple line in the proximal small bowel, which appears healthy with no evidence of surrounding air or fluid. There is an endovascular graft in place in the aorta extending into the iliac. The left kidney is quite atrophic. There are no areas of acute inflammation to suggest cholecystitis or diverticulitis. ASSESSMENT: 1. Abdominal pain with diarrhea of unclear etiology. 2. Atrial fibrillation. 3. Congestive heart failure. 4. Diabetes mellitus. 5. Parkinsons disease. 6. Hyperlipidemia. 7. Glaucoma. PLAN: The patient will be placed on an observation status. It is unclear what is causing his pain and diarrhea. He has recently had antibiotics and has finished a course of Augmentin earlier today. Certainly, the Augmentin can contribute to diarrhea. He is also at risk with his recent history for Clostridium difficile. I believe this should be checked with a stool sample. I see nothing on his imaging or labs to suggest bowel ischemic as the cause for his current problem. Certainly, since the pain started at 2 o'clock in the morning, by now or by the time of the CT scan, I would think we would see some changes in the bowel if that was the case. He will not be started on antibiotics at this point. I will give him some I.V. fluid. I suspect his hematocrit may be somewhat artificially elevated by dehydration. I will hold his insulin for now and treat him with sliding scale insulin based on fingerstick every 6 hours. His cardiac medications will be continued, though I will hold his Lasix for today and also hold his Eliquis on the off chance that it is necessary to proceed with any sort of surgical intervention. The patient was counseled that the cause of his pain is not entirely clear at this time, but that I believe it would be prudent for him to be in the hospital for further testing and observation. He is agreeable with this plan. LORRIE
[2019-11-21 21:03] LABS: BASO # 0.1 10^3/uL (0.0-0.2); BASO % 0.2 % (0.0-1.0); HEMATOCRIT 44.9 % (42.0-52.0); LYMPH # 1.1 10^3/uL (1.5-5.0); LYMPH % 3.4 % (24.0-44.0); MEAN CORPUSCULAR HEMOGLOBIN 26.9 pg (27.0-33.0); MEAN CORPUSCULAR HGB CONC 31.2 g/dl (32.0-36.5); MEAN CORPUSCULAR VOLUME 86.2 fl (80.0-96.0); MONO # 1.5 10^3/uL (0.0-0.8); MONO % 4.7 % (0.0-5.0); NEUTROPHILS # 28.7 10^3/uL (1.5-8.5); NEUTROPHILS % 90.4 % (36.0-66.0); PLATELET COUNT, AUTOMATED 464 10^3/uL (150-450); RED BLOOD COUNT 5.21 10^6/uL (4.30-6.10)
[2019-11-21 21:04] LABS: WHITE BLOOD COUNT 31.8 10^3/uL (4.0-10.0)
[2019-12-24 09:46] LABS: ALBUMIN 2.5 GM/DL (3.2-5.2); ALT/SGPT 9 U/L (12-78); BILIRUBIN,TOTAL 0.7 MG/DL (0.2-1.0); BLOOD UREA NITROGEN 11 MG/DL (7-18); CALCIUM LEVEL 8.8 MG/DL (8.8-10.2); CARBON DIOXIDE LEVEL 24 MEQ/L (21-32); CHLORIDE LEVEL 104 MEQ/L (98-107); CREATININE FOR GFR 1.16 MG/DL (0.70-1.30); GLOMERULAR FILTRATION RATE > 60.0 (>42); GLUCOSE, FASTING 216 MG/DL (70-100); POTASSIUM SERUM 4.2 MEQ/L (3.5-5.1); SODIUM LEVEL 138 MEQ/L (136-145)
[2019-12-24 10:03] LABS: ALBUMIN 2.2 GM/DL (3.2-5.2); ALT/SGPT 11 U/L (12-78); BILIRUBIN,DIRECT 0.2 MG/DL (0.0-0.2); BILIRUBIN,TOTAL 0.8 MG/DL (0.2-1.0); BLOOD UREA NITROGEN 12 MG/DL (7-18); CALCIUM LEVEL 8.5 MG/DL (8.8-10.2); CARBON DIOXIDE LEVEL 25 MEQ/L (21-32); CHLORIDE LEVEL 103 MEQ/L (98-107); CREATININE FOR GFR 1.09 MG/DL (0.70-1.30); GLOMERULAR FILTRATION RATE > 60.0 (>42); GLUCOSE, FASTING 199 MG/DL (70-100); MAGNESIUM LEVEL 1.2 MG/DL (1.8-2.4); POTASSIUM SERUM 4.8 MEQ/L (3.5-5.1); SODIUM LEVEL 137 MEQ/L (136-145); TOTAL PROTEIN 5.6 GM/DL (6.4-8.2); TROPONIN I < 0.02 NG/ML (< 0.10)
== END 2019-10-05 18:07 | disposition short-term general hospital (02) | DRG 394 ==
LOC: M ED 20:45 → M MSPAV 21:39 → M PCU 10-05 13:19
PROVIDERS: ADMIT Surgery; ATTEND Surgery
DX: K55.069 Acute infarction of intestine, part and extent unspecified (principal); I50.20 Unspecified systolic (congestive) heart failure; K55.059 Acute (reversible) ischemia of intestine, part and extent unspecified; Z79.899 Other long term (current) drug therapy; Z79.01 Long term (current) use of anticoagulants; I48.91 Unspecified atrial fibrillation; E11.9 Type 2 diabetes mellitus without complications; Z79.4 Long term (current) use of insulin; G20 Parkinson's disease; E78.5 Hyperlipidemia, unspecified; H40.9 Unspecified glaucoma; G47.33 Obstructive sleep apnea (adult) (pediatric); Z95.0 Presence of cardiac pacemaker

== ENCOUNTER 2019-10-22 21:10 | Inpatient (IN) | payer MEDICARE, OTHER ==
[~2019-10-22] VITALS: Ht 170.2 cm; Wt 90.0 kg
[~2019-10-22 21:10] MED LIST changes: -ISOVUE-370 76% 100ML VIAL As Ordered ONE; -MORPHINE 2 MG/ML 1ML VIAL (J2270) As Ordered ONE; -MORPHINE 2 MG/ML 1ML VIAL (J2270) ONE; -ONDANSETRON 4MG/2ML VIAL As Ordered ONE; -ONDANSETRON 4MG/2ML VIAL ONE
[2019-10-22 22:30] VITALS: BP 104/42
[2019-10-22] MEDS ORDERED: ACETAMINOPHEN TAB 650MG DOSE (2X325MG) PO PRN (22:30)
[2019-10-22] MEDS ORDERED: PANT40TA29 PO (23:25)
[2019-10-22] MEDS ORDERED: DIFI200T PO (23:25)
[2019-10-22] MEDS ORDERED: DOXY-259 PO (23:25)
[2019-10-22] MEDS ORDERED: DOCU100C17 PO (23:25)
[2019-10-22] MEDS ORDERED: OXYC20TA40 PO (23:25)
[2019-10-22] MEDS ORDERED: CAND4TAB PO (23:25)
[2019-10-22] MEDS ORDERED: GLUCOSE 4GM CHEW TABLET PO PRN (23:30)
--- NOTE | 2019-10-23 00:01 | REPVR ---
PROCEDURE INFORMATION: Exam: XR Complete Acute Abdomen Series Exam date and time: 10/22/2019 11:49 PM Age: 79 years old Clinical indication: Abdominal pain; Additional info: Abd pain TECHNIQUE: Imaging protocol: XR complete acute abdomen series, including 2 or more views of the abdomen and a single view chest. COMPARISON: CR PORTABLE CHEST X-RAY 2019-06-20 17:50 FINDINGS: Tubes, catheters and devices: AICD/Pacemaker device is present, and its leads are in appropriate position. Lungs: Question new 8 mm right lung nodule, correlate. Pleural space: Normal. No pneumothorax. Heart/Mediastinum: Normal. No cardiomegaly. Gastrointestinal tract: Normal. No bowel dilation. Intraperitoneal space: Laparotomy. No free air. Suture material in the left abdomen. Vasculature: Aortic endograft. Bones/joints: Normal. No acute fracture. Soft tissues: Normal. IMPRESSION: 1. No free air. 2. Question new 8 mm right lung nodule, correlate. Electronically signed by: Terrance Ellsworth On 10/23/2019 00:01:11 AM
[2019-10-23] MEDS: NS 1,000 ML IV SCH ×3 (00:22→20:59)
[2019-10-23 00:34] LABS: BASO # 0.1 10^3/uL (0.0-0.2); BASO % 0.6 % (0.0-1.0); EOS # 0.4 10^3/uL (0.0-0.5); EOS % 2.3 % (0.0-3.0); LYMPH # 1.9 10^3/uL (1.5-5.0); MONO # 1.2 10^3/uL (0.0-0.8); MONO % 7.5 % (0.0-5.0); NEUTROPHILS # 11.9 10^3/uL (1.5-8.5); NEUTROPHILS % 75.2 % (36.0-66.0)
[2019-10-23 01:18] LABS: ALBUMIN 2.1 GM/DL (3.2-5.2); ALT/SGPT 7 U/L (12-78); BILIRUBIN,TOTAL 0.6 MG/DL (0.2-1.0); BLOOD UREA NITROGEN 64 MG/DL (7-18); CALCIUM LEVEL 8.6 MG/DL (8.8-10.2); CARBON DIOXIDE LEVEL 26 MEQ/L (21-32); CHLORIDE LEVEL 101 MEQ/L (98-107); CK-MB VALUE MASS 1.4 NG/ML (<3.6); CPK CREATINE PHOSPHOKINASE 32 U/L (39-308); CREATININE FOR GFR 2.11 MG/DL (0.70-1.30); GLOMERULAR FILTRATION RATE 32.5 (>42); GLUCOSE, FASTING 97 MG/DL (70-100); MB/CK RELATIVE INDEX 4.38 (< OR =4); NT-PRO BNP 4720 PG/ML (<450); SODIUM LEVEL 134 MEQ/L (136-145); TOTAL PROTEIN 6.1 GM/DL (6.4-8.2); TROPONIN I < 0.02 NG/ML (< 0.10)
[2019-10-23] MEDS: VANCOMYCIN ORAL SOL 250MG/5ML ORAL SYRINGE PO SCH ×4 (01:49→17:44)
[2019-10-23 01:50] LABS: MRSA PCR SCREEN DETECTED (NEGATIVE)
[2019-10-23] MEDS ORDERED: GLUCAGON INJ 1MG VIAL SC PRN (04:15)
[2019-10-23 06:00] VITALS: BP 124/81
[2019-10-23] MEDS: VITAMIN D 1,000 INTERNATIONAL UNITS TABLET PO SCH ×4 (06:28→17:44)
[2019-10-23] MEDS: HumaLOG INSULIN (NovoLOG) PER UNIT SC SCH ×4 (07:30→20:50)
[2019-10-23] MEDS: DULoxetine 20 MG CAP (CYMBALTA) PO SCH (09:00)
[2019-10-23] MEDS: APIXABAN 5 MG TAB (ELIQUIS) PO SCH ×2 (09:00→21:00)
[2019-10-23] MEDS: METOPROLOL TARTRATE 100 MG TAB PO SCH ×2 (09:00→21:00)
[2019-10-23] MEDS: ASPIRIN 81 MG ENTERIC TAB PO SCH (09:00)
[2019-10-23] MEDS: SINEMET 25-100 MG TAB PO SCH ×4 (09:00→20:59)
[2019-10-23] MEDS: AMIODARONE 200 MG TAB (PACERONE) PO SCH (09:00)
[2019-10-23] MEDS ORDERED: DOXYCYCLINE HYCLATE 100MG TABLET PO SCH (09:00)
[2019-10-23] MEDS: PANTOPRAZOLE 40MG TAB (PROTONIX) PO SCH (09:00)
[2019-10-23] MEDS: GABAPENTIN 300 MG CAP PO SCH ×4 (09:00→20:59)
[2019-10-23 10:12] LABS: BASO # 0.1 10^3/uL (0.0-0.2); BASO % 0.6 % (0.0-1.0); EOS # 0.4 10^3/uL (0.0-0.5); EOS % 2.7 % (0.0-3.0); HEMATOCRIT 26.8 % (42.0-52.0); HEMOGLOBIN 8.2 g/dl (13.5-17.5); LYMPH # 1.9 10^3/uL (1.5-5.0); MEAN CORPUSCULAR HEMOGLOBIN 27.1 pg (27.0-33.0); MEAN CORPUSCULAR HGB CONC 30.6 g/dl (32.0-36.5); MEAN CORPUSCULAR VOLUME 88.4 fl (80.0-96.0); MONO # 1.3 10^3/uL (0.0-0.8); MONO % 8.1 % (0.0-5.0); NEUTROPHILS # 11.6 10^3/uL (1.5-8.5); NEUTROPHILS % 74.9 % (36.0-66.0); PLATELET COUNT, AUTOMATED 483 10^3/uL (150-450); RED BLOOD COUNT 3.03 10^6/uL (4.30-6.10); WHITE BLOOD COUNT 15.4 10^3/uL (4.0-10.0)
[2019-10-23 10:46] LABS: ALBUMIN 2.1 GM/DL (3.2-5.2); BILIRUBIN,TOTAL 0.6 MG/DL (0.2-1.0); CALCIUM LEVEL 8.7 MG/DL (8.8-10.2); CREATININE FOR GFR 1.86 MG/DL (0.70-1.30); GLOMERULAR FILTRATION RATE 37.6 (>42); MAGNESIUM LEVEL 2.3 MG/DL (1.8-2.4); POTASSIUM SERUM 5.5 MEQ/L (3.5-5.1); TOTAL PROTEIN 6.1 GM/DL (6.4-8.2)
[2019-10-23] MEDS: oxyCODONE 10 MG CR TAB PO SCH ×2 (11:27→21:00)
[2019-10-23] MEDS ORDERED: SOD POLYSTYRENE SULFONATE SUSP 30 GM/120 ML ENEMA PR ONE (12:00)
--- NOTE | 2019-10-23 12:45 | REPVR ---
PROCEDURE INFORMATION: Exam: CT Chest Without Contrast Exam date and time: 10/23/2019 11:46 AM Age: 79 years old Clinical indication: Abnormal findings; Abnormal radiologic exam of lung or chest; Additional info: R/O infiltrate TECHNIQUE: Imaging protocol: Computed tomography of the chest without contrast. Radiation optimization: All CT scans at this facility use at least one of these dose optimization techniques: automated exposure control; mA and/or kV adjustment per patient size (includes targeted exams where dose is matched to clinical indication); or iterative reconstruction. COMPARISON: CT Chest without contrast 05/12/2016 1:58 PM FINDINGS: Limitations: Lack of intravenous contrast material limits evaluation of the vascular and visceral structures. Tubes, catheters and devices: Single lead AICD. Percutaneous gastrostomy tube. Lungs: Right lower lobe endobronchial mucous plugging. Complete consolidation and volume loss of the right lower lobe. Right upper lobe pneumatoceles. Mild patchy ground-glass opacity in the right upper lobe. Mild right middle lobe atelectasis. New noncalcified nodular opacities in the right upper lobe, measuring up to 9 mm (series 201, image 43). Mild atelectasis in the dependent left lower lobe. Cluster of new nodular opacities in the lingula, measuring up to 7 mm (series 201, image 52). Pleural space: Small bilateral pleural effusions. Small right-sided pneumothorax. Heart: Cardiomegaly. Prominent coronary artery calcifications. Aortic valve calcification. Aorta: Moderate atherosclerotic calcification of the thoracic aorta. Partially imaged abdominal aortic endoluminal stent graft. Lymph nodes: Mildly prominent 12 mm precarinal lymph node, unchanged. Mildly prominent 13 mm subcarinal lymph node, unchanged. Bones/joints: Intramuscular lipoma along the dorsal aspect of the right scapula. Left glenohumeral joint DJD. Right glenohumeral joint DJD. Degenerative change of the spine. Chronic severe T12 vertebral body compression fracture. Soft tissues: Bilateral gynecomastia. Other findings: Abdominal findings are dictated separately. IMPRESSION: 1. Small right-sided pneumothorax. 2. Right lower lobe pneumonia. 3. Small bilateral pleural effusions. 4. New nodular opacities in both lungs, measuring up to 9 mm. These are most likely infectious in nature, but follow-up according to Fleischner criteria is recommended. 5. Additional nonacute findings, as above. Fleischner society recommendations for followup and management of pulmonary nodules in adults detected incidentally on screening CT (2017): Less than or equal to 6 mm (solitary or multiple): Low risk patients- no followup needed. High risk patients- optional CT in 12 months. 6-8 mm nodule (solitary): Low-risk patients- CT at 6-[address] at 18-24 months. High risk patients- CT at 6-12 months, then CT at 18-24 months. 6-8 mm nodule (multiple): Low-risk patients- CT at 3-[address] at 18-24 months. High risk patients- CT at 3-6 months, then CT at 18-24 months. >8 mm (solitary): Low-risk patients- consider CT, PET/CT, or tissue sampling at 3 months. High-risk patients- same as for low-risk patients. >8mm (multiple): Low-risk patients - CT at 3-6 months, then at 18-24 months. High-risk patients - same as for low risk patients. Electronically signed by: Emily Mcguire On 10/23/2019 12:45:30 PM
--- NOTE | 2019-10-23 12:55 | REPVR ---
PROCEDURE INFORMATION: Exam: CT Abdomen And Pelvis Without Contrast Exam date and time: 10/23/2019 11:46 AM Age: 79 years old Clinical indication: Abdominal pain; Generalized; Additional info: HX os recent abdominal surgery TECHNIQUE: Imaging protocol: Computed tomography of the abdomen and pelvis without contrast. Radiation optimization: All CT scans at this facility use at least one of these dose optimization techniques: automated exposure control; mA and/or kV adjustment per patient size (includes targeted exams where dose is matched to clinical indication); or iterative reconstruction. COMPARISON: CT ABD/PEL W/IV ORAL CONTRAS 09/22/2019 2:00 AM FINDINGS: Limitations: Lack of intravenous contrast material limits evaluation of the vascular and visceral structures. Tubes, catheters and devices: Percutaneous gastrostomy tube. Lungs: Chest/lung findings are dictated separately. Liver: Slightly nodular hepatic contour. Gallbladder and bile ducts: Cholelithiasis. Abnormal gallbladder distension. Pancreas: Diffuse pancreatic parenchymal atrophy. Spleen: Normal. No splenomegaly. Adrenals: Normal. No mass. Kidneys and ureters: Mild right renal cortical scarring. Tiny nonobstructing right renal calyceal calculus. Left renal atrophy. Tiny nonobstructing left renal calyceal calculus. No obstructing calculus or hydronephrosis. Stomach and bowel: Mild colonic diverticulosis. No evidence of acute diverticulitis. Appendix: The appendix is not definitively identified. There are no secondary CT findings to suggest the presence of appendicitis. Intraperitoneal space: Mild ascites. Vasculature: Aortic endoluminal stent graft. Advanced atherosclerotic vascular calcifications. Fusiform aneurysm of the abdominal aorta, measuring up to 5.9 cm x 5.1 cm, unchanged. Vascular graft extending from the left external iliac artery to the SMA. Lymph nodes: Unremarkable. No enlarged lymph nodes. Bladder: Unremarkable as visualized. Reproductive: Unremarkable as visualized. Bones/joints: Degenerative change of the spine. Chronic severe T12 vertebral body compression fracture. Apparent postsurgical change of the lumbar spine. Bilateral hip joint DJD. Soft tissues: Ventral midline skin nikita. Right inguinal surgical clips. IMPRESSION: 1. Mild ascites. 2. Mild colonic diverticulosis. 3. Unchanged fusiform abdominal aortic aneurysm. 4. Bilateral nephrolithiasis. 5. Cholelithiasis. Abnormal gallbladder distension, which is most likely due to a fasting state. 6. Additional nonacute findings, as above. Electronically signed by: Emily Mcguire On 10/23/2019 12:56:05 PM
[2019-10-23] MEDS ORDERED: SOD POLYSTYRENE SULFONATE SUSP 15 GM/60 ML UD PO ONE (13:00)
[2019-10-23] MEDS ORDERED: VANCOMYCIN HCL 750 MG, VIAL MATE ADAPTER 1 EACH in D5W 250 ML IV SCH (13:15)
[2019-10-23] MEDS: LACTOBACILLUS ACIDOPHILUS CAP (BACID) PO SCH ×3 (13:17→17:46)
[2019-10-23] MEDS: SANTYL OINT 30GM TOP SCH (13:35)
[2019-10-23 14:00] VITALS: BP 122/76
--- NOTE | 2019-10-23 15:04 | IPNPDOC ---
Text Note Date of Service The patient was seen on 10/23/19. NOTE Subjective: Pt feels slightly better. Denies SOB/Cough/CP/Palpitations/Abd pa in/N/V/diarrhea. Notes he's had decreased appetite and no PO intake since d/c from [facility]. Objective: Vitals: (see below) General: No acute distress, laying comfortably in bed. HEENT: Moist mucous membranes. Neck: No JVD or lymphadenopathy Cardiac: RRR, No murmurs Pulm: Course crackles at the bases b/l R>L. No wheezing, rhonchi. No stridor or use of accessory muscles. Abd: NT/ND + BS. PEG tube noted to gravity. Stugical nikita and clips Ext: No edema or cyanosis Labs (see below) Images: CT A/P FINDINGS: Limitations: Lack of intravenous contrast material limits evaluation of the vascular and visceral structures. Tubes, catheters and devices: Percutaneous gastrostomy tube. Lungs: Chest/lung findings are dictated separately. Liver: Slightly nodular hepatic contour. Gallbladder and bile ducts: Cholelithiasis. Abnormal gallbladder distension. Pancreas: Diffuse pancreatic parenchymal atrophy. Spleen: Normal. No splenomegaly. Adrenals: Normal. No mass. Kidneys and ureters: Mild right renal cortical scarring. Tiny nonobstructing right renal calyceal calculus. Left renal atrophy. Tiny nonobstructing left renal calyceal calculus. No obstructing calculus or hydronephrosis. Stomach and bowel: Mild colonic diverticulosis. No evidence of acute diverticulitis. Appendix: The appendix is not definitively identified. There are no secondary CT findings to suggest the presence of appendicitis. Intraperitoneal space: Mild ascites. Vasculature: Aortic endoluminal stent graft. Advanced atherosclerotic vascular calcifications. Fusiform aneurysm of the abdominal aorta, measuring up to 5.9 cm x 5.1 cm, unchanged. Vascular graft extending from the left external iliac artery to the SMA. Lymph nodes: Unremarkable. No enlarged lymph nodes. Bladder: Unremarkable as visualized. Reproductive: Unremarkable as visualized. Bones/joints: Degenerative change of the spine. Chronic severe T12 vertebral body compression fracture. Apparent postsurgical change of the lumbar spine. Bilateral hip joint DJD. Soft tissues: Ventral midline skin nikita. Right inguinal surgical clips. IMPRESSION: 1. Mild ascites. 2. Mild colonic diverticulosis. 3. Unchanged fusiform abdominal aortic aneurysm. 4. Bilateral nephrolithiasis. 5. Cholelithiasis. Abnormal gallbladder distension, which is most likely due to a fasting state. 6. Additional nonacute findings, as above. CT Chest IMPRESSION: 1. Small right-sided pneumothorax. 2. Right lower lobe pneumonia. 3. Small bilateral pleural effusions. 4. New nodular opacities in both lungs, measuring up to 9 mm. These are most likely infectious in nature, but follow-up according to Fleischner criteria is Assessment/Plan 1. HCAP - recently hospitalized at [facility]. Bld/Sputum cx. Vanco/Cefepime. 2. Small Pneumothorax; hemodynamically stable. On O2. Dr. Holley to eval. 3. Ischemic colitis s/p resection. s/p PEG to gravity? Dr. Ortiz obtaining records prior to possibly clamping. 4. Hyperkalemia - Kayexalate 5. TRENT on CKD stage 3. Baseline Cr 1.3. - 2/2 above and dehydration from PEG outpt. Increase IVF 125cc/hr. 6. COPD stable 7. H/o CAD cont home meds 8. H/o AF - cont eliquis/amio. 9. H/o C. diff - vanco po DVT prophy:Eliquis Transfer to PCU. 5PM discussed with Dr. Holley; the reading of pneumothorax is trivial and is unlikely to be causing hypoxia or SOB. Recc repeating CXR daily to ensure that the size is stable. Discussed with Dr. Ortiz: Recc Clamping g tube, giving po meds, and starting clear liquid diet. Nursing to refax request for [facility] recent hospi talization records. VS,Fishbone, I+O VS, Fishbone, I+O Laboratory Tests 10/23/19 00:10 10/23/19 09:38 Vital Signs Date Time Temp Pulse Resp B/P (MAP) Pulse Ox O2 Delivery O2 Flow Rate FiO2 10/23/19 11:27 16 10/23/19 06:00 98.2 66 124/81 (95) 94 Nasal Cannula 2.0 I&O- Last 24 Hours up to 6 AM 10/23/19 06:00 Intake Total 100 ml Balance 100 ml SOFÍA MCELROY MD Oct 23, 2019 15:04
[2019-10-23] MEDS: CEFEPIME HCL 2 GM in D5W MINI-BAG PLUS 50 ML IV SCH (15:44)
[2019-10-23 16:00] VITALS: BP 146/64
[2019-10-23] MEDS ORDERED: VANCOMYCIN HCL 1,000 MG, VIAL MATE ADAPTER 1 EACH in D5W 250 ML IV ONE (16:00)
[2019-10-23] MEDS ORDERED: AMIODARONE 200 MG TAB (PACERONE) PO ONE (17:30)
[2019-10-23] MEDS ORDERED: PANTOPRAZOLE 40MG TAB (PROTONIX) PO ONE (17:30)
[2019-10-23] MEDS ORDERED: ASPIRIN 81 MG ENTERIC TAB PO ONE (17:30)
[2019-10-23] MEDS ORDERED: DULoxetine 20 MG CAP (CYMBALTA) PO ONE (17:30)
[2019-10-23] MEDS: VANCOMYCIN HCL 1,000 MG, VIAL MATE ADAPTER 1 EACH in D5W 250 ML IV SCH (19:03)
[2019-10-23 20:00] VITALS: BP 124/59
[2019-10-23] MEDS: LEVEMIR (INSULIN DETEMIR) 1 UNITS/0.01ML SC SCH (20:50)
[2019-10-23] MEDS: ATORVASTATIN 20 MG TAB PO SCH (20:59)
[2019-10-23] MEDS: LATANOPROST 0.005% OPHTH SOLN 2.5 ML OU SCH (21:01)
[2019-10-24] VITALS: BP 143/90
[2019-10-24] MEDS: VANCOMYCIN ORAL SOL 250MG/5ML ORAL SYRINGE PO SCH ×4 (00:26→18:35)
[2019-10-24] MEDS: VITAMIN D 1,000 INTERNATIONAL UNITS TABLET PO SCH ×5 (00:26→23:49)
[2019-10-24] MEDS: CEFEPIME HCL 2 GM in D5W MINI-BAG PLUS 50 ML IV SCH ×2 (02:43→15:42)
[2019-10-24 04:00] VITALS: BP 144/65
[2019-10-24 05:44] LABS: BASO # 0.1 10^3/uL (0.0-0.2); BASO % 0.7 % (0.0-1.0); EOS # 0.5 10^3/uL (0.0-0.5); EOS % 3.5 % (0.0-3.0); HEMATOCRIT 27.1 % (42.0-52.0); HEMOGLOBIN 8.2 g/dl (13.5-17.5); LYMPH # 1.9 10^3/uL (1.5-5.0); LYMPH % 13.1 % (24.0-44.0); MEAN CORPUSCULAR HEMOGLOBIN 26.9 pg (27.0-33.0); MEAN CORPUSCULAR HGB CONC 30.3 g/dl (32.0-36.5); MEAN CORPUSCULAR VOLUME 88.9 fl (80.0-96.0); MONO # 1.4 10^3/uL (0.0-0.8); MONO % 9.5 % (0.0-5.0); NEUTROPHILS # 10.5 10^3/uL (1.5-8.5); NEUTROPHILS % 71.4 % (36.0-66.0); PLATELET COUNT, AUTOMATED 461 10^3/uL (150-450); RED BLOOD COUNT 3.05 10^6/uL (4.30-6.10); WHITE BLOOD COUNT 14.8 10^3/uL (4.0-10.0)
[2019-10-24] MEDS: NS 1,000 ML IV SCH ×2 (06:07→21:01)
[2019-10-24 06:08] LABS: ALBUMIN 1.9 GM/DL (3.2-5.2); BILIRUBIN,TOTAL 0.5 MG/DL (0.2-1.0); CALCIUM LEVEL 8.6 MG/DL (8.8-10.2); CREATININE FOR GFR 1.29 MG/DL (0.70-1.30); GLOMERULAR FILTRATION RATE 57.3 (>42); MAGNESIUM LEVEL 2.2 MG/DL (1.8-2.4); POTASSIUM SERUM 4.8 MEQ/L (3.5-5.1); TOTAL PROTEIN 6.3 GM/DL (6.4-8.2)
[2019-10-24] MEDS: VANCOMYCIN HCL 1,000 MG, VIAL MATE ADAPTER 1 EACH in D5W 250 ML IV SCH ×2 (06:08→18:35)
[2019-10-24 08:00] VITALS: BP 132/61
--- NOTE | 2019-10-24 08:09 | IPNPDOC ---
Text Note Date of Service The patient was seen on 10/24/19. NOTE No acute events overnight. He is tolerating clq diet and had a couple BMs. No complaints of abd pains, nausea, or emesis. I was able to review all of his records from [facility]. He had a bowel resection for ischemic colitis along with an iliac to SMA arterial bypass. He was discharged home with reg diet and the g tube clamped. VSSAF NAD abd - soft, nt, nd, retention sutures and nikita intact. G tube in the LUQ. labs - see below A- 79y/o male with c.diff and pneumonia recent ex lap with arterial bypass to the SMA, and bowel resection for ischemic colitis P) reg diet clamp g tube and flush daily abx will follow as needed. Isma Ortiz DO VS,Gabby, I+O VS, Gabby, I+O Laboratory Tests 10/23/19 09:38 10/24/19 00:00 Vital Signs Date Time Temp Pulse Resp B/P (MAP) Pulse Ox O2 Delivery O2 Flow Rate FiO2 10/24/19 04:00 98.2 64 21 144/65 (91) 90 Nasal Cannula 2.0 I&O- Last 24 Hours up to 6 AM 10/24/19 06:00 Intake Total 1180 ml Output Total 250 ml Balance 930 ml JB ORTIZ DO Oct 24, 2019 08:09
--- NOTE | 2019-10-24 09:07 | REPVR ---
PROCEDURE INFORMATION: Exam: XR Chest, 2 Views Exam date and time: 10/24/19 (8:23am) Age: 79 years old Clinical indication: Evaluate for possible pneumothorax TECHNIQUE: Imaging protocol: XR of the chest Views: 2 views COMPARISON: CT CHEST of 10/23/19 FINDINGS: Moderate cardiomegaly. ICD device in place, with 2 shock coils. The tip of the device is in the right ventricle. Prominent lung markings in the mid and lower lung zones. More prominent hazy opacity at each lung base. Small pleural effusions likely present (seen on recent CT-CHEST examination). No significant pneumothorax. Diffuse degenerative thoracic spine changes. IMPRESSION: ICD device in place. Moderate cardiomegaly. Hazy and patchy opacities at each lung base -- possible bibasilar pneumonia, eg. No definite pneumothorax is appreciated. Electronically signed by: Rhonda Montague On 10/24/2019 09:07:37 AM
[2019-10-24] MEDS: HumaLOG INSULIN (NovoLOG) PER UNIT SC SCH ×4 (10:00→20:49)
[2019-10-24] MEDS: LACTOBACILLUS ACIDOPHILUS CAP (BACID) PO SCH ×3 (10:03→18:35)
[2019-10-24] MEDS: ASPIRIN 81 MG ENTERIC TAB PO SCH (10:04)
[2019-10-24] MEDS: SINEMET 25-100 MG TAB PO SCH ×4 (10:04→21:01)
[2019-10-24] MEDS: AMIODARONE 200 MG TAB (PACERONE) PO SCH (10:04)
[2019-10-24] MEDS: METOPROLOL TARTRATE 100 MG TAB PO SCH ×2 (10:06→21:02)
[2019-10-24] MEDS: APIXABAN 5 MG TAB (ELIQUIS) PO SCH ×2 (10:07→21:01)
[2019-10-24] MEDS: PANTOPRAZOLE 40MG TAB (PROTONIX) PO SCH (10:07)
[2019-10-24] MEDS: GABAPENTIN 300 MG CAP PO SCH ×4 (10:07→21:01)
[2019-10-24] MEDS: SANTYL OINT 30GM TOP SCH (10:09)
[2019-10-24] MEDS: oxyCODONE 10 MG CR TAB PO SCH ×2 (10:26→21:02)
[2019-10-24] MEDS: DULoxetine 20 MG CAP (CYMBALTA) PO SCH (10:50)
--- NOTE | 2019-10-24 11:07 | IPNPDOC ---
Text Note Date of Service The patient was seen on 10/24/19. NOTE Subjective: Pt notes SOB/ cough improving today. No N/V/abd pain. Tolerating clamped G tube. 1 BM last 24 hrs, regular. Objective: Vitals: (see below) General: No acute distress, laying comfortably in bed. HEENT: Moist mucous membranes. Neck: No JVD or lymphadenopathy Cardiac: RRR, No murmurs Pulm: Course crackles at the bases b/l R>L. No wheezing, rhonchi. No stridor or use of accessory muscles. Abd: NT/ND + BS. G tube clamped. Surgical nikita and clips Ext: No edema or cyanosis Labs (see below) Images: CT A/P FINDINGS: Limitations: Lack of intravenous contrast material limits evaluation of the vascular and visceral structures. Tubes, catheters and devices: Percutaneous gastrostomy tube. Lungs: Chest/lung findings are dictated separately. Liver: Slightly nodular hepatic contour. Gallbladder and bile ducts: Cholelithiasis. Abnormal gallbladder distension. Pancreas: Diffuse pancreatic parenchymal atrophy. Spleen: Normal. No splenomegaly. Adrenals: Normal. No mass. Kidneys and ureters: Mild right renal cortical scarring. Tiny nonobstructing right renal calyceal calculus. Left renal atrophy. Tiny nonobstructing left renal calyceal calculus. No obstructing calculus or hydronephrosis. Stomach and bowel: Mild colonic diverticulosis. No evidence of acute diverticulitis. Appendix: The appendix is not definitively identified. There are no secondary CT findings to suggest the presence of appendicitis. Intraperitoneal space: Mild ascites. Vasculature: Aortic endoluminal stent graft. Advanced atherosclerotic vascular calcifications. Fusiform aneurysm of the abdominal aorta, measuring up to 5.9 cm x 5.1 cm, unchanged. Vascular graft extending from the left external iliac artery to the SMA. Lymph nodes: Unremarkable. No enlarged lymph nodes. Bladder: Unremarkable as visualized. Reproductive: Unremarkable as visualized. Bones/joints: Degenerative change of the spine. Chronic severe T12 vertebral body compression fracture. Apparent postsurgical change of the lumbar spine. Bilateral hip joint DJD. Soft tissues: Ventral midline skin nikita. Right inguinal surgical clips. IMPRESSION: 1. Mild ascites. 2. Mild colonic diverticulosis. 3. Unchanged fusiform abdominal aortic aneurysm. 4. Bilateral nephrolithiasis. 5. Cholelithiasis. Abnormal gallbladder distension, which is most likely due to a fasting state. 6. Additional nonacute findings, as above. CT Chest IMPRESSION: 1. Small right-sided pneumothorax. 2. Right lower lobe pneumonia. 3. Small bilateral pleural effusions. 4. New nodular opacities in both lungs, measuring up to 9 mm. These are most likely infectious in nature, but follow-up according to Fleischner criteria is Assessment/Plan 1. HCAP - recently hospitalized at [facility]. Bld/Sputum cx. Vanco/Cefepime. 2. Small Pneumothorax; hemodynamically stable. On O2. Dr. Holley to eval; recc daily CXR as unlikely true pneumothorax. Repeat CXR 10/23 with no PTX. 3. Rrecent ex lap with arterial bypass to the SMA, and bowel resection for ischemic colitis. s/p Gtube- appreciate Dr. Ortiz's input. Recc clamping g tube and advancing diet to regular; flush g tube periodically. 4. Hyperkalemia - Kayexalate 5. TRENT on CKD stage 3. resolved. Baseline Cr 1.3. - 2/2 above and dehydration from g tube outpt. Decrease IVF to 80 cc/hr. 6. COPD stable 7. H/o CAD cont home meds 8. H/o AF - cont eliquis/amio. 9. H/o C. diff - vanco po DVT prophy:Eliquis VS,Fishbone, I+O VS, Fishbone, I+O Laboratory Tests 10/24/19 00:00 Vital Signs Date Time Temp Pulse Resp B/P (MAP) Pulse Ox O2 Delivery O2 Flow Rate FiO2 10/24/19 10: 20 Nasal Cannula 2.0 10/24/19 10:06 68 132/61 10/24/19 08:00 97.3 93 I&O- Last 24 Hours up to 6 AM 10/24/19 05:59 Intake Total 1180 ml Output Total 250 ml Balance 930 ml SOFÍA MCELROY MD Oct 24, 2019 11:07
[2019-10-24 12:00] VITALS: BP 149/65
[2019-10-24 15:42] VITALS: BP 150/66
[2019-10-24 20:00] VITALS: BP 146/63
[2019-10-24] MEDS: LEVEMIR (INSULIN DETEMIR) 1 UNITS/0.01ML SC SCH (20:49)
[2019-10-24] MEDS: ATORVASTATIN 20 MG TAB PO SCH (21:01)
[2019-10-24] MEDS: LATANOPROST 0.005% OPHTH SOLN 2.5 ML OU SCH (21:22)
[2019-10-25] VITALS: BP 112/50
[2019-10-25] MEDS: VANCOMYCIN ORAL SOL 250MG/5ML ORAL SYRINGE PO SCH ×5 (02:17→23:59)
[2019-10-25] MEDS: CEFEPIME HCL 2 GM in D5W MINI-BAG PLUS 50 ML IV SCH ×2 (02:17→15:38)
[2019-10-25 04:00] VITALS: BP 123/57
[2019-10-25] MEDS: VITAMIN D 1,000 INTERNATIONAL UNITS TABLET PO SCH ×4 (05:22→23:59)
[2019-10-25 06:18] LABS: BASO # 0.1 10^3/uL (0.0-0.2); BASO % 0.6 % (0.0-1.0); EOS # 0.7 10^3/uL (0.0-0.5); EOS % 5.4 % (0.0-3.0); HEMATOCRIT 27.6 % (42.0-52.0); HEMOGLOBIN 7.9 g/dl (13.5-17.5); LYMPH # 2.1 10^3/uL (1.5-5.0); LYMPH % 16.1 % (24.0-44.0); MEAN CORPUSCULAR HEMOGLOBIN 26.4 pg (27.0-33.0); MEAN CORPUSCULAR HGB CONC 28.6 g/dl (32.0-36.5); MEAN CORPUSCULAR VOLUME 92.3 fl (80.0-96.0); MONO # 1.2 10^3/uL (0.0-0.8); MONO % 9.5 % (0.0-5.0); NEUTROPHILS # 8.6 10^3/uL (1.5-8.5); NEUTROPHILS % 66.5 % (36.0-66.0); PLATELET COUNT, AUTOMATED 433 10^3/uL (150-450); RED BLOOD COUNT 2.99 10^6/uL (4.30-6.10); WHITE BLOOD COUNT 12.9 10^3/uL (4.0-10.0)
[2019-10-25 06:41] LABS: ALBUMIN 1.9 GM/DL (3.2-5.2); ALT/SGPT 10 U/L (12-78); BILIRUBIN,TOTAL 0.4 MG/DL (0.2-1.0); BLOOD UREA NITROGEN 27 MG/DL (7-18); CALCIUM LEVEL 8.5 MG/DL (8.8-10.2); CARBON DIOXIDE LEVEL 24 MEQ/L (21-32); CHLORIDE LEVEL 112 MEQ/L (98-107); CREATININE FOR GFR 1.07 MG/DL (0.70-1.30); GLOMERULAR FILTRATION RATE > 60.0 (>42); GLUCOSE, FASTING 143 MG/DL (70-100); POTASSIUM SERUM 4.7 MEQ/L (3.5-5.1); SODIUM LEVEL 143 MEQ/L (136-145)
[2019-10-25] MEDS: HumaLOG INSULIN (NovoLOG) PER UNIT SC SCH ×4 (07:30→20:30)
[2019-10-25 08:00] VITALS: BP 130/62
[2019-10-25] MEDS: SANTYL OINT 30GM TOP SCH (09:00)
[2019-10-25] MEDS: ASPIRIN 81 MG ENTERIC TAB PO SCH (10:09)
[2019-10-25] MEDS: APIXABAN 5 MG TAB (ELIQUIS) PO SCH ×2 (10:09→20:29)
[2019-10-25] MEDS: AMIODARONE 200 MG TAB (PACERONE) PO SCH (10:09)
[2019-10-25] MEDS: PANTOPRAZOLE 40MG TAB (PROTONIX) PO SCH (10:10)
[2019-10-25] MEDS: DULoxetine 20 MG CAP (CYMBALTA) PO SCH (10:10)
[2019-10-25] MEDS: LACTOBACILLUS ACIDOPHILUS CAP (BACID) PO SCH ×3 (10:10→17:58)
[2019-10-25] MEDS: METOPROLOL TARTRATE 100 MG TAB PO SCH ×2 (10:10→21:00)
[2019-10-25] MEDS: GABAPENTIN 300 MG CAP PO SCH ×4 (10:10→20:29)
[2019-10-25] MEDS: SINEMET 25-100 MG TAB PO SCH ×4 (10:10→20:29)
[2019-10-25] MEDS: oxyCODONE 10 MG CR TAB PO SCH ×2 (10:11→20:30)
[2019-10-25] MEDS: NS 1,000 ML IV SCH ×2 (10:15→20:31)
--- NOTE | 2019-10-25 11:08 | IPNPDOC ---
Text Note Date of Service The patient was seen on 10/25/19. NOTE Subjective: Pt notes he feels much better today. No N/V/abd pain. Tolerating clamped G tube. No diarrhea. tolerating regular diet. IVF d/c Objective: Vitals: (see below) General: No acute distress, laying comfortably in bed. HEENT: Moist mucous membranes. Neck: No JVD or lymphadenopathy Cardiac: RRR, No murmurs Pulm: Course crackles at the bases b/l R>L. No wheezing, rhonchi. No stridor or use of accessory muscles. Abd: NT/ND + BS. G tube clamped. Surgical nikita and clips Ext: No edema or cyanosis Labs (see below) Images: CT A/P FINDINGS: Limitations: Lack of intravenous contrast material limits evaluation of the vascular and visceral structures. Tubes, catheters and devices: Percutaneous gastrostomy tube. Lungs: Chest/lung findings are dictated separately. Liver: Slightly nodular hepatic contour. Gallbladder and bile ducts: Cholelithiasis. Abnormal gallbladder distension. Pancreas: Diffuse pancreatic parenchymal atrophy. Spleen: Normal. No splenomegaly. Adrenals: Normal. No mass. Kidneys and ureters: Mild right renal cortical scarring. Tiny nonobstructing right renal calyceal calculus. Left renal atrophy. Tiny nonobstructing left renal calyceal calculus. No obstructing calculus or hydronephrosis. Stomach and bowel: Mild colonic diverticulosis. No evidence of acute diverticulitis. Appendix: The appendix is not definitively identified. There are no secondary CT findings to suggest the presence of appendicitis. Intraperitoneal space: Mild ascites. Vasculature: Aortic endoluminal stent graft. Advanced atherosclerotic vascular calcifications. Fusiform aneurysm of the abdominal aorta, measuring up to 5.9 cm x 5.1 cm, unchanged. Vascular graft extending from the left external iliac artery to the SMA. Lymph nodes: Unremarkable. No enlarged lymph nodes. Bladder: Unremarkable as visualized. Reproductive: Unremarkable as visualized. Bones/joints: Degenerative change of the spine. Chronic severe T12 vertebral body compression fracture. Apparent postsurgical change of the lumbar spine. Bilateral hip joint DJD. Soft tissues: Ventral midline skin nikita. Right inguinal surgical clips. IMPRESSION: 1. Mild ascites. 2. Mild colonic diverticulosis. 3. Unchanged fusiform abdominal aortic aneurysm. 4. Bilateral nephrolithiasis. 5. Cholelithiasis. Abnormal gallbladder distension, which is most likely due to a fasting state. 6. Additional nonacute findings, as above. CT Chest IMPRESSION: 1. Small right-sided pneumothorax. 2. Right lower lobe pneumonia. 3. Small bilateral pleural effusions. 4. New nodular opacities in both lungs, measuring up to 9 mm. These are most likely infectious in nature, but follow-up according to Fleischner criteria is Assessment/Plan 1. HCAP - recently hospitalized at [facility]. Bld/Sputum cx. Vanco/Cefepime. F/u cx. Non sputum production. 2. ?Small Pneumothorax; hemodynamically stable. On O2. Dr. Holley to eval; recc daily CXR as unlikely true pneumothorax. Repeat CXR 10/23 with no PTX. 3. Recent ex lap with arterial bypass to the SMA, and bowel resection for ischemic colitis. s/p Gtube- appreciate Dr. Ortiz's input. Recc clamping g tube and advancing diet to regular; flush g tube periodically. 4. Hyperkalemia - Kayexalate 5. TRENT on CKD stage 3. resolved. Baseline Cr 1.3. - 2/2 above and dehydration from g tube outpt. d/c ivf 6. COPD stable 7. H/o CAD cont home meds 8. H/o AF - cont eliquis/amio. 9. H/o C. diff - vanco po 10. Unsteady gait with PT; deconditioning. CT with ?severe t12 fx. Will send pt for MRI to further eval, and possible ortho consult. 11. Chronic fusiform aneurysm of the abdominal aorta, measuring up to 5.9 cm x 5.1 cm- f/u with vascular surg outpt. Recent arterial bypass to the SMA. DVT prophy:Eliquis PT eval: likely requiring rehab post d/c. OVerall prognosis guarded given comorbidities. VS,Fishbone, I+O VS, Fishbone, I+O Laboratory Tests 10/25/19 06:00 Vital Signs Date Time Temp Pulse Resp B/P (MAP) Pulse Ox O2 Delivery O2 Flow Rate FiO2 10/25/19 10:11 18 Nasal Cannula 10/25/19 10:09 60 130/62 10/25/19 08:00 97.9 91 2.0 I&O- Last 24 Hours up to 6 AM 10/25/19 06:00 Intake Total 1830 ml Output Total 200 ml Balance 1630 ml SOFÍA MCELROY MD Oct 25, 2019 11:08
[2019-10-25 12:00] VITALS: BP 118/70
[2019-10-25 16:00] VITALS: BP 106/62
--- NOTE | 2019-10-25 17:19 | REPVR ---
PROCEDURE INFORMATION: Exam: CT Thoracic Spine Without Contrast Exam date and time: 10/25/2019 4:19 PM Age: 79 years old Clinical indication: Other: Gait dysfunction; Additional info: Gait dysfunction, ? t12 FX TECHNIQUE: Imaging protocol: Computed tomography images of the thoracic spine without contrast. Radiation optimization: All CT scans at this facility use at least one of these dose optimization techniques: automated exposure control; mA and/or kV adjustment per patient size (includes targeted exams where dose is matched to clinical indication); or iterative reconstruction. COMPARISON: 1. CT Spine,thoracic w/o contrast 04/22/2019 9:[address] ABD/PEL W/IV ORAL CONTRAS 09/22/2019 2:00:55 AM FINDINGS: Vertebrae: Bone mineralization is decreased, suggestive of osteoporosis. There is a comminuted T12 compression fracture, similar to the abdominal CT from 09/22/2019. The fracture does not involve the posterior wall of the vertebral body or the posterior elements. Severe vertebral body height loss is present. There is no retropulsion into the spinal canal. No other fracture is identified. Discs/Spinal canal/Neural foramina: There is no significant spinal canal stenosis. Vasculature: Atherosclerotic calcifications are noted within the aorta and its branches. Lungs: Atelectasis and consolidation is present in the parahilar regions and lower lobes. Pulmonary edema is possible. Pleural space: Moderate right and small left pleural effusions are present. Heart: Moderate cardiomegaly is noted. Extensive coronary artery calcifications are present. IMPRESSION: 1. Subacute/chronic T12 compression fracture, similar to 09/22/2019 2. Probable congestive failure with moderate right and small left pleural effusions Electronically signed by: Luis Winters On 10/25/2019 17:19:31 PM
--- NOTE | 2019-10-25 17:23 | REPVR ---
PROCEDURE INFORMATION: Exam: CT Lumbar Spine Without Contrast Exam date and time: 10/25/2019 4:19 PM Age: 79 years old Clinical indication: Other: Gait dysfunction; Additional info: Gait dysfunction, ? t12 FX TECHNIQUE: Imaging protocol: Computed tomography images of the lumbar spine without contrast. Radiation optimization: All CT scans at this facility use at least one of these dose optimization techniques: automated exposure control; mA and/or kV adjustment per patient size (includes targeted exams where dose is matched to clinical indication); or iterative reconstruction. COMPARISON: 1. CT Spine, lumbar w/o contrast 04/22/2019 9:[address] ABD/PEL W/IV ORAL CONTRAS 09/22/2019 2:00:55 AM FINDINGS: Vertebrae: Bone mineralization is decreased, suggestive of osteoporosis. There is a comminuted T12 compression fracture, similar to the abdominal CT from 09/22/2019. The fracture does not involve the posterior wall of the vertebral body or the posterior elements. Severe vertebral body height loss is present. There is no retropulsion into the spinal canal. No other fracture is identified. Right hemilaminectomy and medial facetectomy defects are noted at L4 and L5. Discs/Spinal canal/Neural foramina: Severe degenerative changes of the lumbar spine are noted. There is moderate/severe spinal canal stenosis at L2-L3 and L3-L4. Mild/moderate canal stenosis is present at L4-L5. Kidneys and ureters: The left kidney is atrophic. Nonobstructing stones are noted within both kidneys. Vasculature: Atherosclerotic calcifications are noted within the aorta and its branches. A partially visualized abdominal aortic aneurysm is noted. Endovascular repair has been performed. Soft tissues: Unremarkable. IMPRESSION: 1. Subacute/chronic T12 compression fracture, similar to 09/22/2019 2. Chronic findings as discussed above. Electronically signed by: Luis Winters On 10/25/2019 17:23:52 PM
[2019-10-25] MEDS: VANCOMYCIN HCL 1,000 MG, VIAL MATE ADAPTER 1 EACH in D5W 250 ML IV SCH (17:58)
[2019-10-25 20:00] VITALS: BP 116/53
[2019-10-25] MEDS: ATORVASTATIN 20 MG TAB PO SCH (20:29)
[2019-10-25] MEDS: LATANOPROST 0.005% OPHTH SOLN 2.5 ML OU SCH (20:30)
[2019-10-25] MEDS: LEVEMIR (INSULIN DETEMIR) 1 UNITS/0.01ML SC SCH (20:30)
[2019-10-26] VITALS (7 sets, daily range): BP systolic 96–146; BP diastolic 47–80
[2019-10-26] MEDS: CEFEPIME HCL 2 GM in D5W MINI-BAG PLUS 50 ML IV SCH ×2 (03:45→15:33)
[2019-10-26] MEDS: VANCOMYCIN ORAL SOL 250MG/5ML ORAL SYRINGE PO SCH ×3 (05:29→18:01)
[2019-10-26] MEDS: VITAMIN D 1,000 INTERNATIONAL UNITS TABLET PO SCH ×3 (05:29→18:01)
[2019-10-26] MEDS: NS 1,000 ML IV SCH (05:30)
[2019-10-26 05:57] LABS: BASO # 0.1 10^3/uL (0.0-0.2); BASO % 0.7 % (0.0-1.0); EOS # 0.8 10^3/uL (0.0-0.5); EOS % 6.8 % (0.0-3.0); HEMATOCRIT 27.7 % (42.0-52.0); LYMPH # 1.9 10^3/uL (1.5-5.0); LYMPH % 16.2 % (24.0-44.0); MEAN CORPUSCULAR HEMOGLOBIN 26.6 pg (27.0-33.0); MEAN CORPUSCULAR HGB CONC 28.9 g/dl (32.0-36.5); MONO % 8.5 % (0.0-5.0); NEUTROPHILS # 7.9 10^3/uL (1.5-8.5); NEUTROPHILS % 65.8 % (36.0-66.0); PLATELET COUNT, AUTOMATED 397 10^3/uL (150-450); RED BLOOD COUNT 3.01 10^6/uL (4.30-6.10)
[2019-10-26 06:22] LABS: ALBUMIN 1.8 GM/DL (3.2-5.2); ALT/SGPT 7 U/L (12-78); BILIRUBIN,TOTAL 0.4 MG/DL (0.2-1.0); BLOOD UREA NITROGEN 18 MG/DL (7-18); CALCIUM LEVEL 8.5 MG/DL (8.8-10.2); CARBON DIOXIDE LEVEL 26 MEQ/L (21-32); CHLORIDE LEVEL 113 MEQ/L (98-107); GLOMERULAR FILTRATION RATE > 60.0 (>42); GLUCOSE, FASTING 133 MG/DL (70-100); MAGNESIUM LEVEL 1.9 MG/DL (1.8-2.4); POTASSIUM SERUM 4.5 MEQ/L (3.5-5.1); SODIUM LEVEL 144 MEQ/L (136-145); TOTAL PROTEIN 5.6 GM/DL (6.4-8.2)
[2019-10-26] MEDS: HumaLOG INSULIN (NovoLOG) PER UNIT SC SCH ×4 (08:00→20:31)
[2019-10-26] MEDS: AMIODARONE 200 MG TAB (PACERONE) PO SCH (09:33)
[2019-10-26] MEDS: oxyCODONE 10 MG CR TAB PO SCH ×2 (09:33→20:39)
[2019-10-26] MEDS: SINEMET 25-100 MG TAB PO SCH ×4 (09:34→20:28)
[2019-10-26] MEDS: LACTOBACILLUS ACIDOPHILUS CAP (BACID) PO SCH ×3 (09:34→18:01)
[2019-10-26] MEDS: APIXABAN 5 MG TAB (ELIQUIS) PO SCH ×2 (09:34→20:28)
[2019-10-26] MEDS: DULoxetine 20 MG CAP (CYMBALTA) PO SCH (09:34)
[2019-10-26] MEDS: PANTOPRAZOLE 40MG TAB (PROTONIX) PO SCH (09:34)
[2019-10-26] MEDS: GABAPENTIN 300 MG CAP PO SCH ×4 (09:34→20:28)
[2019-10-26] MEDS: ASPIRIN 81 MG ENTERIC TAB PO SCH (09:35)
[2019-10-26] MEDS: METOPROLOL TARTRATE 100 MG TAB PO SCH ×2 (09:35→20:28)
[2019-10-26] MEDS: SANTYL OINT 30GM TOP SCH (09:36)
[2019-10-26] MEDS ORDERED: FUROSEMIDE 20MG/2ML VIAL (J1940) IV ONE (11:30)
[2019-10-26] MEDS: VANCOMYCIN HCL 1,000 MG, VIAL MATE ADAPTER 1 EACH in D5W 250 ML IV SCH (11:49)
--- NOTE | 2019-10-26 14:30 | IPNPDOC ---
Text Note Date of Service The patient was seen on 10/26/19. NOTE Subjective: Pt denies any complaints. Had difficulty with PT today. No N/V/abd pain. No N/V. abd pain. no diarrhea. Objective: Vitals: (see below) General: No acute distress, laying comfortably in bed. HEENT: Moist mucous membranes. Neck: No JVD or lymphadenopathy Cardiac: RRR, No murmurs Pulm: Course crackles at the bases b/l R>L. No wheezing, rhonchi. No stridor or use of accessory muscles. Abd: NT/ND + BS. G tube clamped. Surgical nikita and clips Ext: No edema or cyanosis Labs (see below) Images: CT A/P FINDINGS: Limitations: Lack of intravenous contrast material limits evaluation of the vascular and visceral structures. Tubes, catheters and devices: Percutaneous gastrostomy tube. Lungs: Chest/lung findings are dictated separately. Liver: Slightly nodular hepatic contour. Gallbladder and bile ducts: Cholelithiasis. Abnormal gallbladder distension. Pancreas: Diffuse pancreatic parenchymal atrophy. Spleen: Normal. No splenomegaly. Adrenals: Normal. No mass. Kidneys and ureters: Mild right renal cortical scarring. Tiny nonobstructing right renal calyceal calculus. Left renal atrophy. Tiny nonobstructing left renal calyceal calculus. No obstructing calculus or hydronephrosis. Stomach and bowel: Mild colonic diverticulosis. No evidence of acute diverticulitis. Appendix: The appendix is not definitively identified. There are no secondary CT findings to suggest the presence of appendicitis. Intraperitoneal space: Mild ascites. Vasculature: Aortic endoluminal stent graft. Advanced atherosclerotic vascular calcifications. Fusiform aneurysm of the abdominal aorta, measuring up to 5.9 cm x 5.1 cm, unchanged. Vascular graft extending from the left external iliac artery to the SMA. Lymph nodes: Unremarkable. No enlarged lymph nodes. Bladder: Unremarkable as visualized. Reproductive: Unremarkable as visualized. Bones/joints: Degenerative change of the spine. Chronic severe T12 vertebral body compression fracture. Apparent postsurgical change of the lumbar spine. Bilateral hip joint DJD. Soft tissues: Ventral midline skin nikita. Right inguinal surgical clips. IMPRESSION: 1. Mild ascites. 2. Mild colonic diverticulosis. 3. Unchanged fusiform abdominal aortic aneurysm. 4. Bilateral nephrolithiasis. 5. Cholelithiasis. Abnormal gallbladder distension, which is most likely due to a fasting state. 6. Additional nonacute findings, as above. CT Chest IMPRESSION: 1. Small right-sided pneumothorax. 2. Right lower lobe pneumonia. 3. Small bilateral pleural effusions. 4. New nodular opacities in both lungs, measuring up to 9 mm. These are most likely infectious in nature, but follow-up according to Fleischner criteria is Assessment/Plan 1. HCAP - recently hospitalized at [facility]. Bld/Sputum cx. Vanco/Cefepime. F/u cx. Non sputum production. Wound cx noted; on Abx. 2. ?Small Pneumothorax; hemodynamically stable. On O2. Dr. Holley to eval; recc daily CXR as unlikely true pneumothorax. Repeat CXR 10/23 with no PTX. 3. Recent ex lap with arterial bypass to the SMA, and bowel resection for ischemic colitis. s/p Gtube- appreciate Dr. Ortiz's input. Recc clamping g tube and advancing diet to regular; flush g tube periodically. 4. Hyperkalemia -improved. s/p Kayexalate 5. TRENT on CKD stage 3. resolved. Baseline Cr 1.3. - 2/2 above and dehydration from g tube outpt. d/c ivf 6. COPD stable 7. H/o CAD cont home meds 8. H/o AF - cont eliquis/amio. 9. H/o C. diff - vanco po 10. Unsteady gait with PT; deconditioning. CT with ?severe t12 fx. Will send pt for MRI to further eval, and possible ortho consult. 11. Chronic fusiform aneurysm of the abdominal aorta, measuring up to 5.9 cm x 5.1 cm- f/u with vascular surg outpt. Recent arterial bypass to the SMA. 12. Pleural effusions: Lasix 20mg IV x1 DVT prophy:Eliquis PT eval: likely requiring rehab post d/c. OVerall prognosis guarded given comorbidities. VS,Fishbone, I+O VS, Fishbone, I+O Laboratory Tests 10/26/19 05:22 Vital Signs Date Time Temp Pulse Resp B/P (MAP) Pulse Ox O2 Delivery O2 Flow Rate FiO2 10/26/19 12:00 98.1 61 20 145/73 (97) 93 Nasal Cannula 2.0 I&O- Last 24 Hours up to 6 AM 10/26/19 06:00 Intake Total 1740 ml Output Total 0 ml Balance 1740 ml SOFÍA MCELROY MD Oct 26, 2019 14:30
[2019-10-26] MEDS: ATORVASTATIN 20 MG TAB PO SCH (20:28)
[2019-10-26] MEDS: LEVEMIR (INSULIN DETEMIR) 1 UNITS/0.01ML SC SCH (20:29)
[2019-10-26] MEDS: LATANOPROST 0.005% OPHTH SOLN 2.5 ML OU SCH (20:29)
[2019-10-27] MEDS: VANCOMYCIN ORAL SOL 250MG/5ML ORAL SYRINGE PO SCH ×5 (00:58→23:44)
[2019-10-27] MEDS: VITAMIN D 1,000 INTERNATIONAL UNITS TABLET PO SCH ×5 (00:58→23:44)
[2019-10-27] MEDS: CEFEPIME HCL 2 GM in D5W MINI-BAG PLUS 50 ML IV SCH ×2 (03:13→16:16)
[2019-10-27 05:50] LABS: BASO # 0.1 10^3/uL (0.0-0.2); BASO % 0.5 % (0.0-1.0); EOS % 6.7 % (0.0-3.0); HEMATOCRIT 27.2 % (42.0-52.0); LYMPH # 2.6 10^3/uL (1.5-5.0); LYMPH % 16.4 % (24.0-44.0); MEAN CORPUSCULAR HEMOGLOBIN 26.8 pg (27.0-33.0); MEAN CORPUSCULAR HGB CONC 29.4 g/dl (32.0-36.5); MEAN CORPUSCULAR VOLUME 91.3 fl (80.0-96.0); MONO # 1.3 10^3/uL (0.0-0.8); MONO % 8.6 % (0.0-5.0); NEUTROPHILS # 10.3 10^3/uL (1.5-8.5); PLATELET COUNT, AUTOMATED 402 10^3/uL (150-450); RED BLOOD COUNT 2.98 10^6/uL (4.30-6.10); WHITE BLOOD COUNT 15.5 10^3/uL (4.0-10.0)
[2019-10-27 06:00] VITALS: BP 110/60
[2019-10-27 06:29] LABS: ALT/SGPT 9 U/L (12-78); BILIRUBIN,TOTAL 0.3 MG/DL (0.2-1.0); BLOOD UREA NITROGEN 15 MG/DL (7-18); CALCIUM LEVEL 8.7 MG/DL (8.8-10.2); CARBON DIOXIDE LEVEL 28 MEQ/L (21-32); CHLORIDE LEVEL 111 MEQ/L (98-107); CREATININE FOR GFR 0.98 MG/DL (0.70-1.30); GLOMERULAR FILTRATION RATE > 60.0 (>42); GLUCOSE, FASTING 65 MG/DL (70-100); MAGNESIUM LEVEL 1.8 MG/DL (1.8-2.4); POTASSIUM SERUM 4.5 MEQ/L (3.5-5.1); SODIUM LEVEL 143 MEQ/L (136-145); TOTAL PROTEIN 5.9 GM/DL (6.4-8.2); VANCOMYCIN LEVEL TROUGH 22.8 UG/ML (10.0-20.0)
[2019-10-27] MEDS: HumaLOG INSULIN (NovoLOG) PER UNIT SC SCH ×4 (07:30→20:50)
[2019-10-27] MEDS: D5W 1,000 ML IV SCH ×2 (08:04→19:26)
[2019-10-27] MEDS: DEXTROSE 50% 50 ML SYRINGE IV PRN ×2 (08:08→13:51)
[2019-10-27] MEDS: METOPROLOL TARTRATE 100 MG TAB PO SCH ×2 (09:00→20:35)
[2019-10-27] MEDS: VANCOMYCIN HCL 1,000 MG, VIAL MATE ADAPTER 1 EACH in D5W 250 ML IV SCH (09:21)
[2019-10-27] MEDS: ASPIRIN 81 MG ENTERIC TAB PO SCH (09:22)
[2019-10-27] MEDS: GABAPENTIN 300 MG CAP PO SCH ×3 (09:23→16:16)
[2019-10-27] MEDS: PANTOPRAZOLE 40MG TAB (PROTONIX) PO SCH (09:23)
[2019-10-27] MEDS: APIXABAN 5 MG TAB (ELIQUIS) PO SCH ×2 (09:23→20:36)
[2019-10-27] MEDS: AMIODARONE 200 MG TAB (PACERONE) PO SCH (09:23)
[2019-10-27] MEDS: oxyCODONE 10 MG CR TAB PO SCH ×2 (09:24→20:38)
[2019-10-27] MEDS: SINEMET 25-100 MG TAB PO SCH ×4 (09:24→20:35)
[2019-10-27] MEDS: DULoxetine 20 MG CAP (CYMBALTA) PO SCH (09:24)
[2019-10-27] MEDS: LACTOBACILLUS ACIDOPHILUS CAP (BACID) PO SCH ×3 (09:25→18:14)
--- NOTE | 2019-10-27 12:07 | IPNPDOC ---
Text Note Date of Service The patient was seen on 10/27/19. NOTE Subjective: Pt denies any complaints. Had episodes of hypoglycemia after rece iving levemir last night; this has been discontinued. No N/V/abd pain.Tolerating diet. No abd pain. no diarrhea. Objective: Vitals: (see below) General: No acute distress, laying comfortably in bed. HEENT: Moist mucous membranes. Neck: No JVD or lymphadenopathy Cardiac: RRR, No murmurs Pulm: Course crackles at the bases b/l R>L. No wheezing, rhonchi. No stridor or use of accessory muscles. Abd: NT/ND + BS. G tube clamped. Surgical nikita and clips Ext: No edema or cyanosis Labs (see below) Images: CT A/P FINDINGS: Limitations: Lack of intravenous contrast material limits evaluation of the vascular and visceral structures. Tubes, catheters and devices: Percutaneous gastrostomy tube. Lungs: Chest/lung findings are dictated separately. Liver: Slightly nodular hepatic contour. Gallbladder and bile ducts: Cholelithiasis. Abnormal gallbladder distension. Pancreas: Diffuse pancreatic parenchymal atrophy. Spleen: Normal. No splenomegaly. Adrenals: Normal. No mass. Kidneys and ureters: Mild right renal cortical scarring. Tiny nonobstructing right renal calyceal calculus. Left renal atrophy. Tiny nonobstructing left renal calyceal calculus. No obstructing calculus or hydronephrosis. Stomach and bowel: Mild colonic diverticulosis. No evidence of acute diverticulitis. Appendix: The appendix is not definitively identified. There are no secondary CT findings to suggest the presence of appendicitis. Intraperitoneal space: Mild ascites. Vasculature: Aortic endoluminal stent graft. Advanced atherosclerotic vascular calcifications. Fusiform aneurysm of the abdominal aorta, measuring up to 5.9 cm x 5.1 cm, unchanged. Vascular graft extending from the left external iliac artery to the SMA. Lymph nodes: Unremarkable. No enlarged lymph nodes. Bladder: Unremarkable as visualized. Reproductive: Unremarkable as visualized. Bones/joints: Degenerative change of the spine. Chronic severe T12 vertebral body compression fracture. Apparent postsurgical change of the lumbar spine. Bilateral hip joint DJD. Soft tissues: Ventral midline skin nikita. Right inguinal surgical clips. IMPRESSION: 1. Mild ascites. 2. Mild colonic diverticulosis. 3. Unchanged fusiform abdominal aortic aneurysm. 4. Bilateral nephrolithiasis. 5. Cholelithiasis. Abnormal gallbladder distension, which is most likely due to a fasting state. 6. Additional nonacute findings, as above. CT T/L spine IMPRESSION: 1. Subacute/chronic T12 compression fracture, similar to 09/22/2019 CT Chest IMPRESSION: 1. Small right-sided pneumothorax. 2. Right lower lobe pneumonia. 3. Small bilateral pleural effusions. 4. New nodular opacities in both lungs, measuring up to 9 mm. These are most likely infectious in nature, but follow-up according to Fleischner criteria is Assessment/Plan 1. HCAP - recently hospitalized at [facility]. Bld/Sputum cx. Vanco/zosyn F/u cx. Non sputum production. Wound cx noted; on Abx. 2. ?Small Pneumothorax; hemodynamically stable. On O2. Dr. Holley to eval; recc daily CXR as unlikely true pneumothorax. Repeat CXR 10/23 with no PTX. 3. Recent ex lap with arterial bypass to the SMA, and bowel resection for ischemic colitis. s/p Gtube- appreciate Dr. Ortiz's input. Recc clamping g tube and advancing diet to regular; flush g tube periodically. 4. Hyperkalemia -improved. s/p Kayexalate 5. TRENT on CKD stage 3. resolved. Baseline Cr 1.3. - 2/2 above and dehydration from g tube outpt. d/c ivf 6. COPD stable 7. H/o CAD cont home meds 8. H/o AF - cont eliquis/amio. 9. H/o C. diff - vanco po 10. Unsteady gait with PT; deconditioning. CT t12 fx. Unable to get MRI 2/2 PPM. Ortho consulted recc conservative management and outpt f/u. 11. Chronic fusiform aneurysm of the abdominal aorta, measuring up to 5.9 cm x 5.1 cm- f/u with vascular surg outpt. Recent arterial bypass to the SMA. 12. Pleural effusions: Lasix 40mg IV x1 13. Hypoglycemia - 2/2 levemir, which has been d/c. maintain on SSI only for now. Given hypoglycemia, started on D5W with close monitoring of BS. DVT prophy:Eliquis PT eval: likely requiring rehab post d/c. Overall prognosis guarded given comorbidities. VS,Fishbone, I+O VS, Fishbone, I+O Laboratory Tests 10/27/19 05:33 Vital Signs Date Time Temp Pulse Resp B/P (MAP) Pulse Ox O2 Delivery O2 Flow Rate FiO2 10/27/19 09:24 20 10/27/19 09:00 63 103/62 10/27/19 06:00 97.6 93 Nasal Cannula 2.0 I&O- Last 24 Hours up to 6 AM 10/27/19 06:00 Intake Total 1544 ml Output Total 0 ml Balance 1544 ml SOFÍA MCELROY MD Oct 27, 2019 12:07
[2019-10-27] MEDS: SANTYL OINT 30GM TOP SCH (13:51)
[2019-10-27 14:00] VITALS: BP 115/77
[2019-10-27 16:00] VITALS: BP 132/62
[2019-10-27] MEDS: guaiFENesin ER 600 MG TAB PO SCH (18:17)
[2019-10-27] MEDS ORDERED: FUROSEMIDE 40MG/4ML VIAL (J1940) IV ONE (18:30)
[2019-10-27 20:00] VITALS: BP 133/76
[2019-10-27] MEDS: ATORVASTATIN 20 MG TAB PO SCH (20:35)
[2019-10-27] MEDS: LATANOPROST 0.005% OPHTH SOLN 2.5 ML OU SCH (20:36)
[2019-10-28] VITALS: BP 122/95
[2019-10-28] MEDS: CEFEPIME HCL 2 GM in D5W MINI-BAG PLUS 50 ML IV SCH ×2 (03:43→14:50)
[2019-10-28 04:00] VITALS: BP 126/58
[2019-10-28 05:43] LABS: BASO # 0.1 10^3/uL (0.0-0.2); BASO % 0.3 % (0.0-1.0); EOS # 0.8 10^3/uL (0.0-0.5); EOS % 4.2 % (0.0-3.0); HEMATOCRIT 27.5 % (42.0-52.0); HEMOGLOBIN 8.3 g/dl (13.5-17.5); LYMPH # 1.8 10^3/uL (1.5-5.0); MEAN CORPUSCULAR HEMOGLOBIN 27.3 pg (27.0-33.0); MEAN CORPUSCULAR HGB CONC 30.2 g/dl (32.0-36.5); MEAN CORPUSCULAR VOLUME 90.5 fl (80.0-96.0); MONO # 1.4 10^3/uL (0.0-0.8); MONO % 7.8 % (0.0-5.0); NEUTROPHILS # 13.8 10^3/uL (1.5-8.5); NEUTROPHILS % 76.4 % (36.0-66.0); PLATELET COUNT, AUTOMATED 350 10^3/uL (150-450); RED BLOOD COUNT 3.04 10^6/uL (4.30-6.10)
[2019-10-28] MEDS: FUROSEMIDE 40MG/4ML VIAL (J1940) IV SCH ×2 (05:57→14:50)
[2019-10-28] MEDS: VANCOMYCIN ORAL SOL 250MG/5ML ORAL SYRINGE PO SCH ×3 (05:57→17:52)
[2019-10-28] MEDS: VITAMIN D 1,000 INTERNATIONAL UNITS TABLET PO SCH ×3 (05:57→17:52)
[2019-10-28 06:16] LABS: ALBUMIN 1.8 GM/DL (3.2-5.2); ALT/SGPT 11 U/L (12-78); BILIRUBIN,TOTAL 0.5 MG/DL (0.2-1.0); BLOOD UREA NITROGEN 12 MG/DL (7-18); C REACTIVE PROTEIN QUANTITATIV 8.99 MG/DL (0.00-0.30); CALCIUM LEVEL 8.7 MG/DL (8.8-10.2); CARBON DIOXIDE LEVEL 28 MEQ/L (21-32); CHLORIDE LEVEL 109 MEQ/L (98-107); GLOMERULAR FILTRATION RATE > 60.0 (>42); GLUCOSE, FASTING 131 MG/DL (70-100); MAGNESIUM LEVEL 1.6 MG/DL (1.8-2.4); POTASSIUM SERUM 3.9 MEQ/L (3.5-5.1); SODIUM LEVEL 141 MEQ/L (136-145); TOTAL PROTEIN 6.1 GM/DL (6.4-8.2)
[2019-10-28] MEDS: HumaLOG INSULIN (NovoLOG) PER UNIT SC SCH ×4 (07:30→20:58)
[2019-10-28] MEDS ORDERED: ISOVUE-370 76% 100ML VIAL As Ordered ONE (07:49)
[2019-10-28 08:00] VITALS: BP 140/62
[2019-10-28] MEDS: LACTOBACILLUS ACIDOPHILUS CAP (BACID) PO SCH ×3 (08:34→17:52)
[2019-10-28] MEDS: AMIODARONE 200 MG TAB (PACERONE) PO SCH (08:35)
[2019-10-28] MEDS: guaiFENesin ER 600 MG TAB PO SCH ×2 (08:35→21:42)
[2019-10-28] MEDS: PANTOPRAZOLE 40MG TAB (PROTONIX) PO SCH (08:35)
[2019-10-28] MEDS: METOPROLOL TARTRATE 100 MG TAB PO SCH ×2 (08:36→21:00)
[2019-10-28] MEDS: APIXABAN 5 MG TAB (ELIQUIS) PO SCH (08:36)
[2019-10-28] MEDS: DULoxetine 20 MG CAP (CYMBALTA) PO SCH (08:36)
[2019-10-28] MEDS: SINEMET 25-100 MG TAB PO SCH ×4 (08:36→21:43)
[2019-10-28] MEDS: VANCOMYCIN HCL 1,000 MG, VIAL MATE ADAPTER 1 EACH in D5W 250 ML IV SCH (08:37)
[2019-10-28] MEDS: SANTYL OINT 30GM TOP SCH (08:37)
[2019-10-28] MEDS ORDERED: MAG SULF 1GM/100ML (MAG RUN) 1 GM in IV 1 EA IV ONE (09:00)
[2019-10-28] MEDS: oxyCODONE 10 MG CR TAB PO SCH ×2 (09:59→21:42)
[2019-10-28] MEDS: ASPIRIN 81 MG ENTERIC TAB PO SCH (09:59)
--- NOTE | 2019-10-28 11:10 | IPNPDOC ---
Text Note Date of Service The patient was seen on 10/28/19. NOTE Subjective: Pt less confused today. Cough is more productive. Hypoglycemia re solved. Diuresing well. No N/V/abd pain.Tolerating diet. No abd pain. no diarrhea. Objective: Vitals: (see below) General: No acute distress, laying comfortably in bed. HEENT: Moist mucous membranes. Neck: No JVD or lymphadenopathy Cardiac: RRR, No murmurs Pulm: Course crackles at the bases b/l R>L. No wheezing, rhonchi. No stridor or use of accessory muscles. Abd: NT/ND + BS. G tube clamped. Surgical nikita and clips Ext: No edema or cyanosis Labs (see below) Images: CT A/P FINDINGS: Limitations: Lack of intravenous contrast material limits evaluation of the vascular and visceral structures. Tubes, catheters and devices: Percutaneous gastrostomy tube. Lungs: Chest/lung findings are dictated separately. Liver: Slightly nodular hepatic contour. Gallbladder and bile ducts: Cholelithiasis. Abnormal gallbladder distension. Pancreas: Diffuse pancreatic parenchymal atrophy. Spleen: Normal. No splenomegaly. Adrenals: Normal. No mass. Kidneys and ureters: Mild right renal cortical scarring. Tiny nonobstructing right renal calyceal calculus. Left renal atrophy. Tiny nonobstructing left renal calyceal calculus. No obstructing calculus or hydronephrosis. Stomach and bowel: Mild colonic diverticulosis. No evidence of acute diverticulitis. Appendix: The appendix is not definitively identified. There are no secondary CT findings to suggest the presence of appendicitis. Intraperitoneal space: Mild ascites. Vasculature: Aortic endoluminal stent graft. Advanced atherosclerotic vascular calcifications. Fusiform aneurysm of the abdominal aorta, measuring up to 5.9 cm x 5.1 cm, unchanged. Vascular graft extending from the left external iliac artery to the SMA. Lymph nodes: Unremarkable. No enlarged lymph nodes. Bladder: Unremarkable as visualized. Reproductive: Unremarkable as visualized. Bones/joints: Degenerative change of the spine. Chronic severe T12 vertebral body compression fracture. Apparent postsurgical change of the lumbar spine. Bilateral hip joint DJD. Soft tissues: Ventral midline skin nikita. Right inguinal surgical clips. IMPRESSION: 1. Mild ascites. 2. Mild colonic diverticulosis. 3. Unchanged fusiform abdominal aortic aneurysm. 4. Bilateral nephrolithiasis. 5. Cholelithiasis. Abnormal gallbladder distension, which is most likely due to a fasting state. 6. Additional nonacute findings, as above. CT T/L spine IMPRESSION: 1. Subacute/chronic T12 compression fracture, similar to 09/22/2019 CT Chest IMPRESSION: 1. Small right-sided pneumothorax. 2. Right lower lobe pneumonia. 3. Small bilateral pleural effusions. 4. New nodular opacities in both lungs, measuring up to 9 mm. These are most likely infectious in nature, but follow-up according to Fleischner criteria is Assessment/Plan 1. HCAP - recently hospitalized at [facility]. Bld/Sputum cx. Vanco/zosyn. F/u cx. + sputum production. Wound cx noted; on Abx. 2. Leukocytosis increased - on vanc/zosyn. Afebrile. CT Chest/abd/pelvis today to r/o abscess/empyema. Discussed with Dr. Ortiz. 3. ?Small Pneumothorax; hemodynamically stable. On O2. Dr. Holley to eval; recc daily CXR as unlikely true pneumothorax. Repeat CXR 10/23 with no PTX. 4. Recent ex lap with arterial bypass to the SMA, and bowel resection for isc hemic colitis. s/p Gtube- appreciate Dr. Ortiz's input. Recc clamping g tube and advancing diet to regular; flush g tube periodically. 5. TRENT on CKD stage 3. resolved. Baseline Cr 1.3. - 2/2 above and dehydration from g tube outpt. d/c ivf 6. COPD stable 7. H/o CAD cont home meds 8. H/o AF - cont eliquis/amio. 9. H/o C. diff - vanco po 10. Unsteady gait with PT; deconditioning. CT t12 fx. Unable to get MRI 2/2 PPM. Ortho consulted recc conservative management and outpt f/u. 11. Chronic fusiform aneurysm of the abdominal aorta, measuring up to 5.9 cm x 5.1 cm- f/u with vascular surg outpt. Recent arterial bypass to the SMA. 12. Pleural effusions - lasix 40mg q8h. check echo. 13. Hypoglycemia - Resolved. 2/2 levemir, which has been d/c. maintain on SSI only for now. Given hypoglycemia, started on D5W with close monitoring of BS. DVT prophy:Eliquis PT eval: likely requiring rehab post d/c. Overall prognosis guarded given comorbidities. VS,Fishbone, I+O VS, Fishbone, I+O Laboratory Tests 10/28/19 05:09 Vital Signs Date Time Temp Pulse Resp B/P (MAP) Pulse Ox O2 Delivery O2 Flow Rate FiO2 10/28/19 09:59 20 Nasal Cannula 2.0 10/28/19 08:36 66 140/80 10/28/19 08:00 97.6 92 I&O- Last 24 Hours up to 6 AM 10/28/19 05:59 Intake Total 1042 ml Output Total 0 ml Balance 1042 ml SOFÍA MCELROY MD Oct 28, 2019 11:10
[2019-10-28 11:49] VITALS: BP 137/65
[2019-10-28 13:55] LABS: LDH LACTATE DEHYDROGENASE 277 U/L (87-241)
[2019-10-28] MEDS ORDERED: ONDANSETRON 4MG/2ML VIAL IV PRN (15:15)
[2019-10-28 16:00] VITALS: BP 112/54
[2019-10-28] MEDS: LIDOCAINE 5% (LIDODERM) PATCH TD SCH (17:54)
[2019-10-28 20:00] VITALS: BP 110/63
[2019-10-28] MEDS: ATORVASTATIN 20 MG TAB PO SCH (21:42)
[2019-10-28] MEDS: **NOTE PATIENT COMMENT** MISC XX SCH (21:43)
[2019-10-28] MEDS: LATANOPROST 0.005% OPHTH SOLN 2.5 ML OU SCH (21:43)
[2019-10-29] VITALS: BP 136/62
[2019-10-29] MEDS: VITAMIN D 1,000 INTERNATIONAL UNITS TABLET PO SCH ×4 (00:47→18:03)
[2019-10-29] MEDS: VANCOMYCIN ORAL SOL 250MG/5ML ORAL SYRINGE PO SCH ×4 (00:47→18:03)
[2019-10-29] MEDS: CEFEPIME HCL 2 GM in D5W MINI-BAG PLUS 50 ML IV SCH ×2 (03:13→14:15)
[2019-10-29 04:00] VITALS: BP 130/67
[2019-10-29 04:47] LABS: BASO # 0.1 10^3/uL (0.0-0.2); BASO % 0.4 % (0.0-1.0); EOS # 0.8 10^3/uL (0.0-0.5); EOS % 5.4 % (0.0-3.0); HEMATOCRIT 28.4 % (42.0-52.0); HEMOGLOBIN 8.4 g/dl (13.5-17.5); LYMPH # 1.6 10^3/uL (1.5-5.0); LYMPH % 10.5 % (24.0-44.0); MEAN CORPUSCULAR HEMOGLOBIN 26.2 pg (27.0-33.0); MEAN CORPUSCULAR HGB CONC 29.6 g/dl (32.0-36.5); MEAN CORPUSCULAR VOLUME 88.5 fl (80.0-96.0); MONO # 1.1 10^3/uL (0.0-0.8); MONO % 7.2 % (0.0-5.0); NEUTROPHILS % 74.6 % (36.0-66.0); PLATELET COUNT, AUTOMATED 376 10^3/uL (150-450); RED BLOOD COUNT 3.21 10^6/uL (4.30-6.10); WHITE BLOOD COUNT 14.8 10^3/uL (4.0-10.0)
[2019-10-29 05:20] LABS: ALT/SGPT 8 U/L (12-78); BILIRUBIN,TOTAL 0.5 MG/DL (0.2-1.0); BLOOD UREA NITROGEN 14 MG/DL (7-18); C REACTIVE PROTEIN QUANTITATIV 9.48 MG/DL (0.00-0.30); CALCIUM LEVEL 8.8 MG/DL (8.8-10.2); CARBON DIOXIDE LEVEL 30 MEQ/L (21-32); CHLORIDE LEVEL 104 MEQ/L (98-107); CREATININE FOR GFR 1.07 MG/DL (0.70-1.30); GLOMERULAR FILTRATION RATE > 60.0 (>42); GLUCOSE, FASTING 152 MG/DL (70-100); MAGNESIUM LEVEL 1.8 MG/DL (1.8-2.4); POTASSIUM SERUM 3.9 MEQ/L (3.5-5.1); SODIUM LEVEL 139 MEQ/L (136-145); TOTAL PROTEIN 5.9 GM/DL (6.4-8.2)
[2019-10-29 07:00] VITALS: BP 137/83
--- NOTE | 2019-10-29 10:11 | IPNPDOC ---
"Text Note Date of Service The patient was seen on 10/29/19. NOTE Subjective: M|Pt more oriented today. Cough is more productive.Denies any com plaints. Feels as if he wants to stop active medical management. Wants to hold off on Pigtail cath for pleural effusion, and will thinking about his goals of care today to rediscuss tomorrow. Objective: Vitals: (see below) General: No acute distress, laying comfortably in bed. HEENT: Moist mucous membranes. Neck: No JVD or lymphadenopathy Cardiac: RRR, No murmurs Pulm: Course crackles at the bases b/l R>L. No wheezing, rhonchi. No stridor or use of accessory muscles. Abd: NT/ND + BS. G tube clamped. Surgical nikita and clips Ext: No edema or cyanosis Labs (see below) Images: CT A/P FINDINGS: Limitations: Lack of intravenous contrast material limits evaluation of the vascular and visceral structures. Tubes, catheters and devices: Percutaneous gastrostomy tube. Lungs: Chest/lung findings are dictated separately. Liver: Slightly nodular hepatic contour. Gallbladder and bile ducts: Cholelithiasis. Abnormal gallbladder distension. Pancreas: Diffuse pancreatic parenchymal atrophy. Spleen: Normal. No splenomegaly. Adrenals: Normal. No mass. Kidneys and ureters: Mild right renal cortical scarring. Tiny nonobstructing right renal calyceal calculus. Left renal atrophy. Tiny nonobstructing left renal calyceal calculus. No obstructing calculus or hydronephrosis. Stomach and bowel: Mild colonic diverticulosis. No evidence of acute diverticulitis. Appendix: The appendix is not definitively identified. There are no secondary CT findings to suggest the presence of appendicitis. Intraperitoneal space: Mild ascites. Vasculature: Aortic endoluminal stent graft. Advanced atherosclerotic vascular calcifications. Fusiform aneurysm of the abdominal aorta, measuring up to 5.9 cm x 5.1 cm, unchanged. Vascular graft extending from the left external iliac artery to the SMA. Lymph nodes: Unremarkable. No enlarged lymph nodes. Bladder: Unremarkable as visualized. Reproductive: Unremarkable as visualized. Bones/joints: Degenerative change of the spine. Chronic severe T12 vertebral body compression fracture. Apparent postsurgical change of the lumbar spine. Bilateral hip joint DJD. Soft tissues: Ventral midline skin nikita. Right inguinal surgical clips. IMPRESSION: 1. Mild ascites. 2. Mild colonic diverticulosis. 3. Unchanged fusiform abdominal aortic aneurysm. 4. Bilateral nephrolithiasis. 5. Cholelithiasis. Abnormal gallbladder distension, which is most likely due to a fasting state. 6. Additional nonacute findings, as above. CT T/L spine IMPRESSION: 1. Subacute/chronic T12 compression fracture, similar to 09/22/2019 CT Chest IMPRESSION: 1. Small right-sided pneumothorax. 2. Right lower lobe pneumonia. 3. Small bilateral pleural effusions. 4. New nodular opacities in both lungs, measuring up to 9 mm. These are most likely infectious in nature, but follow-up according to Fleischner criteria is Assessment/Plan 1. HCAP - recently hospitalized at [facility]. Bld/Sputum cx. Vanco/zosyn. F/u cx. + sputum production. Wound cx noted - Dr. Ortiz notes expected given source of cx; on Abx. Sputum cx pending 2. Leukocytosis increased - on vanc/zosyn. Afebrile. CT Chest with likely parapneumonic effusion; Dr. Holley recc pigtail cath. Pt would like to hold off on this today. 3. ?Small Pneumothorax; hemodynamically stable. On O2. Dr. Holley to eval; recc daily CXR as unlikely true pneumothorax. Repeat CXR 10/23 with no PTX. 4. Recent ex lap with arterial bypass to the SMA, and bowel resection for ischemic colitis. s/p Gtube- appreciate Dr. Ortiz's input. Recc clamping g tube and advancing diet to regular; flush g tube periodically. 5. TRENT on CKD stage 3. resolved. Baseline Cr 1.3. - 2/2 above and dehydration from g tube outpt. d/c ivf 6. COPD stable 7. H/o CAD cont home meds 8. H/o AF - cont eliquis/amio. 9. H/o C. diff - vanco po. No diarrhea. 10. Unsteady gait with PT; deconditioning. CT t12 fx. Unable to get MRI 2/2 PPM. Ortho consulted recc conservative management and outpt f/u. 11. Chronic fusiform aneurysm of the abdominal aorta, measuring up to 5.9 cm x 5.1 cm- f/u with vascular surg outpt. Recent arterial bypass to the SMA. 12. Pleural effusions - lasix 40mg q8h. check echo. 13. Hypoglycemia - Resolved. 2/2 levemir, which has been d/c. maintain on SSI only for now. Given hypoglycemia, started on D5W with close monitoring of BS. DVT prophy:Meka PT eval: likely requiring rehab post d/c. Overall prognosis guarded given comorbidities. Pt would like to think of goals of care today; may want to change his code status and possible comfort care tomorrow. VS,Fishbone, I+O VS, Fishbone, I+O Laboratory Tests 10/29/19 04:08 Vital Signs Date Time Temp Pulse Resp B/P (MAP) Pulse Ox O2 Delivery O2 Flow Rate FiO2 10/29/19 04:00 98.2 63 18 130/67 (88) 94 Nasal Cannula 2.0 I&O- Last 24 Hours up to 6 AM 10/29/19 06:00 Intake Total 1090 ml Output Total 2800 ml Balance -1710 ml SOFÍA MCELROY MD Oct 29, 2019 10:11"
[2019-10-29] MEDS: HumaLOG INSULIN (NovoLOG) PER UNIT SC SCH ×4 (10:53→21:00)
[2019-10-29] MEDS: SINEMET 25-100 MG TAB PO SCH ×4 (10:53→21:51)
[2019-10-29] MEDS: FUROSEMIDE 40MG/4ML VIAL (J1940) IV SCH (10:56)
[2019-10-29] MEDS: AMIODARONE 200 MG TAB (PACERONE) PO SCH (10:57)
[2019-10-29] MEDS: DULoxetine 20 MG CAP (CYMBALTA) PO SCH (10:58)
[2019-10-29] MEDS: METOPROLOL TARTRATE 100 MG TAB PO SCH ×2 (10:58→21:50)
[2019-10-29] MEDS: guaiFENesin ER 600 MG TAB PO SCH ×2 (11:00→21:51)
[2019-10-29] MEDS: PANTOPRAZOLE 40MG TAB (PROTONIX) PO SCH (11:00)
[2019-10-29] MEDS: oxyCODONE 10 MG CR TAB PO SCH ×2 (11:00→21:50)
[2019-10-29] MEDS: LACTOBACILLUS ACIDOPHILUS CAP (BACID) PO SCH ×3 (11:01→18:03)
[2019-10-29] MEDS: ASPIRIN 81 MG ENTERIC TAB PO SCH (11:01)
[2019-10-29] MEDS: SANTYL OINT 30GM TOP SCH (11:02)
[2019-10-29] MEDS: LIDOCAINE 5% (LIDODERM) PATCH TD SCH (11:07)
[2019-10-29 12:00] VITALS: BP 141/63
[2019-10-29] MEDS ORDERED: VANCOMYCIN HCL 1,000 MG, VIAL MATE ADAPTER 1 EACH in D5W 250 ML IV SCH (14:00)
[2019-10-29 16:00] VITALS: BP 156/73
[2019-10-29] MEDS: APIXABAN 5 MG TAB (ELIQUIS) PO SCH (19:25)
[2019-10-29 20:00] VITALS: BP 138/76
[2019-10-29] MEDS: ATORVASTATIN 20 MG TAB PO SCH (21:50)
[2019-10-29] MEDS: LATANOPROST 0.005% OPHTH SOLN 2.5 ML OU SCH (21:51)
[2019-10-29] MEDS: **NOTE PATIENT COMMENT** MISC XX SCH (21:51)
[2019-10-30] VITALS: BP 160/65
[2019-10-30] MEDS: VITAMIN D 1,000 INTERNATIONAL UNITS TABLET PO SCH ×4 (00:32→18:07)
[2019-10-30] MEDS: VANCOMYCIN ORAL SOL 250MG/5ML ORAL SYRINGE PO SCH (00:32)
[2019-10-30] MEDS: CEFEPIME HCL 2 GM in D5W MINI-BAG PLUS 50 ML IV SCH ×2 (03:15→15:23)
[2019-10-30 04:00] VITALS: BP 144/65
[2019-10-30 06:29] LABS: BASO # 0.1 10^3/uL (0.0-0.2); BASO % 0.5 % (0.0-1.0); EOS # 0.7 10^3/uL (0.0-0.5); EOS % 4.5 % (0.0-3.0); HEMATOCRIT 27.8 % (42.0-52.0); HEMOGLOBIN 8.3 g/dl (13.5-17.5); LYMPH # 1.5 10^3/uL (1.5-5.0); LYMPH % 9.9 % (24.0-44.0); MEAN CORPUSCULAR HEMOGLOBIN 26.4 pg (27.0-33.0); MEAN CORPUSCULAR HGB CONC 29.9 g/dl (32.0-36.5); MEAN CORPUSCULAR VOLUME 88.5 fl (80.0-96.0); MONO # 1.1 10^3/uL (0.0-0.8); MONO % 7.3 % (0.0-5.0); NEUTROPHILS # 11.2 10^3/uL (1.5-8.5); NEUTROPHILS % 75.4 % (36.0-66.0); PLATELET COUNT, AUTOMATED 360 10^3/uL (150-450); RED BLOOD COUNT 3.14 10^6/uL (4.30-6.10); WHITE BLOOD COUNT 14.8 10^3/uL (4.0-10.0)
[2019-10-30 06:50] LABS: ALT/SGPT 7 U/L (12-78); BILIRUBIN,TOTAL 0.5 MG/DL (0.2-1.0); BLOOD UREA NITROGEN 14 MG/DL (7-18); C REACTIVE PROTEIN QUANTITATIV 6.54 MG/DL (0.00-0.30); CALCIUM LEVEL 8.7 MG/DL (8.8-10.2); CARBON DIOXIDE LEVEL 28 MEQ/L (21-32); CHLORIDE LEVEL 105 MEQ/L (98-107); CREATININE FOR GFR 0.98 MG/DL (0.70-1.30); GLOMERULAR FILTRATION RATE > 60.0 (>42); GLUCOSE, FASTING 149 MG/DL (70-100); MAGNESIUM LEVEL 1.9 MG/DL (1.8-2.4); POTASSIUM SERUM 3.9 MEQ/L (3.5-5.1); SODIUM LEVEL 141 MEQ/L (136-145); TOTAL PROTEIN 5.9 GM/DL (6.4-8.2)
[2019-10-30] MEDS ORDERED: MOXI1TAB PO (09:40)
[2019-10-30] MEDS ORDERED: BACT800T5 PO (09:41)
[2019-10-30] MEDS ORDERED: HYOS125TA PO (09:42)
[2019-10-30] MEDS ORDERED: ATIV1TAB10 PO (09:42)
[2019-10-30] MEDS ORDERED: MORP20SO3 PO (09:42)
--- NOTE | 2019-10-30 11:16 | IPNPDOC ---
Date Seen The patient was seen on 10/30/19. Progress Note PROGRESS NOTE DICTATED ADDENDUM: Pt has requested DNR, DNI, [employer]. Daughter, Lupe, , refuses to take him into her house. Patient refuses further tests, but agrees with continuing antibiotics. Plan: -PFS consulted for Hospice referral and placement. VS, I&O, 24H, Fishbone Vital Signs/I&O Vital Signs Date Time Temp Pulse Resp B/P (MAP) Pulse Ox O2 Delivery O2 Flow Rate FiO2 10/30/19 04:00 97.4 64 17 144/65 (91) 97 Nasal Cannula 2.0 I&O- Last 24 Hours up to 6 AM 10/30/19 05:59 Intake Total 770 ml Output Total 0 ml Balance 770 ml Laboratory Data 24H LABS Laboratory Tests 2 10/30/19 04:51: Immature Granulocyte % (Auto) 2.4, Neutrophils (%) (Auto) 75.4H, Lymphocytes (%) (Auto) 9.9L, Monocytes (%) (Auto) 7.3H, Eosinophils (%) (Auto) 4.5H, Basophils (%) (Auto) 0.5, Neutrophils # (Auto) 11.2H, Lymphocytes # (Auto) 1.5, Monocytes # (Auto) 1.1H, Eosinophils # (Auto) 0.7H, Basophils # (Auto) 0.1, Nucleated Red Blood Cells % (auto) 0.0, Anion Gap 8, Glomerular Filtration Rate > 60.0, Calcium Level 8.7L, Magnesium Level 1.9, Total Bilirubin 0.5, Aspartate Amino Transf (AST/SGOT) 16, Alanine Aminotransferase (ALT/SGPT) 7L, Alkaline Phosphatase 105, C-Reactive Protein, Quantitative 6.54H, Total Protein 5.9L, Albumin 2.0L, Albumin/Globulin Ratio 0.5 CBC/BMP Laboratory Tests 10/30/19 04:51 Microbiology Microbiology 10/27/19 Gram Stain - Final, Complete 10/27/19 Sputum Culture - Final, Complete Yeast Like Organism 10/26/19 Gastrointestinal Tract Panel (PCR) - Final, Complete 10/23/19 Gram Stain - Final, Complete 10/23/19 Wound Culture - Final, Complete Enterobacter Cloacae Complex Klebsiella Pneumoniae Staph.aureus Methicillin Resis 10/23/19 Stool Occult Blood (ALEXA) - Final, Complete 10/23/19 Blood Culture - Final, Complete NO GROWTH AFTER 5 DAYS 10/23/19 Blood Culture - Final, Complete NO GROWTH AFTER 5 DAYS DANIEL SAVAGE MD Oct 30, 2019 11:16
[2019-10-30 12:00] VITALS: BP 122/62
[2019-10-30] MEDS: LACTOBACILLUS ACIDOPHILUS CAP (BACID) PO SCH ×3 (12:30→18:05)
[2019-10-30] MEDS: SINEMET 25-100 MG TAB PO SCH ×4 (13:00→21:54)
[2019-10-30] MEDS: DULoxetine 20 MG CAP (CYMBALTA) PO SCH (13:10)
[2019-10-30] MEDS: PANTOPRAZOLE 40MG TAB (PROTONIX) PO SCH (13:11)
[2019-10-30] MEDS: AMIODARONE 200 MG TAB (PACERONE) PO SCH (13:12)
[2019-10-30] MEDS: METOPROLOL TARTRATE 100 MG TAB PO SCH ×2 (13:12→21:55)
[2019-10-30] MEDS: guaiFENesin ER 600 MG TAB PO SCH ×2 (13:13→21:55)
[2019-10-30] MEDS: oxyCODONE 10 MG CR TAB PO SCH ×2 (13:14→21:54)
[2019-10-30] MEDS: BACTRIM 160MG/800MG DS TAB PO SCH ×2 (13:15→21:55)
[2019-10-30] MEDS: FUROSEMIDE 40MG/4ML VIAL (J1940) IV SCH (13:16)
[2019-10-30] MEDS: SANTYL OINT 30GM TOP SCH (13:16)
[2019-10-30] MEDS: ASPIRIN 81 MG ENTERIC TAB PO SCH (13:17)
[2019-10-30] MEDS: APIXABAN 5 MG TAB (ELIQUIS) PO SCH ×2 (13:17→21:55)
[2019-10-30] MEDS: LIDOCAINE 5% (LIDODERM) PATCH TD SCH (13:17)
[2019-10-30] MEDS: HumaLOG INSULIN (NovoLOG) PER UNIT SC SCH ×3 (13:34→21:00)
[2019-10-30 15:30] VITALS: BP 142/65
[2019-10-30] MEDS ORDERED: LIDOCAINE 1% MDV 20ML VIAL As Ordered ONE (16:10)
[2019-10-30 17:30] LABS: PH BODY FLUID 7.551 UNITS (NOT ESTABLISHED); SOURCE, BODY FLUID pH PLEURAL
[2019-10-30 17:49] LABS: SOURCE, BODY FLUID PLEURAL
[2019-10-30 17:50] LABS: APPEARANCE, BODY FLUID CLOUDY (CLEAR); PLEURAL FL COLOR YELLOW (COLORLESS)
[2019-10-30 17:51] LABS: AMYLASE, BODY FLUID 8 U/L (NOT ESTABLISHED); LDH, BODY FLUID 318 U/L (NOT ESTABLISHED); SOURCE, BODY FLUID AMYLASE PLEURAL; SOURCE, BODY FLUID GLUCOSE PLEURAL; SOURCE, BODY FLUID LDH PLEURAL; SOURCE, BODY FLUID TOT PROTEIN PLEURAL; TOTAL PROTEIN, BODY FLUID 2.5 G/DL (NOT ESTABLISHED)
[2019-10-30 18:44] LABS: INR 1.44; PROTHROMBIN TIME 17.9 SECONDS (11.8-14.0)
[2019-10-30 20:00] VITALS: BP 129/57
[2019-10-30] MEDS: LATANOPROST 0.005% OPHTH SOLN 2.5 ML OU SCH (21:53)
[2019-10-30] MEDS: ATORVASTATIN 20 MG TAB PO SCH (21:54)
[2019-10-30] MEDS: **NOTE PATIENT COMMENT** MISC XX SCH (21:55)
[2019-10-31] VITALS: BP 148/68
[2019-10-31] MEDS: VITAMIN D 1,000 INTERNATIONAL UNITS TABLET PO SCH ×4 (00:08→17:03)
[2019-10-31 04:00] VITALS: BP 126/65
[2019-10-31] MEDS: CEFEPIME HCL 2 GM in D5W MINI-BAG PLUS 50 ML IV SCH (04:07)
[2019-10-31 05:51] LABS: BASO # 0.1 10^3/uL (0.0-0.2); BASO % 0.6 % (0.0-1.0); EOS # 0.9 10^3/uL (0.0-0.5); EOS % 6.2 % (0.0-3.0); HEMATOCRIT 30.8 % (42.0-52.0); LYMPH # 1.7 10^3/uL (1.5-5.0); LYMPH % 11.5 % (24.0-44.0); MEAN CORPUSCULAR HGB CONC 29.2 g/dl (32.0-36.5); MONO % 6.9 % (0.0-5.0); NEUTROPHILS # 10.5 10^3/uL (1.5-8.5); NEUTROPHILS % 72.4 % (36.0-66.0); PLATELET COUNT, AUTOMATED 363 10^3/uL (150-450); RED BLOOD COUNT 3.46 10^6/uL (4.30-6.10); WHITE BLOOD COUNT 14.4 10^3/uL (4.0-10.0)
[2019-10-31 06:20] LABS: BLOOD UREA NITROGEN 17 MG/DL (7-18); CALCIUM LEVEL 8.9 MG/DL (8.8-10.2); CARBON DIOXIDE LEVEL 30 MEQ/L (21-32); CHLORIDE LEVEL 104 MEQ/L (98-107); CREATININE FOR GFR 1.06 MG/DL (0.70-1.30); GLOMERULAR FILTRATION RATE > 60.0 (>42); GLUCOSE, FASTING 148 MG/DL (70-100); POTASSIUM SERUM 3.8 MEQ/L (3.5-5.1); SODIUM LEVEL 141 MEQ/L (136-145)
[2019-10-31] MEDS: HumaLOG INSULIN (NovoLOG) PER UNIT SC SCH ×5 (07:30→21:00)
--- NOTE | 2019-10-31 07:50 | CR ---
DATE OF CONSULTATION: 10/23/2019 REASON FOR CONSULTATION: Abdominal pain. HISTORY OF PRESENT ILLNESS: Patient is a 79-year-old male who presented to [facility] on the evening of 10/22/2019 due to abdominal pains. He was found to have Clostridium (C) difficile colitis there and was transferred over here. This morning, he is complaining of abdominal pain but it is much improved from yesterday. He was recently discharged from [facility] about 4 days ago after having surgery to his belly. He is uncertain of exactly what surgery he had, he feels like he had a couple procedures and he also has a gastrostomy (G) tube placed. He was discharged home. He denies having any home health care, any assistance at home. His dressings that are on currently are the same ones that look like they have been there for a week. He has a G tube that is connected to drainage and he has been on a regular diet this entire time which has resulted in renal failure and dehydration. Since he is unable to give me much more history on why he was discharged and what he had done, we will have to obtain his records from [facility]. With that aside, he feels much better this morning. He claims that he was eating when he went home, had no problems with nausea or vomiting, no fevers or chills, no problems with his bowel movements, he has just had some increased abdominal pains. PAST MEDICAL HISTORY: Hypertension, coronary artery disease, atrial fibrillation, abdominal aortic aneurysm, ischemic colitis, pneumonia, chronic obstructive pulmonary disease (COPD), chronic kidney disease, Parkinsons. PAST SURGICAL HISTORY: He has had at least two operations for bowel resection for ischemic bowel. Further history will be obtained once we get his records from [facility]. ALLERGIES: None. HOME MEDICATIONS: Please see medication reconciliation. SOCIAL HISTORY: Denies drug, alcohol, or tobacco abuse. FAMILY HISTORY: Noncontributory. REVIEW OF SYSTEMS: Pertinent positives and negatives as stated in history of present illness (HPI). PHYSICAL EXAMINATION: General: Patient is awake and alert, oriented times three, however he is not a very good historian. Vital signs: Temperature 98.2, pulse 66, respirations 17, blood pressure 124/81, pulse oximetry 94% on 2 liters nasal cannula. HEENT: Pupils equally round and reactive to light and accommodation. Heart: S1, S2, regular rate and rhythm. Lungs: Clear to auscultation bilaterally. Abdomen: Soft, nontender, nondistended. There is a G tube in the left upper quadrant with very soiled dressing, midline incision with nikita in place as well as some retention sutures. No signs of any infection. Extremities: No clubbing, cyanosis, or edema. LABORATORIES: White count 15.4, hemoglobin 8.2, platelets 483, potassium 5, creatinine 2.11, BNP 4720, albumin 2.1. ASSESSMENT AND PLAN: Patient is a 79-year-old male currently being treated for Clostridium (C) difficile, acute renal failure on chronic kidney disease. He is denying any current abdominal pains. When he was transferred from [facility] to here he did have a CT scan done that did show no signs of any obstruction or free air in the abdomen. At this point, I do not have any concerns for small bowel obstructions or C. difficile colitis. Recommendation is to obtain the rest of his records from [facility] so we can see exactly what type of surgery he has had done. There is no reason for him to have a gastrostomy (G) tube set to gravity as well as being on a regular diet. I will place him on clear liquid diet for now and clamp the G tube until we have a better understanding as to why it is there and what they expected him to do for it upon discharge. Once we get those records back, we will be able to make some adjustments. LORRIE
--- NOTE | 2019-10-31 07:59 | REPVR ---
PROCEDURE INFORMATION: Exam: XR Chest, 2 Views Exam date and time: 10/31/2019 6:00 AM Age: 79 years old Clinical indication: Device placement; Chest tube; Additional info: S/P right pigtail/ parapneumonic effusion rll TECHNIQUE: Imaging protocol: XR of the chest Views: 2 views. COMPARISON: CR Chest, 2 view PA, Lat 10/30/2019 12:39 PM FINDINGS: Tubes, catheters and devices: Left chest AICD. Pigtail catheter projects over the right base. Lungs: Bilateral perihilar bibasilar ground-glass and reticulonodular opacities. Pleural space: Unremarkable. No pleural effusion. No pneumothorax. Heart/Mediastinum: Unremarkable. No cardiomegaly. Vasculature: Atherosclerotic disease of the thoracic aorta. Bones/joints: Degenerative changes in bilateral acromioclavicular joints. Multilevel degenerative disease the thoracic spine. Mild anterior wedge compression deformity several lower thoracic vertebra. IMPRESSION: Pigtail catheter projects over the right base. Previously seen small right pleural effusion has resolved. No other significant interval change. Electronically signed by: Jay Beck On 10/31/2019 07:59:02 AM
[2019-10-31 08:00] VITALS: BP 136/63
--- NOTE | 2019-10-31 08:43 | IPN ---
DATE: 10/30/2019 SUBJECTIVE: The patient complains of slight abdominal discomfort around the surgical site without any drainage, fever or chills. No nausea or vomiting this morning. He rated it as a 3/10, constant but tolerable. Patient requested to go home today and did not want resuscitation or pigtail catheter placement. He did not want to be resuscitated or intubated. Patient was encouraged to speak with his daughter, Lupe, phone #[phone]. After family conversation and signing of the comfort measures, do not send to the hospital, DNR/DNI, the patient has changed his mind and now wants a pigtail catheter placement and full code, therefore his code status has been changed and ultrasound guided pigtail catheter placement has been ordered. PHYSICAL EXAMINATION: VITAL SIGNS: Temperature 97.4, pulse 64, respiratory rate 17, blood pressure 122/62, 96% on 2 liters nasal cannula. GENERAL: The patient is awake, alert and oriented to himself. He answers questions appropriately. No respiratory distress or use of respiratory accessory muscles. NECK: No JVD or thyromegaly, or cervical lymphadenopathy. LUNGS: Diminished at bilateral bases. No wheezing or rales. HEART: S1 and S2, sinus rhythm, no murmurs, rubs or gallops. ABDOMEN: Soft, slightly tender, multiple nikita still in place, G-tube is clamped. Positive bowel sounds in all four quadrants. EXTREMITIES: No cyanosis, clubbing or pitting edema. LABORATORY DATA: White count is 14.8, hemoglobin 8.3, hematocrit 27, platelet count 360,000, sodium 141, potassium 3.9, chloride 105, bicarbonate 28, BUN 14, creatinine 0.98, glucose of 149, CRP is 6.54. Vancomycin trough is 20.1, MRSA is detected. Abdominal skin wound culture Enterobacter, Klebsiella, MRSA of all of which is sensitive to Bactrim. Vancomycin has been discontinued. IMAGING STUDIES: CT of abdomen and pelvis: Mild ascites, mild colonic diverticulosis, unchanged fusiform abdominal aortic aneurysm, bilateral nephrolithiasis, cholelithiasis with abnormal gastric bladder distention which is most likely due to fasting state, non-acute findings. A CT thoracolumbar spine: Subacute chronic T12 compression fractures similar to 09/22/2019. CT of the chest: Small right sided pneumothorax, right lower lobe pneumonia, small bilateral pleural effusions, new nodular opacities in both lungs measuring up to 9 mm, most likely infectious. ASSESSMENT AND PLAN: 1. Health care associated pneumonia in the right lower lobe with possible parapneumonic effusion, currently on broad-spectrum with Zosyn. Vancomycin has been discontinued and currently on Bactrim. Patient had culture results sent. Blood cultures remain negative. Patient remains afebrile with decreasing white count. Pigtail catheter ordered, ultrasound guided, check PT/INR, currently on Eliquis, may need to hold that and aspirin prior to patients pigtail catheter placement. 2. Ischemic colitis, on chronic Eliquis and aspirin, status post resection, currently with a G-tube placed. No new findings on CT of abdomen and pelvis. Continue on anticoagulation. 3. Small pneumothorax. Seen by Dr. Holley, recommend daily chest x-ray, repeat x-rays had no pneumothorax. 4. Acute on chronic renal failure, Stage III, currently at baseline creatinine, status post IV fluids, back to baseline. 5. History of A-fib on chronic Eliquis, sinus rhythm currently on amiodarone. 6. History of CAD, continued on home medications. 7. Unsteady gait, not cleared by Physical Therapy. 8. Chronic abdominal aortic aneurysm, patient to follow-up with Vascular Surgery. 9. Pleural effusions, question parapneumonic effusion, repeat the chest x-ray. Pigtail catheter per recommendation by Dr. Holley for possible parapneumonic effusion, check pleural fluid for culture and sensitivity. Bacterial cultures. 10. Postop skin infection with Enterobacter, Klebsiella and MRSA. Change to Bactrim, discontinue Vancomycin and continue with Cefepime. 11. MRSA positive on Bactrim. [facility]
[2019-10-31] MEDS: LIDOCAINE 5% (LIDODERM) PATCH TD SCH (09:00)
[2019-10-31] MEDS: oxyCODONE 10 MG CR TAB PO SCH ×2 (09:00→21:48)
[2019-10-31] MEDS: PANTOPRAZOLE 40MG TAB (PROTONIX) PO SCH (09:37)
[2019-10-31] MEDS: guaiFENesin ER 600 MG TAB PO SCH ×2 (09:37→21:48)
[2019-10-31] MEDS: APIXABAN 5 MG TAB (ELIQUIS) PO SCH ×2 (09:37→21:48)
[2019-10-31] MEDS: ASPIRIN 81 MG ENTERIC TAB PO SCH (09:37)
[2019-10-31] MEDS: LACTOBACILLUS ACIDOPHILUS CAP (BACID) PO SCH ×3 (09:37→17:03)
[2019-10-31 09:38] VITALS: BP 136/63
[2019-10-31] MEDS: BACTRIM 160MG/800MG DS TAB PO SCH ×2 (09:38→21:47)
[2019-10-31] MEDS: DULoxetine 20 MG CAP (CYMBALTA) PO SCH (09:38)
[2019-10-31] MEDS: SINEMET 25-100 MG TAB PO SCH ×4 (09:38→21:48)
[2019-10-31] MEDS: AMIODARONE 200 MG TAB (PACERONE) PO SCH (09:38)
[2019-10-31] MEDS: METOPROLOL TARTRATE 100 MG TAB PO SCH ×2 (09:38→21:47)
[2019-10-31] MEDS: FUROSEMIDE 40MG/4ML VIAL (J1940) IV SCH ×2 (09:39→15:37)
[2019-10-31] MEDS: SANTYL OINT 30GM TOP SCH (09:48)
[2019-10-31 16:00] VITALS: BP 149/62
[2019-10-31] MEDS ORDERED: cefTRIAXone SOD 2 GM in D5W MINI-BAG PLUS 50 ML IV SCH (16:00)
[2019-10-31 20:00] VITALS: BP 149/62
[2019-10-31] MEDS: ATORVASTATIN 20 MG TAB PO SCH (21:47)
[2019-10-31] MEDS: **NOTE PATIENT COMMENT** MISC XX SCH (21:49)
[2019-10-31] MEDS: LATANOPROST 0.005% OPHTH SOLN 2.5 ML OU SCH (21:49)
[2019-11-01] VITALS: BP 172/70
[2019-11-01] MEDS: VITAMIN D 1,000 INTERNATIONAL UNITS TABLET PO SCH ×3 (00:13→12:00)
[2019-11-01 04:00] VITALS: BP 128/59
[2019-11-01 06:04] LABS: BASO # 0.1 10^3/uL (0.0-0.2); BASO % 0.6 % (0.0-1.0); EOS # 1.1 10^3/uL (0.0-0.5); EOS % 7.3 % (0.0-3.0); HEMATOCRIT 29.5 % (42.0-52.0); LYMPH # 2.1 10^3/uL (1.5-5.0); LYMPH % 13.8 % (24.0-44.0); MEAN CORPUSCULAR HEMOGLOBIN 26.9 pg (27.0-33.0); MEAN CORPUSCULAR HGB CONC 30.5 g/dl (32.0-36.5); MEAN CORPUSCULAR VOLUME 88.1 fl (80.0-96.0); MONO # 1.4 10^3/uL (0.0-0.8); MONO % 9.3 % (0.0-5.0); NEUTROPHILS # 10.3 10^3/uL (1.5-8.5); NEUTROPHILS % 67.3 % (36.0-66.0); PLATELET COUNT, AUTOMATED 340 10^3/uL (150-450); RED BLOOD COUNT 3.35 10^6/uL (4.30-6.10); WHITE BLOOD COUNT 15.2 10^3/uL (4.0-10.0)
[2019-11-01 06:31] LABS: BLOOD UREA NITROGEN 16 MG/DL (7-18); CALCIUM LEVEL 8.9 MG/DL (8.8-10.2); CARBON DIOXIDE LEVEL 31 MEQ/L (21-32); CHLORIDE LEVEL 101 MEQ/L (98-107); CREATININE FOR GFR 1.16 MG/DL (0.70-1.30); GLOMERULAR FILTRATION RATE > 60.0 (>42); GLUCOSE, FASTING 161 MG/DL (70-100); POTASSIUM SERUM 3.8 MEQ/L (3.5-5.1); SODIUM LEVEL 138 MEQ/L (136-145)
[2019-11-01 08:00] VITALS: BP 128/60
[2019-11-01] MEDS: LACTOBACILLUS ACIDOPHILUS CAP (BACID) PO SCH ×2 (08:00→12:04)
--- NOTE | 2019-11-01 08:20 | REPVR ---
PROCEDURE INFORMATION: Exam: XR Chest, 2 Views Exam date and time: 11/01/2019 7:58 AM Age: 79 years old Clinical indication: Condition or disease; Other: Chest tube; Additional info: S/P right pigtail/ parapneumonic effusion rll TECHNIQUE: Imaging protocol: XR of the chest Views: 2 views. COMPARISON: CR Chest, 2 view PA, Lat 10/31/2019 7:43 AM FINDINGS: Tubes, catheters and devices: Cardiac device overlies the left chest with single intracardiac lead tip extending to the RV. Lungs: Interstitial parenchymal opacities of lower lungs are similar. Interstitial thickening or scarring lateral right upper lobe. Pleural space: Unremarkable. No pleural effusion. No pneumothorax. Heart/Mediastinum: Cardiomegaly. Vasculature: Tortuous thoracic aorta. Bones/joints: Degenerative change of the spine. Mild wedge configuration of lower thoracic vertebrae. Soft tissues: Posterior pigtail pleural drain right chest. Other findings: No overt edema. IMPRESSION: 1. Similar bilateral lower lung and right upper lobe parenchymal opacities. 2. Similar position of pigtail right pleural drain. Electronically signed by: Danyell Ordonez On 11/01/2019 08:20:02 AM
[2019-11-01] MEDS: FUROSEMIDE 40MG/4ML VIAL (J1940) IV SCH (09:00)
[2019-11-01] MEDS: AMIODARONE 200 MG TAB (PACERONE) PO SCH (09:00)
[2019-11-01] MEDS: BACTRIM 160MG/800MG DS TAB PO SCH (09:00)
[2019-11-01] MEDS: LIDOCAINE 5% (LIDODERM) PATCH TD SCH (09:00)
[2019-11-01] MEDS: METOPROLOL TARTRATE 100 MG TAB PO SCH (09:00)
[2019-11-01] MEDS: ASPIRIN 81 MG ENTERIC TAB PO SCH (09:00)
[2019-11-01] MEDS: DULoxetine 20 MG CAP (CYMBALTA) PO SCH (09:00)
[2019-11-01] MEDS: oxyCODONE 10 MG CR TAB PO SCH (09:00)
[2019-11-01] MEDS: PANTOPRAZOLE 40MG TAB (PROTONIX) PO SCH (09:00)
[2019-11-01] MEDS: SANTYL OINT 30GM TOP SCH (09:00)
[2019-11-01] MEDS: SINEMET 25-100 MG TAB PO SCH ×2 (09:00→12:04)
[2019-11-01] MEDS: APIXABAN 5 MG TAB (ELIQUIS) PO SCH (09:00)
[2019-11-01] MEDS: guaiFENesin ER 600 MG TAB PO SCH (09:00)
[2019-11-01] MEDS: HumaLOG INSULIN (NovoLOG) PER UNIT SC SCH ×2 (09:29→12:00)
--- NOTE | 2019-11-01 09:58 | IPN ---
DATE: 10/31/2019 SUBJECTIVE: Mr. Valiente went down for his pigtail catheter placement yesterday. By report about 180 mL were removed. I will discuss the analysis below. Today he is fairly uncooperative. I have asked him to sit up so I can listen to him and he is very reticent to do so. Upon trying to help him up with the nursing staff, he accuses me of trying to force him. I therefore was not able to listen to his posterior chest. His vital signs show a maximum temperature (T-max) of 97.6 with a heart rate that ranges between 62 and 70. Respiratory rate is 16-20 without use of accessory muscles and he is 95-97% saturated on 2 liters nasal cannula. His blood pressure is ranging between 148/68 to 126/65. His intake and output the past 24 hours was recorded as 970 in and 180 out for positive 610 mL. He had 180 mL out yesterday and none today. He weighs 88.7 kg today compared to 96.7 kg yesterday. PHYSICAL EXAMINATION: I hear crackles in the lower hemithorax when he is supine. As noted above he will not sit up for me. Cardiac exam is without murmurs, clicks, gallops or rubs. I cannot feel his PMI. S1, S2 are normal. Abdomen is soft and nontender. Bowel sounds are positive. Extremities show trace pretibial edema. No calf tenderness. No differential swelling of the upper extremities. Skin is warm, dry, and perfused without cyanosis or mottling including that of the nail beds and knees. Neck supple. There is no jugular venous distention. No subcutaneous emphysema. Trachea is midline. Mouth shows her mucous membranes to be pink and moist. Lips and gums with no lesions and no thrush. Eyes showed pupils to be equal and reactive. Extraocular movements intact. Sclerae are nonicteric. Neurologic shows II-XII intact. Normal gross motor, gross sensation intact. Gait is not tested. Nurses tell me that physical therapy worked with him this morning from bed to the wheelchair. His white count today is 14.4 with a hemoglobin and hematocrit of 9.0 and 30.8 respectively. Platelet count is 363. Differential shows 72% neutrophils, 11% lymphocytes and 60% monocytes. There are no immature forms, no toxic granulations. Chemistries today show an essentially normal electrolytes with a BUN and creatinine of 17 and 1.06. Glucose is 148 with a potassium of 8.9. His pleural fluid came back with a pH of 7.55 with a glucose of 144 and LDH of 318 with a serum LDH of 277. His white count is 8,331 of which 36% are mononuclear lymphocytes and 63% are neutrophils. This therefore looks like a neutrophilic exudative peripneumonic effusion. His microbiology is still pending as is the pathology. His chest x-ray is improved today with a pigtail catheter in good place and the right costophrenic angle clear. He still looks to have a diffuse haze in the right lower hemithorax consistent with his prior pneumonia and consolidation. IMPRESSION: 1. Peripneumonic effusion. 2. Pneumothorax, resolved. 3. History of atrial fibrillation on Eliquis. 4. Ischemic colitis status post mesenteric artery bypass with PTF graft. 5. Abdominal aortic aneurysm status post endovascular repair. PLAN DISCUSSION: We will leave the pigtail catheter to suction today. If nothing comes out tomorrow, we will remove the pigtail catheter. He is fairly uncooperative. I am not sure whether I will be able to get him to sit up to remove the pigtail catheter. LORRIE
--- NOTE | 2019-11-02 12:20 | IPN ---
DATE: 10/31/2019 SUBJECTIVE: Patient is seen and examined at the bedside. Chart has been reviewed. He denies any chest pain, pressure, tightness, shortness of breath this morning. No fever or chills overnight. Despite having the pigtail catheter placed to suction, patient says that he has no pain at the site. OBJECTIVE: PHYSICAL EXAMINATION: Vital signs: Temperature 97.2, pulse 62, respiratory rate 16, blood pressure 136/63, 95% on 2 liters nasal cannula. Chest tube drainage right lateral chest 180 mL overnight. Input overnight 790, output of 180. Since midnight 290 input, output of 0. Not documented. Generally: Awake, alert, oriented to person and place. Answering questions appropriately. No jugular venous distension (JVD), no thyromegaly, no cervical lymphadenopathy. Moist mucous membranes. Appears his staged age. Lungs: Diminished bibasilar crackles. Right lateral chest with pigtail catheter attached to suction. Heart: S1, S2, irregularly irregular. Abdomen: Soft, nontender, nondistended. Midline nikita noted in the abdomen, well-healed, nikita have been removed. Positive bowel sounds times four quadrants. Feeding tube and [place] catheter in place. LABORATORY DATA: White count 14.4, hemoglobin 9, hematocrit 30, platelet count of 363, sodium 141, potassium 3.8, chloride 104, bicarbonate 30, BUN 17, creatinine 1, glucose of 148. Sputum culture growing yeast. Abdominal wall wound culture Enterobacter, Klebsiella, and methicillin-resistant Staphylococcus aureus (MRSA). Pleural fluid culture is still pending. No organism seen. ASSESSMENT AND PLAN: This is a 79-year-old male: 1. Healthcare-associated pneumonia right lower lobe with parapneumonic effusion. Currently on Bactrim and cefepime. Lasix IV daily. Chest tube managed by Dr. Holley. 2. Atrial fibrillation. On chronic amiodarone and Eliquis, aspirin. Rate controlled with diltiazem and metoprolol twice a day with holding parameters. 3. History of ischemic colitis with recent Clostridium (C) difficile. Completed vancomycin with postoperative wound infection. Currently on Bactrim and cefepime. Wound culture has been sensitive to Bactrim. Await culture results from the pleural fluid. If negative, may discontinue cefepime. 4. History of coronary artery disease (CAD). Resumed on home medications. 5. Acute on chronic renal failure stage III. Currently at baseline creatinine status post IV fluids. 6. Pneumothorax. Repeated chest x-ray had no pneumothorax. 7. Chronic abdominal aortic aneurysm. Followup with vascular surgery as outpatient. 8. Methicillin-resistant Staphylococcus aureus (MRSA) positive. On Bactrim and contact precautions. DISPOSITION: Placement rehabilitation. MTDD
--- NOTE | 2019-11-02 12:27 | IPN ---
DATE: 11/01/2019 SUBJECTIVE: Mr. Valiente has evidently opted for comfort care and he is going to be discharged from the hospital today. His chest catheter has drained only 76 cc yesterday and 20 cc today. There is no air leak, and I will therefore remove it. Pathology cell block is still pending, however, the cytology shows no malignancy. I discussed his findings yesterday. His pleural fluid analysis yesterday looking like a parapneumonic effusion. As he is opting for comfort care, I will not need to see him in post hospitalization follow-up. IMPRESSION: 1. Parapneumonic effusion. 2. Pneumothorax - resolved. 3. History of atrial fibrillation with Eliquis. 4. Ischemic colitis; status post mesenteric artery bypass with PTFE graft. 5. Abdominal aortic aneurysm; status post endovascular repair. PLAN/DISCUSSION: His right costophrenic angle on his chest x-ray is cut off, however from what I can see, it looks to be sharp. He has the infiltrate in the right lower lobe, which looks to be improving. As noted above, I have removed his chest tube catheter. He will be discharged today on comfort care. LORRIE
--- NOTE | 2019-11-02 14:59 | IPN ---
DATE: 11/01/2019 SUBJECTIVE: Patient is seen and examined at the bedside. Chart has been reviewed. Patient is requesting to be discharged home with hospice, comfort measures only and to discontinue all active medical treatment. Patient denies any pain at the chest tube site. Pigtail catheter to suction, still draining out 76 mL from last night, 20 mL since midnight, 180 mL on the first day on 10/30/2019. Patient denies any cough, fever, chills, or shortness of breath. Anxious to go home and refusing further medical treatment. Family, especially his daughter, who is the health care proxy, has been contacted and agrees with going home. Lupe Julio, phone number is [phone]. OBJECTIVE: PHYSICAL EXAMINATION: Vital signs: Temperature 97.4, pulse 61, respiratory rate 17, blood pressure 128/60, 95% on two liters nasal cannula. Generally: Patient appears disheveled, older than his stated age, no respiratory distress, able to speak in full sentences. Hard of hearing. No jugular venous distension (JVD) or thyromegaly. Right pigtail catheter attached to suction. Lungs: Diminished, clear to auscultation. Heart: S1, S2, irregularly irregular. Abdomen: Soft, nontender, nondistended. [place] have been removed. Well- healed sternal scar with no serous or sanguineous drainage. Extremities: No cyanosis or clubbing. Input and output: Input 390, output 76, output through the right lateral pigtail catheter 76 mL. Current weight is 90 kg from previous weight of 88.7 kg. LABORATORY DATA: White count 15, hemoglobin 9, hematocrit 29, platelet count 340, sodium 138, potassium 3.8, chloride 101, bicarbonate 31, BUN 16, creatinine 1.16, glucose 161. ASSESSMENT AND PLAN: This is a 79-year-old male with history of ischemic colitis status post mesenteric artery bypass with PTF graft, abdominal aortic aneurysm status post endovascular repair, history of chronic atrial fibrillation on Eliquis, treated for Clostridium difficile after discharge from [facility] in September, admitted for parapneumonic effusion status post pigtail catheter, and resolved pneumothorax. CURRENT ISSUES: Are as follows; 1. Parapneumonic effusion right lower lobe status post pigtail catheter placement on 10/31/2019 managed by thoracic surgeon, Dr. Holley. Patient is now requesting comfort measures only, DO NOT RESUSCITATE/DO NOT INTUBATE and to be discharged home with hospice. 2. Healthcare-associated pneumonia. Discharged from [facility] recently. Patient has completed a full 10 day course of antibiotics, initially with vancomycin, Zosyn, now with Bactrim, cefepime, recently changed to ceftriaxone yesterday for 1 more day to complete a 10 day course. 3. Recent Clostridium difficile colitis. Discharged from [facility]. Has resolved. Patient had been on fidaxomicin. Contact precautions have been discontinued. 4. History of ischemic colitis status post small mesenteric artery (SMA) bypass, bowel resection [facility] with gastrostomy (G) tube placement, resolved. [place] have been removed. No acute issues. Tolerating his diet well. 5. Acute kidney injury on chronic kidney disease, resolved. Currently at baseline chronic kidney disease. Avoiding nephrotoxins. Renally dosing all medications. 6. Atrial fibrillation, chronic. Patient has been resumed back on his home medications, amiodarone, Apixaban, diltiazem, and metoprolol for rate control. 7. Hypertension, stable. On metoprolol and diltiazem. 8. Dyslipidemia. On chronic Lipitor. 9. Peripheral artery disease. On Eliquis, aspirin, and Lipitor. 10. Postoperative skin infection status post small mesenteric artery (SMA) bypass and bowel resection. Wound culture grew out methicillin-resistant Staphylococcus aureus (MRSA), Klebsiella, Enterobacter cloacae. Currently on Bactrim with gonzales sensitivity. Two more days of ceftriaxone, last day will be today for healthcare-associated pneumonia. DISPOSITION: Patient is requesting the termination of all active medical treatment, comfort measures only, DO NOT RESUSCITATE/DO NOT INTUBATE. MTDD
--- NOTE | 2019-11-03 10:05 | REP ---
CHEST X-RAY: CLINICAL: Follow up right lower lobe pneumonia and parapneumonic effusion. TECHNIQUE: PA and lateral COMPARISON: 10/29/19 FINDINGS: Cardiomegaly and diffuse chronic interstitial changes are again appreciated. Bilateral lower lobe opacities (right greater than left) and small right pleural effusion are again noted, similar to prior examination and consistent with the given history of right lower lobe pneumonia and effusion. A single lead pacemaker in stable satisfactory position. No pneumothorax identified. Skeletal structures are intact. IMPRESSION: Lower lobe opacities (right greater than left) and small right pleural effusion, unchanged from prior examination. Differential diagnosis includes pneumonia as well as pulmonary edema. MTDD
--- NOTE | 2019-11-03 10:10 | REP ---
CHEST X-RAY CLINICAL: Evaluate for pneumothorax. TECHNIQUE: AP and lateral. COMPARISON: 10/24/2019, 10/23/2019. FINDINGS: Cardiomegaly with chronic changes and patchy lower lobe infiltrate/atelectasis and possible small right pleural effusion are identified and similar to prior examination. The previously noted small right apical pneumothorax is no longer evident. Stable cardiomegaly and atherosclerotic change is noted along with single-lead pacemaker in stable position. Skeletal structures are intact. IMPRESSION: 1. Cardiomegaly with chronic changes and superimposed lower lobe atelectasis. Possible small right pleural effusion. 2. Previously noted right apical pneumothorax no longer evident. MTDD
--- NOTE | 2019-11-03 10:14 | REP ---
CHEST X-RAY: 2-VIEWS HISTORY: Evaluate question pneumothorax. COMPARISON: 10/25/2019. FINDINGS: Moderate to marked cardiomegaly is again observed. There is a unipolar pacemaker in place via the left side. There is a tiny right apical air collection consistent with a tiny right-sided pneumothorax. There is mild fissural thickening on the minor fissure. Vascular congestion and cephalization is visible. Hazy opacity at the bases suggests small effusions. IMPRESSION: Tiny right apical pneumothorax. Cardiomegaly. Question small effusions. Vascular congestion. Pacemaker. MTDD
--- NOTE | 2019-11-03 10:16 | REP ---
CHEST X-RAY: HISTORY: Follow up pneumothorax. TECHNIQUE: AP and lateral COMPARISON: 10/26/19 FINDINGS: Cardiomegaly and increased pulmonary vasculature/interstitial markings along with lower lobe infiltrates and suspected small pleural effusions consistent with progressive CHF/pulmonary edema. Differential diagnosis includes multifocal pneumonia. No obvious pneumothorax. Stable pacemaker. Skeletal structures are intact. IMPRESSION: 1. No obvious residual right apical pneumothorax identified on current examination. 2. Progressive CHF/pulmonary edema. Differential diagnosis includes multifocal pneumonia. MTDD
--- NOTE | 2019-11-03 10:21 | REP ---
NONCONTRAST CT OF THE BRAIN: CLINICAL: Altered mental status. TECHNIQUE: Axial noncontrast images from the skull base to the vertex with coronal reformations. COMPARISON: 07/04/2019. FINDINGS: Atrophy and microvascular ischemic changes with periventricular leukomalacia again noted. Evidence for old left occipital lobe infarction. The ventricles are symmetric. Scott-white differentiation is relatively maintained. No acute intracranial hemorrhage, mass, or mass effect. No extraaxial fluid collection. The calvarium is intact. The paranasal sinuses and mastoid air cells are clear. IMPRESSION: 1. Atrophy and microvascular ischemic changes with evidence for prior left occipital lobe infarction. 2. No acute intracranial pathology or trauma/injury. MTDD
--- NOTE | 2019-11-03 10:23 | REP ---
CONTRAST ENHANCED CHEST CT CLINICAL: Increasing leukocytosis. Chest pain. TECHNIQUE: Axial contrast images from the thoracic inlet to the upper abdomen with coronal and sagittal reformations using 100 mL Isovue-370 intravenous contrast material followed by CT of the abdomen and pelvis. FINDINGS: A small residual right anterior pneumothorax is again appreciated and slightly decreased in size from prior examination. Pulmonary vascular congestion along with cardiomegaly, increased interstitial markings, scattered atelectasis, right lower lobe consolidation, and bilateral pleural effusions (right greater than left) are appreciated. Mediastinum demonstrates atherosclerotic changes to the thoracic aorta and coronary arteries. No pericardial effusion. No significant adenopathy. The descending thoracic aorta demonstrates significant atheromatous plaquing and ulceration. Musculoskeletal structures demonstrate age-related degenerative changes without acute osseous abnormality. IMPRESSION: 1. Small residual right anterior pneumothorax slightly decreased from prior examination. 2. Moderate right and small left pleural effusions along with right lower lobe consolidation, bilateral atelectasis, pulmonary vascular congestion, and increased interstitial markings suggesting congestive heart failure (CHF)/pulmonary vascular congestion. Acute pneumonia cannot be excluded. 3. Significant atherosclerotic changes to the thoracic aorta including elements of mural thrombus and ulceration MTDD
--- NOTE | 2019-11-03 10:25 | REP ---
CT ABDOMEN AND PELVIS WITH CONTRAST CLINICAL: Increased leukocytosis. Rule out abscess. TECHNIQUE: Axial contrast enhanced images from the lung bases to the pubic symphysis using 100 mL Isovue-370 intravenous contrast material with coronal and sagittal reformations. COMPARISON: 10/23/2019, 10/04/2019. FINDINGS: A jsvej-dn-fedahlpy amount of ascites along with moderate diffuse mesenteric stranding is noted throughout the abdomen and pelvis. There is no evidence for free air. Liver, spleen, atrophic pancreas, bilateral adrenal glands, and right kidney are relatively normal/stable. Cholelithiasis noted. The left kidney is atrophic and likely secondary to vascular insufficiency. A PEG tube is identified in satisfactory position within the stomach. Evaluation of the enteric system demonstrates no obstruction, and the previously noted pneumatosis and subtle perforation involving bowel in the mid to lower abdomen appears to have resolved. Pelvis demonstrates a normal bladder and age appropriate prostate/seminal vesicles with prostatic calcifications again noted. There is evidence for prior kdlxz-mh-cpcrr stent repair for aneurysm, which remains stable. There is a new stent graft extending from the left external iliac artery superiorly to feed the superior mesenteric artery and this stent graft appears patent. The aorta above the level of the aortic stent demonstrates significant atherosclerotic disease with small scattered penetrating atherosclerotic ulcer. No significant adenopathy. The osseous structures demonstrate age-related osteopenia and degenerative changes. There is a compression deformity at the T12 level. IMPRESSION: 1. Pdjih-tn-gsrixqqy amount of ascites and diffuse mesenteric stranding similar to recent prior examination. No free air or obvious focal drainable collection/abscess. 2. New stent graft extending from the left external iliac artery to the superior mesenteric artery, which appears patent and without evidence for extravasation/leak. 3. Compression fracture involving T12. 4. Cholelithiasis. 5. Extensive atherosclerotic disease to the aorta including few scattered penetrating atherosclerotic ulcers in the visualized descending thoracic and upper abdominal aorta above the level of the previously placed aortoiliac stent graft. 6. Further nonacute findings as described above. [facility]
--- NOTE | 2019-11-03 10:27 | REP ---
CHEST X-RAY: HISTORY: Follow up pneumothorax. TECHNIQUE: AP and lateral COMPARISON: 10/27/19. FINDINGS: Pacemaker in stable position. Stable cardiomegaly and atherosclerotic changes noted. Lung velazquez demonstrate diffuse chronic interstitial changes with superimposed mid to lower lobe infiltrates (right greater than left) and suspected small pleural effusions (right greater than left). No obvious pneumothorax. Skeletal structures are intact. IMPRESSION: Stable chest x-ray again demonstrating bilateral infiltrates. Differential diagnosis includes moderate CHF and multifocal pneumonia. No pneumothorax identified. MTDD
--- NOTE | 2019-11-03 10:28 | REP ---
CHEST X-RAY: CLINICAL: Evaluate pneumothorax. TECHNIQUE: PA and lateral COMPARISON: 10/28/19 FINDINGS: Mediastinum and cardiac silhouette are stable with cardiomegaly again appreciated. The lung velazquez demonstrate bilateral lower lobe opacities (right greater than left), suggesting consolidation and small pleural effusions. No obvious pneumothorax identified. Skeletal structures are intact. IMPRESSION: Continued lower lobe infiltrates and effusions (right greater than left). No obvious residual pneumothorax. MTDD
--- NOTE | 2019-11-19 14:44 | REP ---
SINGLE VIEW CHEST TECHNIQUE: Single frontal view of the chest is performed following placement of a right pigtail pleural drainage catheter using ultrasound guidance. HISTORY: Right pleural effusion. FINDINGS: Right pleural drainage catheter is seen overlying the right lung base. There is a very small right apical pneumothorax. Decreased opacity is seen in the right lung base. Left lung is unchanged in appearance. Left single lead pacemaker is again noted. Cardiomediastinal silhouette is unchanged. MTDD
--- NOTE | 2019-11-19 14:46 | REP ---
ULTRASOUND GUIDED RIGHT THORACENTESIS WITH CATHETER PLACEMENT The procedure was performed under the direct supervision of Dr. Osborne. The risks and benefits of the procedure were explained to the patient and informed consent was obtained. DESCRIPTION OF PROCEDURE: The right pleural effusion was localized using ultrasound guidance. The skin was prepped and draped in a sterile fashion. 1% Lidocaine was used as a local anesthetic. Using ultrasound guidance, a 10-Czech Skater APDL catheter was inserted using trocar technique. 650 mL of cloud yellow fluid was withdrawn and sent to the lab for analysis. The catheter was affixed to the skin and a sterile dressing was applied. The catheter was connected to a Pleur-Evac. The patient tolerated the procedure well and there were no immediate complications. After the appropriate amount of monitor convalescence, the patient was discharged from the department. LORRIE
--- NOTE | 2019-11-21 15:20 | REP ---
CHEST X-RAY: AP AND LATERAL CLINICAL HISTORY: Hypoxia. FINDINGS: Stable chronic cardiomegaly and diffuse chronic interstitial changes are appreciated. Subtle lower lobe atelectasis/early infiltrates are suggested. Small layering effusion cannot be excluded based on lateral radiograph. No pneumothorax. Skeletal structures are intact. IMPRESSION: Chronic changes with suspected superimposed bibasilar atelectasis/early infiltrates and possible right pleural effusion. MTDD
== END 2019-11-01 14:10 | disposition hospice, home (50) | DRG 371 ==
LOC: EEVIPCON 22:41 → M MS5PR 22:41 → M PCU 10-23 15:43 → M MSPAV 10-26 21:12 → M PCU 10-27 15:59
PROVIDERS: ADMIT General Practice; ATTEND General Practice
PROC: 0W9930Z Drainage of Right Pleural Cavity with Drainage Device, Percutaneous Approach (ICD-10-PCS; principal; 2019-10-30 16:14)
DX: A04.72 Enterocolitis due to Clostridium difficile, not specified as recurrent (principal); J18.9 Pneumonia, unspecified organism; N17.9 Acute kidney failure, unspecified; R18.8 Other ascites; J44.0 Chronic obstructive pulmonary disease with (acute) lower respiratory infection; J90 Pleural effusion, not elsewhere classified; T81.41XA Infection following a procedure, superficial incisional surgical site, initial encounter; I12.9 Hypertensive chronic kidney disease with stage 1 through stage 4 chronic kidney disease, or unspecified chronic kidney disease; I25.10 Atherosclerotic heart disease of native coronary artery without angina pectoris; Z51.5 Encounter for palliative care; Z66 Do not resuscitate; I48.91 Unspecified atrial fibrillation; I71.4 Abdominal aortic aneurysm, without rupture; R26.81 Unsteadiness on feet; R73.9 Hyperglycemia, unspecified; I73.9 Peripheral vascular disease, unspecified; N18.3 Chronic kidney disease, stage 3 (moderate); G20 Parkinson's disease; N20.0 Calculus of kidney; Y95 Nosocomial condition; E87.5 Hyperkalemia; K80.20 Calculus of gallbladder without cholecystitis without obstruction; Z79.01 Long term (current) use of anticoagulants; Z79.899 Other long term (current) drug therapy; Y83.8 Other surgical procedures as the cause of abnormal reaction of the patient, or of later complication, without mention of misadventure at the time of the procedure; Z90.49 Acquired absence of other specified parts of digestive tract

== ENCOUNTER → 2019-11-21 | Outpatient (REF) | payer MEDICARE, OTHER ==
[~2019-11-21] MED LIST changes: +ATIV1TAB10 PO; +CAND4TAB PO; +DIFI200T PO; +DOCU100C17 PO; +DOXY-259 PO; +HYOS125TA PO; +MORP20SO3 PO; +MOXI1TAB PO; +OXYC20TA40 PO
[2019-11-21 13:23] LABS: HEMATOCRIT 35.2 % (42.0-52.0); HEMOGLOBIN 10.7 g/dl (13.5-17.5); MEAN CORPUSCULAR HEMOGLOBIN 25.8 pg (27.0-33.0); MEAN CORPUSCULAR HGB CONC 30.4 g/dl (32.0-36.5); PLATELET COUNT, AUTOMATED 214 10^3/uL (150-450); RED BLOOD COUNT 4.14 10^6/uL (4.30-6.10); WHITE BLOOD COUNT 10.3 10^3/uL (4.0-10.0)
[2019-11-21 13:57] LABS: ALBUMIN 2.7 GM/DL (3.2-5.2); ALT/SGPT 11 U/L (12-78); BILIRUBIN,TOTAL 0.5 MG/DL (0.2-1.0); BLOOD UREA NITROGEN 12 MG/DL (7-18); CALCIUM LEVEL 8.7 MG/DL (8.8-10.2); CARBON DIOXIDE LEVEL 27 MEQ/L (21-32); CHLORIDE LEVEL 99 MEQ/L (98-107); CREATININE FOR GFR 1.13 MG/DL (0.70-1.30); GLOMERULAR FILTRATION RATE > 60.0 (>42); GLUCOSE, FASTING 159 MG/DL (70-100); POTASSIUM SERUM 3.2 MEQ/L (3.5-5.1); SODIUM LEVEL 135 MEQ/L (136-145); TOTAL PROTEIN 6.2 GM/DL (6.4-8.2)
== END ==
LOC: M SHH 12:06
PROVIDERS: ATTEND Family Medicine
DX: I48.91 Unspecified atrial fibrillation (principal)

== ENCOUNTER 2019-11-24 03:30 | Emergency (ER) | payer MEDICARE, OTHER ==
[~2019-11-24] VITALS: Ht 170.2 cm; Wt 107.6 kg
[2019-11-24 03:54] LABS: BASO # 0.1 10^3/uL (0.0-0.2); BASO % 0.3 % (0.0-1.0); EOS # 0.3 10^3/uL (0.0-0.5); EOS % 1.8 % (0.0-3.0); HEMATOCRIT 38.7 % (42.0-52.0); HEMOGLOBIN 11.9 g/dl (13.5-17.5); LYMPH # 3.1 10^3/uL (1.5-5.0); LYMPH % 19.7 % (24.0-44.0); MEAN CORPUSCULAR HEMOGLOBIN 25.3 pg (27.0-33.0); MEAN CORPUSCULAR HGB CONC 30.7 g/dl (32.0-36.5); MEAN CORPUSCULAR VOLUME 82.3 fl (80.0-96.0); MONO # 1.1 10^3/uL (0.0-0.8); MONO % 7.1 % (0.0-5.0); NEUTROPHILS % 70.2 % (36.0-66.0); PLATELET COUNT, AUTOMATED 265 10^3/uL (150-450); WHITE BLOOD COUNT 15.7 10^3/uL (4.0-10.0)
[2019-11-24] MEDS ORDERED: NS 1,000 ML IV ONE (04:00)
[2019-11-24 04:15] LABS: ALBUMIN 2.8 GM/DL (3.2-5.2); BILIRUBIN,DIRECT 0.2 MG/DL (0.0-0.2); BILIRUBIN,TOTAL 0.8 MG/DL (0.2-1.0); CALCIUM LEVEL 8.7 MG/DL (8.8-10.2); CK-MB VALUE MASS 1.3 NG/ML (<3.6); CREATININE FOR GFR 1.32 MG/DL (0.70-1.30); GLOMERULAR FILTRATION RATE 55.8 (>42); POTASSIUM SERUM 3.6 MEQ/L (3.5-5.1); TOTAL PROTEIN 6.4 GM/DL (6.4-8.2); TROPONIN I 0.02 NG/ML (< 0.10)
[2019-11-24] MEDS ORDERED: METOPROLOL 5 MG/5 ML VIAL IV SCH ×2 (04:15)
--- NOTE | 2019-11-24 04:24 | REPVR ---
PROCEDURE INFORMATION: Exam: CT Head Without Contrast Exam date and time: 11/24/2019 3:48 AM Age: 79 years old Clinical indication: Altered mental status/memory loss; Confusion or disorientation; Additional info: AMS TECHNIQUE: Imaging protocol: Computed tomography of the head without contrast. Radiation optimization: All CT scans at this facility use at least one of these dose optimization techniques: automated exposure control; mA and/or kV adjustment per patient size (includes targeted exams where dose is matched to clinical indication); or iterative reconstruction. COMPARISON: CT Head without contrast 10/27/2019 3:03 PM FINDINGS: Limitations: There is artifact causing bands of low density through the images. Brain: There is moderate, diffuse parenchymal volume loss. There is heterogeneity of the white matter attenuation, most consistent with moderate chronic white matter ischemic changes. There is an area of encephalomalacia in the left occipital lobe, also present previously. The elias-white differentiation is otherwise preserved throughout the brain. There is no evidence of intracranial hemorrhage. Cerebral ventricles: The ventricular system demonstrates moderate diffuse compensatory enlargement. Bones/joints: No acute fractures of the skull are identified. Paranasal sinuses: The sinuses are clear. Mastoid air cells: The mastoid air cells are clear. Soft tissues: Unremarkable. IMPRESSION: 1. No evidence of acute infarct or hemorrhage. 2. Encephalomalacia again seen in the left occipital lobe, likely from a prior infarct. 3. Stable moderate diffuse parenchymal volume loss and low attenuation in the periventricular white matter, most consistent with chronic small vessel ischemic disease. Electronically signed by: Roz Zepeda On 11/24/2019 04:23:48 AM
--- NOTE | 2019-11-24 04:34 | REPVR ---
PROCEDURE INFORMATION: Exam: XR Chest, 1 View Exam date and time: 11/24/2019 4:21 AM Age: 79 years old Clinical indication: Other: AMS TECHNIQUE: Imaging protocol: XR of the chest Views: 1 view. COMPARISON: CR Chest, 2 view PA, Lat 11/01/2019 7:50 AM FINDINGS: Tubes, catheters and devices: There is a left sided AICD/pacemaker. A right pleural pigtail catheter has been removed since the prior exam. Lungs: Prominence of markings in the lung bases appears similar to the prior exam and may be chronic changes. Pleural space: A small amount of pleural fluid versus pleural thickening is noted toward the left costophrenic angle, unchanged. Heart/Mediastinum: The heart is enlarged. Vasculature: Aortic knob calcifications are noted. Bones/joints: Unremarkable. IMPRESSION: 1. Prominence of markings in the lung bases, similar to the prior exam, probably representing chronic changes. No definite acute abnormality identified. 2. Interval removal of right pleural pigtail catheter. Electronically signed by: Roz Zepeda On 11/24/2019 04:34:07 AM
[2019-11-24] MEDS ORDERED: AMIODARONE HCL 360 MG in IV 1 EA IV SCH (05:00)
[2019-11-24 05:06] LABS: MAGNESIUM LEVEL 1.5 MG/DL (1.8-2.4)
[2019-11-24] MEDS ORDERED: MAG SULF 1GM/100ML (MAG RUN) 1 GM in IV 1 EA IV ONE (05:15)
[2019-11-24 06:59] VITALS: BP 152/94
--- NOTE | 2019-11-25 15:19 | ECGEPIP ---
[facility] - ED Test Date: 2019-11-24 Pat Name: ZACH HARRISON Department: Room: - Gender: Male [employer] Sharpshooter: ef : 1940 Requested By: MAC Jean Order Number: [id number] Reading MD: Drea Ruiz Measurements Intervals [place] Rate: 131 P: MT: 0 QRS: -16 QRSD: 122 T: 101 QT: 251 QTc: 372 Interpretive Statements ATRIAL FIBRILLATION WITH RAPID VENTRICULAR RESPONSE LATERAL MYOCARDIAL INFARCTION, PROBABLY OLD INFERIOR MYOCARDIAL INFARCTION, PROBABLY OLD WITH POSTERIOR EXTENSION ST DEPRESSION, CONSIDER SUBENDOCARDIAL INJURY INCREASED RATE 09/23/19 Electronically Signed on 11-25-2019 15:19:12 EDT by Drea Ruiz
== END 2019-11-24 07:02 | disposition short-term general hospital (02) ==
LOC: M ED 03:30
DX: I47.2 Ventricular tachycardia (principal); E83.42 Hypomagnesemia; E11.9 Type 2 diabetes mellitus without complications; I10 Essential (primary) hypertension; I48.91 Unspecified atrial fibrillation; Z79.899 Other long term (current) drug therapy; Z79.82 Long term (current) use of aspirin; Z79.01 Long term (current) use of anticoagulants
CPT/HCPCS: 70450; 71045; 80048; 80076; 82550; 82553; 83690; 83735; 84484; 85025; 93005; 93041; 96361; 96365; 96375; 99291; J0282; J3475; U0002